=== PATIENT | male | born 1955 | race Caucasian/White ===

== ENCOUNTER 2017-06-18 11:15 | Emergency (ER) | payer MEDICAID, OTHER ==
[~2017-06-18] VITALS: Ht 162.6 cm; Wt 78.9 kg
--- OUTSIDE RECORDS SUMMARY | 2017-06-18 11:27 | XMS REPORT ---
Author Author Liam Fajardo [facility] Address [address] [place], [place] [id number] Care Team Providers Care Chucker Name Role Phone Liam Fajardo PCP Unavailable Liam Fajardo PreferredProvider Unavailable Allergies and Adverse Reactions Name Reaction Notes Valium Excedrin Extra Strength Plan of Treatment Planned Activity Comments Planned Date Planned Time Plan/Goal HEMATOCRIT 05/24/2016 12:00 AM HEMOGLOBIN 05/24/2016 12:00 AM IRON TOTAL 05/24/2016 12:00 AM VITAMIN B12 05/24/2016 12:00 AM Folate measurement 05/24/2016 12:00 AM CBC with Auto 01/02/2013 12:00 AM Lipid Profile 01/02/2013 12:00 AM Hemoglobin A1c 01/02/2013 12:00 AM Comprehensive metabolic panel 01/19/2013 12:00 AM Injection,Subcutaneous/Intramuscul 07/09/2013 12:00 AM Injection,Subcutaneous/Intramuscul 07/23/2013 12:00 AM Medications Active Name Start Date Estimated Completion Date SIG Comments aspirin 81 mg oral tablet take 1 tablet (81 mg) by oral route once daily Compete Oral Tablet take 1 tablet by oral route daily Cialis 20 mg oral tablet 11/09/2011 take 1 tablet (20 mg) by oral route once daily carvedilol 25 mg oral tablet 06/22/2013 TAKE ONE TABLET BY MOUTH TWICE DAILY WITH FOOD glyburide 5 mg oral tablet 08/24/2013 TAKE ONE TABLET BY MOUTH TWICE DAILY BEFORE MEALS carvedilol 25 mg oral tablet 11/13/2013 TAKE ONE TABLET BY MOUTH TWICE DAILY WITH FOOD metformin 1,000 mg oral tablet 11/13/2013 TAKE ONE TABLET BY MOUTH TWICE DAILY WITH MORNING AND EVENING MEALS Benicar HCT 40-25 mg oral tablet 11/13/2013 TAKE ONE TABLET BY MOUTH EVERY DAY sertraline 100 mg oral tablet 11/13/2013 TAKE ONE & ONE-HALF TABLETS BY MOUTH EVERY DAY Benicar HCT 40-25 mg oral tablet 12/28/2013 TAKE ONE TABLET BY MOUTH EVERY DAY carvedilol 25 mg oral tablet 12/28/2013 TAKE ONE TABLET BY MOUTH TWICE DAILY WITH FOOD sertraline 100 mg oral tablet 12/28/2013 TAKE ONE & ONE-HALF TABLETS BY MOUTH EVERY DAY metformin 1,000 mg oral tablet 12/28/2013 TAKE ONE TABLET BY MOUTH TWICE DAILY WITH MORNING AND EVENING MEALS furosemide 80 mg oral tablet 12/28/2013 TAKE ONE TABLET BY MOUTH EVERY DAY Klor-Con M10 10 mEq oral tablet,ER particles/crystals 04/06/2014 TAKE ONE TABLET BY MOUTH TWICE DAILY Benicar HCT 40-25 mg oral tablet 05/17/2014 TAKE ONE TABLET BY MOUTH EVERY DAY sertraline 100 mg oral tablet 05/17/2014 TAKE ONE & ONE-HALF TABLETS BY MOUTH ONCE DAILY carvedilol 25 mg oral tablet 05/17/2014 TAKE ONE TABLET BY MOUTH TWICE DAILY WITH FOOD furosemide 80 mg oral tablet 05/17/2014 TAKE ONE TABLET BY MOUTH EVERY DAY metformin 1,000 mg oral tablet 05/17/2014 TAKE ONE TABLET BY MOUTH TWICE DAILY WITH MORNING AND EVENING MEALS Stribild [id number] mg oral tablet take 1 tablet by oral route once daily with food glyburide 5 mg oral tablet 06/21/2014 TAKE ONE TABLET BY MOUTH TWICE DAILY BEFORE MEALS Klor-Con M10 10 mEq oral tablet,ER particles/crystals 07/23/2014 TAKE ONE TABLET BY MOUTH TWICE DAILY simvastatin 40 mg oral tablet 08/30/2014 TAKE ONE TABLET BY MOUTH ONCE DAILY IN THE EVENING Klor-Con M10 10 mEq oral tablet,ER particles/crystals 01/06/2015 TAKE ONE TABLET BY MOUTH TWICE DAILY pantoprazole 40 mg oral tablet,delayed release (DR/EC) 01/10/2015 TAKE ONE TABLET BY MOUTH ONCE DAILY Benicar HCT 40-25 mg oral tablet 05/30/2015 TAKE ONE TABLET BY MOUTH ONCE DAILY carvedilol 25 mg oral tablet 06/14/2015 TAKE ONE TABLET BY MOUTH TWICE DAILY WITH FOOD furosemide 80 mg oral tablet 06/14/2015 TAKE ONE TABLET BY MOUTH ONCE DAILY metformin 1,000 mg oral tablet 06/14/2015 TAKE ONE TABLET BY MOUTH TWICE DAILY WITH MORNING AND EVENING MEALS sertraline 100 mg oral tablet 06/14/2015 TAKE ONE & ONE-HALF TABLETS BY MOUTH ONCE DAILY pantoprazole 40 mg oral tablet,delayed release (DR/EC) 06/14/2015 TAKE ONE TABLET BY MOUTH ONCE DAILY naproxen 500 mg oral tablet 07/18/2015 TAKE ONE TABLET BY MOUTH TWICE DAILY NEEDED WITH FOOD metformin 1,000 mg oral tablet 09/06/2015 TAKE ONE TABLET BY MOUTH TWICE DAILY WITH MORNING AND EVENING MEALS sertraline 100 mg oral tablet 09/06/2015 TAKE ONE & ONE-HALF TABLETS BY MOUTH ONCE DAILY carvedilol 25 mg oral tablet 09/06/2015 TAKE ONE TABLET BY MOUTH TWICE DAILY WITH FOOD simvastatin 40 mg oral tablet 09/06/2015 TAKE ONE TABLET BY MOUTH ONCE DAILY IN THE EVENING Klor-Con M10 10 mEq oral tablet,ER particles/crystals 09/06/2015 TAKE ONE TABLET BY MOUTH TWICE DAILY furosemide 80 mg oral tablet 09/06/2015 TAKE ONE TABLET BY MOUTH ONCE DAILY Fiona Contour Test Strips to test Blood sugar bid. ICD.10 E11.9 Tradjenta 5 mg oral tablet take 1 tablet (5 mg) by oral route once daily pantoprazole 40 mg oral tablet,delayed release (DR/EC) 11/01/2015 TAKE ONE TABLET BY MOUTH ONCE DAILY Benicar HCT 40-25 mg oral tablet 11/29/2015 TAKE ONE TABLET BY MOUTH ONCE DAILY Novolog Flexpen 100 unit/mL subcutaneous insulin pen 12/09/2015 inject by subcutaneous route 10 units ac meals carvedilol 25 mg oral tablet 01/02/2016 TAKE ONE TABLET BY MOUTH TWICE DAILY WITH FOOD simvastatin 40 mg oral tablet 01/02/2016 TAKE ONE TABLET BY MOUTH ONCE DAILY IN THE EVENING Klor-Con M10 10 mEq oral tablet,ER particles/crystals 01/02/2016 TAKE ONE TABLET BY MOUTH TWICE DAILY metformin 1,000 mg oral tablet 01/02/2016 TAKE ONE TABLET BY MOUTH TWICE DAILY WITH MORNING AND EVENING MEALS furosemide 80 mg oral tablet 01/02/2016 TAKE ONE TABLET BY MOUTH ONCE DAILY sertraline 100 mg oral tablet 01/02/2016 TAKE ONE & ONE-HALF TABLETS BY MOUTH ONCE DAILY naproxen 500 mg oral tablet 01/30/2016 TAKE ONE TABLET BY MOUTH TWICE DAILY NEEDED WITH FOOD Novolog Flexpen 100 unit/mL subcutaneous insulin pen 01/30/2016 INJECT 10 UNITS SUBCUTANEOUSLY BEFORE MEALS naproxen 500 mg oral tablet 03/06/2016 TAKE ONE TABLET BY MOUTH TWICE DAILY NEEDED WITH FOOD pantoprazole 40 mg oral tablet,delayed release (DR/EC) 03/06/2016 TAKE ONE TABLET BY MOUTH ONCE DAILY ReliOn Pen Av[place] 32 gauge x " miscellaneous needle 05/10/2016 02/04/2017 use as directed for 30 days Novolog Flexpen 100 unit/mL subcutaneous insulin pen 05/23/2016 INJECT 20 UNITS SUBCUTANEOUSLY BEFORE MEALS Name Start Date Expiration Date SIG Comments metformin 1,000 mg oral tablet 06/28/2009 07/28/2009 FF TAKE ONE TABLET BY MOUTH TWICE DAILY - TAKE ONE TABLET BY MOUTH TWICE DAILY ZOLOFT 100MG TAB 100 each 12/28/2009 01/27/2010 FF TAKE ONE TABLET BY MOUTH EVERY DAY - TAKE ONE TABLET BY MOUTH EVERY DAY Vitamin B-12 1,000 mcg/mL injection solution 04/07/2010 11/03/2010 inject 0.05 milliliter (50 mcg) by intramuscular route once a month for 30 days Bactrim DS 800-160 mg oral tablet 06/06/2010 06/16/2010 take 1 tablet by oral route 2 times per day for 10 days C-PAP mask 07/05/2010 07/06/2010 wear with C PAP for LLOYD 780.53 Coreg 25 mg oral tablet 07/06/2010 08/05/2010 1BIDWF - TAKE ONE TABLET BY MOUTH TWICE DAILY WITH FOOD OneTouch Ultra Test miscellaneous strip 07/06/2010 08/05/2010 FF - TEST THREE TIMES A DAY DIRECTED Bactrim DS 800-160 mg oral tablet 07/28/2010 08/07/2010 take 1 tablet by oral route 2 times per day for 10 days bacitracin 500 unit/gram topical ointment 10/23/2010 09/18/2011 apply to affected area by external route daily for 30 days CYANOCOBALAM 1000MCGINJ 1000 milliliter 11/17/2010 12/17/2010 FF - INJECT 0.05 MG BY INTRAMUSCULAR ROUTE ONCE A MONTH Augmentin 875-125 mg oral tablet 03/06/2011 03/13/2011 take 1 tablet by oral route every 12 hours for 7 days prednisone 20 mg oral tablet 03/08/2011 03/24/2011 take 40mg by mouth daily x4 days, then 30mg daily x4 days, then 20mg daily x4 days, then 10mg x4 days. OneTouch UltraSoft Lancets miscellaneous misc 06/11/2011 07/11/2011 TEST THREE TIMES A DAY DIRECTED Zithromax Z-Inderjit 250 mg oral tablet 06/15/2011 06/20/2011 take 2 tablets (500 mg) by oral route once daily for 1 day then 1 tablet (250 mg) by oral route once daily for 4 days Replaced/Retired Drug 0.6 mg/0.1 mL (18 mg/3 mL) subcutaneous pen injector 11/25/2011 INJECT 1.8 MG SUBCUTANEOUSLY DAILY Caduet 5-40 mg oral tablet 12/04/2011 01/03/2012 TAKE ONE TABLET BY MOUTH AT BEDTIME phentermine 37.5 mg oral tablet 01/02/2012 01/02/2012 take 1 tablet (37.5 mg) by oral route once daily before breakfast Benicar HCT 40-25 mg oral tablet 10/29/2012 10/24/2013 TAKE ONE TABLET BY MOUTH EVERY DAY carvedilol 25 mg oral tablet 10/29/2012 05/27/2013 TAKE ONE TABLET BY MOUTH TWICE DAILY WITH FOOD sertraline 100 mg oral tablet 10/29/2012 10/24/2013 take 1.5 by oral route daily for 30 days metformin 1,000 mg oral tablet 10/29/2012 10/24/2013 take 1 tablet (1,000 mg) by oral route 2 times per day with morning and evening meals for 30 days furosemide 80 mg oral tablet 11/18/2012 11/13/2013 FF TAKE ONE TABLET BY MOUTH EVERY DAY - TAKE ONE TABLET BY MOUTH EVERY DAY Klor-Con M10 10 mEq oral tablet,ER particles/crystals 01/12/2013 01/19/2013 TAKE ONE TABLET BY MOUTH TWICE DAILY simvastatin 40 mg oral tablet 05/25/2013 11/21/2013 take 1 tablet (40 mg) by oral route once daily in the evening for 30 days glyburide 5 mg oral tablet 01/12/2013 01/19/2013 TAKE ONE TABLET BY MOUTH TWICE DAILY BEFORE MEALS Zithromax Z-Inderjit 250 mg oral tablet 01/01/2014 01/06/2014 take 2 tablets (500 mg ) by oral route once daily for 1 day then 1 tablet (250 mg) by oral route once daily for 4 days Jardiance 10 mg oral tablet 05/21/2014 06/04/2014 take 1 tablet (10 mg) by oral route once daily in the morning for 14 days glyburide 5 mg oral tablet 07/18/2015 TAKE ONE TABLET BY MOUTH TWICE DAILY BEFORE MEAL(S) pen needle caps 10/31/2015 02/28/2016 use daily. ICD-10 E11.9 Discontinued Name Start Date Discontinued Date SIG Comments Actos 45 mg oral tablet 09/12/2009 take 1 tablet (45 mg) by oral route once daily glyburide 5 mg oral tablet 09/12/2009 take 2 tablets (10 mg) by oral route once daily before breakfast Lipitor 40 mg oral tablet 04/07/2010 take 1 tablet (40 mg) by oral route once daily Kapidex 60 mg oral capsule,biphase delayed releas 07/15/2009 08/16/2009 take 1 capsule (60 mg) by oral route once daily Nuvigil 150 mg oral tablet 10/24/2009 01/03/2010 take 1 tablet by oral route daily Actos 45 mg oral tablet 04/05/2010 04/07/2010 1QD - TAKE ONE TABLET BY MOUTH EVERY DAY glyburide 5 mg oral tablet 04/07/2010 07/28/2010 take 1 tablet by oral route daily for 30 days Imodium A-D 2 mg oral tablet 10/29/2012 take 2 tablets (4 mg) by oral route after 1st loose stool and 1 tablet (2 mg) after each subsequent bowel movement; do not exceed 16 mg in 24hrs Bactroban 2 % topical ointment 04/07/2010 07/28/2010 apply a small amount to the affected area by topical route 3 times per day Zithromax Z-Inderjit 250 mg oral tablet 06/06/2010 06/06/2010 Take 2 tablets the first day (500 mg) followed by 1 tablet (250 mg) days 2-5. for 5 days Cheratussin AC 10-100 mg/5 mL oral liquid 06/06/2010 07/28/2010 take 10 milliliters by oral route every 4 hours as needed Klor-Con 8 8 mEq oral tablet extended release 06/06/2010 07/28/2010 FF TAKE ONE TABLET BY MOUTH TWICE DAILY - TAKE ONE TABLET BY MOUTH TWICE DAILY Lavoclen-4 4 % topical cleanser 10/18/2010 11/10/2013 wash the affected area(s ) by topical route once daily during the first week, and twice daily thereafter as tolerated glyburide 5 mg oral tablet 01/12/2013 10/29/2012 TAKE ONE TABLET BY MOUTH TWICE DAILY BEFORE MEALS deleted glyburide 5 mg oral tablet 01/12/2013 10/29/2012 TAKE ONE TABLET BY MOUTH TWICE DAILY BEFORE MEALS deleted promethazine-codeine 6.25-10 mg/5 mL oral syrup 07/17/2013 01/01/2014 take 5 milliliters by oral route every 6 hours as needed, not to exceed 30 mL in 24 hours Zoloft 100 mg oral tablet 06/02/2014 take 1.5 tablets (150 mg) by oral route once daily Claritin-D 12 Hour 5-120 mg oral tablet extended release 12 hr 01/01/2014 take 1 tablet by oral route every 12 hours phentermine 37.5 mg oral tablet 01/01/2014 06/02/2014 take 1 tablet (37.5 mg ) by oral route once daily before breakfast Tradjenta 5 mg oral tablet 05/28/2014 06/02/2014 take 1 tablet (5 mg) by oral route once daily [place] 10-325 mg oral tablet 11/02/2014 05/23/2016 take 1 tablet by oral route every 6 hours as needed for pain ProAir HFA 90 mcg/actuation inhalation HFA aerosol inhaler 05/27/20152015 inhale 1 - 2 puffs (90 - 180 mcg) by inhalation route every 6 hours as needed Pharmacist Choice lancets miscellaneous strip 05/23/2016 use as directed Toujeo SoloStar 300 unit/mL (1.5 mL) subcutaneous insulin pen 10/28/201505/23 30 units daily Apidra SoloStar 100 unit/mL subcutaneous insulin pen 12/08/2015 12/09/2015 inject 10 units with meals. ICD-10 E11.9 amoxicillin 500 mg oral capsule 12/08/2015 05/23/2016 take 4 capsules 1 hour prior to procedure Humalog KwikPen 100 unit/mL subcutaneous insulin pen 05/23/2016 05/23/2016 20 units Problem List Description Status Onset Congestive Heart Failure Active Diabetes Mellitus, Type II Active Hyperlipidemia Active Hypertension, Benign Essential Active Anxiety Active Osteoarthritis Active depression Active Knee Pain Active Polyphagia Active 04/06/2011 Diabetes Mellitus, Type II, Uncontrolled Active 05/28/2014 Vital Signs Date Time BP-Sys(mm[Hg] BP-Olga(mm[Hg]) HR(bpm) RR(rpm) Temp WT HT HC BMI BSA BMI Percentile O2 Sat(%) 05/23/2016 10:13:00 AM 142 mmHg 76 mmHg 74 bpm 16 rpm 97.7 F 209 lbs 64 in 35.87 kg/m2 2.07 m2 97 % 11/22/2015 3:08:00 PM 148 mmHg 74 mmHg 78 bpm 18 rpm 97.7 F 221 lbs 61 in 41.7572 kg/m 2.0771 m 96 % 10/28/2015 10:48:00 AM 118 mmHg 72 mmHg 83 bpm 18 rpm 97.7 F 221 lbs 61 in 41.76 kg/m2 2.08 m2 96 % 10/18/2015 9:17:00 AM 150 mmHg 80 mmHg 84 bpm 16 rpm 225 lbs 61 in 42.5129 kg/m 2.0958 m 95 % 05/27/2015 1:49:00 PM 140 mmHg 85 mmHg 89 bpm 20 rpm 98.4 F 219 lbs 61 in 41.38 kg/m2 2.07 m2 96 % 12/29/2014 4:13:00 PM 130 mmHg 70 mmHg 88 bpm 18 rpm 97.5 F 225 lbs 61 in 42.5129 kg/m 2.0958 m 97 % 11/02/2014 2:28:00 PM 168 mmHg 82 mmHg 88 bpm 18 rpm 98 F 229 lbs 61 in 43.27 kg/m2 2.11 m2 06/02/2014 10:31:00 AM 110 mmHg 56 mmHg 84 bpm 20 rpm 97.3 F 215 lbs 61 in 40.6235 kg/m 2.0487 m 96 % 05/25/2014 11:33:00 AM 118 mmHg 70 mmHg 75 bpm 18 rpm 97.4 F 215 lbs 61 in 40.62 kg/m2 2.05 m2 97 % 05/20/2014 9:40:00 AM 142 mmHg 68 mmHg 80 bpm 18 rpm 98.6 F 224 lbs 61 in 42.324 kg/m 2.0912 m 01/01/2014 10:24:00 AM 126 mmHg 74 mmHg 78 bpm 18 rpm 97 F 228.25 lbs 61 in 43.13 kg/m2 2.11 m2 96 % 11/10/2013 10:06:00 AM 122 mmHg 68 mmHg 11/10/2013 9:32:00 AM 140 mmHg 82 mmHg 78 bpm 18 rpm 97.7 F 229 lbs 61 in 43.27 kg/m2 2.11 m2 07/17/2013 10:22:00 AM 150 mmHg 80 mmHg 94 bpm 18 rpm 98.4 F 211 lbs 93 % 07/14/2013 10:08:00 AM 140 mmHg 80 mmHg 89 bpm 18 rpm 99.4 F 221 lbs 61 in 41.76 kg/m2 2.08 m2 96 % 06/25/2013 8:31:00 AM 158 mmHg 80 mmHg 82 bpm 18 rpm 98.2 F 217 lbs 66 in 35.0244 kg/m 2.1409 m 05/12/2013 2:38:00 PM 138 mmHg 76 mmHg 84 bpm 18 rpm 98.4 F 218 lbs 66 in 35.19 kg/m2 2.15 m2 10/29/2012 8:30:00 AM 138 mmHg 88 mmHg 80 bpm 18 rpm 97.8 F 218 lbs 66 in 35.1858 kg/m 2.1459 m 12/21/2011 8:41:00 AM 130 mmHg 72 mmHg 230 lbs 66 in 37.12 kg/ m2 2.20 m2 11/09/2011 8:19:00 AM 138 mmHg 80 mmHg 80 bpm 20 rpm 97.6 F 232 lbs 66 in 37.4454 kg/m 2.2137 m 08/03/2011 11:42:00 AM 124 mmHg 72 mmHg 226 lbs 06/15/2011 9:09:00 AM 124 mmHg 68 mmHg 70 bpm 18 rpm 96.8 F 218.375 lbs 66 in 35.25 kg/m2 2.15 m2 05/09/2011 10:26:00 AM 110 mmHg 62 mmHg 213 lbs 03/15/2011 8:49:00 AM 110 mmHg 70 mmHg 209 lbs 03/08/2011 9:00:00 AM 102 mmHg 64 mmHg 88 bpm 97.3 F 213 lbs 03/06/2011 4:20:00 PM 116 mmHg 62 mmHg 102 bpm 99.2 F 212 lbs 02/05/2011 3:24:00 PM 102 mmHg 64 mmHg 88 bpm 20 rpm 98.3 F 214 lbs 66 in 34.54 kg/m2 2.13 m2 01/05/2011 9:57:00 AM 108 mmHg 64 mmHg 219 lbs 12/11/2010 10:32:00 AM 138 mmHg 76 mmHg 88 bpm 20 rpm 98.3 F 227 lbs 11/13/2010 3:32:00 PM 118 mmHg 70 mmHg 78 bpm 20 rpm 97.8 F 231 lbs 10/26/2010 3:32:00 PM 130 mmHg 80 mmHg 78 bpm 18 rpm 97.8 F 234.375 lbs 65 in 39.00 kg/m2 2.21 m2 97 % 10/18/2010 3:31:00 PM 110 mmHg 80 mmHg 87 bpm 18 rpm 98.1 F 230.5 lbs 65 in 38.3568 kg/m 2.1897 m 98 % 07/28/2010 3:59:00 PM 150 mmHg 90 mmHg 87 bpm 18 rpm 97.8 F 249.125 lbs 65 in 41.46 kg/m2 2.28 m2 96 % 06/06/2010 3:56:00 PM 150 mmHg 80 mmHg 90 bpm 20 rpm 98.2 F 240.375 lbs 65 in 40.0001 kg/m 2.2361 m 96 % 04/21/2010 2:46:00 PM 140 mmHg 90 mmHg 91 bpm 16 rpm 97.6 F 250.25 lbs 65 in 41.64 kg/m2 2.28 m2 94 % 04/07/2010 9:24:00 AM 160 mmHg 80 mmHg 72 bpm 18 rpm 97.7 F 258.125 lbs 65 in 42.9538 kg/m 2.3172 m 96 % 01/03/2010 4:14:00 PM 128 mmHg 80 mmHg 90 bpm 22 rpm 98.2 F 244 lbs 10/13/2009 3:39:00 PM 128 mmHg 68 mmHg 76 bpm 20 rpm 249 lbs 09/12/2009 3:56:00 PM 158 mmHg 90 mmHg 09/12/2009 3:37:00 PM 180 mmHg 92 mmHg 84 bpm 16 rpm 99.2 F 256 lbs 08/15/2009 3:54:00 PM 150 mmHg 60 mmHg 88 bpm 20 rpm 97.5 F 263 lbs 07/14/2009 4:17:00 PM 152 mmHg 80 mmHg 88 bpm 97.5 F 267 lbs 06/13/2009 4:35:00 PM 168 mmHg 88 mmHg 88 bpm 16 rpm 97.8 F 266 lbs Social History Name Description Comments denies alcohol use denies smoking Denies illicit substance abuse Active but no formal exercise Walking Tobacco Never smoker History of Procedures Date Ordered Description Order Status 03/06/2011 12:00 AM Decadron 8 mg [facility]#[id number] (Tiffany) Reviewed 03/06/2011 12:00 AM Depo-Medrol 40 mg [facility]#[id number] Reviewed 03/08/2011 12:00 AM ANTINUCLEAR ANTIBODIES Reviewed 05/07/2011 12:00 AM ROUTINE VENIPUNCTURE Reviewed 05/07/2011 12:00 AM COMPLETE CBC W/AUTO DIFF WBC Reviewed 05/07/2011 12:00 AM COMPREHEN METABOLIC PANEL Reviewed 05/07/2011 12:00 AM GLYCOSYLATED HEMOGLOBIN TEST Reviewed 08/16/2011 12:00 AM COMPLETE CBC W/AUTO DIFF WBC Returned 08/16/2011 12:00 AM COMPREHEN METABOLIC PANEL Returned 08/16/2011 12:00 AM LIPID PANEL Returned 05/23/2016 12:00 AM COMPLETE CBC W/AUTO DIFF WBC Returned 05/23/2016 12:00 AM COMPREHEN METABOLIC PANEL Returned 05/23/2016 12:00 AM ASSAY THYROID STIM HORMONE Returned 05/23/2016 12:00 AM Prostate Cancer Screening Returned 05/23/2016 12:00 AM CHEST X-RAY 2VW FRONTAL&LATL Returned 08/16/2011 12:00 AM GLYCOSYLATED HEMOGLOBIN TEST Returned 06/09/2009 12:00 AM IMMUNIZATION ADMIN Reviewed 06/13/2009 12:00 AM COMPLETE CBC W/AUTO DIFF WBC Reviewed 06/13/2009 12:00 AM COMPREHEN METABOLIC PANEL Reviewed 06/13/2009 12:00 AM LIPID PANEL Reviewed 06/13/2009 12:00 AM GLYCOSYLATED HEMOGLOBIN TEST Reviewed 06/13/2009 12:00 AM ASSAY THYROID STIM HORMONE Reviewed 06/13/2009 12:00 AM VITAMIN B-12 Reviewed 10/13/2009 12:00 AM METABOLIC PANEL TOTAL CA Reviewed 10/13/2009 12:00 AM COMPLETE CBC W/AUTO DIFF WBC Reviewed 10/13/2009 12:00 AM GLYCOSYLATED HEMOGLOBIN TEST Reviewed 01/02/2013 12:00 AM COMPREHEN METABOLIC PANEL Returned 01/19/2013 12:00 AM COMPLETE CBC W/AUTO DIFF WBC Reviewed 01/19/2013 12:00 AM LIPID PANEL Reviewed 01/19/2013 12:00 AM GLYCOSYLATED HEMOGLOBIN TEST Reviewed 05/12/2013 12:00 AM Depo-Medrol, Per 80 Mg [facility]#[id number] Reviewed 05/12/2013 12:00 AM Decadron, Per 1 Mg [facility]# [id number] Reviewed 07/14/2013 12:00 AM THER/PROPH/DIAG INJ SC/IM Reviewed 07/14/2013 12:00 AM Rocephin 1 gram [facility]#[id number] Reviewed 07/17/2013 12:00 AM THER/PROPH/DIAG INJ SC/IM Reviewed 07/17/2013 12:00 AM Solu-Medrol, Up to 125 Mg [facility]# [id number] Reviewed 10/21/2013 12:00 AM COMPLETE CBC W/AUTO DIFF WBC Reviewed 10/21/2013 12:00 AM COMPREHEN METABOLIC PANEL Reviewed 10/21/2013 12:00 AM LIPID PANEL Reviewed 10/21/2013 12:00 AM GLYCOSYLATED HEMOGLOBIN TEST Reviewed 04/21/2010 12:00 AM COMPLETE CBC W/AUTO DIFF WBC Reviewed 04/21/2010 12:00 AM COMPREHEN METABOLIC PANEL Reviewed 04/21/2010 12:00 AM URINALYSIS AUTO W/SCOPE Reviewed 04/21/2010 12:00 AM ASSAY OF NATRIURETIC PEPTIDE Reviewed 04/07/2010 12:[address] ABDOMEN W/O DYE Reviewed 04/07/2010 12:[address] PELVIS W/O DYE Reviewed 04/07/2010 12:00 AM THER/PROPH/DIAG INJ SC/IM Reviewed 04/07/2010 12:00 AM Lasix 40 Mg Im [facility]# [id number] (Nael) Reviewed 04/07/2010 12:00 AM LIPID PANEL Reviewed 04/07/2010 12:00 AM GLYCOSYLATED HEMOGLOBIN TEST Reviewed 04/07/2010 12:00 AM CULTURE OTHR SPECIMN AEROBIC Reviewed 04/21/2010 12:00 AM COMPLETE CBC W/AUTO DIFF WBC Reviewed 04/21/2010 12:00 AM COMPREHEN METABOLIC PANEL Reviewed 04/21/2010 12:00 AM LIPID PANEL Reviewed 04/21/2010 12:00 AM GLYCOSYLATED HEMOGLOBIN TEST Reviewed 04/21/2010 12:00 AM FLU VACCINE 3 YRS & > IM Reviewed 04/21/2010 12:00 AM IMMUNIZATION ADMIN Reviewed 06/06/2010 12:00 AM THER/PROPH/DIAG INJ SC/IM Reviewed 06/06/2010 12:00 AM Kenalog 40 Mg Im-[facility]#[id number] (Nael) Reviewed 10/26/2010 12:00 AM COMPREHEN METABOLIC PANEL Reviewed 10/26/2010 12:00 AM LIPID PANEL Reviewed 10/26/2010 12:00 AM GLYCOSYLATED HEMOGLOBIN TEST Reviewed 10/26/2010 12:00 AM Prostate Cancer Screening PSA Reviewed 05/11/2014 12:00 AM COMPLETE CBC W/AUTO DIFF WBC Reviewed 05/11/2014 12:00 AM COMPREHEN METABOLIC PANEL Reviewed 05/11/2014 12:00 AM LIPID PANEL Reviewed 05/11/2014 12:00 AM GLYCOSYLATED HEMOGLOBIN TEST Reviewed 05/11/2014 12:00 AM T CELL ABSOLUTE COUNT/RATIO Reviewed 05/11/2014 12:00 AM HIV-1 QUANT&REVRSE TRNSCRPJ Reviewed 05/20/2014 12:00 AM COMPLETE CBC W/AUTO DIFF WBC Reviewed 05/20/2014 12:00 AM COMPREHEN METABOLIC PANEL Reviewed 05/20/2014 12:00 AM VITAMIN B-12 Reviewed 05/20/2014 12:00 AM IRON BINDING TEST Reviewed 10/18/2010 12:00 AM CULTURE OTHR SPECIMN AEROBIC Reviewed 01/25/2011 12:00 AM COMPREHEN METABOLIC PANEL Reviewed 01/25/2011 12:00 AM LIPID PANEL Reviewed 01/25/2011 12:00 AM GLYCOSYLATED HEMOGLOBIN TEST Reviewed 12/11/2010 12:00 AM COMPLETE CBC W/AUTO DIFF WBC Reviewed 12/11/2010 12:00 AM COMPREHEN METABOLIC PANEL Reviewed 12/11/2010 12:00 AM LIPID PANEL Reviewed 12/11/2010 12:00 AM GLYCOSYLATED HEMOGLOBIN TEST Reviewed 12/29/2014 12:00 AM THER/PROPH/DIAG INJ SC/IM Reviewed 12/29/2014 12:00 AM Rocephin 1 gram [facility]#[id number] Reviewed Results Summary Data and Description Results 04/12/2008 12:00 AM Colonoscopy-Women and Men over 50 Normal 10/13/2009 12:00 AM Dialated Eye Exam- Diabetic Referred Foot Exam-Diabetic Done Dental Inspection Reffered 10/13/2009 4:29 PM GLYCOHEMOGLOBIN A1C 6.90 %GLUCOSE 71.0 mg/dLSODIUM 142.0 mmol /LPOTASSIUM 3.30 mmol/LCHLORIDE 101.0 mmol/LCO2 29.0 mmol/LBUN 32.0 mg/ dLCREATININE 1.50 mg/dLCALCIUM 9.60 mg/dLAGE 54 GFR NonAA 49 GFR AA 59 eGFR 49 eGFR AA* 59 WBC 5.1 RBC 4.45 HGB 12.90 g/dLHCT 38.0 %MCV 85.0 fLMCH 29.0 pgMCHC 33.90 g/dLRDW SD 49 RDW CV 15.70 %MPV 11.10 fLPLT 164 NRBC# 0.00 NRBC% 0.0 % NEUT 53.20 %%LYMP 32.0 %%MONO 11.50 %%EOS 2.90 %%BASO 0.40 %#NEUT 2.72 #LYMP 1.64 #MONO 0.59 #EOS 0.15 #BASO 0.02 MANUAL DIFF PENDING 11/11/2009 12:00 AM Microalbumin/creat Ur-mRto 81 Albumin Ur-mCnc 1.30 mg/ dLCreat Ur-mCnc 16.0 mg/mL 04/07/2010 9:35 AM Digital Rectal Exam Done 04/07/2010 9:38 AM HIV1+2 Ab Ser Ql no risk Depression Has Depression 04/07/2010 9:38 AM Aspirin reccommended Reccommended 04/07/2010 3:41 PM SMALL 04/21/2010 12:00 AM Cholest Cry Stone Ql IR 112.0 %LDLc SerPl-mCnc 67.0 mg/ dLGlucose SerPl-mCnc 99.0 mg/dL 04/21/2010 8:32 AM BNP 21.0 pg/mLTRIGLYCERIDES 57.0 mg/dLCHOLESTEROL 112.0 mg/ dLHDL 34.0 mg/dLTOT CHOL/HDL 3.3 LDL (CALC) 67.0 mg/dLGLYCOHEMOGLOBIN A1C 6.10 % GLUCOSE 99.0 mg/dLSODIUM 142.0 mmol/LPOTASSIUM 3.60 mmol/LCHLORIDE 105.0 mmol/ LCO2 27.0 mmol/LBUN 23.0 mg/dLCREATININE 1.10 mg/dLSGOT/AST 23.0 IU/LSGPT/ALT 30.0 IU/LALK PHOS 65.0 IU/LTOTAL PROTEIN 7.30 g/dLALBUMIN 4.40 g/dLTOTAL BILI 0.50 mg/dLCALCIUM 9.50 mg/dLAGE 55 GFR NonAA 70 GFR AA 85 eGFR >60 mL/min/1.73 m2eGFR AA* >60 WBC 4.7 RBC 4.72 HGB 13.90 g/dLHCT 41.20 %MCV 87.0 fLMCH 29.40 pgMCHC 33.70 g/dLRDW SD 47 RDW CV 14.80 %MPV 11.50 fLPLT 155 NRBC# 0.00 NRBC% 0.0 %NEUT 50.20 %%LYMP 31.60 %%MONO 8.70 %%EOS 9.10 %%BASO 0.40 %#NEUT 2.37 # LYMP 1.49 #MONO 0.41 #EOS 0.43 #BASO 0.02 MANUAL DIFF NOT IND 04/21/2010 2:58 PM Dialated Eye Exam- Diabetic Referred Foot Exam-Diabetic Done Dental Inspection Reffered 04/21/2010 2:59 PM Tax Preparer Consult Done 07/26/2010 12:00 AM Cholest Cry Stone Ql IR 111.0 %LDLc SerPl-mCnc 62.0 mg/ dLGlucose SerPl-mCnc 132.0 mg/dL 07/26/2010 3:34 AM GLUCOSE 132.0 mg/dLSODIUM 141.0 mmol/LPOTASSIUM 3.30 mmol/ LCHLORIDE 103.0 mmol/LCO2 25.0 mmol/LBUN 31.0 mg/dLCREATININE 1.0 mg/dLSGOT/AST 28.0 IU/LSGPT/ALT 43.0 IU/LALK PHOS 73.0 IU/LTOTAL PROTEIN 7.80 g/dLALBUMIN 4.30 g/dLTOTAL BILI 0.50 mg/dLCALCIUM 9.30 mg/dLAGE 55 GFR NonAA 78 GFR AA 95 eGFR >60 mL/min/1.73 m2eGFR AA* >60 07/26/2010 3:35 AM TRIGLYCERIDES 93.0 mg/dLCHOLESTEROL 111.0 mg/dLHDL 30.0 mg/ dLTOT CHOL/HDL 3.7 LDL (CALC) 62.0 mg/dLGLYCOHEMOGLOBIN A1C 6.40 %WBC 6.4 RDW SD 47 RDW CV 14.70 %MPV 11.0 fLPLT 192 NRBC# 0.00 NRBC% 0.0 %NEUT 53.80 %%LYMP 29.90 %%MONO 9.80 %%EOS 6.20 %%BASO 0.30 %#NEUT 3.46 #LYMP 1.92 #MONO 0.63 #EOS 0.40 #BASO 0.02 MANUAL DIFF SEE BELOW SEGS 48 BANDS 8 LYMPHS 36 MONOS 2 EOS 6.0 %RBC 4.64 HGB 14.20 g/dLHCT 41.70 %MCV 90.0 fLMCH 30.60 pgMCHC 34.10 g/dL 07/28/2010 4:10 PM Dialated Eye Exam- Diabetic Referred Foot Exam-Diabetic Done Dental Inspection Reffered 10/24/2010 12:00 AM Cholest Cry Stone Ql IR 108.0 %LDLc SerPl-mCnc 67.0 mg/ dLGlucose SerPl-mCnc 185.0 mg/dLHgb A1c Fr Bld 8.50 % 10/24/2010 11:16 AM TRIGLYCERIDES 61.0 mg/dLCHOLESTEROL 108.0 mg/dLHDL 29.0 mg/ dLTOT CHOL/HDL 3.7 LDL (CALC) 67.0 mg/dLPSA TOTAL 0.90 ng/mLGLUCOSE 185.0 mg/ dLSODIUM 143.0 mmol/LPOTASSIUM 3.60 mmol/LCHLORIDE 108.0 mmol/LCO2 23.0 mmol/ LBUN 18.0 mg/dLCREATININE 0.90 mg/dLSGOT/AST 23.0 IU/LSGPT/ALT 37.0 IU/LALK PHOS 65.0 IU/LTOTAL PROTEIN 7.40 g/dLALBUMIN 4.20 g/dLTOTAL BILI 0.60 mg/ dLCALCIUM 9.20 mg/dLAGE 55 GFR NonAA 88 GFR AA 107 eGFR >60 mL/min/1.73 m2eGFR AA* >60 10/26/2010 3:38 PM Dialated Eye Exam- Diabetic Referred Foot Exam-Diabetic Done Dental Inspection Reffered 10/26/2010 3:39 PM Abdominal Aortic Aneurysm Refused 02/02/2011 12:06 PM WBC 5.1 RBC 4.60 HGB 13.20 g/dLHCT 39.20 %MCV 85.0 fLH 28.70 pgMCHC 33.70 g/dLRDW SD 44 RDW CV 14.20 %MPV 11.30 fLPLT 174 NRBC# 0.00 NRBC% 0.0 %NEUT 49.30 %%LYMP 27.30 %%MONO 12.10 %%EOS 10.90 %%BASO 0.40 %#NEUT 2.50 #LYMP 1.38 #MONO 0.61 #EOS 0.55 #BASO 0.02 MANUAL DIFF NOT IND TRIGLYCERIDES 86.0 mg/dLCHOLESTEROL 116.0 mg/dLHDL 26.0 mg/dLTOT CHOL/HDL 4.5 LDL (CALC) 73.0 mg/dLGLUCOSE 115.0 mg/dLSODIUM 142.0 mmol/LPOTASSIUM 3.50 mmol/ LCHLORIDE 107.0 mmol/LCO2 23.0 mmol/LBUN 21.0 mg/dLCREATININE 1.20 mg/dLSGOT/ AST 18.0 IU/LSGPT/ALT 22.0 IU/LALK PHOS 64.0 IU/LTOTAL PROTEIN 7.20 g/dLALBUMIN 4.10 g/dLTOTAL BILI 0.50 mg/dLCALCIUM 9.10 mg/dLAGE 56 GFR NonAA 63 GFR AA 76 eGFR >60 mL/min/1.73 m2eGFR AA* >60 GLYCOHEMOGLOBIN A1C 5.90 % 05/09/2011 10:10 AM WBC 7.0 RBC 4.98 HGB 14.30 g/dLHCT 42.60 %MCV 86.0 fLMCH 28.70 pgMCHC 33.60 g/dLRDW SD 48 RDW CV 15.40 %MPV 10.70 fLPLT 162 NRBC# 0.00 NRBC% 0.0 %NEUT 56.0 %%LYMP 25.90 %%MONO 10.40 %%EOS 7.40 %%BASO 0.30 %#NEUT 3.92 #LYMP 1.81 #MONO 0.73 #EOS 0.52 #BASO 0.02 MANUAL DIFF NOT IND GLYCOHEMOGLOBIN A1C 5.50 %GLUCOSE 124.0 mg/dLSODIUM 140.0 mmol/LPOTASSIUM 3.60 mmol/LCHLORIDE 106.0 mmol/LCO2 23.0 mmol/LBUN 23.0 mg/dLCREATININE 0.90 mg/ dLSGOT/AST 23.0 IU/LSGPT/ALT 41.0 IU/LALK PHOS 65.0 IU/LTOTAL PROTEIN 7.20 g/ dLALBUMIN 4.10 g/dLTOTAL BILI 0.70 mg/dLCALCIUM 9.10 mg/dLAGE 56 GFR NonAA 88 GFR AA 107 eGFR >60 mL/min/1.73 m2eGFR AA* >60 11/02/2011 12:02 PM WBC 5.8 RBC 4.93 HGB 14.40 g/dLHCT 42.40 %MCV 86.0 fLMCH 29.20 pgMCHC 34.0 g/dLRDW SD 47 RDW CV 15.0 %MPV 11.0 fLPLT 166 NRBC# 0.00 NRBC % 0.0 %NEUT 57.60 %%LYMP 28.70 %%MONO 7.70 %%EOS 5.30 %%BASO 0.70 %#NEUT 3.35 # LYMP 1.67 #MONO 0.45 #EOS 0.31 #BASO 0.04 MANUAL DIFF NOT IND GLUCOSE 183.0 mg/ dLSODIUM 139.0 mmol/LPOTASSIUM 3.60 mmol/LCHLORIDE 103.0 mmol/LCO2 24.0 mmol/ LBUN 25.0 mg/dLCREATININE 1.10 mg/dLSGOT/AST 20.0 IU/LSGPT/ALT 37.0 IU/LALK PHOS 65.0 IU/LTOTAL PROTEIN 7.20 g/dLALBUMIN 4.30 g/dLTOTAL BILI 0.60 mg/ dLCALCIUM 9.30 mg/dLAGE 56 GFR NonAA 69 GFR AA 84 eGFR 60 eGFR AA* 60 TRIGLYCERIDES 87.0 mg/dLCHOLESTEROL 137.0 mg/dLHDL 35.0 mg/dLTOT CHOL/HDL 3.9 LDL (CALC) 85.0 mg/dLGLYCOHEMOGLOBIN A1C 7.0 % 01/21/2013 11:06 AM WBC 4.0 RBC 4.45 HGB 13.20 g/dLHCT 38.10 %MCV 86.0 fLMCH 29.70 pgMCHC 34.60 g/dLRDW SD 47 RDW CV 15.0 %MPV 10.40 fLPLT 136 NRBC# 0.00 NRBC% 0.0 %NEUT 41.40 %%LYMP 42.80 %%MONO 10.50 %%EOS 5.0 %%BASO 0.30 %#NEUT 1.66 #LYMP 1.71 #MONO 0.42 #EOS 0.20 #BASO 0.01 MANUAL DIFF NOT IND HGB A1C 6.40 %Est Avg Glucose 137.0 mg/dLGLUCOSE 145.0 mg/dLSODIUM 143.0 mmol/ LPOTASSIUM 3.60 mmol/LCHLORIDE 107.0 mmol/LCO2 25.0 mmol/LBUN 18.0 mg/ dLCREATININE 1.0 mg/dLSGOT/AST 24.0 IU/LSGPT/ALT 32.0 IU/LALK PHOS 65.0 IU/ LTOTAL PROTEIN 7.20 g/dLALBUMIN 3.80 g/dLTOTAL BILI 0.70 mg/dLCALCIUM 8.90 mg/ dLAGE 58 GFR NonAA 77 GFR AA 93 eGFR 60 eGFR AA* 60 TRIGLYCERIDES 153.0 mg/ dLCHOLESTEROL 99.0 mg/dLHDL 26.0 mg/dLTOT CHOL/HDL 3.8 LDL (CALC) 42.0 mg/dL 10/27/2013 8:15 AM GLUCOSE 126.0 mg/dLSODIUM 142.0 mmol/LPOTASSIUM 3.40 mmol/ LCHLORIDE 102.0 mmol/LCO2 27.0 mmol/LBUN 26.0 mg/dLCREATININE 1.10 mg/dLSGOT/ AST 17.0 IU/LSGPT/ALT 23.0 IU/LALK PHOS 55.0 IU/LTOTAL PROTEIN 7.30 g/dLALBUMIN 4.20 g/dLTOTAL BILI 0.40 mg/dLCALCIUM 9.10 mg/dLAGE 58 GFR NonAA 69 GFR AA 84 eGFR 60 eGFR AA* 60 TRIGLYCERIDES 187.0 mg/dLCHOLESTEROL 119.0 mg/dLHDL 29.0 mg/ dLTOT CHOL/HDL 4.1 LDL (CALC) 53.0 mg/dLWBC 5.8 RBC 4.86 HGB 14.10 g/dLHCT 41.70 %MCV 86.0 fLMCH 29.0 pgMCHC 33.80 g/dLRDW SD 47 RDW CV 15.0 %MPV 10.60 fLPLT 152 NRBC# 0.00 NRBC% 0.0 %NEUT 48.20 %%LYMP 36.20 %%MONO 8.30 %%EOS 7.0 %% BASO 0.30 %#NEUT 2.77 #LYMP 2.08 #MONO 0.48 #EOS 0.40 #BASO 0.02 MANUAL DIFF NOT IND HGB A1C 6.10 %Est Avg Glucose 128.4 mg/dL 10/27/2013 9:00 AM Absolute CD 4 [place] 455.0 /uL% CD 4 Pos. Lymph. 19.80 % Abs. CD 8 Suppressor 1242.0 /uL% CD 8 Pos. Lymph. 54.0 %CD4/CD8 Ratio 0.37 WBC 6.2 RBC 4.78 Hemoglobin 13.7 Hematocrit 42.20 %MCV 88 MCH 28.7 MCHC 32.5 RDW 15.6 Platelets 189 Neutrophils 46 Lymphs 37 Monocytes 9 Eos 7.0 %Basos 1 Immature Cells CHILD THERAPIST Neutrophils (Absolute) 2.9 Lymphs (Absolute) 2.3 Monocytes( Absolute) 0.6 Eos (Absolute) 0.5 Baso (Absolute) 0.0 Immature Granulocytes 0 Immature Grans (Abs) 0.0 NRBC CHILD THERAPIST Hematology Comments: CHILD THERAPIST HIV-1 RNA by PCR <20 log10 HIV-1 RNA UPTCAL 05/18/2014 7:15 AM WBC 6.4 RBC 4.08 HGB 10.80 g/dLHCT 34.10 %MCV 84.0 fLMCH 26.50 pgMCHC 31.70 g/dLRDW SD 48 RDW CV 15.60 %MPV 10.60 fLPLT 217 NRBC# 0.00 NRBC% 0.0 %NEUT 55.20 %%LYMP 29.90 %%MONO 10.50 %%EOS 4.10 %%BASO 0.30 %#NEUT 3.51 #LYMP 1.90 #MONO 0.67 #EOS 0.26 #BASO 0.02 MANUAL DIFF NOT IND GLUCOSE 229.0 mg/dLSODIUM 138.0 mmol/LPOTASSIUM 3.80 mmol/LCHLORIDE 108.0 mmol/LCO2 19.0 mmol/LBUN 29.0 mg/dLCREATININE 1.20 mg/dLSGOT/AST 24.0 IU/LSGPT/ALT 26.0 IU /LALK PHOS 163.0 IU/LTOTAL PROTEIN 8.20 g/dLALBUMIN 3.70 g/dLTOTAL BILI 0.30 mg/ dLCALCIUM 8.90 mg/dLAGE 59 GFR NonAA 62 GFR AA 75 eGFR 60 eGFR AA* 60 TRIGLYCERIDES 232.0 mg/dLCHOLESTEROL 84.0 mg/dLHDL 9.0 mg/dLTOT CHOL/HDL 9.3 LDL (CALC) 29.0 mg/dLHGB A1C 7.90 %Est Avg Glucose 180.0 mg/dLAbsolute CD 4 [place] 338.0 /uL% CD 4 Pos. Lymph. 18.80 %Abs. CD 8 Suppressor 994.0 /uL% CD 8 Pos. Lymph. 55.20 %CD4/CD8 Ratio 0.34 WBC 6.4 RBC 4.03 Hemoglobin 10.6 Hematocrit 33.90 %MCV 84 MCH 26.3 MCHC 31.3 RDW 15.1 Platelets 243 Neutrophils 55 Lymphs 28 Monocytes 13 Eos 4.0 %Basos 0 Immature Cells CHILD THERAPIST Neutrophils ( Absolute) 3.5 Lymphs (Absolute) 1.8 Monocytes(Absolute) 0.8 Eos (Absolute) 0.2 Baso (Absolute) 0.0 Immature Granulocytes 0 Immature Grans (Abs) 0.0 NRBC CHILD THERAPIST Hematology Comments: CHILD THERAPIST HIV-1 RNA by PCR <20 log10 HIV-1 RNA UPTCAL 05/20/2014 1:25 PM WBC 6.1 RBC 3.98 HGB 10.60 g/dLHCT 33.0 %MCV 83.0 fLMCH 26.60 pgMCHC 32.10 g/dLRDW SD 48 RDW CV 15.70 %MPV 10.60 fLPLT 243 NRBC# 0.00 NRBC% 0.0 %NEUT 54.40 %%LYMP 32.60 %%MONO 8.60 %%EOS 4.10 %%BASO 0.30 %#NEUT 3.31 #LYMP 1.98 #MONO 0.52 #EOS 0.25 #BASO 0.02 MANUAL DIFF NOT IND GLUCOSE 190.0 mg/dLSODIUM 142.0 mmol/LPOTASSIUM 3.40 mmol/LCHLORIDE 105.0 mmol/LCO2 22.0 mmol/LBUN 20.0 mg/dLCREATININE 1.20 mg/dLSGOT/AST 21.0 IU/LSGPT/ALT 23.0 IU /LALK PHOS 168.0 IU/LTOTAL PROTEIN 8.20 g/dLALBUMIN 3.40 g/dLTOTAL BILI 0.30 mg/ dLCALCIUM 9.10 mg/dLAGE 59 GFR NonAA 62 GFR AA 75 eGFR 60 eGFR AA* 60 IRON TOTAL 27.0 ug/dLTransferrin 248.0 mg/dLTIBC Calculation 310 %Saturation Calc 9 VITAMIN B12 238.0 pg/mL 05/23/2016 11:10 AM GLUCOSE 165.0 mg/dLSODIUM 141.0 mmol/LPOTASSIUM 3.60 mmol/ LCHLORIDE 102.0 mmol/LCO2 30.0 mmol/LBUN 20.0 mg/dLCREATININE 1.30 mg/dLSGOT/ AST 18.0 IU/LSGPT/ALT 21.0 IU/LALK PHOS 50.0 IU/LTOTAL PROTEIN 7.40 g/dLALBUMIN 4.30 g/dLTOTAL BILI 0.60 mg/dLCALCIUM 9.50 mg/dLAGE 61 GFR NonAA 56 GFR AA 68 eGFR 56 eGFR AA* >60 WBC 4.9 RBC 4.29 HGB 12.60 g/dLHCT 37.50 %MCV 87.0 fLMCH 29.40 pgMCHC 33.60 g/dLRDW SD 43 RDW CV 13.50 %MPV 11.30 fLPLT 169 NRBC# 0.00 NRBC% 0.0 %NEUT 48.40 %%LYMP 40.50 %%MONO 7.30 %%EOS 3.20 %%BASO 0.40 %#NEUT 2.39 #LYMP 2.00 #MONO 0.36 #EOS 0.16 #BASO 0.02 MANUAL DIFF NOT IND PSA TOTAL 1.080 ng/mLTSH 0.630 uIU/mL History Of Immunizations Name Date Admin Mfg Name Mfg Code Trade Name Lot# Route Inj Vis Given Vis Pub CVX X 04/16/2007 [employer] MSD Pneumovax 23 Intramuscular Not Entered 07/08/2016 07/08/2016 999 Influenza 04/13/2009 Not Entered NE Not Entered Not Entered Not Entered 07/08/2016 07/08/2016 999 Influenza 04/21/2010 [employer]. NOV Fluvirin > 12 Years [id number] Intramuscular Right Deltoid 04/21/2010 02/15/2009 999 History of Past Illness Name Date of Onset Comments Flu Jun 09 2009 4:24PM Essential Hypertension Jun 13 2009 4:37PM Hyperlipidemia Jun 13 2009 4:37PM Diabetes Mellitus, Type II Jun 13 2009 4:37PM Fatigue Jun 13 2009 4:37PM Fatigue Jul 14 2009 4:20PM Anemia Jul 14 2009 4:20PM Hypertension Aug 15 2009 3:59PM Diabetes Mellitus, Type II Aug 15 2009 3:59PM Hypertension Sep 12 2009 3:42PM Diabetes Mellitus, Type II Sep 12 2009 3:42PM Diabetes Mellitus, Type II Dr Nelson Hypertension, Benign Essential Congestive Heart Failure hs a cardiac stent Diverticulosis Of Colon Hyperlipidemia meniscus tear with pain left knee Calculus Of Kidney Myocardial Infarction 2004 DR Aguirre at [place] Anxiety Gout Osteoarthritis depression Knee Pain left Hypertension Oct 13 2009 3:41PM Diabetes Mellitus, Type II Oct 13 2009 3:41PM Polyphagia 04/06/2011 Hypertension Jan 03 2010 4:17PM Diabetes Mellitus, Type II Jan 03 2010 4:17PM Depression and anxiety Jan 03 2010 4:17PM B12 deficiency Jan 03 2010 4:17PM Abdominal pain, Generalized Apr 07 2010 9:48AM Congestive Heart Failure Apr 07 2010 9:48AM Coronary Artery Disease Apr 07 2010 9:48AM Gastroesophageal Reflux Apr 07 2010 9:48AM Diabetes Mellitus, Type II, With Neurological Manifestations Apr 07 2010 9: 48AM Fatigue Apr 07 2010 9:48AM Lesion, Skin Apr 07 2010 9:48AM Hyperlipidemia Apr 07 2010 9:48AM Hyperlipidemia Apr 21 2010 2:48PM Congestive Heart Failure Apr 21 2010 2:48PM Coronary Artery Disease Apr 21 2010 2:48PM Gastroesophageal Reflux Apr 21 2010 2:48PM Diabetes Mellitus, Type II, With Neurological Manifestations Apr 21 2010 2: 48PM Anemia Apr 21 2010 2:48PM Flu Apr 21 2010 3:17PM Diabetes Mellitus, Type II, Uncontrolled 05/28/2014 Sinusitis, Acute Jun 06 2010 4:01PM Congestive Heart Failure Jul 28 2010 3:55PM Diabetes Mellitus, Type II Jul 28 2010 3:55PM Hyperlipidemia Jul 28 2010 3:55PM Hypertension, Benign Essential Jul 28 2010 3:55PM Sinusitis, Acute Jul 28 2010 3:55PM Prostate screening Jul 28 2010 3:55PM Folliculitis Oct 18 2010 3:32PM Congestive Heart Failure Oct 26 2010 3:32PM Diabetes Mellitus, Type II Oct 26 2010 3:32PM Hyperlipidemia Oct 26 2010 3:32PM Hypertension, Benign Essential Oct 26 2010 3:32PM Sinusitis, Acute Oct 26 2010 3:32PM Prostate screening Oct 26 2010 3:32PM Hyperlipidemia Nov 13 2010 3:34PM Hypertension, Benign Essential Nov 13 2010 3:34PM Hypertension Dec 11 2010 10:34AM Hyperlipidemia, unspecified Dec 11 2010 10:34AM Diabetes Mellitus, Type II Dec 11 2010 10:34AM Cellulitis/Abscess, unspecified Dec 11 2010 10:34AM Sinusitis, Acute Mar 06 2011 4:19PM Rash Of Skin Sep 1 2011 9:00AM Hypertension Feb 05 2011 3:24PM Polyphagia Feb 05 2011 3:24PM Hypertension May 07 2011 4:31PM Diabetes Mellitus, Type II May 07 2011 4:31PM Weight Loss May 09 2011 10:24AM Weight Gain, Abnormal Jun 06 2011 9:16AM Sinusitis, Acute Jun 15 2011 9:11AM Hypertension Aug 16 2011 8:36AM Diabetes Mellitus, Type II Aug 16 2011 8:36AM Hyperlipidemia Aug 16 2011 8:36AM Overweight Dec 21 2011 8:44AM Polyphagia Nov 09 2011 8:23AM Hypertension Oct 29 2012 8:34AM Diabetes Mellitus, Type II Oct 29 2012 8:34AM Hypertension Jan 02 2013 1:47PM Diabetes Mellitus, Type II Jan 02 2013 1:47PM Hypertension Jan 19 2013 5:30PM Diabetes Mellitus, Type II Jan 19 2013 5:30PM Upper Respiratory Infection May 12 2013 2:42PM Low Testosterone Jun 25 2013 8:36AM Bronchitis, Acute Jul 14 2013 10:09AM Bronchitis, Acute Jul 17 2013 10:24AM Testosterone deficiency Aug 05 2013 1:49PM Testosterone deficiency Sep 18 2013 1:01PM Hypertension Oct 21 2013 12:49PM Diabetes Mellitus, Type II Oct 21 2013 12:49PM Hyperlipidemia Oct 21 2013 12:49PM Hypertension Nov 10 2013 9:44AM Hyperlipidemia, unspecified Nov 10 2013 9:44AM Diabetes Mellitus, Type II Nov 10 2013 9:44AM Pain in joint; Knee Left Nov 10 2013 9:44AM Polyphagia Nov 10 2013 9:44AM Upper Respiratory Infections Jan 01 2014 10:27AM Morbid obesity with BMI of 40.0-44.9, adult Jan 01 2014 10:27AM Congestive Heart Failure May 11 2014 10:59AM Hypertension May 11 2014 10:59AM Diabetes Mellitus, Type II May 11 2014 10:59AM Hyperlipidemia May 11 2014 10:59AM HIV (human immunodeficiency virus infection) May 11 2014 10:59AM Anemia May 20 2014 9:44AM Diabetes Mellitus, Type II, Uncontrolled May 20 2014 9:44AM HIV (human immunodeficiency virus infection) May 20 2014 9:44AM Diabetes Mellitus, Type II, Uncontrolled May 25 2014 11:35AM Medication reaction May 25 2014 11:35AM Iron deficiency anemia, unspecified Jun 02 2014 10:35AM Diabetes Mellitus, Type II Nov 02 2014 2:32PM Knee pain Nov 02 2014 2:32PM Bronchitis, Acute Dec 29 2014 4:14PM Bronchitis May 27 2015 1:51PM Diabetes Mellitus, Type II, Uncontrolled Oct 18 2015 9:18AM Diabetes Mellitus, Type II, Uncontrolled Oct 28 2015 10:54AM Diabetes Mellitus, Type II, Uncontrolled Nov 22 2015 3:12PM Diabetes mellitus type 2, uncontrolled May 23 2016 10:20AM Screening For Prostate Cancer May 23 2016 10:20AM Weight loss May 23 2016 10:20AM Cough May 23 2016 10:20AM Anemia May 24 2016 2:57PM Payers Insurance Name Company Name Plan Name Plan Number Policy Number Policy Group Number Start Date [employer] [place] [id number] N/A [place] [facility] [id number] N/A [employer] [place] [id number] Thursday, 2011 [employer] [place] [id number] Thursday, 2012 [place] Medical Assistance [facility] Medical Assistance Prog [id number] N/A History of Encounters Visit Date Visit Type Provider 05/23/2016 Office visit Liam Fajardo MD 11/22/2015 Office visit Liam Fajardo MD 10/28/2015 Office visit Liam Fajardo MD 10/18/2015 Office visit Jean Marie Weathers APRN 05/27/2015 Office visit Jean Marie Weathers APRN 01/10/2015 [facility] Phil Parsons MD 12/29/2014 Office visit Jean Marie Weathers APRN 11/02/2014 Office visit Liam Fajardo MD 07/19/2014 [facility] Reinier Mcdermott MD 06/02/2014 Office visit Reinier Mcdermott MD 05/25/2014 Office visit Jean Marie Weathers APRN 05/20/2014 Office visit Liam Fajardo MD 01/01/2014 Office visit Blanche Meek APRN 11/10/2013 Office visit Liam Fajardo MD 07/23/2013 Nurse visit Liam Fajardo MD 07/17/2013 Office visit Jean Marie Weathers APRN 07/14/2013 Office visit Jean Marie Weathers APRN 07/09/2013 Nurse visit Liam Fajardo MD 06/25/2013 Office visit Liam Fajardo MD 05/12/2013 Office visit Liam Fajardo MD 10/29/2012 Office visit Liam Fajardo MD 12/21/2011 Nurse visit Liam Fajardo MD 11/09/2011 Office visit Liam Fajardo MD 08/03/2011 Voided Liam Fajardo MD 06/15/2011 Office visit Blanche Meek [employer] 05/09/2011 Nurse visit Liam Fajardo MD 03/15/2011 Nurse visit Liam Fajardo MD 03/08/2011 Office visit Blanche Meek [employer] ELECTRICIAN 03/06/2011 Office visit Blanche Meek [employer] ELECTRICIAN 02/05/2011 Office visit Liam Fajardo MD 01/05/2011 Voided Liam Fajardo MD 12/11/2010 Office visit Liam Fajardo MD 11/13/2010 Office visit Liam Fajardo MD 10/26/2010 Office visit Reinier Nayak DO 10/18/2010 Office visit Reinier Nayak DO 07/28/2010 Office visit Reinier Nayak DO 06/06/2010 Office visit Reinier Nayak DO 04/21/2010 Office visit Reinier Nayak DO 04/07/2010 Office visit Reinier Nayak DO 01/03/2010 Office visit Liam Fajardo MD 10/13/2009 Office visit Liam Fajardo MD 09/12/2009 Office visit Liam Fajardo MD 09/04/2009 Hospital Gabe Posadas MD 09/03/2009 Hospital Gabe Posadas MD 09/02/2009 Laboratory Gabe Posadas MD 08/15/2009 Office visit Liam Fajadro MD 07/14/2009 Office visit Liam Fajadro MD 06/13/2009 Office visit Liam Fajardo MD 06/09/2009 Nurse visit Liam Fajardo MD
--- OUTSIDE RECORDS SUMMARY | 2017-06-18 11:29 | XMS REPORT ---
Author Author Liam Fajardo [facility] Address [address] [place], [place] [id number] Care Team Providers Care Contract Administrator Name Role Phone Liam Fajardo PCP Unavailable Allergies and Adverse Reactions Name Reaction Notes Valium Excedrin Extra Strength Plan of Treatment Planned Activity Comments Planned Date Planned Time Plan/Goal COMPLETE CBC W/AUTO DIFF WBC 01/02/2013 12:00 AM LIPID PANEL 01/02/2013 12:00 AM GLYCOSYLATED HEMOGLOBIN TEST 01/02/2013 12:00 AM COMPREHEN METABOLIC PANEL 01/19/2013 12:00 AM THER/PROPH/DIAG INJ SC/IM 07/09/2013 12:00 AM THER/PROPH/DIAG INJ SC/IM 07/23/2013 12:00 AM Medications Active Name Start [...] DAILY WITH MORNING AND EVENING MEALS Stribild [phone] mg oral tablet take 1 tablet by oral route once daily with food glyburide 5 mg oral tablet 06/21/2014 TAKE ONE TABLET BY MOUTH TWICE DAILY BEFORE MEALS Klor-Con M10 10 mEq oral tablet,ER particles/crystals 07/23/2014 TAKE ONE TABLET BY MOUTH TWICE DAILY simvastatin 40 mg oral tablet 08/30/2014 TAKE ONE TABLET BY MOUTH ONCE DAILY IN THE EVENING Hilger 10-325 mg oral tablet 11/02/2014 take 1 tablet by oral route every 6 hours as needed for pain Klor-Con M10 10 mEq oral tablet,ER particles/crystals 01/06/2015 TAKE ONE TABLET BY MOUTH TWICE DAILY pantoprazole 40 mg oral tablet,delayed release (DR/EC) 01/10/2015 TAKE ONE TABLET BY MOUTH ONCE DAILY ProAir HFA 90 mcg/actuation inhalation HFA aerosol inhaler 05/27/2015 inhale 1 - 2 puffs (90 - 180 mcg) by inhalation route every 6 hours as needed Benicar HCT 40-25 mg oral tablet 05/30/2015 [...] to test Blood sugar bid. ICD.10 E11.9 Pharmacist Choice lancets miscellaneous strip use as directed Tradjenta 5 mg oral tablet take 1 tablet (5 mg) by oral route once daily Toujeo SoloStar 300 unit/mL (1.5 mL) subcutaneous insulin pen 10/28/2015 30 units daily pen needle caps 10/31/2015 02/28/2016 use daily. ICD-10 E11.9 pantoprazole 40 mg oral tablet,delayed release (DR/EC) 11/01/2015 TAKE ONE TABLET BY MOUTH ONCE DAILY Humalog KwikPen 100 unit/mL subcutaneous insulin pen 11/22/2015 11/23/2015 10 units. Name Start Date Expiration Date SIG Comments [...] 10mg x4 days. OneTouch UltraSoft Lancets miscellaneous [facility] [place] 06/11/2011 07/11/2011 TEST THREE TIMES A DAY [...] TABLET BY MOUTH TWICE DAILY BEFORE MEAL(S) Discontinued Name Start Date Discontinued Date SIG [...] (5 mg) by oral route once daily Problem List Description Status Onset Congestive Heart Failure Active Diabetes Mellitus, Type II Active Hyperlipidemia Active Hypertension, Benign Essential Active Anxiety Active Osteoarthritis Active depression Active Knee Pain Active Polyphagia Active 04/06/2011 Diabetes Mellitus, Type II, Uncontrolled Active 05/28/2014 Vital Signs Date Time BP-Sys(mm[Hg] BP-Olga(mm[Hg]) HR(bpm) RR(rpm) Temp WT HT HC BMI BSA BMI Percentile O2 Sat(%) 11/22/2015 3:08:00 PM 148 mmHg 74 mmHg 78 bpm 18 rpm 97.7 F 221 lbs 61 in 41.76 kg/m2 2.08 m2 96 % 10/28/2015 10:48:00 AM 118 mmHg 72 mmHg 83 bpm 18 rpm 97.7 F 221 lbs 61 in 41.7572 kg/m 2.0771 m 96 % 10/18/2015 9:17:00 AM 150 mmHg 80 mmHg 84 bpm 16 rpm 225 lbs 61 in 42.51 kg/m2 2.10 m2 95 % 05/27/2015 1:49:00 PM 140 mmHg 85 mmHg 89 bpm 20 rpm 98.4 F 219 lbs 61 in 41.3793 kg/m 2.0677 m 96 % 12/29/2014 4:13:00 PM 130 mmHg 70 mmHg 88 bpm 18 rpm 97.5 F 225 lbs 61 in 42.51 kg/m2 2.10 m2 97 % 11/02/2014 2:28:00 PM 168 mmHg 82 mmHg 88 bpm 18 rpm 98 F 229 lbs 61 in 43.2687 kg/m 2.1144 m 06/02/2014 10:31:00 AM 110 mmHg 56 mmHg 84 bpm 20 rpm 97.3 F 215 lbs 61 in 40.62 kg/m2 2.05 m2 96 % 05/25/2014 11:33:00 AM 118 mmHg 70 mmHg 75 bpm 18 rpm 97.4 F 215 lbs 61 in 40.6235 kg/m 2.0487 m 97 % 05/20/2014 9:40:00 AM 142 mmHg 68 mmHg 80 bpm 18 rpm 98.6 F 224 lbs 61 in 42.32 kg/m2 2.09 m2 01/01/2014 10:24:00 AM 126 mmHg 74 mmHg 78 bpm 18 rpm 97 F 228.25 lbs 61 in 43.127 kg/m 2.1109 m 96 % 11/10/2013 10:06:00 AM 122 mmHg [...] Status 03/06/2011 12:00 AM Decadron 8 mg NDC#[id number] (Tiffany) Reviewed 03/06/2011 12:00 AM Depo-Medrol 40 mg NDC#[id number] Reviewed 03/08/2011 12:00 AM ANTINUCLEAR ANTIBODIES Reviewed 05/07/2011 12:00 AM ROUTINE VENIPUNCTURE Reviewed 05/07/2011 12:00 AM COMPLETE CBC W/AUTO DIFF WBC Reviewed 05/07/2011 12:00 AM COMPREHEN METABOLIC PANEL Reviewed 05/07/2011 12:00 AM GLYCOSYLATED HEMOGLOBIN TEST Reviewed 08/16/2011 12:00 AM COMPLETE CBC W/AUTO DIFF WBC Returned 08/16/2011 12:00 AM COMPREHEN METABOLIC PANEL Returned 08/16/2011 12:00 AM LIPID PANEL Returned 08/16/2011 12:00 AM GLYCOSYLATED HEMOGLOBIN TEST [...] 05/12/2013 12:00 AM Depo-Medrol, Per 80 Mg [facility]#7165-9061-86 Reviewed 05/12/2013 12:00 AM Decadron, Per 1 Mg [facility]# [address]-46 Reviewed 07/14/2013 12:00 AM THER/PROPH/DIAG INJ SC/IM Reviewed 07/14/2013 12:00 AM Rocephin 1 gram [facility]#7607-5770-51 Reviewed 07/17/2013 12:00 AM THER/PROPH/DIAG INJ SC/IM Reviewed 07/17/2013 12:00 AM Solu-Medrol, Up to 125 Mg [facility]# 0885-1049-17 Reviewed 10/21/2013 12:00 AM COMPLETE CBC W/AUTO [...] 04/07/2010 12:00 AM Lasix 40 Mg [place]# [address]-36 (Neal) Reviewed 04/07/2010 12:00 AM LIPID PANEL Reviewed [...] Reviewed 06/06/2010 12:00 AM Kenalog 40 Mg Im-Ndc#[address]-33 (Nael) Reviewed 10/26/2010 12:00 AM COMPREHEN METABOLIC [...] Reviewed 12/29/2014 12:00 AM Rocephin 1 gram [facility]#9982-3810-33 Reviewed Results Summary Data and Description Results 04/12/2008 12:00 AM Colonoscopy-Women and Men over 50 Normal 10/13/2009 12:00 AM Dialated Eye Exam- Diabetic Referred Foot Exam-Diabetic Done Dental Inspection Reffered 10/13/2009 4:29 PM GLUCOSE 71.0 mg/dLSODIUM 142.0 mmol/LPOTASSIUM 3.30 mmol/ LCHLORIDE 101.0 mmol/LCO2 29.0 mmol/LBUN 32.0 mg/dLCREATININE 1.50 mg/dLCALCIUM 9.60 mg/dLeGFR 49 WBC 5.1 RBC 4.45 HGB 12.90 g/dLHCT 38.0 %MCV 85.0 fLMCH 29.0 pgMCHC 33.90 g/dLRDW CV 15.70 %MPV 11.10 fLPLT 164 %NEUT 53.20 %%LYMP 32.0 %% MONO 11.50 %%EOS 2.90 %%BASO 0.40 %#NEUT 2.72 #LYMP 1.64 #MONO 0.59 #EOS 0.15 # BASO 0.02 11/11/2009 12:00 AM Microalbumin/creat Ur-mRto 81 Albumin Ur-mCnc 1.30 mg/ dLCreat Ur-mCnc 16.0 mg/mL 04/07/2010 9:35 AM Digital Rectal Exam Done 04/07/2010 9:38 AM HIV1+2 Ab Ser Ql no risk Depression Has Depression 04/07/2010 9:38 AM Aspirin reccommended Reccommended 04/21/2010 12:00 AM Cholest Cry Stone Ql IR 112.0 %LDLc SerPl-mCnc 67.0 mg/ dLGlucose SerPl-mCnc 99.0 mg/dL 04/21/2010 8:32 AM BNP 21.0 pg/mLTRIGLYCERIDES 57.0 mg/dLCHOLESTEROL 112.0 mg/ dLHDL 34.0 mg/dLLDL (CALC) 67.0 mg/dLGLUCOSE 99.0 mg/dLSODIUM 142.0 mmol/ LPOTASSIUM 3.60 mmol/LCHLORIDE 105.0 mmol/LCO2 27.0 mmol/LBUN 23.0 mg/ dLCREATININE 1.10 mg/dLSGOT/AST 23.0 IU/LSGPT/ALT 30.0 IU/LALK PHOS 65.0 IU/ LTOTAL PROTEIN 7.30 g/dLALBUMIN 4.40 g/dLTOTAL BILI 0.50 mg/dLCALCIUM 9.50 mg/ dLeGFR >60 mL/min/1.73 m2WBC 4.7 RBC 4.72 HGB 13.90 g/dLHCT 41.20 %MCV 87.0 fLMCH 29.40 pgMCHC 33.70 g/dLRDW CV 14.80 %MPV 11.50 fLPLT 155 %NEUT 50.20 %% LYMP 31.60 %%MONO 8.70 %%EOS 9.10 %%BASO 0.40 %#NEUT 2.37 #LYMP 1.49 #MONO 0.41 #EOS 0.43 #BASO 0.02 04/21/2010 2:58 PM Dialated Eye Exam- Diabetic Referred Foot Exam-Diabetic Done Dental Inspection Reffered 04/21/2010 2:59 PM Csr Consult Done 07/26/2010 12:00 AM Cholest Cry Stone Ql IR 111.0 %LDLc SerPl-mCnc 62.0 mg/ dLGlucose SerPl-mCnc 132.0 mg/dL 07/26/2010 3:34 AM GLUCOSE 132.0 mg/dLSODIUM 141.0 mmol/LPOTASSIUM 3.30 mmol/ LCHLORIDE 103.0 mmol/LCO2 25.0 mmol/LBUN 31.0 mg/dLCREATININE 1.0 mg/dLSGOT/AST 28.0 IU/LSGPT/ALT 43.0 IU/LALK PHOS 73.0 IU/LTOTAL PROTEIN 7.80 g/dLALBUMIN 4.30 g/dLTOTAL BILI 0.50 mg/dLCALCIUM 9.30 mg/dLeGFR >60 mL/min/1.73 m2 07/26/2010 3:35 AM TRIGLYCERIDES 93.0 mg/dLCHOLESTEROL 111.0 mg/dLHDL 30.0 mg/ dLLDL (CALC) 62.0 mg/dLWBC 6.4 RDW CV 14.70 %MPV 11.0 fLPLT 192 %NEUT 53.80 %% LYMP 29.90 %%MONO 9.80 %%EOS 6.20 %%BASO 0.30 %#NEUT 3.46 #LYMP 1.92 #MONO 0.63 #EOS 0.40 #BASO 0.02 EOS 6.0 %RBC 4.64 HGB 14.20 g/dLHCT 41.70 %MCV 90.0 fLMCH 30.60 pgMCHC 34.10 g/dL 07/28/2010 4:10 PM Dialated Eye Exam- Diabetic Referred Foot Exam-Diabetic Done Dental Inspection Reffered 10/24/2010 12:00 AM Cholest Cry Stone Ql IR 108.0 %LDLc SerPl-mCnc 67.0 mg/ dLGlucose SerPl-mCnc 185.0 mg/dLHgb A1c Fr Bld 8.50 % 10/24/2010 11:16 AM TRIGLYCERIDES 61.0 mg/dLCHOLESTEROL 108.0 mg/dLHDL 29.0 mg/ dLLDL (CALC) 67.0 mg/dLPSA TOTAL 0.90 ng/mLGLUCOSE 185.0 mg/dLSODIUM 143.0 mmol/ LPOTASSIUM 3.60 mmol/LCHLORIDE 108.0 mmol/LCO2 23.0 mmol/LBUN 18.0 mg/ dLCREATININE 0.90 mg/dLSGOT/AST 23.0 IU/LSGPT/ALT 37.0 IU/LALK PHOS 65.0 IU/ LTOTAL PROTEIN 7.40 g/dLALBUMIN 4.20 g/dLTOTAL BILI 0.60 mg/dLCALCIUM 9.20 mg/ dLeGFR >60 mL/min/1.73 m2 10/26/2010 3:38 PM Dialated Eye Exam- Diabetic Referred Foot Exam-Diabetic Done Dental Inspection Reffered 10/26/2010 3:39 PM Abdominal Aortic Aneurysm Refused 02/02/2011 12:06 PM WBC 5.1 RBC 4.60 HGB 13.20 g/dLHCT 39.20 %MCV 85.0 fLMCH 28.70 pgMCHC 33.70 g/dLRDW CV 14.20 %MPV 11.30 fLPLT 174 %NEUT 49.30 %%LYMP 27.30 %%MONO 12.10 %%EOS 10.90 %%BASO 0.40 %#NEUT 2.50 #LYMP 1.38 #MONO 0.61 # EOS 0.55 #BASO 0.02 TRIGLYCERIDES 86.0 mg/dLCHOLESTEROL 116.0 mg/dLHDL 26.0 mg/ dLLDL (CALC) 73.0 mg/dLGLUCOSE 115.0 mg/dLSODIUM 142.0 mmol/LPOTASSIUM 3.50 mmol /LCHLORIDE 107.0 mmol/LCO2 23.0 mmol/LBUN 21.0 mg/dLCREATININE 1.20 mg/dLSGOT/ AST 18.0 IU/LSGPT/ALT 22.0 IU/LALK PHOS 64.0 IU/LTOTAL PROTEIN 7.20 g/dLALBUMIN 4.10 g/dLTOTAL BILI 0.50 mg/dLCALCIUM 9.10 mg/dLeGFR >60 mL/min/1.73 m2 05/09/2011 10:10 AM WBC 7.0 RBC 4.98 HGB 14.30 g/dLHCT 42.60 %MCV 86.0 fLMCH 28.70 pgMCHC 33.60 g/dLRDW CV 15.40 %MPV 10.70 fLPLT 162 %NEUT 56.0 %%LYMP 25.90 %%MONO 10.40 %%EOS 7.40 %%BASO 0.30 %#NEUT 3.92 #LYMP 1.81 #MONO 0.73 # EOS 0.52 #BASO 0.02 GLUCOSE 124.0 mg/dLSODIUM 140.0 mmol/LPOTASSIUM 3.60 mmol/ LCHLORIDE 106.0 mmol/LCO2 23.0 mmol/LBUN 23.0 mg/dLCREATININE 0.90 mg/dLSGOT/ AST 23.0 IU/LSGPT/ALT 41.0 IU/LALK PHOS 65.0 IU/LTOTAL PROTEIN 7.20 g/dLALBUMIN 4.10 g/dLTOTAL BILI 0.70 mg/dLCALCIUM 9.10 mg/dLeGFR >60 mL/min/1.73 m2 11/02/2011 12:02 PM WBC 5.8 RBC 4.93 HGB 14.40 g/dLHCT 42.40 %MCV 86.0 fLMCH 29.20 pgMCHC 34.0 g/dLRDW CV 15.0 %MPV 11.0 fLPLT 166 %NEUT 57.60 %%LYMP 28.70 % %MONO 7.70 %%EOS 5.30 %%BASO 0.70 %#NEUT 3.35 #LYMP 1.67 #MONO 0.45 #EOS 0.31 # BASO 0.04 GLUCOSE 183.0 mg/dLSODIUM 139.0 mmol/LPOTASSIUM 3.60 mmol/LCHLORIDE 103.0 mmol/LCO2 24.0 mmol/LBUN 25.0 mg/dLCREATININE 1.10 mg/dLSGOT/AST 20.0 IU/ LSGPT/ALT 37.0 IU/LALK PHOS 65.0 IU/LTOTAL PROTEIN 7.20 g/dLALBUMIN 4.30 g/ dLTOTAL BILI 0.60 mg/dLCALCIUM 9.30 mg/dLeGFR 60 TRIGLYCERIDES 87.0 mg/ dLCHOLESTEROL 137.0 mg/dLHDL 35.0 mg/dLLDL (CALC) 85.0 mg/dL 01/21/2013 11:06 AM WBC 4.0 RBC 4.45 HGB 13.20 g/dLHCT 38.10 %MCV 86.0 fLMCH 29.70 pgMCHC 34.60 g/dLRDW CV 15.0 %MPV 10.40 fLPLT 136 %NEUT 41.40 %%LYMP 42.80 %%MONO 10.50 %%EOS 5.0 %%BASO 0.30 %#NEUT 1.66 #LYMP 1.71 #MONO 0.42 #EOS 0.20 #BASO 0.01 HGB A1C 6.40 %Est Avg Glucose 137.0 mg/dLGLUCOSE 145.0 mg/ dLSODIUM 143.0 mmol/LPOTASSIUM 3.60 mmol/LCHLORIDE 107.0 mmol/LCO2 25.0 mmol/ LBUN 18.0 mg/dLCREATININE 1.0 mg/dLSGOT/AST 24.0 IU/LSGPT/ALT 32.0 IU/LALK PHOS 65.0 IU/LTOTAL PROTEIN 7.20 g/dLALBUMIN 3.80 g/dLTOTAL BILI 0.70 mg/dLCALCIUM 8.90 mg/dLeGFR 60 TRIGLYCERIDES 153.0 mg/dLCHOLESTEROL 99.0 mg/dLHDL 26.0 mg/ dLLDL (CALC) 42.0 mg/dL 10/27/2013 8:15 AM GLUCOSE 126.0 mg/dLSODIUM 142.0 mmol/LPOTASSIUM 3.40 mmol/ LCHLORIDE 102.0 mmol/LCO2 27.0 mmol/LBUN 26.0 mg/dLCREATININE 1.10 mg/dLSGOT/ AST 17.0 IU/LSGPT/ALT 23.0 IU/LALK PHOS 55.0 IU/LTOTAL PROTEIN 7.30 g/dLALBUMIN 4.20 g/dLTOTAL BILI 0.40 mg/dLCALCIUM 9.10 mg/dLeGFR 60 TRIGLYCERIDES 187.0 mg/ dLCHOLESTEROL 119.0 mg/dLHDL 29.0 mg/dLLDL (CALC) 53.0 mg/dLWBC 5.8 RBC 4.86 HGB 14.10 g/dLHCT 41.70 %MCV 86.0 fLMCH 29.0 pgMCHC 33.80 g/dLRDW CV 15.0 %MPV 10.60 fLPLT 152 %NEUT 48.20 %%LYMP 36.20 %%MONO 8.30 %%EOS 7.0 %%BASO 0.30 %# NEUT 2.77 #LYMP 2.08 #MONO 0.48 #EOS 0.40 #BASO 0.02 HGB A1C 6.10 %Est Avg Glucose 128.4 mg/dL 10/27/2013 9:00 AM Absolute CD 4 [place] 455.0 /uL% CD 4 Pos. Lymph. 19.80 % Abs. CD 8 Suppressor 1242.0 /uL% CD 8 Pos. Lymph. 54.0 %CD4/CD8 Ratio 0.37 WBC 6.2 Hematocrit 42.20 %Platelets 189 Eos 7.0 %Eos (Absolute) 0.5 05/18/2014 7:15 AM WBC 6.4 RBC 4.08 HGB 10.80 g/dLHCT 34.10 %MCV 84.0 fLMCH 26.50 pgMCHC 31.70 g/dLRDW CV 15.60 %MPV 10.60 fLPLT 217 %NEUT 55.20 %%LYMP 29.90 %%MONO 10.50 %%EOS 4.10 %%BASO 0.30 %#NEUT 3.51 #LYMP 1.90 #MONO 0.67 # EOS 0.26 #BASO 0.02 GLUCOSE 229.0 mg/dLSODIUM 138.0 mmol/LPOTASSIUM 3.80 mmol/ LCHLORIDE 108.0 mmol/LCO2 19.0 mmol/LBUN 29.0 mg/dLCREATININE 1.20 mg/dLSGOT/ AST 24.0 IU/LSGPT/ALT 26.0 IU/LALK PHOS 163.0 IU/LTOTAL PROTEIN 8.20 g/ dLALBUMIN 3.70 g/dLTOTAL BILI 0.30 mg/dLCALCIUM 8.90 mg/dLeGFR 60 TRIGLYCERIDES 232.0 mg/dLCHOLESTEROL 84.0 mg/dLHDL 9.0 mg/dLLDL (CALC) 29.0 mg/dLHGB A1C 7.90 %Est Avg Glucose 180.0 mg/dLAbsolute CD 4 [place] 338.0 /uL% CD 4 Pos. Lymph. 18.80 %Abs. CD 8 Suppressor 994.0 /uL% CD 8 Pos. Lymph. 55.20 %CD4/CD8 Ratio 0.34 WBC 6.4 Hematocrit 33.90 %Platelets 243 Eos 4.0 %Eos (Absolute) 0.2 05/20/2014 1:25 PM WBC 6.1 RBC 3.98 HGB 10.60 g/dLHCT 33.0 %MCV 83.0 fLMCH 26.60 pgMCHC 32.10 g/dLRDW CV 15.70 %MPV 10.60 fLPLT 243 %NEUT 54.40 %%LYMP 32.60 %%MONO 8.60 %%EOS 4.10 %%BASO 0.30 %#NEUT 3.31 #LYMP 1.98 #MONO 0.52 #EOS 0.25 #BASO 0.02 GLUCOSE 190.0 mg/dLSODIUM 142.0 mmol/LPOTASSIUM 3.40 mmol/ LCHLORIDE 105.0 mmol/LCO2 22.0 mmol/LBUN 20.0 mg/dLCREATININE 1.20 mg/dLSGOT/ AST 21.0 IU/LSGPT/ALT 23.0 IU/LALK PHOS 168.0 IU/LTOTAL PROTEIN 8.20 g/ dLALBUMIN 3.40 g/dLTOTAL BILI 0.30 mg/dLCALCIUM 9.10 mg/dLeGFR 60 IRON TOTAL 27.0 ug/dLTransferrin 248.0 mg/dLVITAMIN B12 238.0 pg/mL History Of Immunizations Name Date Admin Mfg Name [facility]g [facility] Code Trade Name Lot# Route Inj Vis Given Vis Pub CVX X 04/16/2007 [employer] MSD Pneumovax 23 Intramuscular Not Entered 07/08/2015 07/08/2015 999 Influenza 04/13/2009 Not Entered NE Not Entered Not Entered Not Entered 07/08/2015 07/08/2015 999 Influenza 04/21/2010 [employer] Deisi. NOV Fluvirin > 12 Years [id number] Intramuscular Right Deltoid 04/21/2010 02/15/2009 999 History [...] Kidney Myocardial Infarction 2004 DR Agu[facility] at [place] Anxiety Gout Osteoarthritis depression Knee Pain left [...] Mar 06 2011 4:19PM Rash Of Skin Mar 08 2011 9:00AM Hypertension Feb 05 2011 3:24PM [...] Type II, Uncontrolled Nov 22 2015 3:12PM Payers Insurance Name Company Name Plan Name Plan Number Policy Number Policy Group Number Start Date [employer] [place] [id number] N/A [place] [employer] - RHC [place] [employer] - RHC [id number] N/A [employer] [place] [id number] Thursday, 2011 [employer] [place] [id number] Thursday, 2012 [place] [employer] [place] [employer] [place] Prog [id number] N/A History of Encounters Visit Date Visit Type Provider 11/22/2015 Office visit Liam Fajardo MD 10/28/2015 Office visit Liam Fajardo MD 10/18/2015 Office visit Jean Marie Weathers [employer] 05/27/2015 Office visit Jean Marie Weathers [employer] 01/10/2015 [facility] Phil Parsons MD 12/29/2014 Office visit Jean Marie Weathers [employer] 11/02/2014 Office visit Liam Fajardo MD 07/19/2014 [facility] Reinier Mcdermott MD 06/02/2014 Office visit Reinier Mcdermott MD 05/25/2014 Office visit Jean Marie Weathers [employer] 05/20/2014 Office visit Liam Fajardo MD 01/01/2014 Office visit Blanche Meek [employer] 11/10/2013 Office visit Liam Fajardo MD 07/23/2013 Nurse visit Liam Fajardo MD 07/17/2013 Office visit Jean Marie Weathers [employer] 07/14/2013 Office visit Jean Marie Weathers [employer] 07/09/2013 Nurse visit Liam Fajardo MD 06/25/2013 Office visit Liam Fajardo MD 05/12/2013 Office visit Liam Fajardo MD 10/29/2012 Office visit Liam Fajardo MD 12/21/2011 Nurse visit Liam Fajardo MD 11/09/2011 Office visit Liam Fajardo MD 08/03/2011 Voided Liam Fajardo MD 06/15/2011 Office visit Blanche Meek [employer] 05/09/2011 Nurse visit Liam Fajardo MD 03/15/2011 Nurse visit Liam Fajardo MD 03/08/2011 Office visit Blanche Meek [employer] 03/06/2011 Office visit Blanche Meek [employer] 02/05/2011 Office visit Liam Fajardo MD 01/05/2011 [...] Gabe Posadas MD 08/15/2009 Office visit Liam Fajardo MD 07/14/2009 Office visit Liam Fajardo MD 06/13/2009 Office visit Liam Fajardo MD 06/09/2009 Nurse visit Liam Fajardo MD
--- OUTSIDE RECORDS SUMMARY | 2017-06-18 11:30 | XMS REPORT ---
Author Author Liam Fajardo [facility] Address [address] [place], [place] [id number] Care Team Providers Care Material Spreader Name Role Phone Liam Fajardo PCP Unavailable Allergies and Adverse Reactions Name Reaction Notes Valium Excedrin Extra Strength Plan of Treatment Planned Activity Comments Planned Date Planned Time Plan/Goal COMPLETE CBC W/AUTO DIFF WBC 01/02/2013 12:00 AM LIPID PANEL 01/02/2013 12:00 AM GLYCOSYLATED HEMOGLOBIN TEST 01/02/2013 12:00 AM COMPREHEN METABOLIC PANEL 01/19/2013 12:00 AM Medications Active Name Start Date Estimated Completion Date SIG Comments Aspirin Oral Tablet 81 mg take 1 tablet (81 mg) by oral route once daily Compete Oral Tablet take 1 tablet by oral route daily Cialis Oral Tablet 20 mg 11/09/2011 take 1 tablet (20 mg) by oral route once daily carvedilol oral tablet 25 mg 06/22/2013 TAKE ONE TABLET BY MOUTH TWICE DAILY WITH FOOD glyburide oral tablet 5 mg 08/24/2013 TAKE ONE TABLET BY MOUTH TWICE DAILY BEFORE MEALS carvedilol oral tablet 25 mg 11/13/2013 TAKE ONE TABLET BY MOUTH TWICE DAILY WITH FOOD metformin oral tablet 1,000 mg 11/13/2013 TAKE ONE TABLET BY MOUTH TWICE DAILY WITH MORNING AND EVENING MEALS Benicar HCT oral tablet 40-25 mg 11/13/2013 TAKE ONE TABLET BY MOUTH EVERY DAY sertraline oral tablet 100 mg 11/13/2013 TAKE ONE & ONE-HALF TABLETS BY MOUTH EVERY DAY Benicar HCT oral tablet 40-25 mg 12/28/2013 TAKE ONE TABLET BY MOUTH EVERY DAY carvedilol oral tablet 25 mg 12/28/2013 TAKE ONE TABLET BY MOUTH TWICE DAILY WITH FOOD sertraline oral tablet 100 mg 12/28/2013 TAKE ONE & ONE-HALF TABLETS BY MOUTH EVERY DAY metformin oral tablet 1,000 mg 12/28/2013 TAKE ONE TABLET BY MOUTH TWICE DAILY WITH MORNING AND EVENING MEALS furosemide oral tablet 80 mg 12/28/2013 TAKE ONE TABLET BY MOUTH EVERY DAY Klor-Con M10 oral tablet,ER particles/crystals 10 mEq 04/06/2014 TAKE ONE TABLET BY MOUTH TWICE DAILY Benicar HCT oral tablet 40-25 mg 05/17/2014 TAKE ONE TABLET BY MOUTH EVERY DAY sertraline oral tablet 100 mg 05/17/2014 TAKE ONE & ONE-HALF TABLETS BY MOUTH ONCE DAILY carvedilol oral tablet 25 mg 05/17/2014 TAKE ONE TABLET BY MOUTH TWICE DAILY WITH FOOD furosemide oral tablet 80 mg 05/17/2014 TAKE ONE TABLET BY MOUTH EVERY DAY metformin oral tablet 1,000 mg 05/17/2014 TAKE ONE TABLET BY MOUTH TWICE DAILY WITH MORNING AND EVENING MEALS Stribild oral tablet [phone] mg take 1 tablet by oral route once daily with food glyburide oral tablet 5 mg 06/21/2014 TAKE ONE TABLET BY MOUTH TWICE DAILY BEFORE MEALS Klor-Con M10 oral tablet,ER particles/crystals 10 mEq 07/23/2014 TAKE ONE TABLET BY MOUTH TWICE DAILY simvastatin oral tablet 40 mg 08/30/2014 TAKE ONE TABLET BY MOUTH ONCE DAILY IN THE EVENING Name Start Date Expiration Date SIG Comments Metformin Oral Tablet 1,000 mg 06/28/2009 07/28/2009 FF TAKE ONE TABLET BY MOUTH TWICE DAILY - TAKE ONE TABLET BY MOUTH TWICE DAILY ZOLOFT 100MG TAB 100 each 12/28/2009 01/27/2010 FF TAKE ONE TABLET BY MOUTH EVERY DAY - TAKE ONE TABLET BY MOUTH EVERY DAY Vitamin B-12 Injection Solution 1,000 mcg/mL 04/07/2010 11/03/2010 inject 0.05 milliliter (50 mcg) by intramuscular route once a month for 30 days pen needle caps 04/21/2010 08/19/2010 use daily with victoza for DM 2 250.00 Bactrim DS Oral Tablet 800-160 mg 06/06/2010 06/16/2010 take 1 tablet by oral route 2 times per day for 10 days C-PAP mask 07/05/2010 07/06/2010 wear with C PAP for LLOYD 780.53 Coreg Oral Tablet 25 mg 07/06/2010 08/05/2010 1BIDWF - TAKE ONE TABLET BY MOUTH TWICE DAILY WITH FOOD One Touch Ultra Test Misc.(Non-Drug; Combo Route) Strip 07/06/2010 08/05/2010 FF - TEST THREE TIMES A DAY DIRECTED Bactrim DS Oral Tablet 800-160 mg 07/28/2010 08/07/2010 take 1 tablet by oral route 2 times per day for 10 days Bacitracin Topical Ointment 500 unit/g 10/23/2010 09/18/2011 apply to affected area by external route daily for 30 days CYANOCOBALAM 1000MCGINJ 1000 milliliter 11/17/2010 12/17/2010 FF - INJECT 0.05 MG BY INTRAMUSCULAR ROUTE ONCE A MONTH Augmentin Oral Tablet 875-125 mg 03/06/2011 03/13/2011 take 1 tablet by oral route every 12 hours for 7 days prednisone Oral Tablet 20 mg 03/08/2011 03/24/2011 take 40mg by mouth daily x4 days, then 30mg daily x4 days, then 20mg daily x4 days, then 10mg x4 days. One Touch UltraSoft Lancets Misc.(Non-Drug; Combo Route) 06/11/2011 07/11/2011 TEST THREE TIMES A DAY DIRECTED Zithromax Z-Inderjit Oral Tablet 250 mg 06/15/2011 06/20/2011 take 2 tablets (500 mg) by oral route once daily for 1 day then 1 tablet (250 mg) by oral route once daily for 4 days Victoza Subcutaneous Pen Injector 0.6 mg/0.1 mL (18 mg/3 mL) 10/26/20112011 INJECT 1.8 MG SUBCUTANEOUSLY DAILY Caduet Oral Tablet 5-40 mg 12/04/2011 01/03/2012 TAKE ONE TABLET BY MOUTH AT BEDTIME phentermine Oral Tablet 37.5 mg 01/02/2012 01/02/2012 take 1 tablet (37.5 mg) by oral route once daily before breakfast Benicar HCT Oral tablet 40-25 mg 10/29/2012 10/24/2013 TAKE ONE TABLET BY MOUTH EVERY DAY carvedilol Oral tablet 25 mg 10/29/2012 05/27/2013 TAKE ONE TABLET BY MOUTH TWICE DAILY WITH FOOD sertraline Oral tablet 100 mg 10/29/2012 10/24/2013 take 1.5 by oral route daily for 30 days metformin Oral tablet 1,000 mg 10/29/2012 10/24/2013 take 1 tablet (1,000 mg) by oral route 2 times per day with morning and evening meals for 30 days furosemide Oral tablet 80 mg 11/18/2012 11/13/2013 FF TAKE ONE TABLET BY MOUTH EVERY DAY - TAKE ONE TABLET BY MOUTH EVERY DAY Klor-Con M10 Oral tablet,ER particles/crystals 10 mEq 01/12/2013 01/19/2013 TAKE ONE TABLET BY MOUTH TWICE DAILY simvastatin Oral tablet 40 mg 05/25/2013 11/21/2013 take 1 tablet (40 mg) by oral route once daily in the evening for 30 days glyburide oral tablet 5 mg 01/12/2013 01/19/2013 TAKE ONE TABLET BY MOUTH TWICE DAILY BEFORE MEALS Zithromax Z-Inderjit oral tablet 250 mg 01/01/2014 01/06/2014 take 2 tablets (500 mg ) by oral route once daily for 1 day then 1 tablet (250 mg) by oral route once daily for 4 days Jardiance oral tablet 10 mg 05/21/2014 06/04/2014 take 1 tablet (10 mg) by oral route once daily in the morning for 14 days Discontinued Name Start Date Discontinued Date SIG Comments Actos Oral Tablet 45 mg 09/12/2009 take 1 tablet (45 mg) by oral route once daily Glyburide Oral Tablet 5 mg 09/12/2009 take 2 tablets (10 mg) by oral route once daily before breakfast Lipitor Oral Tablet 40 mg 04/07/2010 take 1 tablet (40 mg) by oral route once daily Kapidex Oral Cap, Delayed Rel., Multiphasic 60 mg 07/15/2009 08/16/2009 take 1 capsule (60 mg) by oral route once daily Nuvigil Oral Tablet 150 mg 10/24/2009 01/03/2010 take 1 tablet by oral route daily Actos Oral Tablet 45 mg 04/05/2010 04/07/2010 1QD - TAKE ONE TABLET BY MOUTH EVERY DAY Glyburide Oral Tablet 5 mg 04/07/2010 07/28/2010 take 1 tablet by oral route daily for 30 days Imodium A-D Oral Tablet 2 mg 10/29/2012 take 2 tablets (4 mg) by oral route after 1st loose stool and 1 tablet (2 mg) after each subsequent bowel movement; do not exceed 16 mg in 24hrs Bactroban Topical Ointment 2 % 04/07/2010 07/28/2010 apply a small amount to the affected area by topical route 3 times per day Zithromax Z-Inderjit Oral Tab 250 MG 06/06/2010 06/06/2010 Take 2 tablets the first day (500 mg) followed by 1 tablet (250 mg) days 2-5. for 5 days Cheratussin AC Oral Liquid 10-100 mg/5 mL 06/06/2010 07/28/2010 take 10 milliliters by oral route every 4 hours as needed Klor-Con Oral Tablet Sustained Release 8 mEq 06/06/2010 07/28/2010 FF TAKE ONE TABLET BY MOUTH TWICE DAILY - TAKE ONE TABLET BY MOUTH TWICE DAILY Lavoclen-4 Topical Cleanser 4 % 10/18/2010 11/10/2013 wash the affected area(s ) by topical route once daily during the first week, and twice daily thereafter as tolerated glyburide Oral tablet 5 mg 01/12/2013 10/29/2012 TAKE ONE TABLET BY MOUTH TWICE DAILY BEFORE MEALS deleted glyburide Oral tablet 5 mg 01/12/2013 10/29/2012 TAKE ONE TABLET BY MOUTH TWICE DAILY BEFORE MEALS deleted promethazine-codeine oral syrup 6.25-10 mg/5 mL 07/17/2013 01/01/2014 take 5 milliliters by oral route every 6 hours as needed, not to exceed 30 mL in 24 hours Zoloft oral tablet 100 mg 06/02/2014 take 1.5 tablets (150 mg) by oral route once daily Claritin-D 12 Hour oral tablet extended release 12 hr 5-120 mg 01/01/2014 take 1 tablet by oral route every 12 hours phentermine oral tablet 37.5 mg 01/01/2014 06/02/2014 take 1 tablet (37.5 mg ) by oral route once daily before breakfast Tradjenta oral tablet 5 mg 05/28/2014 06/02/2014 take 1 tablet (5 mg) [...] HC BMI BSA BMI Percentile O2 Sat(%) 11/02/2014 2:28:00 PM 168 mmHg 82 mmHg [...] rpm 97.7 F 229 lbs 61 in 43.2687 kg/m 2.11 m2 07/17/2013 10:22:00 AM 150 mmHg 80 mmHg 94 bpm 18 rpm 98.4 F 211 lbs 93 % 07/14/2013 10:08:00 AM 140 mmHg 80 mmHg 89 bpm 18 rpm 99.4 F 221 lbs 61 in 41.7572 kg/m 2.08 m2 96 % 06/25/2013 8:31:00 AM 158 mmHg 80 mmHg 82 bpm 18 rpm 98.2 F 217 lbs 66 in 35.02 kg/m2 2.1409 m 05/12/2013 2:38:00 PM 138 mmHg 76 mmHg 84 bpm 18 rpm 98.4 F 218 lbs 66 in 35.1858 kg/m 2.15 m2 10/29/2012 8:30:00 AM 138 mmHg 88 mmHg 80 bpm 18 rpm 97.8 F 218 lbs 66 in 35.19 kg/m2 2.1459 m 12/21/2011 8:41:00 AM 130 mmHg 72 mmHg 230 lbs 66 in 37.1226 kg/m 2.20 m2 11/09/2011 8:19:00 AM 138 mmHg 80 mmHg 80 bpm 20 rpm 97.6 F 232 lbs 66 in 37.45 kg/m2 2.2137 m 08/03/2011 11:42:00 AM 124 mmHg [...] rpm 98.3 F 214 lbs 66 in 34.5401 kg/m 2.13 m2 01/05/2011 9:57:00 AM 108 mmHg 64 mmHg 219 lbs 12/11/2010 10:32:00 AM 138 mmHg 76 mmHg 88 bpm 20 rpm 98.3 F 227 lbs 11/13/2010 3:32:00 PM 118 mmHg 70 mmHg 78 bpm 20 rpm 97.8 F 231 lbs 10/26/2010 3:32:00 PM 130 mmHg 80 mmHg 78 bpm 18 rpm 97.8 F 234.375 lbs 65 in 39.0016 kg/m 2.21 m2 97 % 10/18/2010 3:31:00 PM 110 mmHg 80 mmHg 87 bpm 18 rpm 98.1 F 230.5 lbs 65 in 38.36 kg/m2 2.1897 m 98 % 07/28/2010 3:59:00 PM 150 mmHg 90 mmHg 87 bpm 18 rpm 97.8 F 249.125 lbs 65 in 41.4561 kg/m 2.28 m2 96 % 06/06/2010 3:56:00 PM 150 mmHg 80 mmHg 90 bpm 20 rpm 98.2 F 240.375 lbs 65 in 40.00 kg/m2 2.2361 m 96 % 04/21/2010 2:46:00 PM 140 mmHg 90 mmHg 91 bpm 16 rpm 97.6 F 250.25 lbs 65 in 41.6434 kg/m 2.28 m2 94 % 04/07/2010 9:24:00 AM 160 mmHg 80 mmHg 72 bpm 18 rpm 97.7 F 258.125 lbs 65 in 42.95 kg/m2 2.3172 m 96 % 01/03/2010 4:14:00 PM [...] of Procedures Date Ordered Description Order Status 03/08/2011 12:00 AM ANTINUCLEAR ANTIBODIES Reviewed 05/07/2011 [...] 01/19/2013 12:00 AM GLYCOSYLATED HEMOGLOBIN TEST Reviewed 07/14/2013 12:00 AM THER/PROPH/DIAG INJ SC/IM Reviewed 07/17/2013 12:00 AM THER/PROPH/DIAG INJ SC/IM Reviewed 10/21/2013 12:00 AM COMPLETE CBC W/AUTO [...] THER/PROPH/DIAG INJ SC/IM Reviewed 04/07/2010 12:00 AM LIPID PANEL Reviewed [...] 06/06/2010 12:00 AM THER/PROPH/DIAG INJ SC/IM Reviewed 10/26/2010 12:00 AM COMPREHEN METABOLIC PANEL Reviewed 10/26/2010 12:00 AM LIPID PANEL Reviewed 10/26/2010 12:00 AM GLYCOSYLATED HEMOGLOBIN TEST Reviewed 05/11/2014 12:00 AM COMPLETE CBC W/AUTO [...] 12/11/2010 12:00 AM GLYCOSYLATED HEMOGLOBIN TEST Reviewed Results Summary Data and Description Results 04/12/2008 12:00 AM Colonoscopy-Women and Men over 50 Normal 10/13/2009 12:00 AM Dialated Eye Exam- Diabetic Referred Foot Exam-Diabetic Done Dental Inspection Reffered 10/13/2009 4:29 PM GLYCOHEMOGLOBIN A1C 6.90 %GLUCOSE 71.0 mg/dLSODIUM 142.0 mmol /LPOTASSIUM 3.30 mmol/LCHLORIDE 101.0 mmol/LCO2 29.0 mmol/LBUN 32.0 mg/ dLCREATININE 1.50 mg/dLCALCIUM 9.60 mg/dLeGFR 49 WBC 5.1 RBC 4.45 HGB 12.90 g/ dLHCT 38.0 %MCV 85.0 fLMCH 29.0 pgMCHC 33.90 g/dLRDW CV 15.70 %MPV 11.10 fLPLT 164 %NEUT 53.20 %%LYMP 32.0 %%MONO 11.50 %%EOS 2.90 %%BASO 0.40 %#NEUT 2.72 # LYMP 1.64 #MONO 0.59 #EOS 0.15 #BASO 0.02 11/11/2009 12:00 AM Microalbumin/creat Ur-mRto 81 [...] 112.0 mg/ dLHDL 34.0 mg/dLLDL (CALC) 67.0 mg/dLGLYCOHEMOGLOBIN A1C 6.10 %GLUCOSE 99.0 mg/ dLSODIUM 142.0 mmol/LPOTASSIUM 3.60 mmol/LCHLORIDE 105.0 mmol/LCO2 27.0 mmol/ LBUN 23.0 mg/dLCREATININE 1.10 mg/dLSGOT/AST 23.0 IU/LSGPT/ALT 30.0 IU/LALK PHOS 65.0 IU/LTOTAL PROTEIN 7.30 g/dLALBUMIN 4.40 g/dLTOTAL BILI 0.50 mg/ dLCALCIUM 9.50 mg/dLeGFR >60 mL/min/1.73 m2WBC 4.7 RBC 4.72 HGB 13.90 g/dLHCT 41.20 %MCV 87.0 fLMCH 29.40 pgMCHC 33.70 g/dLRDW CV 14.80 %MPV 11.50 fLPLT 155 % NEUT 50.20 %%LYMP 31.60 %%MONO 8.70 %%EOS 9.10 %%BASO 0.40 %#NEUT 2.37 #LYMP 1.49 #MONO 0.41 #EOS 0.43 #BASO 0.02 04/21/2010 2:58 PM Dialated Eye Exam- Diabetic Referred Foot Exam-Diabetic Done Dental Inspection Reffered 04/21/2010 2:59 PM Head Athletic Trainer Consult Done 07/26/2010 12:00 AM Cholest Cry [...] 111.0 mg/dLHDL 30.0 mg/ dLLDL (CALC) 62.0 mg/dLGLYCOHEMOGLOBIN A1C 6.40 %WBC 6.4 RDW CV 14.70 %MPV 11.0 fLPLT 192 %NEUT 53.80 %%LYMP 29.90 %%MONO 9.80 %%EOS 6.20 %%BASO 0.30 %#NEUT 3.46 #LYMP 1.92 #MONO 0.63 #EOS 0.40 #BASO 0.02 EOS 6.0 %RBC 4.64 HGB 14.20 g/ dLHCT 41.70 %MCV 90.0 fLMCH 30.60 pgMCHC 34.10 [...] BILI 0.50 mg/dLCALCIUM 9.10 mg/dLeGFR >60 mL/min/1.73 [id number] A1C 5.90 % 05/09/2011 10:10 AM WBC 7.0 RBC 4.98 HGB 14.30 g/dLHCT 42.60 %MCV 86.0 fLMCH 28.70 pgMCHC 33.60 g/dLRDW CV 15.40 %MPV 10.70 fLPLT 162 %NEUT 56.0 %%LYMP 25.90 %%MONO 10.40 %%EOS 7.40 %%BASO 0.30 %#NEUT 3.92 #LYMP 1.81 #MONO 0.73 # EOS 0.52 #BASO 0.02 GLYCOHEMOGLOBIN A1C 5.50 %GLUCOSE 124.0 mg/dLSODIUM 140.0 mmol/LPOTASSIUM 3.60 mmol/LCHLORIDE 106.0 mmol/LCO2 23.0 mmol/LBUN 23.0 mg/ dLCREATININE 0.90 mg/dLSGOT/AST 23.0 IU/LSGPT/ALT 41.0 IU/LALK PHOS 65.0 IU/ LTOTAL PROTEIN 7.20 g/dLALBUMIN 4.10 g/dLTOTAL BILI 0.70 mg/dLCALCIUM 9.10 mg/ dLeGFR >60 mL/min/1.73 m2 11/02/2011 12:02 PM WBC [...] dLCHOLESTEROL 137.0 mg/dLHDL 35.0 mg/dLLDL (CALC) 85.0 mg/dLGLYCOHEMOGLOBIN A1C 7.0 % 01/21/2013 11:06 AM WBC 4.0 RBC 4.45 HGB 13.20 g/dLHCT 38.10 %MCV 86.0 fLMCH 29.70 pgMCHC 34.60 g/dLRDW CV 15.0 %MPV 10.40 fLPLT 136 %NEUT 41.40 %%LYMP 42.80 %%MONO 10.50 %%EOS 5.0 %%BASO 0.30 %#NEUT 1.66 #LYMP 1.71 #MONO 0.42 #EOS 0.20 #BASO 0.01 HGB A1C 6.40 %GLUCOSE 145.0 mg/dLSODIUM 143.0 mmol/LPOTASSIUM 3.60 mmol/LCHLORIDE 107.0 mmol/LCO2 25.0 mmol/LBUN 18.0 mg/dLCREATININE 1.0 mg/ dLSGOT/AST 24.0 IU/LSGPT/ALT 32.0 IU/LALK PHOS 65.0 IU/LTOTAL PROTEIN 7.20 g/ dLALBUMIN 3.80 g/dLTOTAL BILI 0.70 mg/dLCALCIUM 8.90 mg/dLeGFR 60 TRIGLYCERIDES 153.0 mg/dLCHOLESTEROL 99.0 mg/dLHDL 26.0 mg/dLLDL (CALC) 42.0 mg/dL 10/27/2013 8:15 AM GLUCOSE [...] #EOS 0.40 #BASO 0.02 HGB A1C 6.10 % 10/27/2013 9:00 AM Absolute CD 4 [place] 455.0 /uL% CD 4 Pos. Lymph. 19.80 [...] 9.0 mg/dLLDL (CALC) 29.0 mg/dLHGB A1C 7.90 %Absolute CD 4 [place] 338.0 /uL% CD 4 Pos. Lymph. 18.80 %Abs. CD 8 Suppressor 994.0 /uL% CD 8 Pos. Lymph. 55.20 %CD4/CD8 Ratio 0.34 WBC 6.4 Hematocrit 33.90 % Platelets 243 Eos 4.0 %Eos (Absolute) 0.2 05/20/2014 [...] Route Inj Vis Given Vis Pub CVX Pneumococcal 04/16/2007 [employer] MSD Pneumovax 23 Intramuscular Not Entered 07/08/2014 07/08/2014 999 Influenza 04/13/2009 Not Entered NE Not Entered Not Entered Not Entered 07/08/2014 07/08/2014 999 Influenza 04/21/2010 [employer] [place]. NOV Fluvirin > 12 Years [id number] Intramuscular Right Deltoid 04/21/2010 02/15/2009 999 History [...] Kidney Myocardial Infarction 2004 DR Aguirre at [place] Anxiety Gout Osteoarthritis depression Knee Pain left [...] 2:32PM Knee pain Nov 02 2014 2:32PM Payers Insurance Name Company Name Plan Name Plan Number Policy Number Policy Group Number Start Date [id number] Thursday[id number] Thursday, 2012 History of Encounters Visit Date Visit Type Provider 11/02/2014 Office visit Liam Fajardo MD 07/19/2014 [facility] Reinier Mcdermott MD 06/02/2014 Office visit Reinier Mcdermott MD 05/25/2014 Office visit Jean Marie Weathers COMMODITY INDUSTRY ANALYST 05/20/2014 Office visit Liam Fajardo MD 01/01/2014 Office visit Blanche Meek COMMODITY INDUSTRY ANALYST 11/10/2013 Office visit Liam Fajardo MD 07/23/2013 Nurse visit Liam Fajardo MD 07/17/2013 Office visit Jean Marie Weathers COMMODITY INDUSTRY ANALYST 07/14/2013 Office visit Jean Marie Weathers COMMODITY INDUSTRY ANALYST 07/09/2013 Nurse visit Liam Fajardo MD 06/25/2013 Office visit Liam Fajardo MD 05/12/2013 Office visit Liam Fajardo MD 10/29/2012 Office visit Liam Fajardo MD 12/21/2011 Nurse visit Liam Fajardo MD 11/09/2011 Office visit Liam Fajardo MD 08/03/2011 Voided Liam Fajardo MD 06/15/2011 Office visit Blanche Meek COMMODITY INDUSTRY ANALYST 05/09/2011 Nurse visit Liam Fajardo MD 03/15/2011 Nurse visit Liam Fajardo MD 03/08/2011 Office visit Blanche Meek COMMODITY INDUSTRY ANALYST 03/06/2011 Office visit Blanche Meek COMMODITY INDUSTRY ANALYST 02/05/2011 Office visit Liam Fajardo MD 01/05/2011 [...]
--- OUTSIDE RECORDS SUMMARY | 2017-06-18 11:30 | XMS REPORT ---
Author JOHN Regalado [facility] eClinicalWorks Address Unknown Phone Unavailable Care Team Providers Care Dobby Loom Chain Pegger Name Role Phone JOHN LEDBETTER CP Unavailable Allergies No Known Allergies Problems Problem Type Condition Code Onset Dates Condition Status Problem Dental examination Z01.20 Active Medications No Known Medications Results No Known Results Summary Purpose eClinicalWorks Submission
--- OUTSIDE RECORDS SUMMARY | 2017-06-18 11:32 | XMS REPORT ---
Author JOHN Regalado [facility] eClinicalWorks Address Unknown Phone Unavailable Care Team Providers Care Epic Cadence Analyst Name Role Phone JOHN LEDBETTER CP Unavailable Allergies No Known Allergies Problems No Known Problems Medications No Known Medications Results No Known Results Summary Purpose eClinicalWorks Submission
--- OUTSIDE RECORDS SUMMARY | 2017-06-18 11:32 | XMS REPORT ---
Author Author Liam Fajardo [facility] Address [address] [place], [place] [id number] Care Team Providers Care Desk Clerks Supervisor Name Role Phone Liam Fajardo PCP Unavailable Liam Fajardo PreferredProvider Unavailable Allergies and Adverse Reactions Name Reaction Notes Valium Excedrin Extra Strength Plan of Treatment Planned Activity Comments Planned Date Planned Time Plan/Goal CBC With Auto Differential 05/23/2016 12:00 AM CMP 05/23/2016 12:00 AM Thyroid stimulating hormone (TSH) 05/23/2016 12:00 AM Chest x-ray, PA and lateral 05/23/2016 12:00 AM CBC with Auto 01/02/2013 12:00 [...] DAILY WITH MORNING AND EVENING MEALS Stribild [phone] mg oral tablet take 1 tablet by [...] TABLET BY MOUTH ONCE DAILY ReliOn Pen [place] 32 gauge x " miscellaneous needle 05/10/2016 [...] (5 mg) by oral route once daily [place] 10-325 mg oral tablet 11/02/2014 05/23/2016 take [...] Status 03/06/2011 12:00 AM Decadron 8 mg [facility]#[id number] (Tiffany) Reviewed 03/06/2011 12:00 AM Depo-Medrol 40 mg [facility]#[id number] Reviewed 03/08/2011 12:00 AM ANTINUCLEAR ANTIBODIES Reviewed [...] 05/12/2013 12:00 AM Depo-Medrol, Per 80 Mg [facility]#3414-1552-90 Reviewed 05/12/2013 12:00 AM Decadron, Per 1 Mg [facility]# [address]-69 Reviewed 07/14/2013 12:00 AM THER/PROPH/DIAG INJ SC/IM Reviewed 07/14/2013 12:00 AM Rocephin 1 gram [facility]#6019-8907-22 Reviewed 07/17/2013 12:00 AM THER/PROPH/DIAG INJ SC/IM Reviewed 07/17/2013 12:00 AM Solu-Medrol, Up to 125 Mg [facility]# 3513-2680-33 Reviewed 10/21/2013 12:00 AM COMPLETE CBC W/AUTO [...] 12:00 AM Lasix 40 Mg Im ND# [address]-33 (Nael) Reviewed 04/07/2010 12:00 AM LIPID PANEL [...] Reviewed 06/06/2010 12:00 AM Kenalog 40 Mg [facility]#[address]-07 (Nael) Reviewed 10/26/2010 12:00 AM COMPREHEN METABOLIC [...] Reviewed 12/29/2014 12:00 AM Rocephin 1 gram [facility]#4822-4339-94 Reviewed Results Summary Data and Description Results [...] Done Dental Inspection Reffered 04/21/2010 2:59 PM Director Labor Standards Consult Done 07/26/2010 12:00 AM Cholest Cry [...] %MCV 85.0 fLMCH 28.70 pgMCHC 33.70 g/dLRDW SD 44 RDW [...] mg/dL 10/27/2013 9:00 AM Absolute CD 4 [place] 455.0 /uL% CD 4 Pos. Lymph. 19.80 % Abs. CD 8 Suppressor 1242.0 /uL% CD 8 Pos. Lymph. 54.0 %CD4/CD8 Ratio 0.37 WBC 6.2 RBC 4.78 Hemoglobin 13.7 Hematocrit 42.20 %MCV 88 MCH 28.7 MCHC 32.5 RDW 15.6 Platelets 189 Neutrophils 46 Lymphs 37 Monocytes 9 Eos 7.0 %Basos 1 Immature Cells DESULFURIZER MACHINE Neutrophils (Absolute) 2.9 Lymphs (Absolute) 2.3 Monocytes( Absolute) 0.6 Eos (Absolute) 0.5 Baso (Absolute) 0.0 Immature Granulocytes 0 Immature Grans (Abs) 0.0 NRBC DESULFURIZER MACHINE Hematology Comments: DESULFURIZER MACHINE HIV-1 RNA by PCR <20 log10 HIV-1 [...] %Est Avg Glucose 180.0 mg/dLAbsolute CD 4 [place] 338.0 /uL% CD 4 Pos. Lymph. 18.80 %Abs. CD 8 Suppressor 994.0 /uL% CD 8 Pos. Lymph. 55.20 %CD4/CD8 Ratio 0.34 WBC 6.4 RBC 4.03 Hemoglobin 10.6 Hematocrit 33.90 %MCV 84 MCH 26.3 MCHC 31.3 RDW 15.1 Platelets 243 Neutrophils 55 Lymphs 28 Monocytes 13 Eos 4.0 %Basos 0 Immature Cells DESULFURIZER MACHINE Neutrophils ( Absolute) 3.5 Lymphs (Absolute) 1.8 Monocytes(Absolute) 0.8 Eos (Absolute) 0.2 Baso (Absolute) 0.0 Immature Granulocytes 0 Immature Grans (Abs) 0.0 NRBC DESULFURIZER MACHINE Hematology Comments: DESULFURIZER MACHINE HIV-1 RNA by PCR <20 log10 HIV-1 [...] %Saturation Calc 9 VITAMIN B12 238.0 pg/mL History Of Immunizations Name Date Admin Mfg Name Mfg Code Trade Name Lot# Route Inj Vis Given Vis Pub CVX X 04/16/2007 [employer] MSD Pneumovax 23 Intramuscular Not Entered 07/08/2016 07/08/2016 999 Influenza 04/13/2009 Not Entered NE Not Entered Not Entered Not Entered 07/08/2016 07/08/2016 999 Influenza 04/21/2010 [employer]. NOV Fluvirin > 12 Years [id number] Intramuscular Right Deltoid 04/21/2010 02/15/2009 999 History [...] Kidney Myocardial Infarction 2004 DR Aguirre at [place] Anxiety Gout Osteoarthritis depression Knee Pain left [...] 2016 10:20AM Cough May 23 2016 10:20AM Payers Insurance Name Company Name Plan Name Plan Number Policy Number Policy Group Number Start Date [employer] [place] [id number] N/A [place] [employer] Tender [facility] [id number] N/A BCBS [employer] [facility] [id number] Thursday, 2011 [employer] [place] [id number] Thursday, 2012 [place] [employer] [place] [employer] [place] [id number] N/A History of Encounters Visit Date Visit Type Provider 05/23/2016 Office visit Liam Fajardo MD 11/22/2015 Office visit Liam Fajardo MD 10/28/2015 Office visit Liam Fajardo MD 10/18/2015 Office visit Jean Marie Weathers APRN 05/27/2015 Office visit Jean Marie Weathers APRN 01/10/2015 [facility] Phil Parsons MD 12/29/2014 Office visit Jean Marie Weathers APRN 11/02/2014 Office visit Liam Fajardo MD 07/19/2014 [facility] Reinier Mcdermott MD 06/02/2014 Office visit Reinier Mcdermott MD 05/25/2014 Office visit Jean Marie Weathers APRN 05/20/2014 Office visit Liam Fajardo MD 01/01/2014 Office visit Blanche Meek CADDY 11/10/2013 Office visit Liam Fajardo MD 07/23/2013 Nurse visit Liam Fajardo MD 07/17/2013 Office visit Jean Marie Weathers CADDY 07/14/2013 Office visit Jean Marie Weathers CADDY 07/09/2013 Nurse visit Liam Fajardo MD 06/25/2013 Office visit Liam Fajardo MD 05/12/2013 Office visit Liam Fajardo MD 10/29/2012 Office visit Liam Fajardo MD 12/21/2011 Nurse visit Liam Fajardo MD 11/09/2011 Office visit Liam Fajardo MD 08/03/2011 Voided Liam Fajardo MD 06/15/2011 Office visit Blanche Meek CADDY 05/09/2011 Nurse visit Liam Fajardo MD 03/15/2011 Nurse visit Liam Fajardo MD 03/08/2011 Office visit Blanche Meek CADDY 03/06/2011 Office visit Blanche Meek CADDY 02/05/2011 Office visit Liam Fajardo MD 01/05/2011 [...]
--- OUTSIDE RECORDS SUMMARY | 2017-06-18 11:34 | XMS REPORT ---
Author Author Jean Marie Weathers [facility] Address [address] [place], [place] [id number] Care Team Providers Care Pipe Stem Sawyer Name Role Phone Jean Marie Weathers PCP Allergies and Adverse Reactions Name Reaction Notes [...] DAILY WITH MORNING AND EVENING MEALS Stribild [phone] mg oral tablet take 1 tablet by oral route once daily with food glyburide 5 mg oral tablet 06/21/2014 TAKE ONE TABLET BY MOUTH TWICE DAILY BEFORE MEALS Klor-Con M10 10 mEq oral tablet,ER particles/crystals 07/23/2014 TAKE ONE TABLET BY MOUTH TWICE DAILY simvastatin 40 mg oral tablet 08/30/2014 TAKE ONE TABLET BY MOUTH ONCE DAILY IN THE EVENING [place] 10-325 mg oral tablet 11/02/2014 take 1 [...] (5 mg) by oral route once daily Name Start Date Expiration Date SIG Comments [...] victoza for DM 2 250.00 Bactrim DS 800-160 mg oral tablet 06/06/2010 [...] 10mg x4 days. OneTouch UltraSoft Lancets miscellaneous [facility] 06/11/2011 07/11/2011 TEST THREE TIMES A DAY [...] HC BMI BSA BMI Percentile O2 Sat(%) 10/18/2015 9:17:00 AM 150 mmHg 80 mmHg [...] Status 03/06/2011 12:00 AM Decadron 8 mg [facility]#[id number] (Tiffany) Reviewed 03/06/2011 12:00 AM Depo-Medrol 40 mg [facility]#[id number] Reviewed 03/08/2011 12:00 AM ANTINUCLEAR ANTIBODIES Reviewed [...] 05/12/2013 12:00 AM Depo-Medrol, Per 80 Mg [facility]#2082-9550-27 Reviewed 05/12/2013 12:00 AM Decadron, Per 1 Mg [facility]# [address]-99 Reviewed 07/14/2013 12:00 AM THER/PROPH/DIAG INJ SC/IM Reviewed 07/14/2013 12:00 AM Rocephin 1 gram [facility]#2130-2008-70 Reviewed 07/17/2013 12:00 AM THER/PROPH/DIAG INJ SC/IM Reviewed 07/17/2013 12:00 AM Solu-Medrol, Up to 125 Mg [facility]# 3454-9562-27 Reviewed 10/21/2013 12:00 AM COMPLETE CBC W/AUTO [...] 04/07/2010 12:00 AM Lasix 40 Mg Im [facility]# [address]-81 (Nayak) Reviewed 04/07/2010 12:00 AM LIPID PANEL Reviewed [...] Reviewed 06/06/2010 12:00 AM Kenalog 40 Mg Im-[facility]#[address]-70 (Nayak) Reviewed 10/26/2010 12:00 AM COMPREHEN METABOLIC PANEL [...] Reviewed 12/29/2014 12:00 AM Rocephin 1 gram [facility]#6631-8386-90 Reviewed Results Summary Data and Description Results [...] Done Dental Inspection Reffered 04/21/2010 2:59 PM Insulation Cupola Charger Consult Done 07/26/2010 12:00 AM Cholest Cry [...] mg/dL 10/27/2013 9:00 AM Absolute CD 4 [place] 455.0 /uL% CD 4 Pos. Lymph. 19.80 [...] %Est Avg Glucose 180.0 mg/dLAbsolute CD 4 [place] 338.0 /uL% CD 4 Pos. Lymph. 18.80 [...] Not Entered 07/08/2015 07/08/2015 999 Influenza 04/21/2010 One Diary. NOV Fluvirin > 12 Years [id number] Intramuscular Right Deltoid 04/21/2010 02/15/2009 999 History [...] Kidney Myocardial Infarction 2004 DR Aguirre at [place] Anxiety Gout Osteoarthritis depression Knee Pain left [...] Type II, Uncontrolled Oct 18 2015 9:18AM Payers Insurance Name Company Name Plan Name Plan Number Policy Number Policy Group Number Start Date BCBS [facility] [place] [id number] N/A [place] Medical [place] Prog [id number] N/A [employer]BS [employer] [place] [id number] Thursday, 2011 [employer]BS [employer] [place] [id number] Thursday, 2012 History of Encounters Visit Date Visit Type Provider 10/18/2015 Office visit Jean Marie Weathers APRN 05/27/2015 Office visit Jean Marie Weathers APRN 01/10/2015 [facility] Phil Parsons MD 12/29/2014 Office visit Jean Marie Weathers APRN 11/02/2014 Office visit Liam Fajardo MD 07/19/2014 [facility] Reinier Mcdermott MD 06/02/2014 Office visit Reinier Mcdermott MD 05/25/2014 Office visit Jean Marie Weathers DISHWASHER 05/20/2014 Office visit Liam Fajardo MD 01/01/2014 Office visit Blanche Meek DISHWASHER 11/10/2013 Office visit Liam Fajardo MD 07/23/2013 Nurse visit Liam Fajardo MD 07/17/2013 Office visit Jean Marie Weathers DISHWASHER 07/14/2013 Office visit Jean Marie Weathers DISHWASHER 07/09/2013 Nurse visit Liam Fajardo MD 06/25/2013 Office visit Liam Fajardo MD 05/12/2013 Office visit Liam Fajardo MD 10/29/2012 Office visit Liam Fajardo MD 12/21/2011 Nurse visit Liam Fajardo MD 11/09/2011 Office visit Liam Fajardo MD 08/03/2011 Voided Liam Fajardo MD 06/15/2011 Office visit Blanche Meek DISHWASHER 05/09/2011 Nurse visit Liam Fajardo MD 03/15/2011 Nurse visit Liam Fajardo MD 03/08/2011 Office visit Blanche Meek DISHWASHER 03/06/2011 Office visit Blanche Meek DISHWASHER 02/05/2011 Office visit Liam Fajardo MD 01/05/2011 [...]
--- OUTSIDE RECORDS SUMMARY | 2017-06-18 11:35 | XMS REPORT ---
Author Author Jean Marie Weathers [facility] Address [address] [place], [place] [address] Care Team Providers Care Driver Engineer Name Role Phone Jean Marie Weathers PCP [...] DAILY WITH MORNING AND EVENING MEALS Stribild [phone] mg oral tablet take 1 tablet by oral route once daily with food glyburide 5 mg oral tablet 06/21/2014 TAKE ONE TABLET BY MOUTH TWICE DAILY BEFORE MEALS Klor-Con M10 10 mEq oral tablet,ER particles/crystals 07/23/2014 TAKE ONE TABLET BY MOUTH TWICE DAILY simvastatin 40 mg oral tablet 08/30/2014 TAKE ONE TABLET BY MOUTH ONCE DAILY IN THE EVENING [place] 10-325 mg oral tablet 11/02/2014 take 1 [...] TAKE ONE TABLET BY MOUTH ONCE DAILY Name Start Date Expiration Date SIG Comments [...] HC BMI BSA BMI Percentile O2 Sat(%) 05/27/2015 1:49:00 PM 140 mmHg 85 mmHg [...] Status 03/06/2011 12:00 AM Decadron 8 mg [facility]#[phone] (Tiffany) Reviewed 03/06/2011 12:00 AM Depo-Medrol 40 mg [facility]#[id number] Reviewed 03/08/2011 12:00 AM ANTINUCLEAR ANTIBODIES Reviewed [...] 05/12/2013 12:00 AM Depo-Medrol, Per 80 Mg [facility]#3064-1446-20 Reviewed 05/12/2013 12:00 AM Decadron, Per 1 Mg [facility]# [address]-94 Reviewed 07/14/2013 12:00 AM THER/PROPH/DIAG INJ SC/IM Reviewed 07/14/2013 12:00 AM Rocephin 1 gram [facility]#3205-0612-21 Reviewed 07/17/2013 12:00 AM THER/PROPH/DIAG INJ SC/IM Reviewed 07/17/2013 12:00 AM Solu-Medrol, Up to 125 Mg [facility]# 4935-9040-15 Reviewed 10/21/2013 12:00 AM COMPLETE CBC W/AUTO [...] 04/07/2010 12:00 AM Lasix 40 Mg Im [facility]# [address]-54 (Nael) Reviewed 04/07/2010 12:00 AM LIPID PANEL [...] Reviewed 06/06/2010 12:00 AM Kenalog 40 Mg Im-[facility]#[address]-31 (Nael) Reviewed 10/26/2010 12:00 AM COMPREHEN METABOLIC [...] Reviewed 12/29/2014 12:00 AM Rocephin 1 gram [facility]#6910-3694-85 Reviewed Results Summary Data and Description Results [...] Done Dental Inspection Reffered 04/21/2010 2:59 PM Salvage Clerk Consult Done 07/26/2010 12:00 AM Cholest Cry [...] 1.71 #MONO 0.42 #EOS 0.20 #BASO 0.01 Est Avg Glucose 137.0 mg/dLGLUCOSE 145.0 mg/dLSODIUM 143.0 mmol/ LPOTASSIUM 3.60 mmol/LCHLORIDE 107.0 mmol/LCO2 25.0 mmol/LBUN 18.0 mg/ dLCREATININE 1.0 mg/dLSGOT/AST 24.0 IU/LSGPT/ALT 32.0 IU/LALK PHOS 65.0 IU/ LTOTAL PROTEIN 7.20 g/dLALBUMIN 3.80 g/dLTOTAL BILI 0.70 mg/dLCALCIUM 8.90 mg/ dLeGFR 60 TRIGLYCERIDES 153.0 mg/dLCHOLESTEROL 99.0 mg/dLHDL 26.0 mg/dLLDL (CALC ) 42.0 mg/dL 10/27/2013 8:15 AM GLUCOSE 126.0 [...] 2.08 #MONO 0.48 #EOS 0.40 #BASO 0.02 Est Avg Glucose 128.4 mg/dL 10/27/2013 9:00 AM Absolute CD 4 [place] 455.0 /uL% CD 4 Pos. Lymph. 19.80 [...] mg/dLCHOLESTEROL 84.0 mg/dLHDL 9.0 mg/dLLDL (CALC) 29.0 mg/dLEst Avg Glucose 180.0 mg/dLAbsolute CD 4 [place] 338.0 /uL% CD 4 Pos. Lymph. 18.80 [...] Not Entered 07/08/2014 07/08/2014 999 Influenza 04/21/2010 OmniVec. NOV Fluvirin > 12 Years [id number] Intramuscular Right Deltoid 04/21/2010 02/15/2009 999 History [...] Kidney Myocardial Infarction 2004 DR Aguirre at [place] Anxiety Gout Osteoarthritis depression Knee Pain left [...] 2014 4:14PM Bronchitis May 27 2015 1:51PM Payers Insurance Name Company Name Plan Name Plan Number Policy Number Policy Group Number Start Date [facility] [id number] N/A [place] [id number] N/A [facility] [place] [id number] Thursday, 2011 [facility] [id number] Thursday, 2012 History of Encounters Visit Date Visit Type Provider 05/27/2015 Office visit Jean Marie Weathers APRN 01/10/2015 [facility] Phil Parsons MD 12/29/2014 Office visit Jean Marie Weathers PUBLIC SERVICE ADMINISTRATOR 11/02/2014 Office visit Liam Fajardo MD 07/19/2014 [facility] Reinier Mcdermott MD 06/02/2014 Office visit Reinier Mcdermott MD 05/25/2014 Office visit Jean Marie Weathers APRN 05/20/2014 Office visit Liam Fajardo MD 01/01/2014 Office visit Blanche Meek PUBLIC SERVICE ADMINISTRATOR 11/10/2013 Office visit Liam Fajardo MD 07/23/2013 Nurse visit Liam Fajardo MD 07/17/2013 Office visit Jean Marie Weathers PUBLIC SERVICE ADMINISTRATOR 07/14/2013 Office visit Jean Marie Weathers PUBLIC SERVICE ADMINISTRATOR 07/09/2013 Nurse visit Liam Fajardo MD 06/25/2013 Office visit Liam Fajardo MD 05/12/2013 Office visit Liam Fajardo MD 10/29/2012 Office visit Liam Fajardo MD 12/21/2011 Nurse visit Liam Fajardo MD 11/09/2011 Office visit Liam Fajardo MD 08/03/2011 Voided Liam Fajardo MD 06/15/2011 Office visit Blanche Meek PUBLIC SERVICE ADMINISTRATOR 05/09/2011 Nurse visit Liam Fajardo MD 03/15/2011 Nurse visit Liam Fajardo MD 03/08/2011 Office visit Blanche Meek PUBLIC SERVICE ADMINISTRATOR 03/06/2011 Office visit Blanche Meek APRN 02/05/2011 Office visit Liam Fajarod MD 01/05/2011 Voided Liam Fajardo MD 12/11/2010 [...]
--- OUTSIDE RECORDS SUMMARY | 2017-06-18 11:36 | XMS REPORT ---
Author JOHN Regalado [facility] eClinicalWorks Address Unknown Phone Unavailable Care Team Providers Care Back Hand Name Role Phone JOHN LEDBETTER CP Unavailable Allergies No Known Allergies Problems Problem Type Condition Code Onset Dates Condition Status Problem Dental examination Z01.20 Active Medications No Known Medications Results No Known Results Summary Purpose eClinicalWorks Submission
--- OUTSIDE RECORDS SUMMARY | 2017-06-18 11:38 | XMS REPORT ---
Author Author Liam Fajardo [facility] Address [address] [place], [place] [id number] Care Team Providers Care Equity Structurer Name Role Phone Liam Fajardo PCP Unavailable Liam Fajardo PreferredProvider Unavailable Allergies and Adverse Reactions Name Reaction Notes Valium Excedrin Extra Strength Plan of Treatment Planned Activity Comments Planned Date Planned Time Plan/Goal HEMOGLOBIN 05/24/2016 12:00 AM VITAMIN B12 05/24/2016 12:00 AM Folate measurement 05/24/2016 12:00 AM CBC With Auto Differential 11/06/2016 12:00 AM CMP 11/06/2016 12:00 AM Lipid profile 11/06/2016 12:00 AM Hemoglobin A1C 11/06/2016 12:00 AM CD4 and CD8 absolute count and ratio 11/06/2016 12:00 AM RPR QUANTITATIVE 11/06/2016 12:00 AM HIV RNA QUANT 11/06/2016 12:00 AM CBC with Auto 01/02/2013 12:00 [...] DAILY WITH MORNING AND EVENING MEALS Stribild [phone] mg oral tablet take 1 tablet by [...] TABLET BY MOUTH ONCE DAILY ReliOn Pen [place] 32 gauge x 5/32" miscellaneous needle 05/10/2016 02/04/2017 use as directed for 30 days Novolog Flexpen 100 unit/mL subcutaneous insulin pen 05/23/2016 INJECT 20 UNITS SUBCUTANEOUSLY BEFORE MEALS Klor-Con M10 10 mEq oral tablet,ER particles/crystals 08/15/2016 TAKE ONE TABLET BY MOUTH TWICE DAILY furosemide 80 mg oral tablet 08/15/2016 TAKE ONE TABLET BY MOUTH ONCE DAILY sertraline 100 mg oral tablet 08/15/2016 TAKE ONE & ONE-HALF TABLETS BY MOUTH ONCE DAILY metformin 1,000 mg oral tablet 08/15/2016 TAKE ONE TABLET BY MOUTH TWICE DAILY WITH MORNING AND EVENING MEALS Benicar HCT 40-25 mg oral tablet 09/05/2016 TAKE ONE TABLET BY MOUTH ONCE DAILY pantoprazole 40 mg oral tablet,delayed release (DR/EC) 10/08/2016 TAKE ONE TABLET BY MOUTH ONCE DAILY [...] 10mg x4 days. OneTouch UltraSoft Lancets miscellaneous [facility] 06/11/2011 07/11/2011 TEST THREE TIMES A DAY [...] (5 mg) by oral route once daily [place] 10-325 mg oral tablet 11/02/2014 05/23/2016 take 1 tablet by oral route every 6 hours as needed for pain ProAir HFA 90 mcg/actuation inhalation HFA aerosol inhaler 05/27/20152015 inhale 1 - 2 puffs (90 - 180 mcg) by inhalation route every 6 hours as needed Pharmacist Choice lancets miscellaneous strip 05/23/2016 use as directed Randal Floydar 300 unit/mL (1.5 mL) subcutaneous insulin pen [...] HC BMI BSA BMI Percentile O2 Sat(%) 11/06/2016 2:51:00 PM 118 mmHg 62 mmHg 91 bpm 18 rpm 98.1 F 200 lbs 61 in 37.79 kg/m2 1.98 m2 96 % 05/23/2016 10:13:00 AM 142 mmHg 76 mmHg 74 bpm 16 rpm 97.7 F 209 lbs 64 in 35.8744 kg/m 2.069 m 97 % 11/22/2015 3:08:00 PM 148 mmHg [...] lbs 61 in 43.2687 kg/m 2.1144 m 07/17/2013 10:22:00 AM 150 mmHg 80 mmHg 94 bpm 18 rpm 98.4 F 211 lbs 93 % 07/14/2013 10:08:00 AM 140 mmHg 80 mmHg 89 bpm 18 rpm 99.4 F 221 lbs 61 in 41.7572 kg/m 2.0771 m 96 % 06/25/2013 8:31:00 AM 158 mmHg 80 mmHg 82 bpm 18 rpm 98.2 F 217 lbs 66 in 35.02 kg/m2 2.14 m2 05/12/2013 2:38:00 PM 138 mmHg 76 mmHg 84 bpm 18 rpm 98.4 F 218 lbs 66 in 35.1858 kg/m 2.1459 m 10/29/2012 8:30:00 AM 138 mmHg 88 mmHg 80 bpm 18 rpm 97.8 F 218 lbs 66 in 35.19 kg/m2 2.15 m2 12/21/2011 8:41:00 AM 130 mmHg 72 mmHg 230 lbs 66 in 37.1226 kg/m 2.2041 m 11/09/2011 8:19:00 AM 138 mmHg 80 mmHg 80 bpm 20 rpm 97.6 F 232 lbs 66 in 37.45 kg/m2 2.21 m2 08/03/2011 11:42:00 AM 124 mmHg 72 mmHg [...] Status 03/06/2011 12:00 AM Decadron 8 mg [facility]#[id number] (Tiffany) Reviewed 03/06/2011 12:00 AM Depo-Medrol 40 mg [facility]#3269408689 Reviewed 03/08/2011 12:00 AM ANTINUCLEAR ANTIBODIES Reviewed 05/07/2011 12:00 AM ROUTINE VENIPUNCTURE Reviewed 05/07/2011 12:00 AM COMPLETE CBC W/AUTO DIFF WBC Reviewed 05/07/2011 12:00 AM COMPREHEN METABOLIC PANEL Reviewed 05/07/2011 12:00 AM GLYCOSYLATED HEMOGLOBIN TEST Reviewed 08/16/2011 12:00 AM COMPLETE CBC W/AUTO DIFF WBC Reviewed 08/16/2011 12:00 AM COMPREHEN METABOLIC PANEL Reviewed 08/16/2011 12:00 AM LIPID PANEL Reviewed 05/23/2016 12:00 AM COMPLETE CBC W/AUTO DIFF WBC Reviewed 05/23/2016 12:00 AM COMPREHEN METABOLIC PANEL Reviewed 05/23/2016 12:00 AM ASSAY THYROID STIM HORMONE Reviewed 05/23/2016 12:00 AM Prostate Cancer Screening Reviewed 05/23/2016 12:00 AM CHEST X-RAY 2VW FRONTAL&LATL Reviewed 05/24/2016 12:00 AM HEMATOCRIT Reviewed 05/24/2016 12:00 AM ASSAY OF IRON Reviewed 08/16/2011 12:00 AM GLYCOSYLATED HEMOGLOBIN TEST Reviewed 06/09/2009 12:00 AM IMMUNIZATION ADMIN Reviewed 12/21/2011 12:00 AM Blood Pressure or Weight Check-no charge Reviewed 06/13/2009 12:00 AM COMPLETE CBC W/AUTO [...] Reviewed 01/02/2013 12:00 AM COMPREHEN METABOLIC PANEL Reviewed 01/19/2013 12:00 AM ROUTINE VENIPUNCTURE Reviewed 01/19/2013 12:00 AM COMPLETE CBC W/AUTO DIFF WBC Reviewed 01/19/2013 12:00 AM LIPID PANEL Reviewed 01/19/2013 12:00 AM GLYCOSYLATED HEMOGLOBIN TEST Reviewed 05/12/2013 12:00 AM Depo-Medrol, Per 80 Mg [facility]#3629-1909-01 Reviewed 05/12/2013 12:00 AM Decadron, Per 1 Mg [facility]# [address]-33 Reviewed 07/14/2013 12:00 AM THER/PROPH/DIAG INJ SC/IM Reviewed 07/14/2013 12:00 AM Rocephin 1 gram [facility]#8114-3302-56 Reviewed 07/17/2013 12:00 AM THER/PROPH/DIAG INJ SC/IM Reviewed 07/17/2013 12:00 AM Solu-Medrol, Up to 125 Mg [facility]# 0281-4826-21 Reviewed 10/21/2013 12:00 AM ROUTINE VENIPUNCTURE Reviewed 10/21/2013 12:00 AM COMPLETE CBC W/AUTO [...] 04/07/2010 12:00 AM Lasix 40 Mg Im [facility]# [address]-83 (Nael) Reviewed 04/07/2010 12:00 AM LIPID PANEL [...] Reviewed 06/06/2010 12:00 AM Kenalog 40 Mg [facility]#[address]-89 (Nael) Reviewed 10/26/2010 12:00 AM COMPREHEN METABOLIC [...] Reviewed 12/29/2014 12:00 AM Rocephin 1 gram [facility]#1526-8998-43 Reviewed Results Summary Data and Description Results [...] Done Dental Inspection Reffered 04/21/2010 2:59 PM Cmm Operator Consult Done 07/26/2010 12:00 AM Cholest Cry [...] mg/dL 10/27/2013 9:00 AM Absolute CD 4 [place] 455.0 /uL% CD 4 Pos. Lymph. 19.80 % Abs. CD 8 Suppressor 1242.0 /uL% CD 8 Pos. Lymph. 54.0 %CD4/CD8 Ratio 0.37 WBC 6.2 RBC 4.78 Hemoglobin 13.7 Hematocrit 42.20 %MCV 88 MCH 28.7 MCHC 32.5 RDW 15.6 Platelets 189 Neutrophils 46 Lymphs 37 Monocytes 9 Eos 7.0 %Basos [address] [employer] Neutrophils (Absolute) 2.9 Lymphs (Absolute) 2.3 Monocytes( Absolute) 0.6 Eos (Absolute) 0.5 Baso (Absolute) 0.0 Immature Granulocytes 0 Immature Grans (Abs) 0.[address] SUPER[employer] Hematology Comments: [employer] SUPER[employer] HIV-1 RNA by PCR <20 log10 HIV-1 [...] %Est Avg Glucose 180.0 mg/dLAbsolute CD 4 [place] 338.0 /uL% CD 4 Pos. Lymph. 18.80 %Abs. CD 8 Suppressor 994.0 /uL% CD 8 Pos. Lymph. 55.20 %CD4/CD8 Ratio 0.34 WBC 6.4 RBC 4.03 Hemoglobin 10.6 Hematocrit 33.90 %MCV 84 MCH 26.3 MCHC 31.3 RDW 15.1 Platelets 243 Neutrophils 55 Lymphs 28 Monocytes 13 Eos 4.0 %Basos [address] [employer] Neutrophils ( Absolute) 3.5 Lymphs (Absolute) 1.8 Monocytes(Absolute) 0.8 Eos (Absolute) 0.2 Baso (Absolute) 0.0 Immature Granulocytes 0 Immature Grans (Abs) 0.[address] [employer] Hematology Comments: [employer] SUPER[employer] HIV-1 RNA by PCR <20 log10 HIV-1 [...] Not Entered 07/08/2016 07/08/2016 999 Influenza 04/21/2010 Dinamundo. NOV Fluvirin > 12 Years [id number] Intramuscular Right Deltoid 04/21/2010 02/15/2009 999 History [...] Kidney Myocardial Infarction 2004 DR Aguirre at [place] Anxiety Gout Osteoarthritis depression Knee Pain left [...] 2016 10:20AM Anemia May 24 2016 2:57PM Asymptomatic HIV infection Nov 06 2016 2:52PM Combined hyperlipidemia Nov 06 2016 2:52PM Sinusitis Nov 06 2016 2:52PM Diabetes Mellitus, Type II Nov 06 2016 2:52PM Payers Insurance Name Company Name Plan Name Plan Number Policy Number Policy Group Number Start Date BCBS [facility] [id number] N/A [facility] [id number] N/A [employer]BS [employer] [place] [id number] Thursday, 2011 [employer] [place] [id number] Thursday, 2012 [place] [id number] N/A [employer]BS [employer] [place] [id number] N/A History of Encounters Visit Date Visit Type Provider 11/06/2016 Office visit Liam Fajardo MD 05/23/2016 Office visit Liam Fajardo MD 11/22/2015 Office visit Liam Fajardo MD 10/28/2015 Office visit Liam Fajardo MD 10/18/2015 Office visit Jean Marie Weathers RN IV THERAPY 05/27/2015 Office visit Jean Marie Weathers RN IV THERAPY 01/10/2015 [facility] Phil Parsons MD 12/29/2014 Office visit Jean Marie Weathers RN IV THERAPY 11/02/2014 Office visit Liam Fajardo MD 07/19/2014 [facility] Reinier Mcdermott MD 06/02/2014 Office visit Reinier Mcdermott MD 05/25/2014 Office visit Jean Marie Weathers RN IV THERAPY 05/20/2014 Office visit Liam Fajardo MD 01/01/2014 Office visit Blanche Meek RN IV THERAPY 11/10/2013 Office visit Liam Fajardo MD 07/23/2013 Nurse visit Liam Fajardo MD 07/17/2013 Office visit Jean Marie Weathers RN IV THERAPY 07/14/2013 Office visit Jean Marie Weathers RN IV THERAPY 07/09/2013 Nurse visit Liam Fajardo MD 06/25/2013 Office visit Liam Fajardo MD 05/12/2013 Office visit Liam Fajardo MD 10/29/2012 Office visit Liam Fajardo MD 12/21/2011 Nurse visit Liam Fajardo MD 11/09/2011 Office visit Liam Fajardo MD 08/03/2011 Voided Liam Fajardo MD 06/15/2011 Office visit Blanche Meek RN IV THERAPY 05/09/2011 Nurse visit Liam Fajardo MD 03/15/2011 Nurse visit Liam Fajardo MD 03/08/2011 Office visit Blanche Meek RN IV THERAPY 03/06/2011 Office visit Blanche Meek RN IV THERAPY 02/05/2011 Office visit Liam Fajardo MD 01/05/2011 [...]
--- OUTSIDE RECORDS SUMMARY | 2017-06-18 11:40 | XMS REPORT ---
Author Author Liam Fajardo [facility] Address [address] [place], [place] [address] Care Team Providers Care Glass Presser Name Role Phone Liam Fajardo PCP Unavailable [...] MORNING AND EVENING MEALS Stribild oral tablet [phone] mg take 1 tablet by oral route once daily with food glyburide oral tablet 5 mg 06/21/2014 TAKE ONE TABLET BY MOUTH TWICE DAILY BEFORE MEALS Klor-Con M10 oral tablet,ER particles/crystals 10 mEq 07/23/2014 TAKE ONE TABLET BY MOUTH TWICE DAILY simvastatin oral tablet 40 mg 08/30/2014 TAKE ONE TABLET BY MOUTH ONCE DAILY IN THE EVENING [place] oral tablet 10-325 mg 11/02/2014 take 1 tablet by oral route every 6 hours as needed for pain Name Start Date Expiration Date SIG Comments [...] 10mg x4 days. One Touch UltraSoft Lancets [facility]Non-Drug; Combo Route) 06/11/2011 07/11/2011 TEST THREE TIMES [...] HC BMI BSA BMI Percentile O2 Sat(%) 12/29/2014 4:13:00 PM 130 mmHg 70 mmHg [...] Done Dental Inspection Reffered 04/21/2010 2:[address] Consult Done 07/26/2010 12:00 AM Cholest Cry [...] BILI 0.50 mg/dLCALCIUM 9.10 mg/dLeGFR >60 mL/min/1.73 [id number] A1C 5.90 % 05/09/2011 10:10 AM WBC [...] % 10/27/2013 9:00 AM Absolute CD 4 [place] 455.0 /uL% CD 4 Pos. Lymph. 19.80 [...] 29.0 mg/dLHGB A1C 7.90 %Absolute CD 4 [place] 338.0 /uL% CD 4 Pos. Lymph. 18.80 [...] Not Entered 07/08/2014 07/08/2014 999 Influenza 04/21/2010 [place]. NOV Fluvirin > 12 Years [id number] Intramuscular Right Deltoid 04/21/2010 02/15/2009 999 History [...] Kidney Myocardial Infarction 2004 DR Aguirre at [place] Anxiety Gout Osteoarthritis depression Knee Pain left [...] 2:32PM Bronchitis, Acute Dec 29 2014 4:14PM Payers Insurance Name Company Name Plan Name Plan Number Policy Number Policy Group Number Start Date [facility] [id number] Thursday, 2011 [employer]bs [employer] [place] [id number] Thursday, 2012 History of Encounters Visit Date Visit Type Provider 12/29/2014 Office visit Jean Marie Weathers APRN 11/02/2014 Office visit Liam Fajardo MD 07/19/2014 Hospital Reinier Mcdermott MD 06/02/2014 Office visit [...] Fajardo MD 06/15/2011 Office visit Blanche Meek APRN 05/09/2011 Nurse visit Liam Fajardo MD 03/15/2011 Nurse visit Liam Fajardo MD 03/08/2011 Office visit Blanche Meek APRN 03/06/2011 Office visit Blanche Meek APRN 02/05/2011 Office visit Liam Fajardo MD 01/05/2011 [...]
--- OUTSIDE RECORDS SUMMARY | 2017-06-18 11:40 | XMS REPORT | Continuity of Care Document ---
Author Author [facility] Organization [facility] Address Unknown Phone Unavailable Allergies Medications Problems Procedures Results Encounters ACCT No. Visit Date/Time Discharge Status Pt. Type Provider Facility Loc./Unit Complaint [id number] 11/06/2016 15:50:13 11/06/2016 23: 59:59 [facility] Outpatient Liam Fajardo [id number] 05/23/2016 10:50:04 05/23/2016 23: 59:59 [facility] Outpatient Liam Fajardo [id number] 05/27/2015 14:40:06 05/27/2015 23: 59:59 [facility] Outpatient Jean Marie Weathers [id number] 03/07/2015 08:01:39 03/07/2015 23: 59:59 [facility] Outpatient Phil Parsons [id number] 02/14/2015 22:02:55 02/14/2015 23: 59:59 [facility] Outpatient Jean Marie Weathers [id number] 11/02/2014 15:23:11 11/02/2014 23: 59:59 [facility] Outpatient Liam Fajardo [id number] 06/02/2014 11:23:18 06/02/2014 23: 59:59 [facility] Outpatient Reinier Mcdermott [id number] 05/25/2014 12:28:13 05/25/2014 23: 59:59 [facility] Outpatient Jean Marie Weathers [id number] 05/20/2014 10:20:56 05/20/2014 23: 59:59 [facility] Outpatient Liam Fajardo [id number] 11/10/2013 10:30:04 11/10/2013 23: 59:59 [facility] Outpatient Liam Fajardo [id number] 07/23/2013 12:49:19 07/23/2013 23: 59:59 [facility] Outpatient Liam Fajardo [id number] 07/17/2013 11:13:43 07/17/2013 23: 59:59 [facility] Outpatient Jean Marie Weathers [id number] 07/14/2013 11:01:28 07/14/2013 23: 59:59 [facility] Outpatient Jean Marie Weathers [id number] 07/09/2013 12:47:41 07/09/2013 23: 59:59 [facility] Outpatient Liam Fajardo
--- NOTE | 2017-06-18 11:42 | ED Neurological Problem ---
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 He is HIV positive and takes Stribild. He has followed with Dr. Valentin from [place] and has seen Dr. Radha Lawton from [facility]. He does have a history of diabetes as well and last checked his sugar about 2-3 days ago. Typically his sugar runs in the 150 range. He also reports a significant unintentional weight loss over the past year of about 50lbs. . He is very concerned about over the past few days. He states that his family is unaware of his HIV status and he would like to keep it that way. Timing/Duration: other (3 days) Severity: moderate Associated Symptoms: confusion, No fatigue, No fever/chills, No insomnia, No loss of consciousness, No muscle spasms, No nausea/vomiting, No numbness in legs /feet, No slurred speech, No tingling in legs/feet, No trouble walking, No vision changes, No weakness Allergies and Home Medications Allergies Coded Allergies: No Known Drug Allergies (Unverified , 06/18/17) Home Medications Aspirin 81 Mg Tablet.dr, Unknown Dose PO, (Reported) Furosemide 40 Mg Tablet, Unknown Dose PO, (Reported) Olmesartan Medoxomil 5 Mg Tablet, Unknown Dose PO DAILY, (Reported) Potassium Chloride 10 Meq Tablet.er, Unknown Dose PO, (Reported) [Stibil] , Unknown Dose, (Reported) Constitutional: see HPI Eyes: No Symptoms Reported Ears, Nose, Mouth, Throat: no symptoms reported Respiratory: no symptoms reported Cardiovascular: no symptoms reported Genitourinary: no symptoms reported Musculoskeletal: no symptoms reported Skin: no symptoms reported Psychiatric/Neurological: See HPI Endocrine: No Symptoms Reported Past Qjdufji-Ocqrzt-Bhyvjq Hx Patient Social History Recent Foreign Travel: No Contact w/Someone Who Travel: No Physical Exam Vital Signs Vital Sign - Last 12Hours 06/18/17 11:30 Temp 97.4 Pulse 96 Resp 18 B/P (MAP) 176/105 (128) Pulse Ox 98 Capillary Refill : General Appearance: WD/WN, no apparent distress HEENT: PERRL/EOMI, normal ENT inspection Neck: non-tender, full range of motion Respiratory: normal breath sounds, no respiratory distress, no accessory muscle use Cardiovascular: regular rate, rhythm, no murmur Gastrointestinal: normal bowel sounds, non tender, soft Extremities: normal range of motion, non-tender Neurologic/Psychiatric: alert, normal mood/affect, other (speech is clear and he has difficulty expressing words and does have some word searching.) Crainal Nerves: normal hearing, PERRL Skin: normal color, warm/dry Comments Patient states that his sister is at the Hospital in [place] with a bowel resection and is not doing well. He cries and appears quite anxious. Anxiety/ conversion disorder would be in the differential Stroke Onset of Symptoms Date of Onset of Symptoms: Jun 16, 2017 NIH Stroke Scale Assessment Level of Consciousness: 0=Alert (0), Level of Consciousness-Questions: 0= Answers both month/age (0), LOC Commands: 0=Performs both tasks (0), Visual Parekh: 0=No visual loss (0), Facial Movement (Facial Paresis): 0=Normal symmetrical mnt (0), Motor Function-Arms Right: 0=No drift (0), Motor Function- Arms Left: 0=No drift (0), Motor Function-Legs Right: 0=No drift (0), Motor Function-Legs Left: 0=No drift (0), Limb Ataxia: 0=Absent (0), Sensory: 0=Normal :no loss (0), Best Language: 1=Mild to moderat aphasia (1), Dysarthria: 1=Mild to moderate loss (1), Extinction & Inattention: 0=No abnormality (0), Total: 2 Progress/Results/Core Measures Results/Orders Lab Results Laboratory Tests Test 06/18/17 11:28 06/18/17 12:05 06/18/17 13:39 06/18/17 14:32 Range/Units Glucometer 512 *H 357 H 269 H 70-110 MG/DL White Blood Count 7.8 4.3-11.0 10^3/uL Red Blood Count 5.63 4.35-5.85 10^6/uL Hemoglobin 16.2 13.3-17.7 G/DL Hematocrit 47 40-54 % Mean Corpuscular Volume 83 80-99 FL Mean Corpuscular Hemoglobin 29 25-34 PG Mean Corpuscular Hemoglobin Concent 35 32-36 G/DL Red Cell Distribution Width 14.0 10.0-14.5 % Platelet Count 271 130-400 10^3/uL Mean Platelet Volume 11.6 H 7.4-10.4 FL Neutrophils (%) (Auto) 55 42-75 % Lymphocytes (%) (Auto) 34 12-44 % Monocytes (%) (Auto) 9 0-12 % Eosinophils (%) (Auto) 1 0-10 % Basophils (%) (Auto) 0 0-10 % Neutrophils # (Auto) 4.2 1.8-7.8 X 10^3 Lymphocytes # (Auto) 2.7 1.0-4.0 X 10^3 Monocytes # (Auto) 0.7 0.0-1.0 X 10^3 Eosinophils # (Auto) 0.1 0.0-0.3 10^3/uL Basophils # (Auto) 0.0 0.0-0.1 10^3/uL Prothrombin Time 11.3 L 12.2-14.7 SEC INR Comment 0.8 0.8-1.4 Activated Partial Thromboplast Time 22 L 24-35 SEC D-Dimer 0.91 H 0.00-0.49 UG/ML Urine Color YELLOW Urine Clarity CLEAR Urine pH 5 5-9 Urine Specific [place] 1.010 L 1.016-1.022 Urine Protein 2+ H NEGATIVE Urine Glucose (UA) 4+ H NEGATIVE Urine Ketones NEGATIVE NEGATIVE Urine Nitrite NEGATIVE NEGATIVE Urine Bilirubin NEGATIVE NEGATIVE Urine Urobilinogen NORMAL NORMAL MG/DL Urine Leukocyte Esterase NEGATIVE NEGATIVE Urine RBC (Auto) NEGATIVE NEGATIVE Urine RBC NONE /HPF Urine WBC NONE /HPF Urine Squamous Epithelial Cells 0-2 /HPF Urine Crystals NONE /LPF Urine Bacteria NEGATIVE /HPF Urine Casts NONE /LPF Urine Mucus NEGATIVE /LPF Urine Culture Indicated NO Sodium Level 131 L 135-145 MMOL/L Potassium Level 3.5 L 3.6-5.0 MMOL/L Chloride Level 92 L 98-107 MMOL/L Carbon Dioxide Level 21 21-32 MMOL/L Anion Gap 18 H 5-14 MMOL/L Blood Urea Nitrogen 21 H 7-18 MG/DL Creatinine 1.41 H 0.60-1.30 MG/DL Estimat Glomerular Filtration Rate 51 BUN/Creatinine Ratio 15 Glucose Level 568 *H 70-105 MG/DL Calcium Level 9.8 8.5-10.1 MG/DL Total Bilirubin 0.9 0.1-1.0 MG/DL Aspartate Amino Transf (AST/SGOT) 24 5-34 U/L Alanine Aminotransferase (ALT/SGPT) 26 0-55 U/L Alkaline Phosphatase 142 H 40-136 U/L Total Protein 8.0 6.4-8.2 GM/DL Albumin 4.2 3.2-4.5 GM/DL My Orders Orders - MUNIRA ORDAZ APRN Cbc With Automated Diff (06/18/17 11:34) Comprehensive Metabolic Panel (06/18/17 11:34) Ua Culture If Indicated (06/18/17 11:34) Chest Pa/Lat (2 View) (06/18/17 11:34) Ct Head Wo-R/O Stroke (06/18/17 11:34) Ekg Tracing (06/18/17 11:34) T [place] Cd4 Cells (06/18/17 11:34) Saline Lock/Iv-Start (06/18/17 11:34) Ns Iv 1000 Ml (Sodium Chloride 0.9%) (06/18/17 11:45) Insulin (Regular) Human (Humulin R (Per (06/18/17 11:45) Protime With Inr (06/18/17 11:44) Partial Thromboplastin Time (06/18/17 11:44) Fibrin Degradation Products (06/18/17 11:44) Ct Angio Head/Neck (06/18/17 12:04) Iohexol Injection (Omnipaque 350 Mg/Ml 1 (06/18/17 12:15) Ns (Ivpb) (Sodium Chloride 0.9% Ivpb Bag (06/18/17 12:15) Accucheck Stat ONCE (06/18/17 13:00) Ns Iv 1000 Ml (Sodium Chloride 0.9%) (06/18/17 13:45) Insulin (Regular) Human (Humulin R (Per (06/18/17 13:45) Accucheck Stat ONCE (06/18/17 14:25) Medications Given in ED Current Medications Medications Dose Ordered Sig/Agusto Route Start Time Stop Time Status Last Admin Dose Admin Insulin Human Regular 4 unit ONCE ONCE SC 06/18/17 13:45 06/18/17 13:46 DC 06/18/17 13:44 4 UNIT Insulin Human Regular 6 unit ONCE ONCE IV 06/18/17 11:45 06/18/17 11:46 DC 06/18/17 12:13 6 UNIT Iohexol 80 ml ONCE ONCE IV 06/18/17 12:15 06/18/17 12:16 DC 06/18/17 12:36 80 ML Sodium Chloride 100 ml ONCE ONCE IV 06/18/17 12:15 06/18/17 12:16 DC 06/18/17 12:36 80 ML Vital Signs/I&O Vital Sign - Last 12Hours 06/18/17 11:30 Temp 97.4 Pulse 96 Resp 18 B/P (MAP) 176/105 (128) Pulse Ox 98 Diagnostic Imaging Diagonstic Imaging: CT Comments NAME: JEAN PIERRE [facility] REC#: [id number] PT STATUS: REG ER : 1955 PHYSICIAN: MUNIRA ORDAZ APRN ADMIT DATE: 06/18/17/ER Signed Date of Exam:06/18/17 CT HEAD WO-R/O STROKE EXAM: CT head. TECHNIQUE: Noncontrast axial images of the brain were obtained. INDICATION: Slurred speech. Tingling in the hands and headache. FINDINGS: There is no intracranial hemorrhage, edema or mass effect. The brain parenchyma demonstrates minimal periventricular and deep white matter hypodensities suggestive of a mild chronic microvascular ischemic changes. No hydrocephalus. The visualized portions of the orbits and paranasal sinuses appear unremarkable. IMPRESSION: No acute process. Dictated by: Dictated on workstation # [id number] Dict: 06/18/17 1152 Trans: 06/18/17 115 [facility] [id number] Interpreted by: ANTONIA ISAAC MD Electronically signed by: ANTONIA ISAAC MD 06/18/17 1155 [id number] PT STATUS: REG ER : 1955 PHYSICIAN: MUNIRA ORDAZ APRN ADMIT DATE: 06/18/17/ER Signed Date of Exam:12/12/17 CHEST PA/LAT (2 VIEW) PA and lateral views of the chest Indication: Slurred speech Findings: The lungs are clear. The heart size is normal. There is no effusion or pneumothorax The mediastinum and shelly appear unremarkable. Impression: Unremarkable study. Dictated by: Dictated on workstation # [id number] Dict: 06/18/17 1201 Trans: 06/18/17 1201 [facility] [id number] Interpreted by: ANTONIA ISAAC MD Electronically signed by: ANTONIA ISAAC MD 06/18/17 1201 NAME: JEAN PIERRE [facility] REC#: [id number] PT STATUS: REG ER : 1955 PHYSICIAN: MUNIRA ORDAZ APRN ADMIT DATE: 06/18/17/ER Draft Date of Exam:06/18/17 CT ANGIO HEAD/NECK PROCEDURE: CT angiography of the head and CT angiography of the neck with and without contrast. TECHNIQUE: Contiguous noncontrast images were obtained from the skull base through the vertex. After intravenous contrast administration, helical CT angiography of the neck was performed. Source data was reformatted into multiple MIP projections. Delayed post contrast acquisition was also obtained. INDICATION: Slurred speech. CONTRAST: 80 mL of Omnipaque 350 was administered intravenously. FINDINGS: CTA NECK: The aortic arch appears unremarkable. The brachiocephalic artery, right subclavian artery, and right common carotid artery are all patent. There is atherosclerotic plaque along the proximal aspect of the internal carotid artery on the right side with no significant stenosis. The right external carotid artery is patent. The left common carotid, left external carotid, and left internal carotid arteries are all patent. There is atherosclerotic plaque in the proximal left ICA with no significant stenosis. The vertebral arteries are patent. CTA HEAD: The vertebral arteries and basilar artery are patent. The associate dean on both sides are patent. There is atherosclerotic plaque seen in the cavernous segment of the right ICA with no significant stenosis. The [place] of [place] is patent with no occlusion, significant stenosis, or aneurysm seen in the HARRIET or MCA on both sides. Postcontrast parenchymal phase images in the brain demonstrate no enhancing mass. IMPRESSION: CTA NECK: Mild atherosclerotic plaque of the proximal aspect of the internal carotid artery on both sides with no significant stenosis. CTA HEAD: No evidence of occlusion, high-grade stenosis, or aneurysm is seen. Dictated on workstation # [id number] Dict: 06/18/17 1309 Trans: 06/18/17 1329 [id number] Interpreted by: ANTONIA ISAAC MD Electronically signed by: Departure Communication (Admissions) Progress Notes 1337- the expressive dysphagia has resolved. He is able to speak very clearly and fluently now. 1344- I discussed the case with Dr. Lofton from [facility]. Given the resolution of symptoms and the absence of findings that warrant hospital admission we will discharge to home. Patient already has an appointment scheduled for [facility] tomorrow. We will have him keep that appointment and follow-up. Patient himself is agreeable to going home and states that would be his preference. He also agrees that his speech is much improved. 1440-Speech remains clear. Will dc to home. Impression Impression: Primary Impression: Stroke-like symptoms Additional Impressions: transient expressive dysphasia Hyperglycemia Renal insufficiency Disposition: HOME, SELF-CARE Condition: Improved Departure-Patient Inst. Decision time for Depature: 14:41 Referrals: [facility] (PCP/Family) Primary Care Physician Patient Instructions: Hyperglycemia, Adult Add. Discharge Instructions: 1. Check your blood sugar frequent this evening trying to keep it below 300, return to ER for any concerns Copy Copies To 1: RADHA LAWTON MD, PETER J APRN Jun 18, 2017 11:42
[2017-06-18] MEDS ORDERED: NS IV 1000 ML 1,000 ML IV SCH ×2 (11:45→13:45)
[2017-06-18] MEDS ORDERED: [UNRECOGNIZED DRUG - OTHER] (11:45)
[2017-06-18] MEDS ORDERED: OLME5TAB3 PO (11:45)
[2017-06-18] MEDS ORDERED: inSUlin (REGULAR) HUMAN 1 UNIT/0.01 ML (CHARGE PER UNIT) IV ONE (11:45)
[2017-06-18] MEDS ORDERED: POTA10TA6 PO (11:46)
[2017-06-18] MEDS ORDERED: FURO-124 PO (11:47)
[2017-06-18] MEDS ORDERED: ASPI-586 PO (11:47)
--- NOTE | 2017-06-18 11:57 | Diagnostic Imaging Report ---
EXAM: CT head. TECHNIQUE: Noncontrast axial images of the brain were obtained. INDICATION: Slurred speech. Tingling in the hands and headache. FINDINGS: There is no intracranial hemorrhage, edema or mass effect. The brain parenchyma demonstrates minimal periventricular and deep white matter hypodensities suggestive of a mild chronic microvascular ischemic changes. No hydrocephalus. The visualized portions of the orbits and paranasal sinuses appear unremarkable. IMPRESSION: No acute process. Dictated by: Dictated on workstation # [id number]
--- NOTE | 2017-06-18 12:04 | Diagnostic Imaging Report ---
PA and lateral views of the chest Indication: Slurred speech Findings: The lungs are clear. The heart size is normal. There is no effusion or pneumothorax The mediastinum and shelly appear unremarkable. Impression: Unremarkable study. Dictated by: Dictated on workstation # [id number]
[2017-06-18] MEDS ORDERED: NS 100 ML (IVPB) BAG IV ONE (12:15)
[2017-06-18] MEDS ORDERED: IOHEXOL 350 MG/ML 100 ML (OMNIPAQUE 350) VIAL IV ONE (12:15)
[2017-06-18 12:19] LABS: BASOPHILS % (AUTO) 0 % (0-10); EOSINOPHILS # (AUTO) 0.1 10^3/uL (0.0-0.3); EOSINOPHILS % (AUTO) 1 % (0-10); LYMPHOCYTES # (AUTO) 2.7 X 10^3 (1.0-4.0); LYMPHOCYTES % (AUTO) 34 % (12-44); MEAN CORPUSCULAR HEMOGLOBIN 29 PG (25-34); MEAN CORPUSCULAR HGB CONC 35 G/DL (32-36); MEAN CORPUSCULAR VOLUME 83 FL (80-99); MEAN PLATELET VOLUME 11.6 FL (7.4-10.4); MONOCYTES # (AUTO) 0.7 X 10^3 (0.0-1.0); MONOCYTES % (AUTO) 9 % (0-12); NEUTROPHILS # (AUTO) 4.2 X 10^3 (1.8-7.8); NEUTROPHILS % (AUTO) 55 % (42-75); PLATELET COUNT 271 10^3/uL (130-400); RED BLOOD COUNT 5.63 10^6/uL (4.35-5.85); WHITE BLOOD COUNT 7.8 10^3/uL (4.3-11.0)
[2017-06-18 12:20] LABS: BILIRUBIN,URINE NEGATIVE (NEGATIVE); KETONES,URINE NEGATIVE (NEGATIVE); LEUKOCYTE ESTERASE ,URINE NEGATIVE (NEGATIVE); NITRITE,URINE NEGATIVE (NEGATIVE); PH,URINE 5 (5-9); PROTEIN,URINE 2+ (NEGATIVE); UROBILINOGEN,URINE NORMAL (NORMAL)
[2017-06-18 12:28] LABS: SQUAMOUS EPITHELIAL CELL,UR 0-2 /HPF
[2017-06-18 12:29] LABS: INR 0.8 (0.8-1.4); PROTHROMBIN TIME PATIENT 11.3 SEC (12.2-14.7)
[2017-06-18 12:37] LABS: ALBUMIN 4.2 GM/DL (3.2-4.5); BILIRUBIN,TOTAL 0.9 MG/DL (0.1-1.0); CALCIUM 9.8 MG/DL (8.5-10.1); CREATININE SERUM 1.41 MG/DL (0.60-1.30); POTASSIUM 3.5 MMOL/L (3.6-5.0)
--- NOTE | 2017-06-18 13:30 | Diagnostic Imaging Report ---
PROCEDURE: CT angiography of the head and CT angiography of the neck with and without contrast. TECHNIQUE: Contiguous noncontrast images were obtained from the skull base through the vertex. After intravenous contrast administration, helical CT angiography of the neck was performed. Source data was reformatted into multiple MIP projections. Delayed post contrast acquisition was also obtained. INDICATION: Slurred speech. CONTRAST: 80 mL of Omnipaque 350 was administered intravenously. FINDINGS: CTA NECK: The aortic arch appears unremarkable. The brachiocephalic artery, right subclavian artery, and right common carotid artery are all patent. There is atherosclerotic plaque along the proximal aspect of the internal carotid artery on the right side with no significant stenosis. The right external carotid artery is patent. The left common carotid, left external carotid, and left internal carotid arteries are all patent. There is atherosclerotic plaque in the proximal left ICA with no significant stenosis. The vertebral arteries are patent. CTA HEAD: The vertebral arteries and basilar artery are patent. The production associate on both sides are patent. There is atherosclerotic plaque seen in the cavernous segment of the right ICA with no significant stenosis. The [place] of [place] is patent with no occlusion, significant stenosis, or aneurysm seen in the HARRIET or MCA on both sides. Postcontrast parenchymal phase images in the brain demonstrate no enhancing mass. IMPRESSION: CTA NECK: Mild atherosclerotic plaque of the proximal aspect of the internal carotid artery on both sides with no significant stenosis. CTA HEAD: No evidence of occlusion, high-grade stenosis, or aneurysm is seen. Dictated by: Dictated on workstation # [id number]
[2017-06-18] MEDS ORDERED: inSUlin (REGULAR) HUMAN 1 UNIT/0.01 ML (CHARGE PER UNIT) SC ONE (13:45)
[2017-06-18 15:14] VITALS: BP 146/82
[2017-06-19 13:21] LABS: T4 HELPER LYMPHOCYTES PERCENT 21.2 %
[2017-06-19 15:28] LABS: T4 HELPER LYMPHOCYTES ABSOULUT 575.8 /uL (500.0-2000.0)
== END 2017-06-18 15:14 | disposition home or self-care (01) ==
LOC: ER 11:20
DX: R29.818 Other symptoms and signs involving the nervous system (principal); R47.02 Dysphasia; E11.65 Type 2 diabetes mellitus with hyperglycemia; N28.9 Disorder of kidney and ureter, unspecified; Z79.82 Long term (current) use of aspirin; Z21 Asymptomatic human immunodeficiency virus [HIV] infection status
CPT/HCPCS: 36415; 70450; 70496; 70498; 71020; 80053; 81000; 82962; 85025; 85379; 85610; 85730; 86361; 93005

== ENCOUNTER → 2019-02-16 | Outpatient (CLI) | payer BC ==
[~2019-02-16] MED LIST: ASPI-586 PO; FURO-124 PO; OLME5TAB3 PO; POTA10TA6 PO; [UNRECOGNIZED DRUG - OTHER]
== END ==
LOC: WOUNDCARE 08:04
PROVIDERS: ATTEND Surgery
DX: L98.492 Non-pressure chronic ulcer of skin of other sites with fat layer exposed (principal); L22 Diaper dermatitis; L92.8 Other granulomatous disorders of the skin and subcutaneous tissue; B35.4 Tinea corporis
CPT/HCPCS: 17250

== ENCOUNTER → 2019-02-25 | Outpatient (CLI) | payer BC | LOC: WOUNDCARE 08:53 | PROVIDERS: ATTEND Surgery | DX: L98.492 Non-pressure chronic ulcer of skin of other sites with fat layer exposed (principal); L22 Diaper dermatitis; L92.8 Other granulomatous disorders of the skin and subcutaneous tissue; B35.4 Tinea corporis; I96 Gangrene, not elsewhere classified | CPT/HCPCS: 17250 ==

== ENCOUNTER → 2019-03-04 | Outpatient (CLI) | payer BC | LOC: WOUNDCARE 08:57 | PROVIDERS: ATTEND Surgery | DX: L98.492 Non-pressure chronic ulcer of skin of other sites with fat layer exposed (principal); L22 Diaper dermatitis; L92.8 Other granulomatous disorders of the skin and subcutaneous tissue; B35.4 Tinea corporis; I96 Gangrene, not elsewhere classified | CPT/HCPCS: 11042; 87070; 87077; 87205 ==

== ENCOUNTER → 2019-03-13 | Outpatient (CLI) | payer BC | LOC: WOUNDCARE 09:42 | PROVIDERS: ATTEND Surgery | DX: L98.492 Non-pressure chronic ulcer of skin of other sites with fat layer exposed (principal); L22 Diaper dermatitis; L92.8 Other granulomatous disorders of the skin and subcutaneous tissue; B35.4 Tinea corporis; I96 Gangrene, not elsewhere classified | CPT/HCPCS: 99212 ==

== ENCOUNTER → 2019-03-18 | Outpatient (CLI) | payer BC | LOC: WOUNDCARE 08:20 | PROVIDERS: ATTEND Surgery | DX: L98.492 Non-pressure chronic ulcer of skin of other sites with fat layer exposed (principal); L22 Diaper dermatitis; L92.8 Other granulomatous disorders of the skin and subcutaneous tissue; B35.4 Tinea corporis; I96 Gangrene, not elsewhere classified | CPT/HCPCS: 11042 ==

== ENCOUNTER → 2019-03-25 | Outpatient (CLI) | payer BC | LOC: WOUNDCARE 09:02 | PROVIDERS: ATTEND Surgery | DX: L98.492 Non-pressure chronic ulcer of skin of other sites with fat layer exposed (principal); L22 Diaper dermatitis; L92.8 Other granulomatous disorders of the skin and subcutaneous tissue; B35.4 Tinea corporis; I96 Gangrene, not elsewhere classified | CPT/HCPCS: 11042 ==

== ENCOUNTER → 2019-03-30 | Outpatient (REF) ==
--- NOTE | 2019-03-30 09:54 | Diagnostic Imaging Report ---
EXAMINATION: Magnetic resonance imaging of the right shoulder without contrast. DATE: March 30, 2019. COMPARISON: None. HISTORY: 64-year-old male, right shoulder pain. TECHNIQUE: Magnetic Resonance Imaging sequences were performed of the shoulder without contrast. FINDINGS: ROTATOR CUFF, LIGAMENTS, TENDONS, AND MUSCLES: There is a 4 mm wide and approximately 25-33% partial thickness intrasubstance tear in the region of the supraspinatus infraspinatus junction. This tear measures 3 mm in medial to lateral dimension. There is infraspinatus tendinopathy. The teres minor tendon is intact. There is subscapularis tendinopathy. There is normal rotator cuff muscle bulk and signal. LONG HEAD OF BICEPS: The biceps labral attachment and long head of the biceps tendon is intact. The long head of the biceps tendon is normally positioned within the bicipital groove. GLENOHUMERAL JOINT: The humeral head is well positioned relative to the glenoid. The labrum is grossly intact. There is no identified paralabral cyst. The articular cartilage is grossly intact. There is no joint effusion. ACROMIOCLAVICULAR JOINT: There are mild acromioclavicular degenerative changes without large undersurface osteophyte. The acromioclavicular joint is normally aligned. The coracoclavicular and coracoacromial ligaments are intact. BONE: There is no os acromiale. There is mild degenerative related edema adjacent to the acromioclavicular joint. There is a small focus of edema-like signal in the superior glenoid which could be mechanically related to the long head of biceps tendon attachment. There is no acute fracture, bone contusion, or evidence of osteonecrosis. BURSAE AND SOFT TISSUES: The bursae and soft tissue surrounding the shoulder are unremarkable. IMPRESSION: 1. 4 mm wide approximately 25-33% partial thickness intrasubstance tear of the supraspinatus infraspinatus junction. Infraspinatus and subscapularis tendinopathy. No fatty muscle atrophy. 2. Mild acromioclavicular degenerative changes without large undersurface osteophyte. 3. Grossly intact labrum and unremarkable additional glenohumeral joint assessment. 4. No acute fracture, bone contusion, or evidence of osteonecrosis. Dictated by: Dictated on workstation # [id number]
== END | disposition home or self-care (01) ==
LOC: OCC 08:24
PROVIDERS: ATTEND Nurse Practitioner Family
CPT/HCPCS: 73221

== ENCOUNTER → 2019-04-01 | Outpatient (CLI) | payer BC | LOC: WOUNDCARE 08:59 | PROVIDERS: ATTEND Surgery | DX: L98.492 Non-pressure chronic ulcer of skin of other sites with fat layer exposed (principal); L22 Diaper dermatitis; B35.4 Tinea corporis; L92.8 Other granulomatous disorders of the skin and subcutaneous tissue | CPT/HCPCS: 99212 ==

== ENCOUNTER 2020-06-23 09:43 | Inpatient (IN) | payer BC ==
[~2020-06-23] VITALS: Ht 162 cm; Wt 97.5 kg
[2020-06-23 10:07] LABS: BASOPHILS % (AUTO) 1 % (0-10); EOSINOPHILS # (AUTO) 0.3 10^3/uL (0.0-0.3); EOSINOPHILS % (AUTO) 5 % (0-10); HEMATOCRIT 45 % (40-54); HEMOGLOBIN 14.9 g/dL (13.3-17.7); LYMPHOCYTES # (AUTO) 1.9 10^3/uL (1.0-4.0); LYMPHOCYTES % (AUTO) 28 % (12-44); MEAN CORPUSCULAR HEMOGLOBIN 28 pg (25-34); MEAN CORPUSCULAR HGB CONC 33 g/dL (32-36); MEAN CORPUSCULAR VOLUME 84 fL (80-99); MEAN PLATELET VOLUME 10.7 fL (9.0-12.2); MONOCYTES # (AUTO) 0.4 10^3/uL (0.0-1.0); MONOCYTES % (AUTO) 6 % (0-12); NEUTROPHILS % (AUTO) 60 % (42-75); PLATELET COUNT 217 10^3/uL (130-400); WHITE BLOOD COUNT 6.6 10^3/uL (4.3-11.0)
--- NOTE | 2020-06-23 10:07 | ED Neurological Problem ---
General Chief Complaint: Neurological Problems Stated Complaint: STROKE LIKE SYMPTOMS Source: patient Exam Limitations: no limitations History of Present Illness Date Seen by Provider: Jun 23, 2020 Time Seen by Provider: 09:40 Initial Comments Patient presents ER by private conveyance from home with chief complaint of left-sided facial droop and left-sided weakness starting yesterday at noon. He did not come to see anybody till now. He has a history of coronary disease with a stent from 2003 but no history of strokes. He takes aspirin but no blood thinners. No recent surgeries. He does have a history of remote diverticulitis surgery with colostomy, wound infections, fistula etc. Appendix is gone but gallbladder still intact. He is not having any abdominal pain nausea vomiting fever cough shortness of breath. Allergies and Home Medications Allergies Coded Allergies: No Known Drug Allergies (Unverified , 06/18/17) Home Medications Olmesartan Medoxomil 5 Mg Tablet, Unknown Dose PO DAILY, (Reported) Patient Home Medication List Home Medication List Reviewed: Yes Review of Systems Review of Systems Constitutional: No chills, No diaphoresis Eyes: Denies Blindness, Denies Blurred Vision Ears, Nose, Mouth, Throat: denies ear pain, denies ear discharge Respiratory: No cough, No short of breath Cardiovascular: No chest pain, No edema Gastrointestinal: No abdominal pain, No nausea, No vomiting Genitourinary: No discharge, No dysuria Musculoskeletal: No back pain, No joint pain All Other Systems Reviewed Negative Unless Noted: Yes Past Bxodyyq-Hpsota-Ivfilu Hx Patient Social History Alcohol Use: Denies Use Recreational Drug Use: No Smoking Status: Never a Smoker Recent Hopitalizations: No Immunizations Up To Date Tetanus Booster (TDap): Unknown PED Vaccines UTD: Yes Seasonal Allergies Seasonal Allergies: No Past Medical History Surgeries: Yes (COLON RESECTION, HERNIA X3, APPY) Appendectomy Respiratory: No Cardiac: Yes (CHF) Neurological: No Genitourinary: No Gastrointestinal: No Musculoskeletal: No Endocrine: Yes Diabetes, Insulin dep HEENT: No Cancer: No Psychosocial: No Blood Disorders: Yes (HIV +) Physical Exam Vital Signs Vital Signs - First Documented 06/23/20 09:45 Temp 36.3 Pulse 119 Resp 38 B/P (MAP) 197/114 (141) Pulse Ox 96 O2 Delivery Room Air Capillary Refill : Height, Weight, BMI Height: 5'4.00" Weight: 174lbs. oz. 78.403138ug; BMI Method:Stated General Appearance: WD/WN, mild distress HEENT: PERRL/EOMI, pharynx normal Neck: full range of motion, supple Respiratory: lungs clear, normal breath sounds, no respiratory distress, no accessory muscle use Cardiovascular: normal peripheral pulses, regular rate, rhythm Gastrointestinal: normal bowel sounds, non tender, soft Neurologic/Psychiatric: alert, normal mood/affect, oriented x 3, other (left facial droop) Crainal Nerves: normal hearing, normal speech, PERRL Coordination/Gait: normal finger to nose, normal gait Motor/Sensory: pronator drift (L) (lower ext), sensory deficit (left face) Skin: normal color, warm/dry Stroke Onset of Symptoms Date of Onset of Symptoms: Jun 22, 2020 Time of Symptom Onset: 12:00 Onset of Symptoms: Yes NIH Stroke Scale Assessment Select: Initial Level of Consciousness: 0=Alert (0), Level of Consciousness- Questions: 0=Answers both month/age (0), LOC Commands: 0=Performs both tasks (0), Gaze: Normal (0), Visual Parekh: 0=No visual loss (0), Facial Movement (Facial Paresis): 2=Partial paralysis (2), Motor Function-Arms Right: 0=No drift (0), Motor Function-Arms Left: 0=No drift (0), Motor Function-Legs Right: 0=No drift (0), Motor Function-Legs Left: 1=Drift (1), Limb Ataxia: 0=Absent (0), Sensory: 1=Mild to Moderate loss left face dulled sensation (1), Best Language: 0=No aphasia (0), Dysarthria: 0=Normal (0), Extinction & Inattention: 0=No abnormality (0), Total: 4 Stroke Thrombolytic Exclusion Age 18 or Over: Yes Acute intenal hemorrhage: No History of CVA: No Uncontrolled Coagulation Defec: No Intracranial Hemorrhage: No Severe Hypertension: No GI or Bleed: No Subarachnoid Hemorrhage: No Intracranial Neoplasm/Aneurysm: No Oral Anticoagulants: No Surgery or Trauma: No Puncture of Non-Compressible V: No Recent CPR: No Diabetic Hemorrhagic Retinopat: No Organ Biopsy: No Recent Obstetric Delivery: No Glucose: No (465) Significant Hepatic Dysfunctio: No NIH Stoke Scale >22: No Bacterial Endocarditis: No Pericarditis: No Improving Symptoms: No Platelets: No TPA Contraindication: Yes (Outside the window) IV - TPa Received IV - TPa Procedure Performed?: No Progress/Results/Core Measures Results/Orders Lab Results Laboratory Tests Test 06/23/20 09:50 06/23/20 09:51 06/23/20 11:34 Range/Units White Blood Count 6.6 4.3-11.0 10^3/uL Red Blood Count 5.35 4.30-5.52 10^6/uL Hemoglobin 14.9 13.3-17.7 g/dL Hematocrit 45 40-54 % Mean Corpuscular Volume 84 80-99 fL Mean Corpuscular Hemoglobin 28 25-34 pg Mean Corpuscular Hemoglobin Concent 33 32-36 g/dL Red Cell Distribution Width 15.5 H 10.0-14.5 % Platelet Count 217 130-400 10^3/uL Mean Platelet Volume 10.7 9.0-12.2 fL Immature Granulocyte % (Auto) 0 % Neutrophils (%) (Auto) 60 42-75 % Lymphocytes (%) (Auto) 28 12-44 % Monocytes (%) (Auto) 6 0-12 % Eosinophils (%) (Auto) 5 0-10 % Basophils (%) (Auto) 1 0-10 % Neutrophils # (Auto) 4.0 1.8-7.8 10^3/uL Lymphocytes # (Auto) 1.9 1.0-4.0 10^3/uL Monocytes # (Auto) 0.4 0.0-1.0 10^3/uL Eosinophils # (Auto) 0.3 0.0-0.3 10^3/uL Basophils # (Auto) 0.0 0.0-0.1 10^3/uL Immature Granulocyte # (Auto) 0.0 0.0-0.1 10^3/uL Prothrombin Time 12.5 12.2-14.7 SEC INR Comment 0.9 0.8-1.4 Activated Partial Thromboplast Time 26 24-35 SEC D-Dimer 1.96 H 0.00-0.49 UG/ML Sodium Level 134 L 135-145 MMOL/L Potassium Level 3.8 3.6-5.0 MMOL/L Chloride Level 99 98-107 MMOL/L Carbon Dioxide Level 22 21-32 MMOL/L Anion Gap 13 5-14 MMOL/L Blood Urea Nitrogen 21 H 7-18 MG/DL Creatinine 1.31 H 0.60-1.30 MG/DL Estimat Glomerular Filtration Rate 55 BUN/Creatinine Ratio 16 Glucose Level 481 *H 70-105 MG/DL Calcium Level 8.9 8.5-10.1 MG/DL Corrected Calcium 8.8 8.5-10.1 MG/DL Total Bilirubin 0.7 0.1-1.0 MG/DL Aspartate Amino Transf (AST/SGOT) 17 5-34 U/L Alanine Aminotransferase (ALT/SGPT) 23 0-55 U/L Alkaline Phosphatase 76 40-136 U/L Troponin I < 0.028 <0.028 NG/ML Total Protein 7.9 6.4-8.2 GM/DL Albumin 4.1 3.2-4.5 GM/DL Glucometer 445 *H 70-110 MG/DL Urine Color YELLOW Urine Clarity CLEAR Urine pH 5.5 5-9 Urine Specific [place] 1.015 L 1.016-1.022 Urine Protein 2+ H NEGATIVE Urine Glucose (UA) 3+ H NEGATIVE Urine Ketones NEGATIVE NEGATIVE Urine Nitrite NEGATIVE NEGATIVE Urine Bilirubin NEGATIVE NEGATIVE Urine Urobilinogen 0.2 < = 1.0 MG/DL Urine Leukocyte Esterase NEGATIVE NEGATIVE Urine RBC (Auto) TRACE-I NEGATIVE Urine RBC RARE /HPF Urine WBC RARE /HPF Urine Squamous Epithelial Cells RARE /HPF Urine Crystals NONE /LPF Urine Bacteria NEGATIVE /HPF Urine Casts NONE /LPF Urine Mucus NEGATIVE /LPF Urine Culture Indicated NO My Orders Orders - PRASANTH DIETRICH Accucheck Stat ONCE (06/23/20 09:45) Ekg Tracing (06/23/20 09:45) Continuous Ekg Monitoring (06/23/20 09:45) Cbc With Automated Diff (06/23/20 09:58) Protime With Inr (06/23/20 09:58) Partial Thromboplastin Time (06/23/20 09:58) Comprehensive Metabolic Panel (06/23/20 09:58) Fibrin Degradation Products (06/23/20 09:58) Troponin I (06/23/20 09:58) Ua Culture If Indicated (06/23/20 09:58) Chest 1 View, Ap/Pa Only (06/23/20 09:58) Nothing By Mouth (06/23/20 Lunch) Accucheck Stat ONCE (06/23/20 09:58) Ed Iv/Invasive Line Start (06/23/20 09:58) Ed Iv/Invasive Line Start (06/23/20 09:58) Vital Signs Stroke Patient Q15M (06/23/20 09:58) Ct Head Wo-R/O Stroke (06/23/20 09:58) O2 (06/23/20 09:58) Intake & Output 06,14,22 (06/23/20 09:58) Monitor-Rhythm Ecg Trace Only (06/23/20 09:58) Dysphagia Screening Tool (06/23/20 09:58) Lipid Panel (06/24/20 06:00) Ed Iv/Invasive Line Start (06/23/20 11:09) Ns Iv 500 Ml (Sodium Chloride 0.9%) (06/23/20 11:15) Ct Angio Head/Neck (06/23/20 11:09) Iohexol Injection (Omnipaque 350 Mg/Ml 1 (06/23/20 11:15) Received Contrast (Hold Metformin- Contr (06/23/20 11:15) Sodium Chloride Flush (Catheter Flush Sy (06/23/20 11:15) Ns (Ivpb) (Sodium Chloride 0.9% Ivpb Bag (06/23/20 11:15) Insulin (Regular) Human (Novolin R (Per (06/23/20 11:45) Insulin Determir (Per Unit) (Levemir (Pe (06/23/20 11:45) Medications Given in ED Current Medications Medications Dose Ordered Sig/Agusto Route Start Time Stop Time Status Last Admin Dose Admin Iohexol 75 ml ONCE ONCE IV 06/23/20 11:15 06/23/20 11:16 DC 06/23/20 11:29 75 ML Sodium Chloride 100 ml ONCE ONCE IV 06/23/20 11:15 06/23/20 11:16 DC 06/23/20 11:29 80 ML Sodium Chloride 500 ml @ 0 mls/hr Q0M ONCE IV 06/23/20 11:15 06/23/20 11:16 DC 06/23/20 11:44 0 MLS/HR Vital Signs/I&O 06/23/20 09:45 Temp 36.3 Pulse 119 Resp 38 B/P (MAP) 197/114 (141) Pulse Ox 96 O2 Delivery Room Air FSBG Bedside Testing Finger Stick Blood Glucose: 465 Progress Progress Note #1: Time: 10:08 Progress Note Blood sugars 465. Plan to give him 10 of regular insulin check some labs EKG and get a CT of his head to start. When the labs come back with okay kidney function we can give him a CT angiogram. Blood pressure significantly elevated 200/118. Were going to observe it for the time being. Progress Note #2: Time: 11:14 Progress Note Discussed the case with Dr. Casas, [facility] stroke neurologist on-call. She agrees that he is not a candidate for TPA. She also does not feel it very likely that he would be a candidate for embolectomy as it is almost r 24 hours since his symptoms appeared and he has such a low score of 4 points. She would recommend just the CT angiogram to get etiology of the stroke and appropriate work-up. Initial ECG Impression Date: Jun 23, 2020 Initial ECG Impression Time: 09:47 Initial ECG Rate: 111 Initial ECG Rhythm: S.Tach Initial ECG Intervals: Normal Initial ECG Impression: Normal, Nonspecific Changes Initial ECG Comparisson: No Previous ECG Available Comment Sinus tachycardia without clinically relevant ST elevation or depression. Diagnostic Imaging Diagonstic Imaging: Xray Plain Films/CT/US/NM/MRI: chest Comments [facility] [place] NAME: JEAN PIERRE MIDDLETON [facility] REC#: [id number] PT STATUS: REG ER : 1955 PHYSICIAN: PRASANTH DIETRICH MD ADMIT DATE: 06/23/20/ER Draft Date of Exam:06/23/20 CHEST 1 VIEW, AP/PA ONLY INDICATION: Headache and left facial droop. AP view of the chest is obtained with comparison made to study of 06/18/2017. There has been development of pulmonary venous congestion with increased perihilar density, greater on the right. No pneumothorax or significant pleural fluid is identified. IMPRESSION: Findings are most suggestive of pulmonary edema which may be secondary to congestive heart failure. Superimposed pneumonitis is not excluded. Dictated on workstation # [id number] Dict: 06/23/20 1043 Trans: 06/23/20 1054 ACB [id number] Interpreted by: SCOTT LARIOS MD Electronically signed by: Reviewed: Reviewed by Diagonstic Imaging: CT Plain Films/CT/US/NM/MRI: head Comments NAME: JEAN PIERRE MIDDLETON [facility] REC#: [id number] PT STATUS: REG ER : 1955 PHYSICIAN: PRASANTH DIETRICH MD ADMIT DATE: 06/23/20/ER Draft Date of Exam:06/23/20 CT HEAD WO-R/O STROKE INDICATION: Left-sided weakness, neurologic deficit. TECHNIQUE: Multiple contiguous axial images were obtained through the brain without the use of intravenous contrast. Auto Exposure Controls were utilized during the CT exam to meet ALARA standards for radiation dose reduction. COMPARISON: There is comparison to prior CT head of 06/18/2017. FINDINGS: There were no extra-axial fluid collections. No intracranial hemorrhage. No intracranial mass or mass effect. No midline shift. The ventricles are normal in size and position. There are minimal low-density changes in the periventricular white matter, compatible with chronic ischemic change. There is no overt acute abnormality. Orbital contents are unremarkable. The bony calvarium appears unremarkable. IMPRESSION: Minimal chronic changes in periventricular white matter. No acute hemorrhage or mass effect or subdural or epidural collection. Dictated on workstation # [id number] Dict: 06/23/20 1042 Trans: 06/23/20 1053 [facility] [id number] Interpreted by: DOROTHY ROBERTS MD Electronically signed by: Reviewed: Reviewed by Diagonstic Imaging: CT (angio) Plain Films/CT/US/NM/MRI: head (neck) Reviewed: Reviewed by Departure Communication (Admissions) Time/Spoke to Admitting Phy: 11:33 Discussed the case with Dr. Huffman and she agrees to take the patient to the floor with cardiology consult and speech therapy, physical therapy occupational therapy consults. Time/Spoke to Consulting Phy: 11:57 Discussed the case with Dr. Green and he agrees to consult on the case. He is okay with aspirin and clopidogrel. Impression Primary Impression: CVA (cerebral vascular accident) Qualified Codes: I63.9 - Cerebral infarction, unspecified Additional Impression: Hyperglycemia Disposition: 09 ADMITTED INPATIENT Condition: Stable Admissions Decision to Admit Reason: Admit from ER (General) Decision to Admit/Date: Jun 23, 2020 Time/Decision to Admit Time: 11:30 Departure-Patient Inst. Referrals: MISA,LOCAL PHYSICIAN (PCP) Primary Care Physician RAMAN BARAJAS (Family) Primary Care Physician PRASANTH DIETRICH Jun 23, 2020 10:07
[2020-06-23 10:13] LABS: ALBUMIN 4.1 GM/DL (3.2-4.5); CHLORIDE 99 MMOL/L (98-107); POTASSIUM 3.8 MMOL/L (3.6-5.0); SODIUM 134 MMOL/L (135-145)
[2020-06-23 10:15] LABS: CALCIUM 8.9 MG/DL (8.5-10.1); FIBRIN DEGRADATION PRODUCTS 1.96 UG/ML (0.00-0.49); INR 0.9 (0.8-1.4); PROTHROMBIN TIME PATIENT 12.5 SEC (12.2-14.7)
[2020-06-23 10:16] LABS: TOTAL PROTEIN 7.9 GM/DL (6.4-8.2)
[2020-06-23 10:17] LABS: BILIRUBIN,TOTAL 0.7 MG/DL (0.1-1.0); CARBON DIOXIDE 22 MMOL/L (21-32)
[2020-06-23 10:19] LABS: ALKALINE PHOSPHATASE 76 U/L (40-136); CREATININE SERUM 1.31 MG/DL (0.60-1.30); GFR ESTIMATED 55
[2020-06-23 10:20] LABS: BUN/CREATININE RATIO 16
[2020-06-23 10:22] LABS: ALANINE AMINOTRANSFERASE 23 U/L (0-55)
[2020-06-23 10:23] LABS: GLUCOSE 481 MG/DL (70-105)
--- NOTE | 2020-06-23 10:54 | Diagnostic Imaging Report ---
INDICATION: Left-sided weakness, neurologic deficit. TECHNIQUE: Multiple contiguous axial images were obtained through the brain without the use of intravenous contrast. Auto Exposure Controls were utilized during the CT exam to meet ALARA standards for radiation dose reduction. COMPARISON: There is comparison to prior CT head of 06/18/2017. FINDINGS: There were no extra-axial fluid collections. No intracranial hemorrhage. No intracranial mass or mass effect. No midline shift. The ventricles are normal in size and position. There are minimal low-density changes in the periventricular white matter, compatible with chronic ischemic change. There is no overt acute abnormality. Orbital contents are unremarkable. The bony calvarium appears unremarkable. IMPRESSION: Minimal chronic changes in periventricular white matter. No acute hemorrhage or mass effect or subdural or epidural collection. Dictated by: Dictated on workstation # [id number]
--- NOTE | 2020-06-23 10:54 | Diagnostic Imaging Report ---
INDICATION: Headache and left facial droop. AP view of the chest is obtained with comparison made to study of 06/18/2017. There has been development of pulmonary venous congestion with increased perihilar density, greater on the right. No pneumothorax or significant pleural fluid is identified. IMPRESSION: Findings are most suggestive of pulmonary edema which may be secondary to congestive heart failure. Superimposed pneumonitis is not excluded. Dictated by: Dictated on workstation # [id number]
[2020-06-23] MEDS ORDERED: NS IV 500 ML 500 ML IV ONE (11:15)
[2020-06-23] MEDS ORDERED: CATHETER FLUSH 10 ML SYR IV PRN ×2 (11:15→13:30)
[2020-06-23] MEDS ORDERED: NS 100 ML (IVPB) BAG IV ONE (11:15)
[2020-06-23] MEDS ORDERED: IOHEXOL 350 MG/ML 100 ML (OMNIPAQUE 350) VIAL IV ONE (11:15)
[2020-06-23] MEDS ORDERED: HOLD METFORMIN - RECEIVED CONTRAST 20 ML VIAL IV SCH (11:15)
[2020-06-23 11:41] LABS: BILIRUBIN,URINE NEGATIVE (NEGATIVE); CLARITY,URINE CLEAR; COLOR,URINE YELLOW; GLUCOSE, URINE (UA) 3+ (NEGATIVE); KETONES,URINE NEGATIVE (NEGATIVE); LEUKOCYTE ESTERASE ,URINE NEGATIVE (NEGATIVE); NITRITE,URINE NEGATIVE (NEGATIVE); PH,URINE 5.5 (5-9); PROTEIN,URINE 2+ (NEGATIVE)
[2020-06-23] MEDS ORDERED: inSUlin (REGULAR) HUMAN 1 UNIT/0.01 ML (CHARGE PER UNIT) SC ONE (11:45)
--- NOTE | 2020-06-23 11:45 | NUR ---
PT SELF ADMINISTERED HOME INSULIN. OK'D BY DR DIETRICH. VIDAL 20UNITS SC AND LOBITO [facility] 15UNITS SC IN [facility] ABD.
[2020-06-23 11:52] LABS: BACTERIA,URINE NEGATIVE /HPF; RBC,URINE RARE /HPF; SQUAMOUS EPITHELIAL CELL,UR RARE /HPF; WBC,URINE RARE /HPF
--- NOTE | 2020-06-23 12:02 | Diagnostic Imaging Report ---
PROCEDURE: CT angiography of the head and CT angiography of the neck with and without contrast. TECHNIQUE: Contiguous noncontrast images were obtained from the skull base through the vertex. After intravenous contrast administration, helical CT angiography of the neck was performed. Source data was reformatted into 3D MIP projections. Delayed post contrast acquisition was also obtained. Auto Exposure Controls were utilized during the CT exam to meet ALARA standards for radiation dose reduction. INDICATION: Left-sided deficits. Hypertensive patient with history of diabetes. FINDINGS: Delayed post contrast-enhanced head CT revealed no abnormal parenchymal or meningeal enhancement. No mass or mass effect. NECK: Note is made of biapical dependent pleural effusions showing no evidence for loculation. Branching pattern of the great vessels appeared normal. There is prominence of the upper lobe pulmonary venous structures as well as some mild septal thickening, raising the question of pulmonary edema owing to failure or hypervolemia. The cervical vertebral arteries are widely patent and codominant. There is substantial degree of mixed soft and hard plaque involving the carotid bulbs and bifurcations extending into the proximal bilateral internal carotids, on the left narrowed by 50% or less and on the right narrowed about 50 to 69%. The [id number] cervical internal carotids and major external carotid branches are unremarkable. HEAD: The intradural vertebral arteries and the basilar artery are widely patent. The bilateral [employer] segments are well opacified and patent. The intracranial ICAs revealed moderate circumferential calcified plaques, greatest along the cavernous segments with less than 50% stenosis. The bilateral A1 segments, the ACOM, and the paired anterior cerebral arteries are patent. The bilateral middle cerebral arterial segments and primary branches are patent. No large vessel occlusion or intraluminal thrombus found. No aneurysm or vascular malformation. IMPRESSION: 1. Biapical pleural effusions, vascular congestion, and probable interstitial edema. 2. Right greater than left carotid bifurcation and proximal ICA atherosclerotic disease. 3. CT angio head revealed no large vessel occlusion or acute-appearing abnormality. Dictated by: Dictated on workstation # [id number]
--- NOTE | 2020-06-23 12:54 | NUR ---
JEAN PIERRE MIDDLETON JR admitted to room 408-1, with an admitting diagnosis of CVA WITH LT WEAK, on 06/23/20 from ED via WC, accompanied by STAFF. JEAN PIERRE MIDDLETON JR introduced to surroundings, call light, bed controls, phone, TV, temperature control, lights, meal times, smoking policy, visitor policy, side rail policy, bathrooms and showers. Patient Rights given to patient in the handbook. JEAN PIERRE MIDDLETON JR verbalizes understanding that [facility] is not responsible for the loss or damage to any personal effects or valuables that are kept in the patients posession during their hospitalization. The following Patient Care Plans were discussed with the PT: Discharge Planning, PAIN, AND CVA. JEAN PIERRE MIDDLETON JR verbalizes understanding of Interdisciplinary Patient Education. Patient and/or family were informed about the Rapid Response Team and its purpose.
--- NOTE | 2020-06-23 13:00 | Consultation-Cardiology ---
HPI-Cardiology Cardiology Consultation Date of Consultation 06/23/20 Date of Admission Time Seen by Provider: 12:17 Indication: CVA of unknown etiology HPI Cardiology consult for medical management of patient with hx of CHF, hx of PR and coronary stent, HTN, hyperlipidemia, and diabetes Patient is a 65yo M that presented to the ED with a 1 day history of Left sided facial droop, L sided facial weakness, decreased visual acuity on the L and decreased hearing on the L. He states that he woke up yesterday with a headache and noticed the weakness on the L side of his face when he tired to drip and fluid would leak out of the left side of his mouth. He came to the ER today because Dr. French told him to come. He admits to having Dyspnea on exertion but denies having any chest pain, SOB @ rest, headache, nausea, vomiting, weakness/numbness in any of this extremities. Home Medications & Allergies Allergies: Coded Allergies: No Known Drug Allergies (Unverified , 06/18/17) Home Medication List Reviewed: Yes DDA-Mekjgk-Kdjzid Hx Patient Social History Alcohol Use: Denies Use Recreational Drug Use: No Smoking Status: Former Smoker Type Used: Cigarettes Recent Foreign Travel: No Recent Infectious Disease Expo: No Recent Hopitalizations: No Immunizations Up To Date Tetanus Booster (TDap): Unknown Past Medical History discussed below Family Medical History Family Medical Hx noncontributory to his current condition Review of Systems-General Review of Systems Constitutional: see HPI; No chills, No diaphoresis, No dizziness, No weakness EENTM: see HPI, hearing loss (on the L ), blurred vision (on the L ); No ear pain, No eye pain Respiratory: see HPI; No cough; dyspnea on exertion; No hemoptysis, No phlegm, No short of breath Cardiovascular: No chest pain, No edema; Hx of Intervention (stent place in 2003 ); No palpitations Gastrointestinal: no symptoms reported, see HPI; No abdominal pain, No constipation, No nausea, No vomiting Genitourinary: no symptoms reported, see HPI; No discharge, No dysuria Musculoskeletal: no symptoms reported, see HPI; No back pain, No joint pain Skin: no symptoms reported, see HPI Psychiatric/Neurological: No Symptoms Reported, See HPI; Denies Anxiety, Denies Depressed, Denies Headache, Denies Numbness, Denies Weakness All Other Systems Reviewed Negative Unless Noted: Yes Reviewed Test Results Reviewed Test Results Lab Laboratory Tests Test 06/23/20 09:50 06/23/20 09:51 06/23/20 11:34 06/23/20 12:50 Range/Units White Blood Count 6.6 4.3-11.0 10^3/uL Red Blood Count 5.35 4.30-5.52 10^6/uL Hemoglobin 14.9 13.3-17.7 g/dL Hematocrit 45 40-54 % Mean Corpuscular Volume 84 80-99 fL Mean Corpuscular Hemoglobin 28 25-34 pg Mean Corpuscular Hemoglobin Concent 33 32-36 g/dL Red Cell Distribution Width 15.5 H 10.0-14.5 % Platelet Count 217 130-400 10^3/uL Mean Platelet Volume 10.7 9.0-12.2 fL Immature Granulocyte % (Auto) 0 % Neutrophils (%) (Auto) 60 42-75 % Lymphocytes (%) (Auto) 28 12-44 % Monocytes (%) (Auto) 6 0-12 % Eosinophils (%) (Auto) 5 0-10 % Basophils (%) (Auto) 1 0-10 % Neutrophils # (Auto) 4.0 1.8-7.8 10^3/uL Lymphocytes # (Auto) 1.9 1.0-4.0 10^3/uL Monocytes # (Auto) 0.4 0.0-1.0 10^3/uL Eosinophils # (Auto) 0.3 0.0-0.3 10^3/uL Basophils # (Auto) 0.0 0.0-0.1 10^3/uL Immature Granulocyte # (Auto) 0.0 0.0-0.1 10^3/uL Erythrocyte Sedimentation Rate 18 0-30 MM/HR Prothrombin Time 12.5 12.2-14.7 SEC INR Comment 0.9 0.8-1.4 Activated Partial Thromboplast Time 26 24-35 SEC D-Dimer 1.96 H 0.00-0.49 UG/ML Sodium Level 134 L 135-145 MMOL/L Potassium Level 3.8 3.6-5.0 MMOL/L Chloride Level 99 98-107 MMOL/L Carbon Dioxide Level 22 21-32 MMOL/L Anion Gap 13 5-14 MMOL/L Blood Urea Nitrogen 21 H 7-18 MG/DL Creatinine 1.31 H 0.60-1.30 MG/DL Estimat Glomerular Filtration Rate 55 BUN/Creatinine Ratio 16 Glucose Level 481 *H 70-105 MG/DL Calcium Level 8.9 8.5-10.1 MG/DL Corrected Calcium 8.8 8.5-10.1 MG/DL Total Bilirubin 0.7 0.1-1.0 MG/DL Aspartate Amino Transf (AST/SGOT) 17 5-34 U/L Alanine Aminotransferase (ALT/SGPT) 23 0-55 U/L Alkaline Phosphatase 76 40-136 U/L Troponin I < 0.028 <0.028 NG/ML C-Reactive Protein High Sensitivity 0.92 H 0.00-0.50 MG/DL Total Protein 7.9 6.4-8.2 GM/DL Albumin 4.1 3.2-4.5 GM/DL Glucometer 445 *H 305 H 70-110 MG/DL Urine Color YELLOW Urine Clarity CLEAR Urine pH 5.5 5-9 Urine Specific [place] 1.015 L 1.016-1.022 Urine Protein 2+ H NEGATIVE Urine Glucose (UA) 3+ H NEGATIVE Urine Ketones NEGATIVE NEGATIVE Urine Nitrite NEGATIVE NEGATIVE Urine Bilirubin NEGATIVE NEGATIVE Urine Urobilinogen 0.2 < = 1.0 MG/DL Urine Leukocyte Esterase NEGATIVE NEGATIVE Urine RBC (Auto) TRACE-I NEGATIVE Urine RBC RARE /HPF Urine WBC RARE /HPF Urine Squamous Epithelial Cells RARE /HPF Urine Crystals NONE /LPF Urine Bacteria NEGATIVE /HPF Urine Casts NONE /LPF Urine Mucus NEGATIVE /LPF Urine Culture Indicated NO Test 06/23/20 15:37 Range/Units Glucometer 171 H 70-110 MG/DL Physical Exam Physical Exam Vital Signs Vital Signs - First Documented 06/23/20 09:45 Temp 36.3 Pulse 119 Resp 38 B/P (MAP) 197/114 (141) Pulse Ox 96 O2 Delivery Room Air Capillary Refill : Less Than 3 Seconds Height, Weight, BMI Height: 5'4.00" Weight: 174lbs. oz. 78.348496az; 35.00 BMI Method:Stated General Appearance: No Apparent Distress, WD/WN, Chronically ill, Obese Eyes: Bilateral Eye Normal Inspection, Bilateral Eye PERRL, Bilateral Eye EOMI HEENT: PERRL/EOMI, TMs Normal, Normal ENT Inspection, Pharynx Normal, Moist Mucous Membranes Neck: Full Range of Motion, Normal Inspection, Non Tender, Supple, Carotid Bruit Respiratory: Chest Non Tender, No Accessory Muscle Use, No Respiratory Distress Cardiovascular: Regular Rate, Rhythm, No Edema, No Gallop, Normal Peripheral Pulses Gastrointestinal: Normal Bowel Sounds, No Organomegaly, No Pulsatile Mass, Non Tender, Soft Back: Normal Inspection, No CVA Tenderness, No Vertebral Tenderness Extremity: Non Tender, No Calf Tenderness, No Pedal Edema Neurologic/Psychiatric: Alert, Oriented x3, Facial Droop (on the Left of face only, includes forehead), Sensory Deficit (on the Left side of his face ) Skin: Normal Color, Warm/Dry Lymphatic: No Adenopathy A/P-Cardiology Admission Diagnosis CVA Congestive heart failure Hypertension Hyperlipidemia Assessment/Plan Left sided facial weakness, concern for CVA accident; however, CT-head does not show any signs of acute hemorrhage, mass effect or signs of subdural or epidural fluid collection at this time, CTA-head does not show any signs of acute infract. CVA accident less likely to be cause of patient's symptoms at this time, continue on aspirin and Plavix. 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 Likely Acute on chronic CHF based on CT finding of biapical pleural effusions, vascular congestion, and probable interstitial edema,did not see any ophthalmic technologist recently. I will evaluate 2-D echo, I'll consider doing a stress testas an outpatient. Continue to monitor. Hypertension, restart benicar. will continue to monitor HIV positive, not on HAART currently, management per primary * recommend starting biktarvy if patient will be able to continue HAART therapy after discharge Hyperlipidemia, evaluate with lipid panel, not on a statin, will start on trial of crestor. Hx of PR with stent placement done in [place] Diabetes, management per primary care Diverticulosis Dr. Green, I have seen and evaluated the patient with the medical student, interviewed the patient personally and perform physical examination, discussed the management plan in details, reviewed the note and made correction to the daughter, agree with the finding on this note. Patient has left-sided facial droop probably Bonilla's palsy, possibility of CVA workup was initiated in the emergency room. There is questionable history of congestive heart failure, I will evaluate 2-D echocardiogram, restart home medication monitor Clinical Quality Measures Stroke: Date of last known well: Jun 22, 2020 Time of last known well: 12:00 FIDE STEVENS,MED STUDENT Jun 23, 2020 13:00 WING GREEN MD Jun 23, 2020 15:43
[2020-06-23 13:05] VITALS: BP 159/84
[2020-06-23] MEDS ORDERED: ACETAMINOPHEN 325 MG TABLET PO PRN (13:15)
[2020-06-23] MEDS ORDERED: APAP 325 MG/10.15 ML LIQ (TYLENOL) UDC NG PRN (13:15)
[2020-06-23] MEDS ORDERED: ACETAMINOPHEN 650 MG SUPP (TYLENOL) PR PRN (13:15)
[2020-06-23] MEDS ORDERED: ANTACID SUSP 30 ML UDC (MYLANTA) PO PRN (13:30)
[2020-06-23] MEDS ORDERED: ONDANSETRON 4 MG/2 ML (SDV) Z0FRAN IV PRN (13:30)
--- NOTE | 2020-06-23 14:28 | ST Dysphagia Evaluation ---
Speech Evaluation-General Medical Diagnosis CVA Onset Date: Jun 23, 2020 Therapy Diagnosis Therapy Diagnosis: Oropharyngeal Dysphagia Precautions Precautions: Aspiration Referral Referring Physician: Dr. Huffman Medical History Reviewed History: Yes Social History Current Living Status: Children (Patient lives with two foster sons) Speech PLF/Current-Dysphagia Prior Level of Function Patient lives in the home with two foster sons where he was independent. Subjective Patient was pleasant and cooperative with the Bedside Dysphagia Evaluation. Oral Motor Skills Dentition: Natural Current Food Consistancy: Regular Ability to Follow Directions: Good Oral Expression Ability: No Impairment Voice Voice Phonatory-Based Quality: Normal Voice Pitch: Normal Voice Loudness: Normal Face Facial Symmetry: Asymmetrical Very slight droop on the left side. Oral-Facial Assessment Oral-Facial Dentition: Normal Labial Seal Description: Normal Smile: Normal Puff Cheeks: Normal Lingual Protrusion: Normal Lingual ROM: Normal Lingual Strength: Normal Pharynx Velopharyngeal Move.: Normal Volitional Dry Swallow: Yes Voluntary Cough: Yes Can Clear Throat Volitionally: Yes Dysphagia Evaluation Consistencies Presented: Regular, Thin Liquid, Mechanical Soft, Pureed Oral phase is within normal range of function. Pharyngeal phase is within normal range of function. Dietary Recommendations: Regular Liquid Recommendations: Thin Swallowing Precautions: Alternate Liquids/Solids, Decreased Rate of Oral Intake, Liquids from Straw, Small Bites and Sips, Sitting Upright 90 Degrees, Sitting 90 Degrees 30 Post Intake Dysphagia Evaluation Summary Patient is a pleasant 65 y/o male who was admitted to the hospital due to CVA. Patient was referred by Dr. Huffman for a BDE which was completed this afternoon. The patient was given thin, puree, mechanical soft and regular consistencies by 1/2 tsp. sips/bites without overt s/s of aspiration. Patient is recommended to continue on the regular diet level with thin liquids. This information was provided to his nurse as well as written on the white board in his room. Barriers to Learning None identified Speech-Plan Patient/Family Goals Patient/Family Goals: Patient plans on returning to his home upon discharge. Treatment Plan Speech Therapy Treatment Plan: Discontinue ST Treatment Duration: Jun 23, 2020 Frequency: 1 time per week Estimated Hrs Per Day: .5 hour per day Rehab Potential: Good Barriers to Learning: None identified Pt/Family Agrees to Plan: Yes Safety Risks/Education Teaching Recipient: Patient Teaching Methods: Discussion Response to Teaching: Verbalize Understanding Education Topics Provided: Safety with oral intake, diet level Time Speech Therapy Time In: 14:00 Speech Therapy Time Out: 14:25 Total Billed Time: 25 Billed Treatment Time 1, RASHIDA DAVID [address] ST Jun 23, 2020 14:28
--- NOTE | 2020-06-23 14:37 | Physical Therapy Evaluation ---
PT Evaluation-General Medical Diagnosis Admission Date Jun 23, 2020 at 12:00 Medical Diagnosis: CVA/hyperglycemia Onset Date: Jun 23, 2020 Therapy Diagnosis Therapy Diagnosis: debility Height/Weight Height (Feet): 5 Height (Inches): 4.00 Weight (Pounds): 174 Precautions Precautions/Isolations: Standard Precautions Weight Bear Status Right Lower Extremity: Right Weight Bearing/Tolerated Left Lower Extremity: Left Weight Bearing/Tolerated Referral Physician: Armiad Reason for Referral: Evaluation/Treatment Medical History Pertinent Medical History: CAD, DM, Heart Failure Current History ER with left sided weakness and facial droop which began yesterday Social History Home: Single Level Current Living Status: Other Family Entry Into Home: Stairs With Railing PT Steps Into Home: 3 Prior Prior Level of Function SCALE: Activities may be completed with or without assistive devices. 7-Zsrdkraohi-uxvqjmj completes the activity by him/herself with no assistance from a helper. 5-Set-up or Clean-up Assistance-helper sets up or cleans up; patient completes activity. [place] assists only prior to or following the activity. 4-Supervision or Touching Assistance-helper provides verbal cues and/or touching/steadying and/or contact guard assistance as patient completes activity. Assistance may be provided throughout the activity or intermittently. 3-Partial/Moderate Assistance-helper does LESS THAN HALF the effort. [place] lifts, holds or supports trunk or limbs, but provides less than half the effort. 2-Substantial/Maximal Assistance-helper does MORE THAN HALF the effort. [place] lifts or holds trunk or limbs and provides more than half the effort. 7-Wusmgwtig-mvwkbv does ALL the effort. Patient does none of the effort to complete the activity. Or, the assistance of 2 or more helpers is required for the patient to complete the activity. If activity was not attempted, code reason: 7-Patient Refused. 9-Not Applicable-not attempted and the patient did not perform the activity before the current illness, exacerbation or injury. 10-Not Attempted due to Environmental Limitations-(lack of equipment, weather restraints, etc.). 88-Not Attempted due to Medical Conditions or Safety Concerns. Bed Mobility: 6 Transfers (B,C,W/C): 6 Gait: 6 Stairs: 6 Indoor Mobility (Ambulation): Independent Stairs: Independent Prior Devices Use: None PT Evaluation-Current Subjective Patient has no c/o except for facial droop and difficulty breathing with activity. Agrees to PT. Objective Patient Orientation: Normal For Age ROM/Strength ROM Lower Extremities bilateral LE WFL Strength Lower Extremities left knee flexion/extension 4/5; hip flexion 4/5; DF/PF 5/5 left knee flexion/extension 4/5; hip flexion 4/5; DF/PF 5/5 Integumentary/Posture Integumentary refer to nursing notes Bowel Incontinence: No Bladder Incontinence: No Posture WFL Neuromuscular (Tone, Coordination, Reflexes) grossly intact Sensory Vision: Wears Glasses Hearing: Functional Transfers Lying to Sitting/Side of Bed(Q: 6 Sit to Stand (QC): 6 Chair/Gyt-jf-Jimst Xfer(QC): 6 Gait Does the Patient Walk?: Yes Mode of Locomotion: Walk Anticipated Mode of Locomotion: Walk Walk 10 feet (QC): 6 Walk 50 ft with 2 Turns(QC): 6 Walk 150 ft (QC): 6 Distance: 250' Gait Assistive Device: None Comments/Gait Description safe and functional gait sequence (required 3 standing recovery periods due to SOA with SAO2 >90% RA) Balance Sitting Static: Normal Sitting Dynamic: Normal Standing Static: Normal Standing Dynamic: Normal Assessment/Needs 65 y.o. male, is currently at independent [facility] with all gross motor skills and does not require skilled therapy intervention. Rehab Potential: Fair PT Plan Treatment/Plan Treatment Plan: Discontinue PT, goals met Treatment Duration: Jun 23, 2020 Frequency: 1 time per week Estimated Hrs Per Day: .25 hour per day Patient and/or Family Agrees t: Yes Time/GCodes Time In: 1328 Time Out: 1345 Total Billed Treatment Time: 17 Total Billed Treatment 1 visit EVMod 17 min DAMIEN AMEZCUA PT Jun 23, 2020 14:36
--- NOTE | 2020-06-23 15:45 | NUR ---
smoking cessation orders rec'd. rapport established. motivational interviewing used. pt states, "I quit 40 years ago and never looked back." Patient and this RN had nice conversation regarding quitting smoking benefits, [place] Quitline, use of a stopping plan to help. Patient expresses he wishes daughter & granddaughter who still smoke would stop. pamphlet/information left with patient to share with family.
[2020-06-23] MEDS: inSUlin ASPART (NovoLOG) 1 UNIT/0.01 ML (CHARGE PER UNIT) SC SCH ×2 (15:48→20:40)
[2020-06-23] MEDS: CATHETER FLUSH 10 ML SYR IV SCH ×2 (15:48→20:47)
--- NOTE | 2020-06-23 15:56 | Occupational Therapy Eval ---
OT Evaluation-General/PLF Medical Diagnosis Admission Date Jun 23, 2020 at 12:00 Medical Diagnosis: CVA/hyperglycemia Onset Date: Jun 23, 2020 Therapy Diagnosis Therapy Diagnosis: debility Height/Weight Height (Feet): 5 Height (Inches): 4.00 Weight (Pounds): 174 Precautions Precautions/Isolations: Standard Precautions Referral Physician: Armida Referral Reason: Evaluation/Treatment Medical History Pertinent Medical History: CAD, DM, Heart Failure Additional Medical History CAD with stent , colon resection, HIV + Current History ER due to L facial droop and weakness starting noon 06/22/2020 Social History Home: Single Level Current Living Status: Other Family Entry Into Home: Stairs With Railing Steps Into Home: 3 ADL-Prior Level of Function SCALE: Activities may be completed with or without assistive devices. 7-Oknpvlkwus-fwgyqiq completes the activity by him/herself with no assistance from a helper. 5-Set-up or Clean-up Assistance-helper sets up or cleans up; patient completes activity. [place] assists only prior to or following the activity. 4-Supervision or Touching Assistance-helper provides verbal cues and/or touching/steadying and/or contact guard assistance as patient completes activity. Assistance may be provided throughout the activity or intermittently. 3-Partial/Moderate Assistance-helper does LESS THAN HALF the effort. [place] lifts, holds or supports trunk or limbs, but provides less than half the effort. 2-Substantial/Maximal Assistance-helper does MORE THAN HALF the effort. [place] lifts or holds trunk or limbs and provides more than half the effort. 8-Bjfxpuphq-cxndvv does ALL the effort. Patient does none of the effort to complete the activity. Or, the assistance of 2 or more helpers is required for the patient to complete the activity. If activity was not attempted, code reason: 7-Patient Refused. 9-Not Applicable-not attempted and the patient did not perform the activity before the current illness, exacerbation or injury. 10-Not Attempted due to Environmental Limitations-(lack of equipment, weather restraints, etc.). 88-Not Attempted due to Medical Conditions or Safety Concerns. ADL PLOF Comments Pt indicates he lives with his 2 foster kids which he is planning on adopting soon, they are 11 and 14 y.o. Pt indicates he was independent with all ADLS and functional mobility without AD at PLOF. Pt indicates he had to stabilize his R hand with tasks at PLOF due to surgery in R shoulder and partial paralysis in RUE DME/Equipment: Tub/Shower OT Current Status Subjective Pt seated in recliner, agreeable to OT evaluation. Mental Status/Objective Patient Orientation: Person, Place, Time, Situation Current Glasses/Contacts: Yes Hand Dominance: Right Upper Extremity ROM Decreased ROM RUE due to prior shoulder injury, LUE WFL Upper Extremity Coordination WFL Upper Extremity Sensation pt indicates slight changes in sensation in LUE ADL-Treatment Eating (QC): 88 (not attempted at this time due to pt needing swallow evaluation) Oral Hygiene (QC): 6 (based on clinical judgement, pt would be independent with task) On/Off Footwear (QC): 6 (IND seated in recliner) Other Treatments Pt seated in recliner, OT educated pt on purpose and benefits of OT, he verbalized understanding. Pt provided information about PLOF and home set up, and participated in UE screen. Pt indicates he feels like he is able to complete all ADLS and tasks he needs to upon returning home. Pt demo'd ability to don/doff gripper socks independently. Per PT report, pt is independent with functional mobility. Pt states he feels like he can do everything he needs to and does feel like he needs further OT services due to being at PLOF. Post OT tx, pt seated in recliner, call light in reach and all needs met. 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 2=Patient will verbalize/demonstrate understanding of assistive devices/modifications for ADL. 3=Patient will improve strength/tolerance for activity to enable patient to perform ADL's. OT Education/Plan Problem List/Assessment Assessment: No Skilled OT Needs ID'd No skilled OT services indicated at this time due to pts reports of being at PLOF, and he does not feel like he needs OT Discharge Recommendations Plan/Recommendations: Discharge/Goals Met Treatment Plan/Plan of Care Patient would benefit from OT for education, treatment and training to promote independence in ADL's, mobility, safety and/or upper extremity function for ADL's. Plan of Care: ADL Retraining Treatment Duration: Jun 23, 2020 Frequency: 1 time per week (eval only) Rehab Potential: Fair Time/GCodes Start Time: 13:46 Stop Time: 13:55 Total Time Billed (hr/min): 9 Billed Treatment Time 1, ORALIA HOLLAND OT Jun 23, 2020 15:56
[2020-06-23 16:39] VITALS: BP 156/82
--- NOTE | 2020-06-23 17:08 | NUR ---
DR. TAPIA NOTIFIED MRI WILL NOT BE DONE UNTIL TOMORROW.
[2020-06-23] MEDS ORDERED: OLME1TAB24 PO (17:24)
[2020-06-23] MEDS ORDERED: BICT1TAB PO (17:27)
[2020-06-23] MEDS ORDERED: ATOR10TA66 PO (17:27)
[2020-06-23] MEDS ORDERED: CARV25TA PO (17:27)
[2020-06-23] MEDS ORDERED: LORA10TA76 PO (17:27)
[2020-06-23] MEDS ORDERED: ASCO500T71 PO (17:28)
[2020-06-23] MEDS ORDERED: CHOL500049 PO (17:34)
[2020-06-23] MEDS ORDERED: MULT-974 PO (17:35)
[2020-06-23] MEDS ORDERED: SERT100T8 PO (17:42)
[2020-06-23] MEDS ORDERED: EMPA1TAB PO (17:42)
[2020-06-23] MEDS ORDERED: INSU100I29 SQ (17:42)
[2020-06-23] MEDS ORDERED: INSU100I14 SQ (17:42)
[2020-06-23] MEDS ORDERED: DULA1.5P2 SQ (17:42)
[2020-06-23 20:00] VITALS: BP 191/97
[2020-06-23] MEDS ORDERED: CARVEDILOL 12.5 MG (COREG) TABLET ONE (20:10)
[2020-06-23] MEDS ORDERED: CARVEDILOL 12.5 MG (COREG) TABLET PO ONE (20:15)
--- NOTE | 2020-06-23 20:17 | History & Physical-Hospitalist ---
History of Present Illness HPI/Chief Complaint CC: Left sided weakness with left facial droop HPI: This is a 65yoWM clinic patient of Dr French at [facility] who has a h/o DM who presented to the ER a day after noting left facial droop and left arm and leg weakness. He was assessed in the ER and completed CVA protocol. Not a tPa candidate. Sugars are very elevated along with BP. Currently he denies pain. Source: patient Exam Limitations: no limitations Date Seen 06/23/20 Time Seen by a Provider: 12:45 Attending Physician Tejal Huffman DO PCP No,Local Physician Referring Physician Date of Admission Jun 23, 2020 at 12:00 Home Medications & Allergies Home Medications Reviewed patient Home Medication Reconciliation performed by pharmacy medication reconciliations concrete technician and/or nursing. Patients Allergies have been reviewed. Allergies Allergies Coded Allergies No Known Drug Allergies (Axuyuuuikc13/17/20) Past Zomcjeg-Hpjqfq-Mejgoi Hx Past Med/Social Hx: Reviewed Nursing Past Med/Soc Hx, Reviewed and Corrections made Patient Social History Marrital Status: single Employed/Student: unemployed Alcohol Use: Denies Use Recreational Drug Use: No Smoking Status: Former Smoker Type Used: Cigarettes Physical Abuse Screen: No Sexual Abuse: No Recent Foreign Travel: No Contact w/other who traveled: No Recent Hopitalizations: No Recent Infectious Disease Expo: No Immunizations Up To Date Tetanus Booster (TDap): Unknown Pediatric: Yes Date of Pneumonia Vaccine: Apr 07, 2016 Date of Influenza Vaccine: Apr 07, 2020 Seasonal Allergies Seasonal Allergies: No Past Medical History Surgeries: Appendectomy HIV/AIDS: Yes Endocrine: Diabetes, Insulin dep Are Your Blood Sugars Over 250: Yes History of Blood Disorders: Yes (HIV +) Review of Systems Constitutional: see HPI, malaise, weakness Psychiatric/Neurological: Weakness Physical Exam Physical Exam Vital Signs Vital Signs - First Documented 06/23/20 09:45 Temp 36.3 Pulse 119 Resp 38 B/P (MAP) 197/114 (141) Pulse Ox 96 O2 Delivery Room Air Capillary Refill : Less Than 3 SecondsLess Than 3 Seconds Height, Weight, BMI Height: 5'4.00" Weight: 174lbs. oz. 78.998088qn; 37.15 BMI Method:Stated General Appearance: No Apparent Distress, Chronically ill Eyes: Right Eye Normal Inspection, Right Eye PERRL HEENT: PERRL/EOMI, Normal ENT Inspection, Pharynx Normal, Moist Mucous Membranes Neck: Full Range of Motion, Normal Inspection, Non Tender Respiratory: Chest Non Tender, Lungs Clear, Normal Breath Sounds, No Accessory Muscle Use, No Respiratory Distress Cardiovascular: Regular Rate, Rhythm, No Edema, No Gallop, No JVD, No Murmur, Normal Peripheral Pulses Gastrointestinal: Normal Bowel Sounds, No Organomegaly, No Pulsatile Mass, Non Tender, Soft Back: Normal Inspection, No CVA Tenderness, No Vertebral Tenderness Extremity: Normal Capillary Refill, Normal Inspection, Normal Range of Motion, Non Tender, No Calf Tenderness, No Pedal Edema Neurologic/Psychiatric: Alert, Oriented x3, Normal Mood/Affect, Facial Droop, Motor Weakness (left arm 4/5) Skin: Normal Color, Warm/Dry Lymphatic: No Adenopathy Results Results/Procedures Labs Laboratory Tests 06/23/20 09:50 Patient resulted labs reviewed. Assessment/Plan Admission Diagnosis Assessment: Presumed CVA with left facial droop and left sided weakness DM OOC HTN OOC Plan: Insulin CVA protocol MRI Monitor closely Admission Status: Inpatient Order (span 2 midnights) Reason for Inpatient Admission: cva Diagnosis/Problems Diagnosis/Problems (1) CVA (cerebral vascular accident) Status: Acute Qualifiers: CVA mechanism: unspecified Qualified Codes: I63.9 - Cerebral infarction, unspecified (2) Hyperglycemia Status: Acute Clinical Quality Measures DVT/VTE Risk/Contraindication: Risk Factor Score Per Nursin RFS Level Per Nursing on Admit: 4+=Very High Stroke: Date of last known well: Jun 22, 2020 Time of last known well: 12:00 TEJAL HUFFMAN DO Jun 23, 2020 20:17
[2020-06-23] MEDS ORDERED: DOCUSATE SODIUM 100 MG (COLACE) CAP PO PRN (20:30)
[2020-06-23] MEDS ORDERED: LOPERAMIDE 2 MG (IMODIUM) TABLET PO PRN (20:30)
[2020-06-23] MEDS ORDERED: diphenhydrAMINE 25 MG TAB (BENADRYL) PO PRN (20:30)
[2020-06-23] MEDS ORDERED: ONDANSETRON 4 MG/2 ML (SDV) Z0FRAN IVP PRN (20:30)
[2020-06-23] MEDS: ENOXAPARIN 40 MG/0.4 ML (LOVENOX) SYR SC SCH (20:46)
[2020-06-23] MEDS: SENNA W/DOCUSATE (SENOKOT S) TABLET PO SCH (20:48)
[2020-06-24] VITALS: BP 150/78
[2020-06-24 04:00] VITALS: BP 170/92
[2020-06-24 04:53] LABS: BASOPHILS % (AUTO) 1 % (0-10); EOSINOPHILS # (AUTO) 0.2 10^3/uL (0.0-0.3); EOSINOPHILS % (AUTO) 4 % (0-10); HEMATOCRIT 41 % (40-54); HEMOGLOBIN 13.7 g/dL (13.3-17.7); LYMPHOCYTES # (AUTO) 2.4 10^3/uL (1.0-4.0); LYMPHOCYTES % (AUTO) 39 % (12-44); MEAN CORPUSCULAR HEMOGLOBIN 28 pg (25-34); MEAN CORPUSCULAR HGB CONC 33 g/dL (32-36); MEAN CORPUSCULAR VOLUME 84 fL (80-99); MEAN PLATELET VOLUME 10.4 fL (9.0-12.2); MONOCYTES # (AUTO) 0.5 10^3/uL (0.0-1.0); MONOCYTES % (AUTO) 8 % (0-12); NEUTROPHILS % (AUTO) 48 % (42-75); PLATELET COUNT 215 10^3/uL (130-400); WHITE BLOOD COUNT 6.1 10^3/uL (4.3-11.0)
[2020-06-24 05:07] LABS: ALBUMIN 3.7 GM/DL (3.2-4.5); CHLORIDE 103 MMOL/L (98-107); POTASSIUM 3.4 MMOL/L (3.6-5.0); SODIUM 138 MMOL/L (135-145)
[2020-06-24 05:09] LABS: TRIGLYCERIDES 149 MG/DL (<150); VLDL CHOLESTEROL 30 MG/DL (5-40)
[2020-06-24 05:10] LABS: GLUCOSE 182 MG/DL (70-105)
[2020-06-24 05:11] LABS: CARBON DIOXIDE 24 MMOL/L (21-32)
[2020-06-24 05:12] LABS: BILIRUBIN,TOTAL 0.7 MG/DL (0.1-1.0)
[2020-06-24 05:13] LABS: ALKALINE PHOSPHATASE 57 U/L (40-136); CREATININE SERUM 1.15 MG/DL (0.60-1.30); GFR ESTIMATED > 60
[2020-06-24 05:14] LABS: CHOLESTEROL 154 MG/DL (< 200)
[2020-06-24 05:15] LABS: BUN/CREATININE RATIO 19
[2020-06-24 05:16] LABS: ALANINE AMINOTRANSFERASE 19 U/L (0-55); HDL CHOLESTEROL 36 MG/DL (40-60)
[2020-06-24] MEDS: CATHETER FLUSH 10 ML SYR IV SCH ×3 (05:17→20:44)
[2020-06-24] MEDS: inSUlin ASPART (NovoLOG) 1 UNIT/0.01 ML (CHARGE PER UNIT) SC SCH ×4 (05:17→20:46)
[2020-06-24] MEDS: amLODIPine 5 MG (NORVASC) TAB PO SCH ×2 (05:19→09:26)
--- NOTE | 2020-06-24 05:43 | Progress Note - Hospitalist ---
Subjective HPI/CC On Admission Date Seen by Provider: Jun 24, 2020 Time Seen by Provider: 10:00 CC: Left sided weakness with left facial droop HPI: This is a 65yoWM clinic patient of Dr French at [facility] who has a h/o DM who presented to the ER a day after noting left facial droop and left arm and leg weakness. He was assessed in the ER and completed CVA protocol. Not a tPa candidate. Sugars are very elevated along with BP. Currently he denies pain. 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 Prednisone started along with Valtrex in case this is the dx Appreciate Cardiology evaluation Sugars are improved Review of Systems General: Fatigue, Malaise Objective Exam Vital Signs Vital Signs Date Time Temp Pulse Resp B/P (MAP) Pulse Ox O2 Delivery O2 Flow Rate FiO2 06/25/20 04:48 36.6 06/25/20 04:02 168/88 (114) 06/25/20 04:00 95 18 97 Room Air Capillary Refill : Less Than 3 SecondsLess Than 3 Seconds General Appearance: No Apparent Distress, WD/WN, Chronically ill Respiratory: Chest Non Tender, Lungs Clear, Normal Breath Sounds, No Accessory Muscle Use, No Respiratory Distress Cardiovascular: Regular Rate, Rhythm, No Edema, No Gallop, No JVD, No Murmur, Normal Peripheral Pulses Neurologic/Psychiatric: Alert, Oriented x3, No Motor/Sensory Deficits, Normal Mood/Affect Results/Procedures Lab Patient resulted labs reviewed. Assessment/Plan Assessment and Plan Assess & Plan/Chief Complaint Assessment: Presumed CVA with left facial droop and left sided weakness DM OOC HTN OOC Plan: Insulin CVA protocol MRI Monitor closely 06/24/20: Prednisone Valtrex Monitor sugar Hga1c 9.1 Diagnosis/Problems Diagnosis/Problems (1) CVA (cerebral vascular accident) Status: Acute Qualifiers: CVA mechanism: unspecified Qualified Codes: I63.9 - Cerebral infarction, unspecified (2) Hyperglycemia Status: Acute Clinical Quality Measures DVT/VTE Risk/Contraindication: Risk Factor Score Per Nursin RFS Level Per Nursing on Admit: 4+=Very High Stroke: Date of last known well: Jun 22, 2020 Time of last known well: 12:00 SAMPSON TAPIA DO Jun 24, 2020 05:43
--- NOTE | 2020-06-24 07:30 | NUR ---
pt to ct via w[facility]
[2020-06-24 08:00] VITALS: BP 176/85
--- NOTE | 2020-06-24 08:05 | Diagnostic Imaging Report ---
PROCEDURE: MR imaging of the brain without contrast. TECHNIQUE: Multiplanar, multisequence MR imaging of the brain was performed without contrast. INDICATION: Left-sided weakness. Comparison is made with head CT performed one day earlier. The ventricles and sulci are within normal limits. Moderate periventricular and subcortical white matter signal abnormalities are identified, likely on basis of chronic microvascular ischemia. Diffusion-weighted images are without evidence of diffusion restriction to suggest acute ischemia. The normal expected flow-voids within the carotid siphons are identified. No acute intra-axial or extra-axial hemorrhage is identified. The corpus callosum is unremarkable. The sella and parasellar structures are unremarkable. IMPRESSION: 1. Changes of chronic microvascular ischemia. 2. No acute intracranial process is identified. Dictated by: Dictated on workstation # [id number]
[2020-06-24] MEDS ORDERED: NON-FORMULARY MEDICATION 1 EA EA (Carvedilol 25 MG) PO SCH (09:00)
[2020-06-24] MEDS: CLOPIDOGREL 75 MG (PLAVIX) TABLET PO SCH (09:25)
[2020-06-24] MEDS: ASPIRIN E.C. 325 MG (ECOTRIN) TABLET PO SCH (09:26)
[2020-06-24] MEDS: CARVEDILOL 12.5 MG (COREG) TABLET PO SCH (09:26)
[2020-06-24] MEDS: SENNA W/DOCUSATE (SENOKOT S) TABLET PO SCH ×2 (09:28→20:45)
--- NOTE | 2020-06-24 10:51 | Diagnostic Imaging Report ---
Clinical indication: Patient with CVA and hyperglycemia. Comparison: None Exam: Real-time carotid Doppler duplex imaging is performed bilaterally. Peak systolic velocity, ICA/CCA peak systolic ratio, spectral analysis, and vascular morphology are studied. Findings: ARTERY VELOCITY Right Left CCA 0.59 m/s 0.76 m/s ICA 0.96 m/s 0.86 m/s ECA 1.25 m/s 1.35 m/s ICA/CCA 1.63 1.12 VERT.ART Antegrade Antegrade There is mild atherosclerotic disease involving the bilateral carotid arteries with no grayscale evidence of significant stenosis. Impression: There is no grayscale or Doppler evidence of significant vascular stenosis. Dictated by: Dictated on workstation # [id number]
[2020-06-24 12:00] VITALS: BP 154/80
--- NOTE | 2020-06-24 12:22 | NUR ---
RD ASSESSMENT PMHx: DM; HTN; PT INTERACTION: Pt was awake and pleasant during nutrition assessment. Pt states current appetite is "normal" for him. Note PO intake 50% x1meal, per chart review. Pt states trying to watch his CHO intake, and has some issues with chewing food. Pt states no recent issues with nausea, vomiting, or constipation. Pt states occasional issues with diarrhea. Note last BM was 06/23, and pt currently on bowel regimen of senna BID, per chart review. Pt states some recent wt gain, which he attributes to his insulin regimen. Note unable to determine recent wt hx, per chart review. Pt states current DM management is pretty good, though "the last few days it's been out of whack." Note unable to determine recent HbA1c, per chart review. ABNORMAL NUTRITION-RELATED LAB VALUES LOW: K 3.4; HDL 36; HIGH: BUN 22; glu 182; Est. kcal needs: 8442-4528 kcal | 15-18 kcal/kg Est. Pro needs: 78-98 g Pro | 0.8-1.0 g Pro/kg PES STATEMENT: Inadequate oral intake (NI-2.1) related to loss of appetite, as evidenced by pt interview, and PO intake 50% x1meal. INTERVENTION: Continue with current diet order of CHO 60g/m 1snack diet. Pt may benefit from nutrition supplementation if PO intake declines. Offered diet education on DM management, but pt declined at this time. Will attempt to offer again prior to discharge. Will continue to follow and reassess as pt needs, intake, and status change. Chaz SOUTH, MS RD LD [phone] cell
[2020-06-24] MEDS: predniSONE 20 MG TAB PO SCH (12:49)
[2020-06-24] MEDS: VALACYCLOVIR 500 MG TAB (VALTREX) PO SCH ×3 (12:49→20:43)
--- NOTE | 2020-06-24 15:53 | Cardiology Progress Note ---
Cardiology SOAP Progress Note Subjective: no cardiac complaints Objective: I&O/Vital Signs 06/26/20 00:00 Intake Total 1310 ml Balance 1310 ml Weight (Pounds): 174 Weight (Calculated Kilograms): 78.244836 Constitutional: AAO x 3 Respiratory: chest is bilaterally symmetric, lungs clear to auscultation Cardiovascular: regular rate-rhythm, S1 and S2 Gastrointestional: soft, audible bowel sounds Extremities: normal range of motion, non-tender, normal inspection, no lower extremity edema bilateral Neurologic/Psychiatric: alert, normal mood/affect, oriented x 3 Skin: normal color, warm/dry Results/Procedures: Labs A/P: Assessment/Dx: CVA vs [place] paralysis Congestive heart failure Hypertension Hyperlipidemia Plan: Left sided facial weakness, concern for CVA accident; however, CT-head does not show any signs of acute hemorrhage, mass effect or signs of subdural or epidural fluid collection at this time, CTA-head does not show any signs of acute infract. CVA accident less likely to be cause of patient's symptoms at this time , continue on aspirin and Plavix. 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 Likely Acute on chronic CHF based on CT finding of biapical pleural effusions, vascular congestion, and probable interstitial edema,did not see any cardiol ogist recently. Echo. Stress test as an outpatient with Dr Green Hypertension, restart benicar. will continue to monitor HIV positive, not on HAART currently, management per primary * recommend starting biktarvy if patient will be able to continue HAART therapy after discharge Hyperlipidemia, evaluate with lipid panel, not on a statin, will start on trial of crestor. Hx of CO with stent placement done in [place] Diabetes, management per primary care Diverticulosis Follow with Dr Green as an outpatient Thank you for your consultation. Please call me if you have any questions. Mirna Gage MD, FACP, FACC, FSCAI, FHRS, CCDS Interventional Cardiology Cardiac Electrophysiology Vascular Medicine and Endovascular Interventions Clinical Quality Measures Stroke: Date of last known well: Jun 22, 2020 Time of last known well: 12:00 Jory GAGE MD Jun 24, 2020 15:53
[2020-06-24 16:00] VITALS: BP 161/83
--- NOTE | 2020-06-24 16:03 | NUR ---
BS 34, PT ALERT BUT DROWSY. 30G CARBS/OJ GIVEN, PT WAS ABLE TO SWALLOW WITHOUT DIFFICULTY. WILL RECHECK BS IN 15 MIN Addendum: 06/24/20 at 1604 by APRIL MURRIETA RN WRONG PT
[2020-06-24 19:11] VITALS: BP 158/91
[2020-06-24] MEDS: ENOXAPARIN 40 MG/0.4 ML (LOVENOX) SYR SC SCH (20:45)
[2020-06-25 00:10] VITALS: BP 162/87
[2020-06-25 04:00] VITALS: BP 185/91
[2020-06-25 04:02] VITALS: BP 168/88
[2020-06-25] MEDS: CATHETER FLUSH 10 ML SYR IV SCH ×2 (06:29→13:59)
[2020-06-25] MEDS: predniSONE 20 MG TAB PO SCH (06:29)
[2020-06-25] MEDS: inSUlin ASPART (NovoLOG) 1 UNIT/0.01 ML (CHARGE PER UNIT) SC SCH ×2 (06:40→11:54)
[2020-06-25 08:00] VITALS: BP 158/88
[2020-06-25] MEDS: SENNA W/DOCUSATE (SENOKOT S) TABLET PO SCH (08:35)
[2020-06-25] MEDS: CLOPIDOGREL 75 MG (PLAVIX) TABLET PO SCH (08:51)
[2020-06-25] MEDS: amLODIPine 5 MG (NORVASC) TAB PO SCH (08:51)
[2020-06-25] MEDS: ASPIRIN E.C. 325 MG (ECOTRIN) TABLET PO SCH (08:51)
[2020-06-25] MEDS: CARVEDILOL 12.5 MG (COREG) TABLET PO SCH (08:51)
[2020-06-25] MEDS: VALACYCLOVIR 500 MG TAB (VALTREX) PO SCH ×2 (08:51→13:50)
[2020-06-25 12:00] VITALS: BP 128/69
[2020-06-25] MEDS ORDERED: AMLO-250 PO (12:52)
[2020-06-25] MEDS ORDERED: INSU100I29 SQ (12:52)
[2020-06-25] MEDS ORDERED: CLOP75TA28 PO (12:52)
[2020-06-25] MEDS ORDERED: VALA500T4 PO (12:52)
[2020-06-25] MEDS ORDERED: PRED10TA22 PO (12:52)
[2020-06-25] MEDS ORDERED: INSU100I14 SQ (12:52)
[2020-06-25] MEDS ORDERED: ATOR80TA76 PO (12:52)
--- NOTE | 2020-06-25 12:53 | Discharge Summary ---
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 He was at high risk for CVA so will start Plavix in addition to his ASA daily due to high risk for CVA and increase statin dose Labs and Pending Lab Test: Laboratory Tests 06/24/20 16:03: Glucometer 203H 06/24/20 20:24: Glucometer 277H 06/25/20 06:36: Glucometer 224H 06/25/20 11:25: Glucometer 338H Home Meds Active Reported Novolog Flexpen (Insulin Aspart) 300 Units/3 Ml Solution 15 Units SQ BID Levemir Flextouch (Insulin Detemir) 100 Unit/1 Ml Insuln.pen 20 Units SQ BID Trulicity (Dulaglutide) 1.5 Mg/0.5 Ml Pen.injctr 1.5 Mg SQ EVERY SATURDAY Sertraline HCl 100 Mg Tablet 150 Mg PO DAILY Glyxambi 25 mg-5 mg Tablet (Empagliflozin/Linagliptin) 1 Each Tablet 1 Tab PO DAILY Multi-Vitamin Daily (Multivitamin) 1 Each Tablet 1 Each PO DAILY Vitamin D3 (Cholecalciferol (Vitamin D3)) 1,250 Mcg Capsule 50,000 Units PO TWICE WEEKLY Vitamin C (Ascorbic Acid) 500 Mg Tab.chew 500 Mg PO BID Claritin (Loratadine) 10 Mg Tablet 10 Mg PO DAILY Atorvastatin Calcium 10 Mg Tablet 10 Mg PO HS Carvedilol 25 Mg Tablet 25 Mg PO DAILY Biktarvy 50-200-25 mg Tablet (Bictegrav/Emtricit/Tenofov Ala) 1 Each Tablet 1 Tab PO DAILY Benicar Hct 40-25 mg Tablet (Olmesartan/Hydrochlorothiazide) 1 Each Tablet 1 Each PO DAILY Aspir 81 (Aspirin) 81 Mg Tablet.dr 81 Mg PO DAILY Lasix (Furosemide) 40 Mg Tablet 40 Mg PO DAILY Assessment/Pt Instructions PCP Saturday Discharge Planning: <30 minutes discharge planning Discharge Physical Examination Vital Signs Vital Signs Date Time Temp Pulse Resp B/P (MAP) Pulse Ox O2 Delivery O2 Flow Rate FiO2 06/25/20 12:32 93 06/25/20 08:26 Room Air 06/25/20 08:00 36.9 20 158/88 (111) 94 General Appearance: No Apparent Distress, WD/WN Respiratory: Lungs Clear Cardiovascular: Regular Rate, Rhythm Neurologic/Psychiatric: Alert, Oriented x3, No Motor/Sensory Deficits, Normal Mood/Affect, Facial Droop (left) Allergies: Coded Allergies: No Known Drug Allergies (Unverified , 06/23/20) Discharge Summary Date of Admission Jun 23, 2020 at 12:00 Date of Discharge Discharge Date: Jun 25, 2020 Admission Diagnosis Assessment: Presumed CVA with left facial droop and left sided weakness DM OOC HTN OOC Plan: Insulin CVA protocol MRI Monitor closely Discharge Diagnosis Assessment: Presumed CVA with left facial droop and left sided weakness DM OOC HTN OOC Plan: Insulin CVA protocol MRI Monitor closely 06/24/20: Prednisone Valtrex Monitor sugar Hga1c 9.1 (1) CVA (cerebral vascular accident) Status: Acute Qualifiers: Qualified Codes: I63.9 - Cerebral infarction, unspecified (2) Hyperglycemia Status: Acute Clinical Quality Measures DVT/VTE Risk/Contraindication: Risk Factor Score Per Nursin RFS Level Per Nursing on Admit: 4+=Very High Stroke: Date of last known well: Jun 22, 2020 Time of last known well: 12:00 SAMPSON TAPIA DO Jun 25, 2020 12:53
--- NOTE | 2020-06-25 15:33 | NUR ---
RX AND INST REVIEWED AND VERBALIZED UNDERSTANDING. TO CALL FOR F/U APPT ON SATURDAY. DC'D PER WC TO HOME.
== END 2020-06-25 15:34 | disposition home or self-care (01) | DRG 74 ==
LOC: EDUNIT# 09:43 → ER 09:45 → EDLOC 12:00 → 4TH 12:00
PROVIDERS: ADMIT Internal Medicine; ATTEND Internal Medicine
DX: G51.0 Bell's palsy (principal); E11.65 Type 2 diabetes mellitus with hyperglycemia; Z79.4 Long term (current) use of insulin; I11.0 Hypertensive heart disease with heart failure; I50.9 Heart failure, unspecified; I25.10 Atherosclerotic heart disease of native coronary artery without angina pectoris; R29.704 NIHSS score 4; E78.5 Hyperlipidemia, unspecified; Z21 Asymptomatic human immunodeficiency virus [HIV] infection status; Z95.5 Presence of coronary angioplasty implant and graft; I25.2 Old myocardial infarction; Z79.82 Long term (current) use of aspirin
CPT/HCPCS: 36415; 70450; 70496; 70498; 70551; 71045; 80053; 80061; 81000; 82962; 83036; 84443; 84484; 85025; 85379; 85610; 85652; 85730; 86141; 93005; 93041; 93880; 94664; 96360

== ENCOUNTER 2020-07-07 14:27 | Inpatient (IN) | payer BC ==
[~2020-07-07] VITALS: Ht 162.6 cm; Wt 96.8 kg
[~2020-07-07 14:27] MED LIST changes: +AMLO-250 PO; +ASCO500T71 PO; +ATOR10TA66 PO; +ATOR80TA76 PO; +BICT1TAB PO; +CARV25TA PO; +CHOL500049 PO; +CLOP75TA28 PO; +DULA1.5P2 SQ; +EMPA1TAB PO; +INSU100I14 SQ; +INSU100I29 SQ; +LORA10TA76 PO; +MULT-974 PO; +OLME1TAB24 PO; +PRED10TA22 PO; +SERT100T8 PO; +VALA500T4 PO
--- NOTE | 2020-07-07 14:54 | ED Dyspnea ---
General Stated Complaint: COVID + LOW O2 Source of Information: Patient Exam Limitations: No Limitations History of Present Illness Date Seen by Provider: Jul 07, 2020 Time Seen by Provider: 14:54 Initial Comments Tested positive for covid 07/04/20. Became symptomatic on 07/03/20. O2 sats 85% room air on arrival. Does not wear O2 at home. Sees [facility]. Hx DM, obesity, HTN. Interestingly, was here last week for bells palsy and given rx for prednisone. Timing/Duration: 1 Week Severity: Moderate Prior Episodes/Possible Cause: No Prior Episodes Associated Symptoms: Cough Allergies and Home Medications Allergies Coded Allergies: No Known Drug Allergies (Unverified , 06/23/20) Home Medications Amlodipine Besylate 5 Mg Tablet, 5 MG PO DAILY Prescribed by: SAMPSON TAPIA on 06/25/20 1252 Ascorbic Acid 500 Mg Tab.chew, 500 MG PO BID, (Reported) Aspirin 81 Mg Tablet.dr, 81 MG PO DAILY, (Reported) Atorvastatin Calcium 80 Mg Tablet, 80 MG PO HS Prescribed by: SAMPSON TAPIA on 06/25/20 1252 Bictegrav/Emtricit/Tenofov Ala 1 Each Tablet, 1 TAB PO DAILY, (Reported) Carvedilol 25 Mg Tablet, 25 MG PO DAILY, (Reported) Cholecalciferol (Vitamin D3) 1,250 Mcg Capsule, 50,000 UNITS PO TWICE WEEKLY, (Reported) Clopidogrel Bisulfate 75 Mg Tablet, 75 MG PO DAILY Prescribed by: SAMPSON TAPIA on 06/25/20 1252 Dulaglutide 1.5 Mg/0.5 Ml Pen.injctr, 1.5 MG SQ EVERY SATURDAY, (Reported) Empagliflozin/Linagliptin 1 Each Tablet, 1 TAB PO DAILY, (Reported) Furosemide 40 Mg Tablet, 40 MG PO DAILY, (Reported) Insulin Aspart 300 Units/3 Ml Solution, 20 UNITS SQ TIDAC Prescribed by: SAMPSON TAPIA on 06/25/20 125 Insulin Detemir 100 Unit/1 Ml Insuln.pen, 35 UNITS SQ BID Prescribed by: SAMPSON TAPIA on 06/25/20 125 Loratadine 10 Mg Tablet, 10 MG PO DAILY, (Reported) Multivitamin 1 Each Tablet, 1 EACH PO DAILY, (Reported) Olmesartan/Hydrochlorothiazide 1 Each Tablet, 1 EACH PO DAILY, (Reported) Prednisone 10 Mg Tab.ds.pk, 10 MG PO DAILY 4 pills once daily for 1 day then decrease by 1 pill daily Prescribed by: SAMPSON TAPIA on 06/25/20 1252 Sertraline HCl 100 Mg Tablet, 150 MG PO DAILY, (Reported) Valacyclovir HCl 500 Mg Tablet, 1,000 MG PO TID Prescribed by: SAMPSON TAPIA on 06/25/20 1252 Patient Home Medication List Home Medication List Reviewed: Yes Review of Systems Review of Systems Constitutional: see HPI, malaise, weakness EENTM: see HPI Respiratory: no symptoms reported Cardiovascular: no symptoms reported Genitourinary: no symptoms reported Musculoskeletal: no symptoms reported Skin: no symptoms reported Psychiatric/Neurological: No Symptoms Reported Endocrine: No Symptoms Reported Past Eivalvh-Uyykce-Utavwy Hx Patient Social History Type Used: Cigarettes Recent Hopitalizations: No Immunizations Up To Date Tetanus Booster (TDap): Unknown PED Vaccines UTD: Yes Date of Pneumonia Vaccine: Apr 07, 2016 Date of Influenza Vaccine: Apr 07, 2020 Seasonal Allergies Seasonal Allergies: No Past Medical History Surgeries: Yes (COLON RESECTION, HERNIA X3, APPY) Appendectomy Respiratory: No Cardiac: Yes (CHF, STENTS) Neurological: No HIV/AIDS: Yes Genitourinary: No Gastrointestinal: No Musculoskeletal: No Endocrine: Yes Diabetes, Insulin dep HEENT: No Cancer: No Psychosocial: No Integumentary: No Blood Disorders: Yes (HIV +) Physical Exam Vital Signs Vital Signs - First Documented 07/07/20 14:45 Temp 36.3 Pulse 79 Resp 16 B/P (MAP) 111/68 (82) Pulse Ox 96 O2 Delivery Nasal Cannula O2 Flow Rate 2.00 Capillary Refill : Height, Weight, BMI Height: 5'4.00" Weight: 174lbs. oz. 78.809668wa; 37.15 BMI Method:Stated General Appearance: No Apparent Distress, WD/WN, Obese HEENT: Other (Left facial droop noted. No deficit of upper or lower extremity) Neck: Full Range of Motion, Normal Inspection Respiratory: Lungs Clear, Normal Breath Sounds, No Accessory Muscle Use, No Respiratory Distress Gastrointestinal: Non Tender Neurologic/Psychiatric: Alert, Oriented x3 Skin: Normal Color, Warm/Dry Progress/Results/Core Measures Results/Orders Lab Results Laboratory Tests Test 07/07/20 14:54 Range/Units White Blood Count 5.5 4.3-11.0 10^3/uL Red Blood Count 4.74 4.30-5.52 10^6/uL Hemoglobin 13.2 L 13.3-17.7 g/dL Hematocrit 40 40-54 % Mean Corpuscular Volume 84 80-99 fL Mean Corpuscular Hemoglobin 28 25-34 pg Mean Corpuscular Hemoglobin Concent 33 32-36 g/dL Red Cell Distribution Width 15.2 H 10.0-14.5 % Platelet Count 186 130-400 10^3/uL Mean Platelet Volume 10.8 9.0-12.2 fL Immature Granulocyte % (Auto) 0 % Neutrophils (%) (Auto) 78 H 42-75 % Lymphocytes (%) (Auto) 18 12-44 % Monocytes (%) (Auto) 4 0-12 % Eosinophils (%) (Auto) 0 0-10 % Basophils (%) (Auto) 0 0-10 % Neutrophils # (Auto) 4.3 1.8-7.8 10^3/uL Lymphocytes # (Auto) 1.0 1.0-4.0 10^3/uL Monocytes # (Auto) 0.2 0.0-1.0 10^3/uL Eosinophils # (Auto) 0.0 0.0-0.3 10^3/uL Basophils # (Auto) 0.0 0.0-0.1 10^3/uL Immature Granulocyte # (Auto) 0.0 0.0-0.1 10^3/uL D-Dimer 2.57 H 0.00-0.49 UG/ML Sodium Level 135 135-145 MMOL/L Potassium Level 3.3 L 3.6-5.0 MMOL/L Chloride Level 99 98-107 MMOL/L Carbon Dioxide Level 24 21-32 MMOL/L Anion Gap 12 5-14 MMOL/L Blood Urea Nitrogen 20 H 7-18 MG/DL Creatinine 1.09 0.60-1.30 MG/DL Estimat Glomerular Filtration Rate > 60 BUN/Creatinine Ratio 18 Glucose Level 152 H 70-105 MG/DL Calcium Level 8.3 L 8.5-10.1 MG/DL Corrected Calcium 8.7 8.5-10.1 MG/DL Total Bilirubin 0.7 0.1-1.0 MG/DL Aspartate Amino Transf (AST/SGOT) 34 5-34 U/L Alanine Aminotransferase (ALT/SGPT) 51 0-55 U/L Alkaline Phosphatase 45 40-136 U/L C-Reactive Protein High Sensitivity 8.92 H 0.00-0.50 MG/DL Total Protein 6.9 6.4-8.2 GM/DL Albumin 3.5 3.2-4.5 GM/DL Procalcitonin 0.10 H <0.10 NG/ML Micro Results Microbiology 07/07/20 Influenza Types A,B Antigen (JEF) - Final, Complete My Orders Orders - MUNIRA ORDAZ APRN Cbc With Automated Diff (07/07/20 14:53) Comprehensive Metabolic Panel (07/07/20 14:53) Hs C Reactive Protein (07/07/20 14:53) Fibrin Degradation Products (07/07/20 14:53) Procalcitonin (Pct) (07/07/20 14:53) Chest 1 View, Ap/Pa Only (07/07/20 14:53) Ed Iv/Invasive Line Start (07/07/20 14:53) Ct Angio Chest W (07/07/20 15:48) Enoxaparin Injection (Lovenox Injection) (07/07/20 16:00) Iohexol Injection (Omnipaque 350 Mg/Ml 1 (07/07/20 16:00) Ns (Ivpb) (Sodium Chloride 0.9% Ivpb Bag (07/07/20 16:00) Received Contrast (Hold Metformin- Contr (07/07/20 16:00) Medications Given in ED Current Medications Medications Dose Ordered Sig/Agusto Route Start Time Stop Time Status Last Admin Dose Admin Enoxaparin Sodium 90 mg ONCE ONCE SC 07/07/20 16:00 07/07/20 16:01 DC 07/07/20 16:03 90 MG Iohexol 100 ml ONCE ONCE IV 07/07/20 16:00 07/07/20 16:01 DC 07/07/20 16:28 79 ML Sodium Chloride 100 ml ONCE ONCE IV 07/07/20 16:00 07/07/20 16:01 DC 07/07/20 16:28 100 ML Vital Signs/I&O 07/07/20 14:45 Temp 36.3 Pulse 79 Resp 16 B/P (MAP) 111/68 (82) Pulse Ox 96 O2 Delivery Nasal Cannula O2 Flow Rate 2.00 Diagnostic Imaging Diagonstic Imaging: CT Comments NAME: JEAN PIERRE [facility] REC#: [id number] PT STATUS: REG ER : 1955 PHYSICIAN: MUNIRA ORDAZ APRN ADMIT DATE: 07/07/20/ER Signed Date of Exam:07/07/20 CT ANGIO CHEST W PROCEDURE: CT angiography of the chest with contrast. TECHNIQUE: Multiple contiguous axial images were obtained through the chest after uneventful bolus administration of intravenous contrast. 3D reconstructed CTA MIP acquisitions were also performed. Auto Exposure Controls were utilized during the CT exam to meet ALARA standards for radiation dose reduction. INDICATION: Hypoxia. COVID positive. Elevated D-dimer. COMPARISON: Chest radiograph from 07/07/2020. FINDINGS: Examination is limited by motion. No large or central pulmonary emboli. Normal-caliber thoracic aorta. Heart size is upper limits of normal. No pericardial effusion. Right hilar lymphadenopathy measuring up to 1.3 cm in short axis dimension. There are also prominent subcarinal lymph nodes measuring up to 1.1 cm in short axis dimension. Dense airspace opacities throughout both lungs. Small bilateral pleural effusions. No pneumothorax. Age-appropriate changes in the spine. No acute osseous findings. Partially visualized hernia repair in the upper abdomen. IMPRESSION: 1. No large or central pulmonary emboli. 2. Dense airspace opacities throughout both lungs, compatible with reported COVID diagnosis. 3. Right hilar and mediastinal lymphadenopathy may be reactive. 4. Small bilateral pleural effusions. Dictated by: Dictated on workstation # [id number] Dict: 07/07/20 1639 Trans: 07/07/201648 AS [id number] Interpreted by: BIENVENIDO GARCIA MD Electronically signed by: BIENVENIDO GARCIA MD 07/07/201648 Departure Communication (Admissions) Discussed with him the emergency use authorization and experimental nature of remdesivir and convalescent plasma. He would like to proceed with using these. He understands the risk of anaphylaxis. Impression Primary Impression: Hypoxia Additional Impression: COVID-19 Disposition: ADMITTED INPATIENT Condition: Stable Admissions Decision to Admit Reason: Admit from ER (General) Decision to Admit/Date: Jul 07, 2020 Time/Decision to Admit Time: 16:34 Departure-Patient Inst. Referrals: RADHA LAWTON MD (PCP/Family) Primary Care Physician MUNIRA ORDAZ APRN Jul 07, 2020 14:54
[2020-07-07 15:11] LABS: BASOPHILS % (AUTO) 0 % (0-10); EOSINOPHILS % (AUTO) 0 % (0-10); HEMATOCRIT 40 % (40-54); HEMOGLOBIN 13.2 g/dL (13.3-17.7); LYMPHOCYTES % (AUTO) 18 % (12-44); MEAN CORPUSCULAR HEMOGLOBIN 28 pg (25-34); MEAN CORPUSCULAR HGB CONC 33 g/dL (32-36); MEAN CORPUSCULAR VOLUME 84 fL (80-99); MEAN PLATELET VOLUME 10.8 fL (9.0-12.2); MONOCYTES # (AUTO) 0.2 10^3/uL (0.0-1.0); MONOCYTES % (AUTO) 4 % (0-12); NEUTROPHILS # (AUTO) 4.3 10^3/uL (1.8-7.8); NEUTROPHILS % (AUTO) 78 % (42-75); PLATELET COUNT 186 10^3/uL (130-400); WHITE BLOOD COUNT 5.5 10^3/uL (4.3-11.0)
[2020-07-07 15:13] LABS: ALBUMIN 3.5 GM/DL (3.2-4.5); CHLORIDE 99 MMOL/L (98-107); POTASSIUM 3.3 MMOL/L (3.6-5.0); SODIUM 135 MMOL/L (135-145)
[2020-07-07 15:14] LABS: CALCIUM 8.3 MG/DL (8.5-10.1)
[2020-07-07 15:15] LABS: GLUCOSE 152 MG/DL (70-105); TOTAL PROTEIN 6.9 GM/DL (6.4-8.2)
[2020-07-07 15:16] LABS: CARBON DIOXIDE 24 MMOL/L (21-32)
[2020-07-07 15:17] LABS: BILIRUBIN,TOTAL 0.7 MG/DL (0.1-1.0)
[2020-07-07 15:19] LABS: ALKALINE PHOSPHATASE 45 U/L (40-136); CREATININE SERUM 1.09 MG/DL (0.60-1.30); GFR ESTIMATED > 60
[2020-07-07 15:20] LABS: BUN/CREATININE RATIO 18
[2020-07-07 15:22] LABS: ALANINE AMINOTRANSFERASE 51 U/L (0-55)
--- NOTE | 2020-07-07 15:35 | Diagnostic Imaging Report ---
Portable erect AP chest at 325 hours. INDICATION: Shortness of breath. FINDINGS: Both the heart and the central pulmonary vascularity are somewhat less prominent than noted on the prior exam of 06/23/2020. However, there still appears to be an element of mild pulmonary congestion present. There is also patchy alveolar/interstitial infiltrate in the right infrahilar region and in the right perihilar region. This finding is more conspicuous on the prior exam and may be related to coexistent pneumonia/atelectasis. There is no significant pleural effusion identified. The mediastinum is not widened. The osseous structures are intact. IMPRESSION: There are mixed results. The heart has decreased in size and there does seem to be less pulmonary congestion than on the prior exam. However, there may now be new areas of pneumonia/atelectasis involving the right lung. A follow-up study would be recommended for continued evaluation. Dictated by: Dictated on workstation # [id number]
[2020-07-07] MEDS ORDERED: HOLD METFORMIN - RECEIVED CONTRAST 20 ML VIAL IV SCH (16:00)
[2020-07-07] MEDS ORDERED: IOHEXOL 350 MG/ML 100 ML (OMNIPAQUE 350) VIAL IV ONE (16:00)
[2020-07-07] MEDS ORDERED: NS 100 ML (IVPB) BAG IV ONE (16:00)
[2020-07-07] MEDS ORDERED: ENOXAPARIN 100 MG/1 ML (LOVENOX) SYR SC ONE (16:00)
--- NOTE | 2020-07-07 16:49 | Diagnostic Imaging Report ---
PROCEDURE: CT angiography of the chest with contrast. TECHNIQUE: Multiple contiguous axial images were obtained through the chest after uneventful bolus administration of intravenous contrast. 3D reconstructed CTA MIP acquisitions were also performed. Auto Exposure Controls were utilized during the CT exam to meet ALARA standards for radiation dose reduction. INDICATION: Hypoxia. COVID positive. Elevated D-dimer. COMPARISON: Chest radiograph from 07/07/2020. FINDINGS: Examination is limited by motion. No large or central pulmonary emboli. Normal-caliber thoracic aorta. Heart size is upper limits of normal. No pericardial effusion. Right hilar lymphadenopathy measuring up to 1.3 cm in short axis dimension. There are also prominent subcarinal lymph nodes measuring up to 1.1 cm in short axis dimension. Dense airspace opacities throughout both lungs. Small bilateral pleural effusions. No pneumothorax. Age-appropriate changes in the spine. No acute osseous findings. Partially visualized hernia repair in the upper abdomen. IMPRESSION: 1. No large or central pulmonary emboli. 2. Dense airspace opacities throughout both lungs, compatible with reported COVID diagnosis. 3. Right hilar and mediastinal lymphadenopathy may be reactive. 4. Small bilateral pleural effusions. Dictated by: Dictated on workstation # [id number]
--- NOTE | 2020-07-07 17:13 | History & Physical-Hospitalist ---
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 Patient was exposed to COVID over [place] by his [id number] and his entire family is positive. Patient is high risk for decompensation. Source: patient Exam Limitations: no limitations Date Seen 07/07/20 Time Seen by a Provider: 17:00 Attending Physician Tejal Huffman Julie A MD Referring Physician Date of Admission Jul 07, 2020 at 16:29 Home Medications & Allergies Home Medications Reviewed patient Home Medication Reconciliation performed by pharmacy medication reconciliations electronic lab technician and/or nursing. Patients Allergies have been reviewed. Allergies Allergies Coded Allergies No Known Drug Allergies (Gkxgiflgnn81/17/20) Past Bolixke-Kzhqqw-Vwotze Hx Past Med/Social Hx: Reviewed Nursing Past Med/Soc Hx, Reviewed and Corrections made Patient Social History Marrital Status: single Employed/Student: retired ([employer]) Alcohol Use: Denies Use Recreational Drug Use: No Smoking Status: Former Smoker Former Smoker, Quit: Jun 22, 1981 Type Used: Cigarettes Recent Foreign Travel: No Contact w/other who traveled: No Recent Hopitalizations: No Recent Infectious Disease Expo: No Immunizations Up To Date Tetanus Booster (TDap): Unknown Pediatric: Yes Date of Pneumonia Vaccine: Apr 07, 2016 Date of Influenza Vaccine: Apr 07, 2020 Seasonal Allergies Seasonal Allergies: No Past Medical History Surgeries: Appendectomy Currently Using CPAP: Yes Cardiac: Heart Attack, High Cholesterol, Hypertension HIV/AIDS: Yes Gastrointestinal: Diverticulosis Endocrine: Diabetes, Insulin dep History of Blood Disorders: Yes (HIV +) Review of Systems Constitutional: see HPI Respiratory: cough, dyspnea on exertion Physical Exam Physical Exam Vital Signs Vital Signs - First Documented 07/07/20 14:45 Temp 36.3 Pulse 79 Resp 16 B/P (MAP) 111/68 (82) Pulse Ox 96 O2 Delivery Nasal Cannula O2 Flow Rate 2.00 Capillary Refill : Less Than 3 Seconds Height, Weight, BMI Height: 5'4.00" Weight: 174lbs. oz. 78.591104hn; 34.00 BMI Method:Stated General Appearance: No Apparent Distress, Chronically ill, Obese Eyes: Right Eye Normal Inspection, Right Eye PERRL HEENT: PERRL/EOMI, Normal ENT Inspection, Pharynx Normal, Moist Mucous Membranes Neck: Full Range of Motion, Normal Inspection, Non Tender Respiratory: Chest Non Tender, Lungs Clear, No Accessory Muscle Use, No Respiratory Distress, Decreased Breath Sounds Cardiovascular: Regular Rate, Rhythm, No Edema, No Gallop, No JVD, No Murmur, Normal Peripheral Pulses Gastrointestinal: Normal Bowel Sounds, No Organomegaly, No Pulsatile Mass, Non Tender, Soft Back: Normal Inspection, No CVA Tenderness, No Vertebral Tenderness Extremity: Normal Capillary Refill, Normal Inspection, Normal Range of Motion, Non Tender, No Calf Tenderness, No Pedal Edema Neurologic/Psychiatric: Alert, Oriented x3, No Motor/Sensory Deficits, Normal Mood/Affect Skin: Normal Color, Warm/Dry Lymphatic: No Adenopathy Results Results/Procedures Labs Laboratory Tests 07/07/20 14:54 Patient resulted labs reviewed. Assessment/Plan Admission Diagnosis Assessment: COVID-19 PNA Hypoxia DM insulin dependent Recent left sided Bonilla's Palsy Plan: COVID 19 meds O2 Monitor closely Admission Status: Inpatient Order (span 2 midnights) Reason for Inpatient Admission: covid 19 Diagnosis/Problems Diagnosis/Problems (1) COVID-19 Status: Acute (2) Hypoxia Status: Acute (3) Bonilla's palsy TEJAL HUFFMAN DO Jul 07, 2020 17:12
[2020-07-07 17:58] VITALS: BP 145/71
[2020-07-07] MEDS ORDERED: ACETAMINOPHEN 325 MG TABLET PO PRN (18:00)
[2020-07-07] MEDS ORDERED: ONDANSETRON 4 MG/2 ML (SDV) Z0FRAN IV PRN (18:15)
[2020-07-07 19:42] VITALS: BP 133/63
[2020-07-07] MEDS: NS IV 1000 ML 1,000 ML IV SCH (20:49)
[2020-07-07] MEDS ORDERED: LOPERAMIDE 2 MG (IMODIUM) TABLET PO PRN (21:45)
[2020-07-07] MEDS ORDERED: CALCIUM CARBONATE 500 MG (TUMS) TAB.CHEW PO PRN (21:45)
[2020-07-07] MEDS ORDERED: DOCUSATE SODIUM 100 MG (COLACE) CAP PO PRN (21:45)
[2020-07-07] MEDS ORDERED: ALPRAZolam 0.25 MG (XANAX) TAB PO PRN (21:45)
[2020-07-07] MEDS ORDERED: diphenhydrAMINE 25 MG TAB (BENADRYL) PO PRN (21:45)
[2020-07-07] MEDS ORDERED: MELATONIN 3 MG TABLET PO PRN (21:45)
[2020-07-07] MEDS ORDERED: HYDROcodone/APAP 5 MG/325 MG (LORTAB) TAB PO PRN (21:45)
[2020-07-07 23:18] VITALS: BP 154/85
[2020-07-08] MEDS: ENOXAPARIN 100 MG/1 ML (LOVENOX) SYR SC SCH ×2 (06:11→17:01)
[2020-07-08] MEDS: inSUlin ASPART (NovoLOG) 1 UNIT/0.01 ML (CHARGE PER UNIT) SC SCH ×5 (06:12→20:32)
[2020-07-08 07:20] VITALS: BP 154/85
[2020-07-08 08:18] VITALS: BP 172/82
[2020-07-08] MEDS: SENNA W/DOCUSATE (SENOKOT S) TABLET PO SCH ×2 (09:18→20:32)
[2020-07-08 09:48] LABS: BASOPHILS % (AUTO) 0 % (0-10); EOSINOPHILS % (AUTO) 0 % (0-10); HEMATOCRIT 34 % (40-54); HEMOGLOBIN 11.4 g/dL (13.3-17.7); LYMPHOCYTES % (AUTO) 25 % (12-44); MEAN CORPUSCULAR HEMOGLOBIN 28 pg (25-34); MEAN CORPUSCULAR HGB CONC 33 g/dL (32-36); MEAN CORPUSCULAR VOLUME 83 fL (80-99); MEAN PLATELET VOLUME 10.5 fL (9.0-12.2); MONOCYTES # (AUTO) 0.2 10^3/uL (0.0-1.0); MONOCYTES % (AUTO) 5 % (0-12); NEUTROPHILS # (AUTO) 2.8 10^3/uL (1.8-7.8); NEUTROPHILS % (AUTO) 70 % (42-75); PLATELET COUNT 174 10^3/uL (130-400)
[2020-07-08 10:00] LABS: CHLORIDE 100 MMOL/L (98-107); POTASSIUM 2.9 MMOL/L (3.6-5.0); SODIUM 133 MMOL/L (135-145)
[2020-07-08 10:01] LABS: CALCIUM 7.8 MG/DL (8.5-10.1)
[2020-07-08 10:02] LABS: GLUCOSE 305 MG/DL (70-105); TOTAL PROTEIN 6.1 GM/DL (6.4-8.2)
[2020-07-08 10:03] LABS: CARBON DIOXIDE 21 MMOL/L (21-32)
[2020-07-08 10:04] LABS: BILIRUBIN,TOTAL 0.5 MG/DL (0.1-1.0)
[2020-07-08 10:06] LABS: ALKALINE PHOSPHATASE 40 U/L (40-136); CREATININE SERUM 0.98 MG/DL (0.60-1.30); GFR ESTIMATED > 60
[2020-07-08 10:07] LABS: BUN/CREATININE RATIO 18
[2020-07-08 10:09] LABS: ALANINE AMINOTRANSFERASE 34 U/L (0-55)
[2020-07-08] MEDS ORDERED: RT-ALBUTEROL INHALER HFA (VENTOLIN HFA) 18 GM IH PRN (10:15)
[2020-07-08] MEDS: NS IV 1000 ML 1,000 ML IV SCH ×2 (11:01→17:06)
[2020-07-08] MEDS: RT-ALBUTEROL INHALER HFA (VENTOLIN HFA) 18 GM IH SCH ×3 (11:33→20:33)
[2020-07-08 11:52] VITALS: BP 162/74
--- NOTE | 2020-07-08 12:13 | Progress Note - Hospitalist ---
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 Patient was exposed to COVID over [place] by his [id number] and his entire family is positive. Patient is high risk for decompensation. Subjective/Events-last exam Patient doing better Maintained on O2 Sugars are high Restarted all home meds No pain reported Review of Systems General: Fatigue Pulmonary: Dyspnea Objective Exam Vital Signs Vital Signs Date Time Temp Pulse Resp B/P (MAP) Pulse Ox O2 Delivery O2 Flow Rate FiO2 07/08/20 16:12 37.5 92 20 138/67 (90) 94 Nasal Cannula 2.00 Capillary Refill : Less Than 3 Seconds General Appearance: No Apparent Distress, WD/WN, Chronically ill Respiratory: No Accessory Muscle Use, Decreased Breath Sounds Cardiovascular: Regular Rate, Rhythm Neurologic/Psychiatric: Alert, Oriented x3, No Motor/Sensory Deficits, Normal Mood/Affect Results/Procedures Lab Laboratory Tests 07/08/20 09:35 Patient resulted labs reviewed. 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
[2020-07-08] MEDS ORDERED: KCL 20 MEQ TAB (K-DUR) PO NR (12:15)
[2020-07-08] MEDS ORDERED: ATOR80TA76 PO (13:15)
[2020-07-08] MEDS ORDERED: PATIENT MAY USE OWN MEDS, ALL MC SCH (13:30)
[2020-07-08] MEDS ORDERED: CHOLECALCIFEROL 50000 UNIT PO SCH (13:30)
[2020-07-08] MEDS ORDERED: NON-FORMULARY MEDICATION 1 EA EA (Dulaglutide (Trulicity) 1.5 MG) SQ SCH (13:30)
[2020-07-08] MEDS ORDERED: [UNRECOGNIZED DRUG - OTHER] PO SCH (13:30)
[2020-07-08] MEDS ORDERED: CHOL500049 PO (14:40)
[2020-07-08 16:12] VITALS: BP 138/67
[2020-07-08] MEDS: KCL 20 MEQ TAB (K-DUR) PO SCH (17:01)
[2020-07-08] MEDS: dexAMETHasone 6 MG TAB (DECADRON) PO SCH (17:02)
[2020-07-08] MEDS: ASCORBIC ACID (VIT C) 500 MG TABLET PO SCH (20:31)
[2020-07-08 23:50] VITALS: BP 127/62
[2020-07-09] MEDS: RT-ALBUTEROL INHALER HFA (VENTOLIN HFA) 18 GM IH SCH ×4 (03:42→18:25)
[2020-07-09] MEDS: ENOXAPARIN 100 MG/1 ML (LOVENOX) SYR SC SCH ×2 (05:48→17:14)
[2020-07-09] MEDS: inSUlin ASPART (NovoLOG) 1 UNIT/0.01 ML (CHARGE PER UNIT) SC SCH ×7 (05:49→20:39)
[2020-07-09 06:45] LABS: BASOPHILS % (AUTO) 0 % (0-10); EOSINOPHILS % (AUTO) 0 % (0-10); HEMATOCRIT 36 % (40-54); HEMOGLOBIN 11.8 g/dL (13.3-17.7); LYMPHOCYTES # (AUTO) 0.5 10^3/uL (1.0-4.0); LYMPHOCYTES % (AUTO) 16 % (12-44); MEAN CORPUSCULAR HEMOGLOBIN 28 pg (25-34); MEAN CORPUSCULAR HGB CONC 33 g/dL (32-36); MEAN CORPUSCULAR VOLUME 83 fL (80-99); MEAN PLATELET VOLUME 11.1 fL (9.0-12.2); MONOCYTES # (AUTO) 0.1 10^3/uL (0.0-1.0); MONOCYTES % (AUTO) 4 % (0-12); NEUTROPHILS # (AUTO) 2.6 10^3/uL (1.8-7.8); NEUTROPHILS % (AUTO) 80 % (42-75); PLATELET COUNT 188 10^3/uL (130-400); WHITE BLOOD COUNT 3.2 10^3/uL (4.3-11.0)
[2020-07-09 06:56] LABS: ALBUMIN 3.3 GM/DL (3.2-4.5); CHLORIDE 104 MMOL/L (98-107); SODIUM 137 MMOL/L (135-145)
[2020-07-09 06:57] LABS: CALCIUM 8.3 MG/DL (8.5-10.1)
[2020-07-09 06:58] LABS: GLUCOSE 194 MG/DL (70-105)
[2020-07-09 06:59] LABS: TOTAL PROTEIN 6.8 GM/DL (6.4-8.2)
[2020-07-09 07:00] LABS: BILIRUBIN,TOTAL 0.4 MG/DL (0.1-1.0); CARBON DIOXIDE 21 MMOL/L (21-32)
[2020-07-09 07:02] LABS: ALKALINE PHOSPHATASE 44 U/L (40-136); CREATININE SERUM 0.97 MG/DL (0.60-1.30); GFR ESTIMATED > 60
[2020-07-09 07:03] LABS: BUN/CREATININE RATIO 27
[2020-07-09 07:05] LABS: ALANINE AMINOTRANSFERASE 33 U/L (0-55)
--- NOTE | 2020-07-09 07:23 | Progress Note - Hospitalist ---
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 Patient was exposed to COVID over [place] by his [id number]-qf-gur and his entire family is positive. Patient is high risk for decompensation. Subjective/Events-last exam No issues O2 3L/min Patient is at high risk for decompensation since he is in the critical time period of COVID-19 time line High risk for intubation No major issues Review of Systems General: Fatigue, Malaise Pulmonary: Dyspnea, Cough Objective Exam Vital Signs Vital Signs Date Time Temp Pulse Resp B/P (MAP) Pulse Ox O2 Delivery O2 Flow Rate FiO2 07/10/20 02:00 97 Nasal Cannula 1.00 07/10/20 00:21 36.0 94 20 156/90 (112) Capillary Refill : Less Than 3 Seconds General Appearance: No Apparent Distress, WD/WN, Chronically ill Respiratory: Chest Non Tender, Lungs Clear, Normal Breath Sounds, No Accessory Muscle Use, No Respiratory Distress Cardiovascular: Regular Rate, Rhythm, No Edema, No Gallop, No JVD, No Murmur, Normal Peripheral Pulses Neurologic/Psychiatric: Alert, Oriented x3, No Motor/Sensory Deficits, Normal Mood/Affect Skin: Normal Color, Warm/Dry Results/Procedures Lab Laboratory Tests 07/10/20 05:30 Patient resulted labs reviewed. Assessment/Plan Assessment and Plan Assess & Plan/Chief Complaint Assessment: COVID-19 PNA Hypoxia DM insulin dependent Recent left sided Bonilla's Palsy Plan: COVID 19 meds O2 Monitor closely 07/08/20: Monitor O2 Supportive care 07/09/20: O2 Monitor closely Diagnosis/Problems Diagnosis/Problems (1) COVID-19 Status: Acute (2) Hypoxia Status: Acute (3) Bonilla's palsy Clinical Quality Measures DVT/VTE Risk/Contraindication: Risk Factor Score Per Nursin RFS Level Per Nursing on Admit: 4+=Very High SAMPSON TAPIA DO Jul 09, 2020 07:22
[2020-07-09 07:40] VITALS: BP 151/80
[2020-07-09] MEDS: FUROSEMIDE 40 MG (LASIX) TAB PO SCH (08:10)
[2020-07-09] MEDS: ASCORBIC ACID (VIT C) 500 MG TABLET PO SCH ×2 (08:10→20:33)
[2020-07-09] MEDS: CARVEDILOL 12.5 MG (COREG) TABLET PO SCH (08:11)
[2020-07-09] MEDS: MULTIVIT W/MINERALS TAB (THERAGRAN M) PO SCH (08:11)
[2020-07-09] MEDS: KCL 20 MEQ TAB (K-DUR) PO SCH ×2 (08:11→17:14)
[2020-07-09] MEDS: ASPIRIN E.C. 81 MG (ECOTRIN) TAB PO SCH (08:12)
[2020-07-09] MEDS: amLODIPine 5 MG (NORVASC) TAB PO SCH (08:12)
[2020-07-09] MEDS: CLOPIDOGREL 75 MG (PLAVIX) TABLET PO SCH (08:12)
[2020-07-09] MEDS: SERTRALINE 100 MG (ZOLOFT) TAB PO SCH (08:12)
[2020-07-09] MEDS: dexAMETHasone 6 MG TAB (DECADRON) PO SCH (08:13)
[2020-07-09] MEDS: LORATADINE (CLARITIN) 10 MG TAB PO SCH (08:13)
[2020-07-09] MEDS: SENNA W/DOCUSATE (SENOKOT S) TABLET PO SCH ×2 (08:13→20:33)
[2020-07-09] MEDS: VALSARTAN 160 MG (DIOVAN) TABLET PO SCH (08:19)
[2020-07-09] MEDS ORDERED: [UNRECOGNIZED DRUG - OTHER] PO SCH (09:00)
[2020-07-09] MEDS ORDERED: LINAGLIPTIN PO SCH (09:00)
[2020-07-09] MEDS ORDERED: NON-FORMULARY MEDICATION 1 EA EA (Bictegrav/Emtricit/Tenofov Ala (Biktarvy 50-200-25 mg Ta PO SCH (09:00)
[2020-07-09] MEDS ORDERED: EMPAGLIFLOZIN PO SCH (09:00)
[2020-07-09 15:58] VITALS: BP 137/73
[2020-07-10 00:21] VITALS: BP 156/90
[2020-07-10] MEDS: RT-ALBUTEROL INHALER HFA (VENTOLIN HFA) 18 GM IH SCH ×4 (02:00→21:06)
[2020-07-10] MEDS: inSUlin ASPART (NovoLOG) 1 UNIT/0.01 ML (CHARGE PER UNIT) SC SCH ×7 (05:02→20:37)
[2020-07-10] MEDS: ENOXAPARIN 100 MG/1 ML (LOVENOX) SYR SC SCH ×2 (05:35→17:15)
[2020-07-10 05:52] LABS: BASOPHILS % (AUTO) 0 % (0-10); EOSINOPHILS % (AUTO) 0 % (0-10); HEMATOCRIT 34 % (40-54); HEMOGLOBIN 11.4 g/dL (13.3-17.7); LYMPHOCYTES # (AUTO) 0.8 10^3/uL (1.0-4.0); LYMPHOCYTES % (AUTO) 12 % (12-44); MEAN CORPUSCULAR HEMOGLOBIN 28 pg (25-34); MEAN CORPUSCULAR HGB CONC 33 g/dL (32-36); MEAN CORPUSCULAR VOLUME 83 fL (80-99); MEAN PLATELET VOLUME 11.6 fL (9.0-12.2); MONOCYTES # (AUTO) 0.3 10^3/uL (0.0-1.0); MONOCYTES % (AUTO) 5 % (0-12); NEUTROPHILS # (AUTO) 5.4 10^3/uL (1.8-7.8); NEUTROPHILS % (AUTO) 83 % (42-75); PLATELET COUNT 213 10^3/uL (130-400); WHITE BLOOD COUNT 6.5 10^3/uL (4.3-11.0)
[2020-07-10 06:08] LABS: ALBUMIN 3.2 GM/DL (3.2-4.5); CHLORIDE 107 MMOL/L (98-107); POTASSIUM 3.8 MMOL/L (3.6-5.0); SODIUM 140 MMOL/L (135-145)
[2020-07-10 06:10] LABS: CALCIUM 8.3 MG/DL (8.5-10.1)
[2020-07-10 06:11] LABS: GLUCOSE 144 MG/DL (70-105); TOTAL PROTEIN 6.6 GM/DL (6.4-8.2)
[2020-07-10 06:12] LABS: CARBON DIOXIDE 23 MMOL/L (21-32)
[2020-07-10 06:13] LABS: BILIRUBIN,TOTAL 0.3 MG/DL (0.1-1.0)
[2020-07-10 06:14] LABS: ALKALINE PHOSPHATASE 43 U/L (40-136); CREATININE SERUM 0.88 MG/DL (0.60-1.30); GFR ESTIMATED > 60
[2020-07-10 06:15] LABS: BUN/CREATININE RATIO 34
[2020-07-10 06:17] LABS: ALANINE AMINOTRANSFERASE 52 U/L (0-55)
[2020-07-10 08:00] VITALS: BP 160/83
[2020-07-10] MEDS: VALSARTAN 160 MG (DIOVAN) TABLET PO SCH (08:28)
[2020-07-10] MEDS: MULTIVIT W/MINERALS TAB (THERAGRAN M) PO SCH (08:28)
[2020-07-10] MEDS: KCL 20 MEQ TAB (K-DUR) PO SCH ×2 (08:28→17:15)
[2020-07-10] MEDS: amLODIPine 5 MG (NORVASC) TAB PO SCH (08:28)
[2020-07-10] MEDS: CLOPIDOGREL 75 MG (PLAVIX) TABLET PO SCH (08:28)
[2020-07-10] MEDS: ASCORBIC ACID (VIT C) 500 MG TABLET PO SCH ×2 (08:28→20:36)
[2020-07-10] MEDS: FUROSEMIDE 40 MG (LASIX) TAB PO SCH (08:28)
[2020-07-10] MEDS: CARVEDILOL 12.5 MG (COREG) TABLET PO SCH (08:28)
[2020-07-10] MEDS: dexAMETHasone 6 MG TAB (DECADRON) PO SCH (08:28)
[2020-07-10] MEDS: ASPIRIN E.C. 81 MG (ECOTRIN) TAB PO SCH (08:28)
[2020-07-10] MEDS: SERTRALINE 100 MG (ZOLOFT) TAB PO SCH (08:29)
[2020-07-10] MEDS: LORATADINE (CLARITIN) 10 MG TAB PO SCH (08:29)
[2020-07-10] MEDS: SENNA W/DOCUSATE (SENOKOT S) TABLET PO SCH ×2 (10:29→20:37)
--- NOTE | 2020-07-10 12:32 | Progress Note - Hospitalist ---
Subjective HPI/CC On Admission Date Seen by Provider: Jul 10, 2020 Time Seen by Provider: 11:30 CC: COVID-19 with hypoxia HPI: This is a 65yoWM clinic patient of [facility] who I recently admitted last week for presumed CVA but ultimately he had left sided Bonilla's palsy after entire w/u was negative. Patient was exposed to COVID over [place] by his [id number]-vl-rxq and his entire family is positive. Patient is high risk for decompensation. Subjective/Events-last exam Patient doing well Labs ok Tolerating all treatments well Sugars reviewed No pain reported Review of Systems General: Fatigue, Malaise Pulmonary: Dyspnea, Cough Objective Exam Vital Signs Vital Signs Date Time Temp Pulse Resp B/P (MAP) Pulse Ox O2 Delivery O2 Flow Rate FiO2 07/10/20 16:42 36.2 78 18 137/77 (97) 94 Room Air 07/10/20 08:25 2.00 Capillary Refill : Less Than 3 Seconds General Appearance: No Apparent Distress, WD/WN, Chronically ill Respiratory: Chest Non Tender, Lungs Clear, No Accessory Muscle Use, No Respiratory Distress, Decreased Breath Sounds Cardiovascular: Regular Rate, Rhythm, No Edema, No Gallop, No JVD, No Murmur, Normal Peripheral Pulses Neurologic/Psychiatric: Alert, Oriented x3, No Motor/Sensory Deficits, Normal Mood/Affect Results/Procedures Lab Laboratory Tests 07/10/20 05:30 Patient resulted labs reviewed. 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
[2020-07-10 16:42] VITALS: BP 137/77
[2020-07-11] VITALS: BP 160/89
[2020-07-11] MEDS: RT-ALBUTEROL INHALER HFA (VENTOLIN HFA) 18 GM IH SCH ×2 (02:31→11:16)
[2020-07-11] MEDS: inSUlin ASPART (NovoLOG) 1 UNIT/0.01 ML (CHARGE PER UNIT) SC SCH ×4 (05:32→12:24)
[2020-07-11] MEDS: ENOXAPARIN 100 MG/1 ML (LOVENOX) SYR SC SCH (05:52)
[2020-07-11 06:14] LABS: BASOPHILS % (AUTO) 0 % (0-10); EOSINOPHILS % (AUTO) 0 % (0-10); HEMATOCRIT 36 % (40-54); HEMOGLOBIN 11.6 g/dL (13.3-17.7); LYMPHOCYTES # (AUTO) 1.2 10^3/uL (1.0-4.0); LYMPHOCYTES % (AUTO) 19 % (12-44); MEAN CORPUSCULAR HEMOGLOBIN 28 pg (25-34); MEAN CORPUSCULAR HGB CONC 33 g/dL (32-36); MEAN CORPUSCULAR VOLUME 85 fL (80-99); MONOCYTES # (AUTO) 0.4 10^3/uL (0.0-1.0); MONOCYTES % (AUTO) 6 % (0-12); NEUTROPHILS # (AUTO) 4.9 10^3/uL (1.8-7.8); NEUTROPHILS % (AUTO) 75 % (42-75); PLATELET COUNT 251 10^3/uL (130-400); WHITE BLOOD COUNT 6.6 10^3/uL (4.3-11.0)
[2020-07-11 06:23] LABS: ALBUMIN 3.2 GM/DL (3.2-4.5)
[2020-07-11 06:24] LABS: CHLORIDE 111 MMOL/L (98-107); SODIUM 142 MMOL/L (135-145)
[2020-07-11 06:25] LABS: CALCIUM 8.4 MG/DL (8.5-10.1)
[2020-07-11 06:26] LABS: GLUCOSE 70 MG/DL (70-105); TOTAL PROTEIN 6.5 GM/DL (6.4-8.2)
[2020-07-11 06:27] LABS: CARBON DIOXIDE 22 MMOL/L (21-32)
[2020-07-11 06:28] LABS: BILIRUBIN,TOTAL 0.3 MG/DL (0.1-1.0)
[2020-07-11 06:29] LABS: ALKALINE PHOSPHATASE 40 U/L (40-136)
[2020-07-11 06:30] LABS: CREATININE SERUM 0.85 MG/DL (0.60-1.30); GFR ESTIMATED > 60
[2020-07-11 06:31] LABS: BUN/CREATININE RATIO 34
[2020-07-11 06:33] LABS: ALANINE AMINOTRANSFERASE 59 U/L (0-55)
[2020-07-11 08:00] VITALS: BP 173/92
[2020-07-11] MEDS: KCL 20 MEQ TAB (K-DUR) PO SCH (08:14)
[2020-07-11] MEDS: VALSARTAN 160 MG (DIOVAN) TABLET PO SCH (08:14)
[2020-07-11] MEDS: ASCORBIC ACID (VIT C) 500 MG TABLET PO SCH (08:15)
[2020-07-11] MEDS: SERTRALINE 100 MG (ZOLOFT) TAB PO SCH (08:15)
[2020-07-11] MEDS: amLODIPine 5 MG (NORVASC) TAB PO SCH (08:15)
[2020-07-11] MEDS: LORATADINE (CLARITIN) 10 MG TAB PO SCH (08:15)
[2020-07-11] MEDS: FUROSEMIDE 40 MG (LASIX) TAB PO SCH (08:15)
[2020-07-11] MEDS: MULTIVIT W/MINERALS TAB (THERAGRAN M) PO SCH (08:15)
[2020-07-11] MEDS: CARVEDILOL 12.5 MG (COREG) TABLET PO SCH (08:15)
[2020-07-11] MEDS: ASPIRIN E.C. 81 MG (ECOTRIN) TAB PO SCH (08:15)
[2020-07-11] MEDS: dexAMETHasone 6 MG TAB (DECADRON) PO SCH (08:15)
[2020-07-11] MEDS: CLOPIDOGREL 75 MG (PLAVIX) TABLET PO SCH (08:15)
[2020-07-11] MEDS: SENNA W/DOCUSATE (SENOKOT S) TABLET PO SCH (08:16)
[2020-07-11] MEDS ORDERED: ASPI-1238 PO (12:07)
[2020-07-11] MEDS ORDERED: CHOL10002 PO (12:07)
[2020-07-11] MEDS ORDERED: ATOR10TA66 PO (12:07)
[2020-07-11] MEDS ORDERED: AMLO-250 PO (12:07)
[2020-07-11] MEDS ORDERED: ATOR80TA76 PO (12:07)
[2020-07-11] MEDS ORDERED: CLOP75TA69 PO (12:07)
[2020-07-11] MEDS ORDERED: ZINC50TA51 PO (12:07)
--- NOTE | 2020-07-11 12:17 | NUR ---
I SPOKE WITH THE PATIENT ON THE ROOM PHONE, [facility] WENT THROUGH THE EXTERNAL MED HISTORY AND WENT OVER THE MED LIST FAXED OVER FROM PT'S DOCTOR'S OFFICE TO COMPLETE THIS MED REC. PATIENT HAS RECENTLY GOTTEN ATORVASTATIN 10MG AND 80MG FILLED AND STATES THAT HE TAKES 10MG DAILY AND 80MG HS. AFTER I CALLED THE PT'S DOCTOR'S OFFICE AND SPOKE WITH THE NURSE I FOUND OUT THAT HE'S ONLY SUPPOSED TO BE TAKING ATORVASTATIN 80MG HS. NURSE SAID THAT SHE WOULD DISCONTINUE THE 10MG WITH PT'S PHARMACY. WHEN ASKING PATIENT ABOUT HOW HE TAKES HIS INSULIN HE SAID HE TAKES LEVEMIR 45UNITS TID. DIRECTIONS FROM THE PHARMACY AND DOCTOR'S OFFICE SAY TO TAKE 35UNITS HS. WHEN CALLING TO CONFIRM THAT THIS WAS THE CORRECT DOSE PT QUIT ANSWERING THE PHONE. TRULICITY HASN'T BEEN PICKED UP SINCE 01/25/2020. PT STATES THAT IT'S BEEN A WHILE SINCE HE'S GOTTEN A SHOT BUT IS SURE THAT IT HASN'T BEEN THAT LONG. OTC: VITAMIN C VITAMIN D MULTI VITAMIN ASPIRIN CLARITIN
--- NOTE | 2020-07-11 17:33 | Discharge Summary ---
Discharge Summary Hospital Course Hospital Course Date of Admission: Jul 07, 2020 at 16:29 Admission Diagnosis : COVID19 pneumonia Diabetes HLD HIV HTN Obesity Family Physician/Provider: Radha Lawton MD Date of Discharge: 07/11/20 Discharge Diagnosis: COVID19 pneumonia Diabetes HLD HIV HTN Obesity Hospital Course: 65 yo male admitted with COVID19 pneumonia and hypoxia, treated with dexamethasone x 4 days. Convalescent plasma ordered but not available before discharge. He was stable on room air for around 24 hours before discharge and tolerated activity as well. His insulin dose was increased to levemir 35 units BID due to hyperglycemia, continued on d/c, but will likely need tapered as steroid leaves system. Labs and Pending Lab Test: Laboratory Tests 07/10/20 20:07: Glucometer 238H 07/11/20 05:25: Glucometer 72 07/11/20 05:45: White Blood Count 6.6, Red Blood Count 4.20L, Hemoglobin 11.6L, Hematocrit 36L, Mean Corpuscular Volume 85, Mean Corpuscular Hemoglobin 28, Mean Corpuscular Hemoglobin Concent 33, Red Cell Distribution Width 15.5H, Platelet Count 251, Mean Platelet Volume 11.0, Immature Granulocyte % (Auto) 0, Neutrophils (%) (Auto) 75, Lymphocytes (%) (Auto) 19, Monocytes (%) (Auto) 6, Eosinophils (%) (Auto) 0, Basophils (%) (Auto) 0, Neutrophils # (Auto) 4.9, Lymphocytes # (Auto) 1.2, Monocytes # (Auto) 0.4, Eosinophils # (Auto) 0.0, Basophils # (Auto) 0.0, Immature Granulocyte # (Auto) 0.0, Sodium Level 142, Potassium Level 4.0, Chloride Level 111H, Carbon Dioxide Level 22, Anion Gap 9, Blood Urea Nitrogen 29H, Creatinine 0.85, Estimat Glomerular Filtration Rate > 60, BUN/Creatinine Ratio 34, Glucose Level 70, Calcium Level 8.4L, Corrected Calcium 9.0, Total Bilirubin 0.3, Aspartate Amino Transf (AST/SGOT) 34, Alanine Aminotransferase (ALT/SGPT) 59H, Alkaline Phosphatase 40, Total Protein 6.5, Albumin 3.2 07/11/20 11:05: Glucometer 186H Microbiology 07/07/20 Blood Culture - Preliminary, Resulted No growth 07/07/20 Influenza Types A,B Antigen (JEF) - Final, Complete Home Meds Active Novolog Flexpen (Insulin Aspart) 300 Units/3 Ml Solution 20 Units SQ TIDAC 5 Days Levemir Flextouch (Insulin Detemir) 100 Unit/1 Ml Insuln.pen 35 Units SQ BID 5 Days Reported Zinc (Zinc Amino Acid Chelate) 50 Mg Tablet 50 Mg PO DAILY Plavix (Clopidogrel Bisulfate) 75 Mg Tablet 75 Mg PO DAILY Atorvastatin Calcium 10 Mg Tablet 10 Mg PO DAILY Atorvastatin Calcium 80 Mg Tablet 80 Mg PO HS Aspirin EC (Aspirin) 81 Mg Tablet.dr 81 Mg PO HS Amlodipine Besylate 5 Mg Tablet 5 Mg PO DAILY Vitamin D3 (Cholecalciferol (Vitamin D3)) 25 Mcg Tablet 25 Mcg PO DAILY Trulicity (Dulaglutide) 1.5 Mg/0.5 Ml Pen.injctr 1.5 Mg SQ EVERY SATURDAY LAST FILLED 01/25/2020 Sertraline HCl 100 Mg Tablet 150 Mg PO DAILY TAKES 1 1/2 (100MG) TABLETS Multi-Vitamin Daily (Multivitamin) 1 Each Tablet 1 Each PO DAILY Vitamin C (Ascorbic Acid) 500 Mg Tab.chew 500 Mg PO DAILY Claritin (Loratadine) 10 Mg Tablet 10 Mg PO DAILY Carvedilol 25 Mg Tablet 25 Mg PO HS Biktarvy 50-200-25 mg Tablet (Bictegrav/Emtricit/Tenofov Ala) 1 Each Tablet 1 Tab PO DAILY Benicar Hct 40-25 mg Tablet (Olmesartan/Hydrochlorothiazide) 1 Each Tablet 1 Each PO DAILY Lasix (Furosemide) 40 Mg Tablet 40 Mg PO DAILY Assessment/Pt DC Instructions Follow up with Dr. Lawton on July 18 at 10 am for e-visit. Discharge Diet: ADA Diet Activity as Tolerated: Yes Discharge Physical Examination Allergies: Coded Allergies: No Known Drug Allergies (Unverified , 06/23/20) General Appearance: No Apparent Distress, WD/WN Respiratory: Lungs Clear, Normal Breath Sounds Cardiovascular: Regular Rate, Rhythm, No Murmur Skin: Normal Color, Warm/Dry Neurologic/Psychiatric: Alert, Normal Mood/Affect Copy Copies To 1: RADHA LAWTON MD Clinical Quality Measures DVT/VTE Risk/Contraindication: Risk Factor Score Per Nursin RFS Level Per Nursing on Admit: 4+=Very High KARTHIK GARNETT MD Jul 11, 2020 17:33
== END 2020-07-11 14:20 | disposition home or self-care (01) | DRG 177 ==
LOC: EDUNIT# 14:27 → ER 14:30 → EDLOC 16:29 → 4TH 16:29
PROVIDERS: ADMIT Internal Medicine; ATTEND Family Medicine
DX: U07.1 COVID-19 (principal); J12.82 Pneumonia due to coronavirus disease 2019; R09.02 Hypoxemia; E11.9 Type 2 diabetes mellitus without complications; I11.0 Hypertensive heart disease with heart failure; I50.9 Heart failure, unspecified; E66.9 Obesity, unspecified; Z68.36 Body mass index [BMI] 36.0-36.9, adult; G51.0 Bell's palsy; Z21 Asymptomatic human immunodeficiency virus [HIV] infection status; E78.5 Hyperlipidemia, unspecified; Z79.4 Long term (current) use of insulin; Z95.5 Presence of coronary angioplasty implant and graft; Z79.82 Long term (current) use of aspirin; Z79.52 Long term (current) use of systemic steroids; Z73.0 Burn-out
CPT/HCPCS: 36415; 71045; 71275; 80053; 82962; 84145; 85025; 85379; 86141; 86900; 86901; 87040; 87804; 94640; 94664; 94760

== ENCOUNTER 2022-06-07 16:16 | Inpatient (IN) | payer MEDICARE, OTHER, MEDICAID ==
[~2022-06-07] VITALS: Ht 162.6 cm; Wt 100.0 kg
[~2022-06-07 16:16] MED LIST changes: +ASPI-1238 PO; +CHOL-34 PO; +CLOP-31 PO; +OLME-40 PO; -OLME1TAB24 PO; -OLME5TAB3 PO; +OLME5TAB32 PO; +POTA-160 PO; -POTA10TA6 PO; +SERT-414 PO; -SERT100T8 PO; +ZINC50TA51 PO
[2022-06-07 17:12] LABS: BASOPHILS % (AUTO) 0 % (0-10); EOSINOPHILS # (AUTO) 0.1 10^3/uL (0.0-0.3); EOSINOPHILS % (AUTO) 2 % (0-10); HEMATOCRIT 40 % (40-54); HEMOGLOBIN 12.2 g/dL (13.3-17.7); LYMPHOCYTES # (AUTO) 0.7 10^3/uL (1.0-4.0); LYMPHOCYTES % (AUTO) 14 % (12-44); MEAN CORPUSCULAR HEMOGLOBIN 25 pg (25-34); MEAN CORPUSCULAR HGB CONC 31 g/dL (32-36); MEAN CORPUSCULAR VOLUME 82 fL (80-99); MEAN PLATELET VOLUME 11.5 fL (9.0-12.2); MONOCYTES # (AUTO) 0.3 10^3/uL (0.0-1.0); MONOCYTES % (AUTO) 6 % (0-12); NEUTROPHILS # (AUTO) 4.1 10^3/uL (1.8-7.8); NEUTROPHILS % (AUTO) 77 % (42-75); PLATELET COUNT 214 10^3/uL (130-400); WHITE BLOOD COUNT 5.3 10^3/uL (4.3-11.0)
[2022-06-07 17:13] LABS: ALBUMIN 3.3 GM/DL (3.2-4.5)
[2022-06-07 17:15] LABS: CALCIUM 8.9 MG/DL (8.5-10.1)
[2022-06-07 17:18] LABS: BILIRUBIN,TOTAL 0.9 MG/DL (0.1-1.0)
[2022-06-07 17:20] LABS: CREATININE SERUM 1.16 MG/DL (0.60-1.30)
--- NOTE | 2022-06-07 18:04 | Diagnostic Imaging Report ---
INDICATION: Dyspnea AP view of the chest is obtained with comparison made to study of 07/07/2020. Heart size at the upper limits normal. There is pulmonary venous congestion with increased bilateral perihilar density which may represent mild pulmonary edema. No pneumothorax or significant pleural fluid is identified. IMPRESSION: Findings suggest probable mild congestive heart failure and central pulmonary edema without pneumothorax or consolidation detected. Dictated by: Dictated on workstation # [id number]
--- NOTE | 2022-06-07 18:32 | ED General ---
General Chief Complaint: Respiratory Problems Stated Complaint: FLUID IN LUNGS,SWOLLEN LEGS/FEET Nursing Triage Note: PT PRESENTS TO ED VIA POV FROM HOME WITH COMPLAINTS OF INCREASED SOA, DIZZINESS WITH AMBULATION, BILAT CRACKLES IN LUNGS. WAS SEEN AT DR KIM OFFICE TODAY AND REFERRED TO ED RELATED TO HIS LUNG SOUNDS. PT STATES HE WAS BEEN STRUGGLING WITH SOA X 3 WEEKS. History of Present Illness Date Seen by Provider: Jun 07, 2022 Time Seen by Provider: 16:30 Initial Comments Patient is a 67-year-old male who presents to the emergency department for evaluation of shortness of air, dizziness, and "crackles in my lungs". Patient was seen by PCP and sent here for further evaluation. Patient has been having increased shortness of air for the last 3 weeks. He was admitted last week to a hospital in [place] where he was diuresed. He states he felt much better upon discharge there but states his symptoms have progressively worsened since that time. He states that shortness of air now is worse than it was prior to his last admission. He reportedly was told he has a "clot in my heart and clot in my kidney" during his last admission. He was placed on Eliquis. He is unable to further specify the exact locations of these clots. States he also has some intermittent substernal chest pain. Allergies and Home Medications Allergies Coded Allergies: No Known Drug Allergies (Unverified , 06/23/20) Patient Home Medication List Home Medication List Reviewed: Yes Amlodipine Besylate (Amlodipine Besylate) 5 Mg Tablet, 5 MG PO DAILY, (Reported) Entered as Reported by: LURDES ZHONG on 07/11/20 1207 Ascorbic Acid (Vitamin C) 500 Mg Tab.chew, 500 MG PO DAILY, (Reported) Entered as Reported by: MARK RUIZ on 06/23/20 1728 Aspirin (Aspirin EC) 81 Mg Tablet.dr, 81 MG PO HS, (Reported) Entered as Reported by: LURDES ZHONG on 07/11/20 1207 Atorvastatin Calcium (Atorvastatin Calcium) 80 Mg Tablet, 80 MG PO HS, (Reported) Entered as Reported by: LURDES ZHONG on 07/11/20 1207 Atorvastatin Calcium (Atorvastatin Calcium) 10 Mg Tablet, 10 MG PO DAILY, (Reported) Entered as Reported by: LURDES ZHONG on 07/11/20 1207 Bictegrav/Emtricit/Tenofov Ala (Biktarvy 50-200-25 mg Tablet) 1 Each Tablet, 1 TAB PO DAILY, (Reported) Entered as Reported by: MARK RUIZ on 06/23/20 172 Carvedilol (Carvedilol) 25 Mg Tablet, 25 MG PO HS, (Reported) Entered as Reported by: MARK RUIZ on 06/23/20 172 Cholecalciferol (Vitamin D3) (Vitamin D3) 25 Mcg Tablet, 25 MCG PO DAILY, (Reported) Entered as Reported by: LURDES ZHONG on 07/11/20 1207 Clopidogrel Bisulfate (Plavix) 75 Mg Tablet, 75 MG PO DAILY, (Reported) Entered as Reported by: LURDES ZHONG on 07/11/20 120 Dulaglutide (Trulicity) 1.5 Mg/0.5 Ml Pen.injctr, 1.5 MG SQ EVERY SATURDAY, (Reported) Entered as Reported by: MARK RUIZ on 06/23/20 174 Furosemide (Lasix) 40 Mg Tablet, 40 MG PO DAILY, (Reported) Entered as Reported by: ROBERT BENITEZ on 06/18/17 1147 Insulin Aspart (Novolog Flexpen) 300 Units/3 Ml Solution, 20 UNITS SQ TIDAC Prescribed by: SAMPSON TAPIA on 06/25/20 1252 Insulin Detemir (Levemir Flextouch) 100 Unit/1 Ml Insuln.pen, 35 UNITS SQ BID Prescribed by: SAMPSON TAPIA on 06/25/20 1252 Loratadine (Claritin) 10 Mg Tablet, 10 MG PO DAILY, (Reported) Entered as Reported by: MARK RUIZ on 06/23/20 172 Multivitamin (Multi-Vitamin Daily) 1 Each Tablet, 1 EACH PO DAILY, (Reported) Entered as Reported by: MARK RUIZ on 06/23/20 173 Olmesartan/Hydrochlorothiazide (Benicar Hct 40-25 mg Tablet) 1 Each Tablet, 1 EACH PO DAILY, (Reported) Entered as Reported by: MARK RUIZ on 06/23/20 172 Sertraline HCl (Sertraline HCl) 100 Mg Tablet, 150 MG PO DAILY, (Reported) Entered as Reported by: MARK RUIZ on 06/23/20 174 Zinc Amino Acid Chelate (Zinc) 50 Mg Tablet, 50 MG PO DAILY, (Reported) Entered as Reported by: LURDSE ZHONG on 07/11/20 9502 Review of Systems Review of Systems Constitutional: see HPI, weakness EENTM: no symptoms reported Respiratory: see HPI, cough, dyspnea on exertion, short of breath Cardiovascular: see HPI, chest pain Gastrointestinal: no symptoms reported Genitourinary: no symptoms reported Musculoskeletal: no symptoms reported Skin: no symptoms reported Past Wruwmlo-Aqwamw-Jbnofo Hx Patient Social History Tobacco Use?: No Substance use?: No Alcohol Use?: No Pt feels they are or have been: No Immunizations Up To Date Tetanus Booster (TDap): Unknown PED Vaccines UTD: Yes First/Initial COVID19 Vaccinat: YES Second COVID19 Vaccination Prashanth: YES COVID19 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: [employer] Seasonal Allergies Seasonal Allergies: No Past Medical History Surgery/Hospitalization HX: PMH: CHF, COPD, L KIDNEY BLOOD CLOT, DM-ID, HIV, SX: DIVERTICULITIS-COLOSTOMY AND REVERSAL, HERNIA REPAIR, Surgeries: Yes (COLON RESECTION, HERNIA X3, APPY) Appendectomy Respiratory: Yes Sleep Apnea Currently Using CPAP: Yes Cardiac: Yes (CHF, STENTS, mi in 2003) Heart Attack, High Cholesterol, Hypertension 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 oz. 78.630202aa; 38.00 BMI Method:Stated General Appearance: No Apparent Distress, WD/WN HEENT: PERRL/EOMI, TMs Normal, Normal ENT Inspection, Pharynx Normal Neck: Normal Inspection, Non Tender Respiratory: Chest Non Tender, No Accessory Muscle Use, Crackles Cardiovascular: Regular Rate, Rhythm Gastrointestinal: Non Tender, Soft Extremity: Pedal Edema Neurologic/Psychiatric: Alert, Oriented x3, No Motor/Sensory Deficits, Normal Mood/Affect Skin: Normal Color, Warm/Dry Progress/Results/Core Measures Suspected Sepsis SIRS Temperature: Pulse: 99 Respiratory Rate: 26 Laboratory Tests 06/07/22 17:04: White Blood Count 5.3 Blood Pressure 154 /83 Mean: 106 Laboratory Tests 06/07/22 17:04: Creatinine 1.16, Platelet Count 214, Total Bilirubin 0.9 Results/Orders Lab Results Laboratory Tests Test 06/07/22 17:04 Range/Units White Blood Count 5.3 4.3-11.0 10^3/uL Red Blood Count 4.83 4.30-5.52 10^6/uL Hemoglobin 12.2 L 13.3-17.7 g/dL Hematocrit 40 40-54 % Mean Corpuscular Volume 82 80-99 fL Mean Corpuscular Hemoglobin 25 25-34 pg Mean Corpuscular Hemoglobin Concent 31 L 32-36 g/dL Red Cell Distribution Width 17.3 H 10.0-14.5 % Platelet Count 214 130-400 10^3/uL Mean Platelet Volume 11.5 9.0-12.2 fL Immature Granulocyte % (Auto) 0 % Neutrophils (%) (Auto) 77 H 42-75 % Lymphocytes (%) (Auto) 14 12-44 % Monocytes (%) (Auto) 6 0-12 % Eosinophils (%) (Auto) 2 0-10 % Basophils (%) (Auto) 0 0-10 % Neutrophils # (Auto) 4.1 1.8-7.8 10^3/uL Lymphocytes # (Auto) 0.7 L 1.0-4.0 10^3/uL Monocytes # (Auto) 0.3 0.0-1.0 10^3/uL Eosinophils # (Auto) 0.1 0.0-0.3 10^3/uL Basophils # (Auto) 0.0 0.0-0.1 10^3/uL Immature Granulocyte # (Auto) 0.0 0.0-0.1 10^3/uL Sodium Level 139 135-145 MMOL/L Potassium Level 3.0 L 3.6-5.0 MMOL/L Chloride Level 101 98-107 MMOL/L Carbon Dioxide Level 27 21-32 MMOL/L Anion Gap 11 5-14 MMOL/L Blood Urea Nitrogen 18 7-18 MG/DL Creatinine 1.16 0.60-1.30 MG/DL Estimat Glomerular Filtration Rate 69 BUN/Creatinine Ratio 16 Glucose Level 116 H 70-105 MG/DL Calcium Level 8.9 8.5-10.1 MG/DL Corrected Calcium 9.5 8.5-10.1 MG/DL Magnesium Level 1.8 1.6-2.4 MG/DL Total Bilirubin 0.9 0.1-1.0 MG/DL Aspartate Amino Transf (AST/SGOT) 48 H 5-34 U/L Alanine Aminotransferase (ALT/SGPT) 54 0-55 U/L Alkaline Phosphatase 173 H 40-136 U/L Troponin I 0.056 H <0.028 NG/ML B-Type Natriuretic Peptide 1526.3 H <100.0 PG/ML Total Protein 7.0 6.4-8.2 GM/DL Albumin 3.3 3.2-4.5 GM/DL My Orders Orders - 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 ROTH 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 Cbc With Automated Diff (06/07/22 17:01) Comprehensive Metabolic Panel (06/07/22 17:01) Bnp Hunt (06/07/22 17:01) Troponin I Janet (06/07/22 17:01) Ekg Tracing (06/07/22 17:01) Chest 1 View, Ap/Pa Only (06/07/22 17:43) Magnesium (06/07/22 18:37) Potassium Chloride (Tablet) (K Dur Table (06/07/22 18:45) Ed Admission (Communication) (06/07/22 18:40) Vital Signs/I&O 06/07/22 16:27 Temp 36.3 Pulse 99 Resp 26 B/P (MAP) 154/83 (106) Pulse Ox 98 O2 Delivery Nasal Cannula O2 Flow Rate 2.00 Capillary Refill : Less Than 3 Seconds Blood Pressure Mean: 106 Progress Note : Progress Note Patient is nontoxic and well-hydrated on exam. Patient was initially hypoxic on room air was placed on 1 L of oxygen with subsequent improvement. Patient does have coarse breath sounds in all lung [place]. Mild 1+ pitting edema noted to bilateral lower extremities. Laboratory evaluation notable for markedly elevated BNP as well as elevated troponin. Mild hypokalemia noted. Given patient's likely CHF exacerbation, will admit for further evaluation and treatment. Hospitalist kindly agreed to admit. Cardiology was consulted who kindly agreed to see the patient in consultation. Patient was updated on plan of care and understanding verbalized. ECG EKG : EKG Time: 17:11 Rate: 94 Rhythm: Normal Sinus Comment PVCs noted Departure Impression Primary Impression: CHF exacerbation Qualified Codes: I50.9 - Heart failure, unspecified Additional Impression: Elevated troponin Disposition: ADMITTED INPATIENT Condition: Stable Admissions Decision to Admit Reason: Admit from ER (General) Decision to Admit/Date: Jun 07, 2022 Time/Decision to Admit Time: 17:45 Departure-Patient Inst. Referrals: RADHA LAWTON MD (PCP/Family) Primary Care Physician JADEN ROTH APRN Jun 07, 2022 18:32
[2022-06-07] MEDS ORDERED: KCL 20 MEQ TAB (K-DUR) PO ONE (18:45)
[2022-06-07 20:30] VITALS: BP 149/95
[2022-06-07] MEDS: SENNOSIDES 8.6 MG (SENOKOT) TAB PO SCH (21:00)
[2022-06-07] MEDS ORDERED: ONDANSETRON 4 MG (ZOFRAN) ORAL DISSOLVE TAB PO PRN (21:00)
[2022-06-07] MEDS ORDERED: diphenhydrAMINE 50 MG/ML INJ (BENADRYL) IVP PRN (21:00)
[2022-06-07] MEDS ORDERED: MILK OF MAGNESIA 400 MG/5 ML 30 ML UDC PO PRN (21:00)
[2022-06-07] MEDS ORDERED: BISACODYL 10 MG SUPP (DULCOLAX) PR PRN (21:00)
[2022-06-07] MEDS: DOCUSATE SODIUM 100 MG (COLACE) CAP PO SCH (21:00)
[2022-06-07] MEDS ORDERED: LACTULOSE SYRUP 10GM/15ML (ENULOSE) 30ML UDC PO PRN (21:00)
[2022-06-07] MEDS ORDERED: CALCIUM CARBONATE 500 MG (TUMS) TAB.CHEW PO PRN (21:00)
[2022-06-07] MEDS ORDERED: ALPRAZolam 0.5 MG (XANAX) TAB PO PRN (21:00)
[2022-06-07] MEDS ORDERED: polyethylene glycoL POWDER 17 GM (MIRALAX) PACK PO PRN (21:00)
[2022-06-07] MEDS ORDERED: ACETAMINOPHEN 325 MG TABLET PO PRN (21:00)
[2022-06-07] MEDS ORDERED: HYDROmorphone 2 MG/ML VIAL (DILAUDID) IV PRN (21:00)
[2022-06-07] MEDS ORDERED: diphenhydrAMINE 25 MG TAB (BENADRYL) PO PRN (21:00)
[2022-06-07] MEDS ORDERED: ONDANSETRON 4 MG/2 ML (SDV) Z0FRAN IV PRN (21:00)
[2022-06-07] MEDS ORDERED: ANTACID SUSP 30 ML UDC (MYLANTA) PO PRN (21:00)
[2022-06-07] MEDS ORDERED: LIDOCAINE UROJET 2% GEL 10 ML PKG TOP ONE (21:00)
[2022-06-07] MEDS ORDERED: MELATONIN 3 MG TABLET PO PRN (21:00)
[2022-06-07 21:02] VITALS: BP 154/83
[2022-06-07] MEDS ORDERED: RT-ALBUTEROL/IPRATROPIUM 3 ML (DUONEB) VIAL INH PRN (21:15)
[2022-06-07] MEDS: inSUlin ASPART (NovoLOG) 1 UNIT/0.01 ML (CHARGE PER UNIT) SC SCH (22:37)
[2022-06-07] MEDS: FUROSEMIDE 40 MG/4 ML INJ (LASIX) IV SCH (22:38)
[2022-06-07] MEDS: APIXABAN 5 MG (ELIQUIS) TABLET PO SCH (22:38)
[2022-06-08] VITALS: BP 147/109
[2022-06-08] MEDS: RT-ALBUTEROL/IPRATROPIUM 3 ML (DUONEB) VIAL INH SCH ×4 (02:08→20:07)
[2022-06-08 04:00] VITALS: BP 151/103
[2022-06-08 05:29] LABS: BASOPHILS % (AUTO) 1 % (0-10); EOSINOPHILS # (AUTO) 0.2 10^3/uL (0.0-0.3); EOSINOPHILS % (AUTO) 4 % (0-10); HEMATOCRIT 37 % (40-54); HEMOGLOBIN 11.6 g/dL (13.3-17.7); LYMPHOCYTES # (AUTO) 1.2 10^3/uL (1.0-4.0); LYMPHOCYTES % (AUTO) 27 % (12-44); MEAN CORPUSCULAR HEMOGLOBIN 26 pg (25-34); MEAN CORPUSCULAR HGB CONC 31 g/dL (32-36); MEAN CORPUSCULAR VOLUME 82 fL (80-99); MEAN PLATELET VOLUME 11.7 fL (9.0-12.2); MONOCYTES # (AUTO) 0.4 10^3/uL (0.0-1.0); MONOCYTES % (AUTO) 8 % (0-12); NEUTROPHILS # (AUTO) 2.8 10^3/uL (1.8-7.8); NEUTROPHILS % (AUTO) 61 % (42-75); PLATELET COUNT 200 10^3/uL (130-400); WHITE BLOOD COUNT 4.5 10^3/uL (4.3-11.0)
[2022-06-08 05:47] LABS: ALBUMIN 3.1 GM/DL (3.2-4.5); POTASSIUM 3.5 MMOL/L (3.6-5.0)
[2022-06-08 05:48] LABS: CALCIUM 8.7 MG/DL (8.5-10.1)
[2022-06-08 05:49] LABS: TOTAL PROTEIN 6.7 GM/DL (6.4-8.2)
[2022-06-08 05:51] LABS: BILIRUBIN,TOTAL 0.6 MG/DL (0.1-1.0)
[2022-06-08 05:53] LABS: CREATININE SERUM 1.16 MG/DL (0.60-1.30)
[2022-06-08] MEDS: inSUlin ASPART (NovoLOG) 1 UNIT/0.01 ML (CHARGE PER UNIT) SC SCH ×4 (05:57→20:57)
[2022-06-08 07:56] VITALS: BP_SYST 145; BP_SYST 151; BP_DIAS 102; BP_DIAS 103
[2022-06-08] MEDS ORDERED: meTOproloL SUCCINATE 50 MG (TOPROL XL) TAB PO SCH (08:45)
--- NOTE | 2022-06-08 08:50 | Consultation-Cardiology ---
HPI-Cardiology Cardiology Consultation: Date of Consultation 06/08/22 Time Seen by a Provider: 08:40 Date of Admission 06-07-22 Attending Physician Nancy French MD Admitting Physician Admitting Physician: Tejal Tapia DO Attending Physician: Tejal Tapia DO Consulting Physician Boone Lozano MD HPI: Chief Complaint: Increasing SOB Decompensated CHF Mr. Hopper is a 67 yr old male admitted to 511 from the ED. He reports he has had increasing SOB over the last few months. He reports he developed weight gain and LE swelling. He reports he was directed by his PCP to be evaluated in the ED. He denies any c/o CP or palpitations. No c/o syncope or near syncope. No c/o n/v/d. No c/o fever or chills. He states his breathing is better this morning, but not yet back to baseline. Review of Systems-Cardiology Review of Systems Constitutional: No chills, No fever; malaise Eyes: No vision change Ears/Nose/Throat: No epistaxis, No recent hearing loss Respiratory: As described under HPI Cardiovascular: As described under HPI Gastrointestinal: As described under HPI Genitourinary: No dysuria, No hematuria Musculoskeletal: no symptoms reported Skin: No rash on exposed areas, No ulcerations on exposed areas Psychiatric/Neurological: No anxiety, No depression, No seizure, No focal weakness, No syncope Hematologic: No bleeding abnormalities GMK-Rhwgjc-Kvjxph Hx Patient Social History Have you traveled recently?: No Alcohol Use?: No Pt feels they are or have been: No Immunizations Up To Date Tetanus Booster (TDap): Unknown Date of Pneumonia Vaccine: Apr 07, 2017 Date of Influenza Vaccine: Apr 07, 2020 Past Medical History PMH As described under Assessment. Family Medical History Family Medical History: He reports he has a brother with a "leaky heart valve" Allergies and Home Medications Allergies Coded Allergies: No Known Drug Allergies (Unverified , 06/23/20) Patient Home Medication List Albuterol Sulfate (Ventolin Hfa) 90 Mcg Hfa.aer.ad, 2 PUFF INH Q6H PRN for SHORTNESS OF BREATH, (Reported) Entered as Reported by: EB PERAZA on 06/08/22 5639 Last Action: Reviewed Amlodipine Besylate (Amlodipine Besylate) 5 Mg Tablet, 5 MG PO DAILY, (Reported) Entered as Reported by: LURDES ZHONG on 07/11/201206 Last Action: Reviewed Apixaban (Eliquis) 5 Mg Tablet, 5 MG PO BID, (Reported) Entered as Reported by: EB PERAZA on 06/08/221531 Last Action: Reviewed Ascorbic Acid (Vitamin C) 500 Mg Tab.chew, 500 MG PO DAILY, (Reported) Entered as Reported by: MARK RUIZ on 06/23/201727 Last Action: Reviewed Aspirin (Aspirin EC) 81 Mg Tablet.dr, 81 MG PO HS, (Reported) Entered as Reported by: LURDES ZHONG on 07/11/201206 Last Action: Reviewed Atorvastatin Calcium (Atorvastatin Calcium) 80 Mg Tablet, 80 MG PO HS, (Reported) Entered as Reported by: LURDES ZHONG on 07/11/201206 Last Action: Reviewed Bictegrav/Emtricit/Tenofov Ala (Biktarvy 50-200-25 mg Tablet) 1 Each Tablet, 1 TAB PO DAILY, (Reported) Entered as Reported by: MARK RUIZ on 06/23/201726 Last Action: Reviewed Carvedilol (Carvedilol) 25 Mg Tablet, 25 MG PO BID, (Reported) Entered as Reported by: MARK RUIZ on 06/23/201726 Last Action: Reviewed Clopidogrel Bisulfate (Clopidogrel) 75 Mg Tablet, 75 MG PO DAILY, (Reported) Entered as Reported by: EB PERAZA on 06/08/221531 Last Action: Reviewed Dulaglutide (Trulicity) 4.5 Mg/0.5 Ml Pen.injctr, 4.5 MG IJ THUR, (Reported) Entered as Reported by: EB PERAZA on 06/08/221531 Last Action: Reviewed Furosemide (Lasix) 40 Mg Tablet, 40 MG PO DAILY, (Reported) Entered as Reported by: ROBERT BENITEZ on 06/18/17 114 Last Action: Reviewed Insulin Aspart (Novolog Flexpen) 100 Unit/Ml (3 Ml) Solution, 20 UNITS SQ HS, (Reported) Entered as Reported by: EB PERAZA on 06/08/221531 Last Action: Reviewed Insulin Degludec (Tresiba Flextouch U-200) 200 Unit/Ml (3 Ml) Insuln.pen, 40 UNITS SC HS, (Reported) Entered as Reported by: EB PERAZA on 06/08/22 1532 Last Action: Reviewed Multivitamin (Multi-Vitamin Daily) 1 Each Tablet, 1 EACH PO DAILY, (Reported) Entered as Reported by: MARK RUIZ on 06/23/201734 Last Action: Reviewed Olmesartan/Hydrochlorothiazide (Benicar Hct 40-25 mg Tablet) 1 Each Tablet, 1 EACH PO DAILY, (Reported) Entered as Reported by: MARK RUIZ on 06/23/201723 Last Action: Reviewed Sertraline HCl (Sertraline HCl) 100 Mg Tablet, 200 MG PO DAILY, (Reported) Entered as Reported by: MARK RUIZ on 06/23/201741 Last Action: Reviewed Zinc Amino Acid Chelate (Zinc) 50 Mg Tablet, 50 MG PO DAILY, (Reported) Entered as Reported by: LURDES ZHONG on 07/11/201206 Last Action: Reviewed Discontinued Medications Atorvastatin Calcium (Atorvastatin Calcium) 10 Mg Tablet, 10 MG PO DAILY, (Reported) Discontinued Reason: Duplicate Order Entered as Reported by: LURDES ZHONG on 07/11/201206 Last Action: Discontinued Cholecalciferol (Vitamin D3) (Vitamin D3) 25 Mcg Tablet, 25 MCG PO DAILY, (Reported) Discontinued Reason: No Longer Taking Entered as Reported by: LURDES ZHONG on 07/11/201206 Last Action: Discontinued Clopidogrel Bisulfate (Plavix) 75 Mg Tablet, 75 MG PO DAILY, (Reported) Discontinued Reason: Duplicate Order Entered as Reported by: LURDES ZHONG on 07/11/201206 Last Action: Discontinued Dulaglutide (Trulicity) 1.5 Mg/0.5 Ml Pen.injctr, 1.5 MG SQ EVERY SATURDAY, (Reported) Discontinued Reason: Duplicate Order Entered as Reported by: MARK RUIZ on 06/23/201741 Last Action: Discontinued Insulin Aspart (Novolog Flexpen) 300 Units/3 Ml Solution, 20 UNITS SQ TIDAC Discontinued Reason: Duplicate Order Prescribed by: TEJAL TAPIA on 06/25/20 1252 Last Action: Discontinued Insulin Detemir (Levemir Flextouch) 100 Unit/1 Ml Insuln.pen, 35 UNITS SQ BID Discontinued Reason: No Longer Taking Prescribed by: TEJAL TAPIA on 06/25/20 1252 Last Action: Discontinued Loratadine (Claritin) 10 Mg Tablet, 10 MG PO DAILY, (Reported) Discontinued Reason: No Longer Taking Entered as Reported by: MARK RUIZ on 06/23/20 3817 Last Action: Discontinued Physical Exam-Cardiology Physical Exam Vital Signs/I&O 06/11/22 06/11/22 06/11/22 06/11/22 00:00 01:00 02:33 04:38 Temp 35.9 36.3 Pulse 78 80 73 Resp 16 16 B/P (MAP) 125/82 (96) 137/85 (102) Pulse Ox 96 94 96 O2 Delivery High Flow N/C Nasal Cannula High Flow N/C O2 Flow Rate 2.00 2.00 2.00 06/11/22 06/11/22 06/11/22 06:55 07:26 08:00 Temp 36.4 Pulse 81 74 Resp 16 B/P (MAP) 121/84 (96) Pulse Ox 96 97 O2 Delivery Nasal Cannula Nasal Cannula O2 Flow Rate 2.00 2.00 06/10/22 23:59 Intake Total 1250 ml Output Total 1125 ml Balance 125 ml Capillary Refill : Less Than 3 Seconds Constitutional: AAO x 3, well-developed, well-nourished HEENT: PERRL, hearing is well preserved, oral hygience is good Neck: No carotid bruit; carotid pulses are 2 + bilaterally Respiratory: No accessory muscle use, No respiratory distress; chest expansion is symmetric, chest is bilaterally symmetric, rhonchi (scattered), other (diminished lower lobes bilat) Cardiovascular: regular rate-rhythm; No JVD; S1 and S2 Gastrointestinal: No tender; soft, other (abdominal hernia) Extremities: no lower extremity edema bilateral Skin: No rash on exposed areas, No ulcerations on exposed areas Data Review Labs Laboratory Tests 06/10/22 11:07: Glucometer 146H 06/10/22 15:47: Glucometer 137H 06/10/22 20:16: Glucometer 193H 06/11/22 05:19: White Blood Count 4.5, Red Blood Count 4.90, Hemoglobin 12.5L, Hematocrit 40, Mean Corpuscular Volume 81, Mean Corpuscular Hemoglobin 26, Mean Corpuscular Hemoglobin Concent 31L, Red Cell Distribution Width 17.2H, Platelet Count 232, Mean Platelet Volume 11.8, Immature Granulocyte % (Auto) 0, Neutrophils (%) (Au to) 52, Lymphocytes (%) (Auto) 34, Monocytes (%) (Auto) 9, Eosinophils (%) (Auto) 4, Basophils (%) (Auto) 1, Neutrophils # (Auto) 2.4, Lymphocytes # (Auto) 1.5, Monocytes # (Auto) 0.4, Eosinophils # (Auto) 0.2, Basophils # (Auto) 0.0, Immature Granulocyte # (Auto) 0.0, Sodium Level 137, Potassium Level 4.2, Chloride Level 104, Carbon Dioxide Level 22, Anion Gap 11, Blood Urea Nitrogen 31H, Creatinine 1.42H, Estimat Glomerular Filtration Rate 54, BUN/Creatinine Ratio 22, Glucose Level 127H, Calcium Level 8.7, Corrected Calcium 9.7, Total Bilirubin 0.5, Aspartate Amino Transf (AST/SGOT) 39H, Alanine Aminotransferase (ALT/SGPT) 51, Alkaline Phosphatase 142H, Total Protein 6.1L, Albumin 2.8L Radiology NAME: KANEJEAN PIERRE Gustavo [facility] REC#: [id number] PT STATUS: REG ER : 1955 PHYSICIAN: JADEN ROTH APRN ADMIT DATE: 06/07/22/ER Signed Date of Exam:06/07/22 CHEST 1 VIEW, AP/PA ONLY INDICATION: Dyspnea AP view of the chest is obtained with comparison made to study of 07/07/2020. Heart size at the upper limits normal. There is pulmonary venous congestion with increased bilateral perihilar density which may represent mild pulmonary edema. No pneumothorax or significant pleural fluid is identified. IMPRESSION: Findings suggest probable mild congestive heart failure and central pulmonary edema without pneumothorax or consolidation detected. Dictated by: Dictated on workstation # [id number] Dict: 06/07/221800 Trans: 06/07/221839 CVB [id number] Interpreted by: SCOTT LARIOS MD Electronically signed by: SCOTT LARIOS MD 06/07/221839 ECG Impression ECG Comment SR with PVC's A/P-Cardiology Assessment/Admission Diagnosis Acute on chronic systolic CHF ICM - Echocardiogram of 06-08-22 showed LVEF 20-25%. Severe diffuse hypokinesis. Mod MR. Mod right sided pleural effusion. PASP 45-50 mmHg CAD - Reported Hx of SC with stent placement done in [place] in 2003 - exact details unknown Acute on chronic exacerbation of COPD LLOYD - CPAP tx Reports "blood clot in his kidney and heart" dx 2 weeks ago during a hospitalization at [facility] - a-fib suspected - has been on Eliquis Hypertension Hyperlipidemia Diabetes H/O colon resection d/t diverticulitis H/O HIV (+) Discussion and Recomendations Acute on chronic systolic CHF - Echocardiogram - treat with diuretics ICM H/o CAD - reports he has been on Plavix - continue Continue Eliquis - d/t pt reporting he has a "blood clot in his heart and kidney" dx at [facility] 2 weeks ago - suspect it is d/t a-fib - request records Monitor lab closely Replace electrolytes as indicated We would like to thank medical services for this consult JAMIE GONZALEZ Jun 08, 2022 08:50
[2022-06-08] MEDS: ASPIRIN 81 MG CHEW (CHILDREN'S ASA) PO SCH (09:08)
[2022-06-08] MEDS: SENNOSIDES 8.6 MG (SENOKOT) TAB PO SCH ×2 (09:08→20:44)
[2022-06-08] MEDS: KCL 20 MEQ TAB (K-DUR) PO SCH ×2 (09:09→20:57)
[2022-06-08] MEDS: FUROSEMIDE 40 MG/4 ML INJ (LASIX) IV SCH ×2 (09:09→20:57)
[2022-06-08] MEDS: APIXABAN 5 MG (ELIQUIS) TABLET PO SCH ×2 (09:09→20:57)
[2022-06-08] MEDS: DOCUSATE SODIUM 100 MG (COLACE) CAP PO SCH ×2 (09:09→20:43)
[2022-06-08] MEDS ORDERED: SPIRONOLACTONE 25 MG (ALDACTONE) TAB PO ONE (09:30)
[2022-06-08] MEDS ORDERED: SACUBITRIL/VALSARTAN 24/26 MG (ENTRESTO) TABLET PO ONE (09:30)
[2022-06-08] MEDS ORDERED: EMPAGLIFLOZIN 10 MG TABLET (JARDIANCE) PO ONE (09:30)
--- NOTE | 2022-06-08 10:08 | Physical Therapy Evaluation ---
PT Evaluation-General Medical Diagnosis Admission Date Jun 07, 2022 at 18:41 Medical Diagnosis: CHF exacerbation Onset Date: Jun 07, 2022 Therapy Diagnosis Therapy Diagnosis: Impaired Mobility Height/Weight Height (Feet): 5 Height (Inches): 4.00 Weight (Pounds): 174 Precautions Precautions/Isolations: Fall Prevention, Standard Precautions Weight Bear Status Right Lower Extremity: Right Full Weight Bearing Left Lower Extremity: Left Full Weight Bearing Referral Physician: Armida Reason for Referral: Evaluation/Treatment Medical History Pertinent Medical History: CAD, DM, Heart Failure Additional Medical History PMH: CHF, COPD, L KIDNEY BLOOD CLOT, DM-ID, HIV, SX: DIVERTICULITIS-COLOSTOMY AND REVERSAL, HERNIA REPAIR, Surgeries: Yes (COLON RESECTION, HERNIA X3, APPY) Appendectomy Respiratory: Yes Sleep Apnea Currently Using CPAP: Yes Cardiac: Yes (CHF, STENTS, mi in 2003) Heart Attack, High Cholesterol, Hypertension Neurological: No (bells palsy) HIV/AIDS: Yes Genitourinary: No Gastrointestinal: No Diverticulosis Musculoskeletal: No Endocrine: Yes Diabetes, Insulin dep HEENT: No Cancer: No Psychosocial: No Integumentary: No Blood Disorders: Yes (HIV +) Reviewed History: Yes Social History Home: Apartment Current Living Status: Significant Other Entry Into Home: Stairs With Railing PT Steps Into Home: 3 PT Steps Inside Home: 12 (but does not go upstairs) Prior Prior Level of Function SCALE: Activities may be completed with or without assistive devices. 5-Ljbuksmpxr-xxopebp completes the activity by him/herself with no assistance from a helper. 5-Set-up or Clean-up Assistance-helper sets up or cleans up; patient completes activity. [place] assists only prior to or following the activity. 4-Supervision or Touching Assistance-helper provides verbal cues and/or touching/steadying and/or contact guard assistance as patient completes activity. Assistance may be provided throughout the activity or intermittently. 3-Partial/Moderate Assistance-helper does LESS THAN HALF the effort. [place] lifts, holds or supports trunk or limbs, but provides less than half the effort. 2-Substantial/Maximal Assistance-helper does MORE THAN HALF the effort. [place] lifts or holds trunk or limbs and provides more than half the effort. 4-Prwmywazh-pxrids does ALL the effort. Patient does none of the effort to complete the activity. Or, the assistance of 2 or more helpers is required for the patient to complete the activity. If activity was not attempted, code reason: 7-Patient Refused. 9-Not Applicable-not attempted and the patient did not perform the activity before the current illness, exacerbation or injury. 10-Not Attempted due to Environmental Limitations-(lack of equipment, weather restraints, etc.). 88-Not Attempted due to Medical Conditions or Safety Concerns. Bed Mobility: 6 Transfers (B,C,W/C): 6 Gait: 6 Stairs: 6 Indoor Mobility (Ambulation): Independent Stairs: Independent Prior Devices Use: None PT Evaluation-Current Subjective Patient in bed pre-tx with significant other in room, reports no pain, agrees to PT. Objective Patient Orientation: Person, Place, Situation Attachments: Oxygen ROM/Strength ROM Lower Extremities BLE grossly WNL Strength Lower Extremities BLE grossly 5/5 except hips 3+/5 Neuromuscular (Tone, Coordination, Reflexes) Coordination intact Sensory Vision: Functional Hearing: Functional Sensation Right Lower Extremit: Intact Sensation Left Lower Extremity: Intact Transfers Roll Left to Right (QC): 4 Sit to Lying (QC): 4 Lying to Sitting/Side of Bed(Q: 4 Sit to Stand (QC): 4 Chair/Tvq-rs-Kbjsw Xfer(QC): 4 SBA Gait Does the Patient Walk?: Yes Mode of Locomotion: Walk Anticipated Mode of Locomotion: Walk Walk 10 feet (QC): 4 Walk 50 ft with 2 Turns(QC): 4 Walk 150 ft (QC): 4 Distance: 150 Gait Assistive Device: FWW Comments/Gait Description Patient walks steady with FWW, SBA, but gets SOB very quickly and requires many breaks. Balance Sitting Static: Normal Sitting Dynamic: Normal Standing Static: Normal Standing Dynamic: Normal Treatment LE Strengthening, Ambulation Assessment/Needs Patient drops around 86 O2 and then goes back to low 90s with deep breaths, demonstrates decreased endurance. Patient sitting EOB eating post-tx with significant other in room, tray, phone, nurse call, all needs met. Rehab Potential: Fair PT Jewel Bearing Turner Goals Residential Goals PT Residential Goals Time Frame: Jun 15, 2022 Roll Left & Right (QC): 6 Sit to Lying (QC): 6 Lying-Sitting on Side/Bed(QC): 6 Sit to Stand (QC): 6 Chair/Wtj-on-Vricl Xfer(QC): 6 Toilet Transfer (QC): 6 Does the Patient Walk: Yes Walk 10 feet (QC): 6 Walk 50ft with 2 Turns (QC): 6 Walk 150 ft (QC): 6 PT Plan Problem List Problem List: Activity Tolerance, Functional Strength, Safety, Balance, Gait, Transfer, Bed Mobility, ROM Treatment/Plan Treatment Plan: Continue Plan of Care Treatment Plan: Bed Mobility, Education, Functional Activity Shannon, Functional Strength, Gait, Safety, Therapeutic Exercise, Transfers Treatment Duration: Jun 15, 2022 Frequency: 6 times per week Estimated Hrs Per Day: .25 hour per day Patient and/or Family Agrees t: Yes Safety Risks/Education Patient Education: Gait Training, Transfer Techniques, Correct Positioning, Safety Issues Teaching Recipient: Patient Teaching Methods: Demonstration, Discussion Response to Teaching: Reinforcement Needed Discharge Recommendations Plan Patient will perform bed mobility and transfer training, balance and endurance training, gait training and functional strengthening in order to be independent at home. Therapy Discharge Recommendati: Home & Family Time Time In: 924 Time Out: 942 DATE: Jun 08, 2022 Total Billed Treatment Time: 18 Total Billed Treatment 1 visit EVM 18' CASS MENDENHALL PT Jun 08, 2022 10:08
--- NOTE | 2022-06-08 11:12 | Occ Therapy Progress Note ---
Therapy Progress Note OT orders received and chart reviewed. OT visited with pt and S.O, who indicate pt is at his PLOF with ADLs. Pt demo'd ability to complete footwear and toileting independently, and states no concerns with other ADLS. No further OT services indicated at this time as pt is at his PLOF, independent with ADLS, and pt and S.O decline further OT services. D/C from OT. 1, visit 1045 ORALIA ROD OT Jun 08, 2022 11:12
[2022-06-08 12:02] VITALS: BP 152/117
--- NOTE | 2022-06-08 13:35 | History & Physical-Hospitalist ---
JOCELYN SHERWOOD 06/08/22 1335: History of Present Illness HPI/Chief Complaint CC: CHF Exacerbation HPI: Chris Hopper is a 67 yo male with a history of CHF and COPD who was admitted for acute CHF exacerbation. The patient reports he has experienced 3-4 weeks of worsening SOB. He states he has been in and out of the [facility] 3 times in the past 4 weeks for symptoms of SOB, cough, and wheezing. He was received diuresis treatment while in the [facility] but feels that he did not improve following his most recent hospitalization, prompting him to follow up with his PCP, Dr. French. Dr. French instructed the patient to present to the [facility] ED with concerning lung crackles on auscultation and worsening respiratory symptoms. In the ED at [facility], the patient had a CXR revealing mild CHF and central pulmonary edema. Labs were significant for HGB 12.2 and K+ 3.0, otherwise unremarkable. EKG showed normal sinus rhythm. The patient on evaluation today is lying comfortably on bed. He states he feels slightly improved compared to his time of admission but still has SOB, cough, and wheezing, all worsened by exertion as simple as sitting forward. The patient denies any headache, sore throat, chest pain, abdominal pain, diarrhea, constipation, or urinary symptoms. Source: patient, old records Exam Limitations: no limitations Date Seen 06/08/22 Time Seen by a Provider: 10:55 Attending Physician Nancy French MD PCP Admitting Physician: Tejal Tapia DO Attending Physician: Tejal Tapia DO Referring Physician Date of Admission Jun 07, 2022 at 18:41 Home Medications & Allergies Home Medications Reviewed patient Home Medication Reconciliation performed by pharmacy medication reconciliations instrument repair technician and/or nursing. Patients Allergies have been reviewed. Allergies Allergies Coded Allergies No Known Drug Allergies (Vfmlrbluxj47/17/20) Past Vzwiyse-Gcgvns-Rbqzjh Hx Patient Social History Tobacco Use?: No Use of E-Cig and/or Vaping dev: No Substance use?: No Alcohol Use?: No Pt feels they are or have been: No Immunizations Up To Date Date of Influenza Vaccine: Apr 07, 2020 First/Initial COVID19 Vaccinat: YES Second COVID19 Vaccination Prashanth: YES Tetanus Booster (TDap): Unknown Hepatitis A: Yes PED Vaccines UTD: Yes Date of Pneumonia Vaccine: Apr 07, 2017 Seasonal Allergies Seasonal Allergies: No Current Status Advance Directives: No Communicates: Verbally Primary Language: Portuguese Preferred Spoken Language: Portuguese Is interpretation needed?: No Sensory deficits: Vision impairment, Hearing impairment Implanted or Applied Medical D: Stents, Other Past Medical History Surgeries: Appendectomy Sleep Apnea, COPD Currently Using CPAP: Yes Heart Attack, High Cholesterol, Hypertension HIV/AIDS: Yes Diverticulosis Diabetes, Insulin dep Blood Disorders: Yes (HIV +) Review of Systems Constitutional: No chills, No fever EENTM: other (no headache); No throat pain Respiratory: cough, dyspnea on exertion, short of breath, wheezing Cardiovascular: No chest pain, No edema Gastrointestinal: No abdominal pain, No constipation, No diarrhea, No nausea, No vomiting Genitourinary: no symptoms reported Physical Exam Physical Exam Vital Signs Vital Signs - First Documented 06/07/22 06/07/22 16:27 21:02 Temp 36.3 Pulse 99 Resp 26 B/P (MAP) 154/83 (106) Pulse Ox 98 O2 Delivery Nasal Cannula O2 Flow Rate 2.00 FiO2 28 Capillary Refill : Less Than 3 Seconds Height, Weight, BMI Height: 5'4.00" Weight: 174lbs. oz. 78.980752rv; 38.46 BMI Method:Stated General Appearance: WD/WN, Mild Distress Respiratory: Chest Non Tender, No Accessory Muscle Use, Crackles (diffuse), Decreased Breath Sounds (lower lung [place] bilaterally), Wheezing (diffuse, mild) Cardiovascular: Regular Rate, Rhythm, No Edema, No Murmur, Normal Peripheral Pulses Gastrointestinal: No Pulsatile Mass, Non Tender, Soft Extremity: Non Tender, No Calf Tenderness, Other (compression sleeves in place to bilateral lower extremities) Neurologic/Psychiatric: Alert, Oriented x3 Skin: Normal Color, Warm/Dry Results Results/Procedures Labs Laboratory Tests 06/07/22 17:04 06/08/22 04:53 Patient resulted labs reviewed. Imaging Date of Exam:06/07/22 CHEST 1 VIEW, AP/PA ONLY IMPRESSION: Findings suggest probable mild congestive heart failure and central pulmonary edema without pneumothorax or consolidation detected. Assessment/Plan Admission Diagnosis CHF exacerbation Admission Status: Inpatient Order (span 2 midnights) Reason for Inpatient Admission: CHF exacerbation Assessment and Plan 1. CHF Exacerbation: Initiate Lasix therapy. Monitor edema status, O2 saturation, and respiratory symptoms. Consult cardiology. 2. COPD: Administer DuoNeb as needed. 3. Hypokalemia: K+ 3.0 on admission. Initiate oral potassium replacement. 4. DVT Prophylaxis: Initiate anticoagulation therapy. 5. HTN, HLD, diabetes: Continue home meds. WILLIETEJAL PAEZ 06/09/2227: History of Present Illness HPI/Chief Complaint CC: CHF HPI: This is a 67 yr old male with a history of heart failure. He comes in after multiple ER visits for volume overload. Echo cardiogram will be obtained. Dr. Lozano will see him. Lasix is given. He is feeling a lot better. Source: patient, family, RN/MD, old records Exam Limitations: no limitations Past Vyxhwwb-Frsfcc-Uhklwc Hx Patient Social History Marrital Status: Review of Systems Constitutional: see HPI Physical Exam Physical Exam General Appearance: Anxious, Chronically ill Respiratory: Crackles (diffuse), Decreased Breath Sounds (lower lung [place] bilaterally) Assessment/Plan Admission Diagnosis Assessment: AECHF HTN CKD Hypokalemia Plan: Lasix Cardiology consult ECHO Admission Status: Inpatient Order (span 2 midnights) Reason for Inpatient Admission: [facility] Supervisory-Addendum Brief Verification & Attestation Participated in pt care: history, MDM, physical Personally performed: exam, history, MDM, supervision of care Care discussed with: Medical Student Procedures: n/a Results interpretation: Verified all documentation Verification and Attestation of Medical Student E/M Service A medical student performed and documented this service in my presence. I reviewed and verified all information documented by the medical student and made modifications to such information, when appropriate. I personally performed the physical exam and medical decision making. Tejal Tapia, Jun 09, 2022,06:25 JOCELYN SHERWOOD Jun 08, 2022 13:35 TEJAL TAPIA DO Jun 09, 2022 06:27
[2022-06-08 15:30] VITALS: BP 140/84
[2022-06-08] MEDS ORDERED: ALBU18HF2 INH (15:32)
[2022-06-08] MEDS ORDERED: INSU100I14 SQ (15:32)
[2022-06-08] MEDS ORDERED: CLOP75TA28 PO (15:32)
[2022-06-08] MEDS ORDERED: DULA4.5P IJ (15:32)
[2022-06-08] MEDS ORDERED: INSU200I4 SC (15:32)
[2022-06-08] MEDS ORDERED: APIX5TAB PO (15:32)
--- NOTE | 2022-06-08 16:39 | Consultation-Cardiology ---
HPI-Cardiology Cardiology Consultation: Date of Consultation 06/08/22 Time Seen by a Provider: 15:30 Date of Admission Attending Physician Nancy French MD Admitting Physician Admitting Physician: Tejal Tapia DO Attending Physician: Tejal Tapia DO Consulting Physician KARLA COPELAND MD, MA, FACP, FACC, [facility], CCDS Physician requesting consult: Dr Tapia HPI: Chief Complaint: Increasing SOB Mr. Hopper is a 67 yr old male admitted to 511 from the ED. He reports he has had increasing SOB over the last few months. He reports he developed weight gain and LE swelling. He reports he was directed by his PCP to be evaluated in the ED. He denies any c/o CP or palpitations. No c/o syncope or near syncope. No c/o n/v/d. No c/o fever or chills. He states his breathing is better this morning, but not yet back to baseline. Review of Systems-Cardiology Review of Systems Constitutional: No chills, No fever; malaise Eyes: No vision change Ears/Nose/Throat: No epistaxis, No recent hearing loss Respiratory: As described under HPI Cardiovascular: As described under HPI Gastrointestinal: As described under HPI Genitourinary: No dysuria, No hematuria Musculoskeletal: no symptoms reported Skin: No rash on exposed areas, No ulcerations on exposed areas Psychiatric/Neurological: No anxiety, No depression, No seizure, No focal weakness, No syncope Hematologic: No bleeding abnormalities BDG-[id number]-Wcksdq Hx Patient Social History Have you traveled recently?: No Alcohol Use?: No Pt feels they are or have been: No Immunizations Up To Date Tetanus Booster (TDap): Unknown Date of Pneumonia Vaccine: Apr 07, 2017 Date of Influenza Vaccine: Apr 07, 2020 Past Medical History PMH As described under Assessment. Family Medical History Family Medical History: He reports he has a brother with a "leaky heart valve" Allergies and Home Medications Allergies Coded Allergies: No Known Drug Allergies (Unverified , 06/23/20) Patient Home Medication List Home Medication List Reviewed: Yes Albuterol Sulfate (Ventolin Hfa) 90 Mcg Hfa.aer.ad, 2 PUFF INH Q6H PRN for SHORTNESS OF BREATH, (Reported) Entered as Reported by: EB PERAZA on 06/08/22 7109 Last Action: Reviewed Amlodipine Besylate (Amlodipine Besylate) 5 Mg Tablet, 5 MG PO DAILY, (Reported) Entered as Reported by: LURDES ZHONG on 07/11/201206 Last Action: Reviewed Apixaban (Eliquis) 5 Mg Tablet, 5 MG PO BID, (Reported) Entered as Reported by: EB PERAZA on 06/08/221531 Last Action: Reviewed Ascorbic Acid (Vitamin C) 500 Mg Tab.chew, 500 MG PO DAILY, (Reported) Entered as Reported by: MARK RUIZ on 06/23/201727 Last Action: Reviewed Aspirin (Aspirin EC) 81 Mg Tablet.dr, 81 MG PO HS, (Reported) Entered as Reported by: LURDES ZHONG on 07/11/201206 Last Action: Reviewed Atorvastatin Calcium (Atorvastatin Calcium) 80 Mg Tablet, 80 MG PO HS, (Reported) Entered as Reported by: LURDES ZHONG on 07/11/201206 Last Action: Reviewed Bictegrav/Emtricit/Tenofov Ala (Biktarvy 50-200-25 mg Tablet) 1 Each Tablet, 1 TAB PO DAILY, (Reported) Entered as Reported by: MARK RUIZ on 06/23/201726 Last Action: Reviewed Carvedilol (Carvedilol) 25 Mg Tablet, 25 MG PO BID, (Reported) Entered as Reported by: MARK RUIZ on 06/23/201726 Last Action: Reviewed Clopidogrel Bisulfate (Clopidogrel) 75 Mg Tablet, 75 MG PO DAILY, (Reported) Entered as Reported by: EB PERAZA on 06/08/221531 Last Action: Reviewed Dulaglutide (Trulicity) 4.5 Mg/0.5 Ml Pen.injctr, 4.5 MG IJ THUR, (Reported) Entered as Reported by: EB PERAZA on 06/08/221531 Last Action: Reviewed Furosemide (Lasix) 40 Mg Tablet, 40 MG PO DAILY, (Reported) Entered as Reported by: ROBERT BENITEZ on 06/18/17 114 Last Action: Reviewed Insulin Aspart (Novolog Flexpen) 100 Unit/Ml (3 Ml) Solution, 20 UNITS SQ HS, (Reported) Entered as Reported by: EB PERAZA on 06/08/221531 Last Action: Reviewed Insulin Degludec (Tresiba Flextouch U-200) 200 Unit/Ml (3 Ml) Insuln.pen, 40 UNITS SC HS, (Reported) Entered as Reported by: EB PERAZA on 06/08/22 153 Last Action: Reviewed Multivitamin (Multi-Vitamin Daily) 1 Each Tablet, 1 EACH PO DAILY, (Reported) Entered as Reported by: MARK RUIZ on 06/23/20 173 Last Action: Reviewed Olmesartan/Hydrochlorothiazide (Benicar Hct 40-25 mg Tablet) 1 Each Tablet, 1 EACH PO DAILY, (Reported) Entered as Reported by: MARK RUIZ on 06/23/201723 Last Action: Reviewed Sertraline HCl (Sertraline HCl) 100 Mg Tablet, 200 MG PO DAILY, (Reported) Entered as Reported by: MARK RUIZ on 06/23/201741 Last Action: Reviewed Zinc Amino Acid Chelate (Zinc) 50 Mg Tablet, 50 MG PO DAILY, (Reported) Entered as Reported by: LURDES ZHONG on 07/11/201206 Last Action: Reviewed Discontinued Medications Atorvastatin Calcium (Atorvastatin Calcium) 10 Mg Tablet, 10 MG PO DAILY, (Reported) Discontinued Reason: Duplicate Order Entered as Reported by: LURDES ZHONG on 07/11/201206 Last Action: Discontinued Cholecalciferol (Vitamin D3) (Vitamin D3) 25 Mcg Tablet, 25 MCG PO DAILY, (Reported) Discontinued Reason: No Longer Taking Entered as Reported by: LURDES ZHONG on 07/11/201206 Last Action: Discontinued Clopidogrel Bisulfate (Plavix) 75 Mg Tablet, 75 MG PO DAILY, (Reported) Discontinued Reason: Duplicate Order Entered as Reported by: LURDES ZHONG on 07/11/201206 Last Action: Discontinued Dulaglutide (Trulicity) 1.5 Mg/0.5 Ml Pen.injctr, 1.5 MG SQ EVERY SATURDAY, (Reported) Discontinued Reason: Duplicate Order Entered as Reported by: MARK RUIZ on 06/23/201741 Last Action: Discontinued Insulin Aspart (Novolog Flexpen) 300 Units/3 Ml Solution, 20 UNITS SQ TIDAC Discontinued Reason: Duplicate Order Prescribed by: TEJAL TAPIA on 06/25/20 1252 Last Action: Discontinued Insulin Detemir (Levemir Flextouch) 100 Unit/1 Ml Insuln.pen, 35 UNITS SQ BID Discontinued Reason: No Longer Taking Prescribed by: TEJAL TAPIA on 06/25/20 1252 Last Action: Discontinued Loratadine (Claritin) 10 Mg Tablet, 10 MG PO DAILY, (Reported) Discontinued Reason: No Longer Taking Entered as Reported by: MARK RUIZ on 06/23/20 1727 Last Action: Discontinued Physical Exam-Cardiology Physical Exam Vital Signs/I&O 06/08/22 06/08/22 06/08/22 06/08/22 07:00 07:56 07:56 08:00 Temp 36.3 36.2 Pulse 96 96 96 Resp 20 25 B/P (MAP) 151/103 (119) 145/102 (116) Pulse Ox 95 96 O2 Delivery Nasal Cannula Nasal Cannula Nasal Cannula O2 Flow Rate 1.00 1.00 1.00 1.00 FiO2 94 06/08/22 06/08/22 06/08/22 06/08/22 08:30 12:02 13:00 15:06 Temp 36.6 Pulse 121 121 Resp 27 B/P (MAP) 152/117 (129) Pulse Ox 94 94 O2 Delivery Nasal Cannula Nasal Cannula Nasal Cannula O2 Flow Rate 2.00 1.00 1.00 06/08/22 15:30 Temp 36.4 Pulse 85 Resp 24 B/P (MAP) 140/84 (102) Pulse Ox 95 06/08/22 00:00 Intake Total 0 ml Output Total 0 ml Balance 0 ml Capillary Refill : Less Than 3 Seconds Constitutional: AAO x 3, well-developed, well-nourished HEENT: PERRL, hearing is well preserved, oral hygience is good Neck: No carotid bruit; carotid pulses are 2 + bilaterally Respiratory: No accessory muscle use, No respiratory distress; chest expansion is symmetric, chest is bilaterally symmetric, rhonchi (scattered), other (diminished lower lobes bilat) Cardiovascular: regular rate-rhythm; No JVD; S1 and S2 Gastrointestinal: No tender; soft, other (abdominal hernia) Extremities: no lower extremity edema bilateral Skin: No rash on exposed areas, No ulcerations on exposed areas Data Review Labs Laboratory Tests 06/07/22 17:04: White Blood Count 5.3, Red Blood Count 4.83, Hemoglobin 12.2L, Hematocrit 40, Mean Corpuscular Volume 82, Mean Corpuscular Hemoglobin 25, Mean Corpuscular Hemoglobin Concent 31L, Red Cell Distribution Width 17.3H, Platelet Count 214, Mean Platelet Volume 11.5, Immature Granulocyte % (Auto) 0, Neutrophils (%) (Auto) 77H, Lymphocytes (%) (Auto) 14, Monocytes (%) (Auto) 6, Eosinophils (%) (Auto) 2, Basophils (%) (Auto) 0, Neutrophils # (Auto) 4.1, Lymphocytes # (Auto) 0.7L, Monocytes # (Auto) 0.3, Eosinophils # (Auto) 0.1, Basophils # (Auto) 0.0, Immature Granulocyte # (Auto) 0.0, Sodium Level 139, Potassium Level 3.0L, Chloride Level 101, Carbon Dioxide Level 27, Anion Gap 11, Blood Urea Nitrogen 18, Creatinine 1.16, Estimat Glomerular Filtration Rate 69, BUN/Creatinine Ratio 16, Glucose Level 116H, Calcium Level 8.9, Corrected Calcium 9.5, Magnesium Level 1.8, Total Bilirubin 0.9, Aspartate Amino Transf (AST/SGOT) 48H, Alanine Aminotransferase (ALT/SGPT) 54, Alkaline Phosphatase 173H, Troponin I 0.056H, B- Type Natriuretic Peptide 1526.3H, Total Protein 7.0, Albumin 3.3 06/07/22 22:33: Glucometer 195H 06/08/22 04:53: White Blood Count 4.5, Red Blood Count 4.54, Hemoglobin 11.6L, Hematocrit 37L, Mean Corpuscular Volume 82, Mean Corpuscular Hemoglobin 26, Mean Corpuscular Hemoglobin Concent 31L, Red Cell Distribution Width 17.3H, Platelet Count 200, Mean Platelet Volume 11.7, Immature Granulocyte % (Auto) 0, Neutrophils (%) (Auto) 61, Lymphocytes (%) (Auto) 27, Monocytes (%) (Auto) 8, Eosinophils (%) (Auto) 4, Basophils (%) (Auto) 1, Neutrophils # (Auto) 2.8, Lymphocytes # (Auto) 1.2, Monocytes # (Auto) 0.4, Eosinophils # (Auto) 0.2, Basophils # (Auto) 0.0, Immature Granulocyte # (Auto) 0.0, Sodium Level 141, Potassium Level 3.5L, Chloride Level 107, Carbon Dioxide Level 21, Anion Gap 13, Blood Urea Nitrogen 20H, Creatinine 1.16, Estimat Glomerular Filtration Rate 69, BUN/Creatinine Ratio 17, Glucose Level 118H, Calcium Level 8.7, Corrected Calcium 9.4, Total Bilirubin 0.6, Aspartate Amino Transf (AST/SGOT) 38H, Alanine Aminotransferase (ALT/SGPT) 45, Alkaline Phosphatase 160H, Total Protein 6.7, Albumin 3.1L 06/08/22 11:10: Glucometer 173H 06/08/22 15:49: Glucometer 177H Laboratory Tests 06/07/22 17:04 06/08/22 04:53 A/P-Cardiology Assessment/Admission Diagnosis Acute on chronic systolic CHF ICM - Echocardiogram of 06-08-22 showed LVEF 20-25%. Severe diffuse hypokinesis. Mod MR. Mod right sided pleural effusion. PASP 45-50 mmHg CAD - Reported Hx of [place] with stent placement done in [place] in 2003 - exact details unknown Acute on chronic exacerbation of COPD LLOYD - CPAP tx Reports "blood clot in his kidney and heart" dx 2 weeks ago during a hospitalization at [facility] - a-fib suspected - has been on Eliquis Hypertension Hyperlipidemia Diabetes H/O colon resection d/t diverticulitis H/O HIV (+) Discussion and Recomendations Acute on chronic systolic CHF - Echocardiogram - treat with diuretics ICM H/o CAD - reports he has been on Plavix - continue Continue Eliquis - d/t pt reporting he has a "blood clot in his heart and kidney" dx at [facility] 2 weeks ago - suspect it is d/t a-fib - request records Monitor lab closely Replace electrolytes as indicated We would like to thank Medical services for this consult KARLA COPELAND MD FACP [facility]S Jun 08, 2022 16:39
[2022-06-08 19:54] VITALS: BP 129/80
[2022-06-08] MEDS: SACUBITRIL/VALSARTAN 24/26 MG (ENTRESTO) TABLET PO SCH (20:57)
[2022-06-09 00:45] VITALS: BP 123/95
[2022-06-09] MEDS: RT-ALBUTEROL/IPRATROPIUM 3 ML (DUONEB) VIAL INH SCH ×4 (00:50→22:01)
[2022-06-09 03:29] VITALS: BP 143/94
[2022-06-09 06:02] LABS: BASOPHILS % (AUTO) 1 % (0-10); EOSINOPHILS # (AUTO) 0.2 10^3/uL (0.0-0.3); EOSINOPHILS % (AUTO) 4 % (0-10); HEMATOCRIT 39 % (40-54); LYMPHOCYTES # (AUTO) 1.6 10^3/uL (1.0-4.0); LYMPHOCYTES % (AUTO) 31 % (12-44); MEAN CORPUSCULAR HEMOGLOBIN 25 pg (25-34); MEAN CORPUSCULAR HGB CONC 31 g/dL (32-36); MEAN CORPUSCULAR VOLUME 82 fL (80-99); MEAN PLATELET VOLUME 11.4 fL (9.0-12.2); MONOCYTES # (AUTO) 0.4 10^3/uL (0.0-1.0); MONOCYTES % (AUTO) 8 % (0-12); NEUTROPHILS # (AUTO) 2.9 10^3/uL (1.8-7.8); NEUTROPHILS % (AUTO) 57 % (42-75); PLATELET COUNT 225 10^3/uL (130-400); WHITE BLOOD COUNT 5.1 10^3/uL (4.3-11.0)
[2022-06-09 06:21] LABS: BILIRUBIN,TOTAL 0.7 MG/DL (0.1-1.0); CALCIUM 8.7 MG/DL (8.5-10.1); CREATININE SERUM 1.12 MG/DL (0.60-1.30); MAGNESIUM 1.8 MG/DL (1.6-2.4); POTASSIUM 3.6 MMOL/L (3.6-5.0); TOTAL PROTEIN 6.4 GM/DL (6.4-8.2)
[2022-06-09] MEDS: inSUlin ASPART (NovoLOG) 1 UNIT/0.01 ML (CHARGE PER UNIT) SC SCH ×4 (06:26→20:21)
--- NOTE | 2022-06-09 06:38 | Progress Note - Hospitalist ---
Subjective HPI/CC On Admission Date Seen by Provider: Jun 09, 2022 Time Seen by Provider: 11:00 CC: CHF HPI: This is a 67 yr old male with a history of heart failure. He comes in after multiple ER visits for volume overload. Echo cardiogram will be obtained. Dr. Lozano will see him. Lasix is given. He is feeling a lot better. Subjective/Events-last exam Patient much better Lasix helping Diuresis successful Cardiac cath will be performed on Saturday Ejection fraction 20-25% so he will need a LifeVest on Saturday Review of Systems Pulmonary: Dyspnea, Cough Objective Exam Vital Signs Vital Signs Date Time Temp Pulse Resp B/P (MAP) Pulse Ox O2 Delivery O2 Flow Rate FiO2 06/09/22 16:47 36.7 88 22 140/94 (109) 97 06/09/22 16:41 Nasal Cannula 2.00 06/09/22 08:00 97 Capillary Refill : Less Than 3 Seconds General Appearance: No Apparent Distress, WD/WN, Anxious, Chronically ill, Obese Respiratory: No Accessory Muscle Use, No Respiratory Distress, Decreased Breath Sounds Cardiovascular: Regular Rate, Rhythm Neurologic/Psychiatric: Alert, Oriented x3, No Motor/Sensory Deficits, Normal Mood/Affect Results/Procedures Lab Laboratory Tests 06/09/22 05:24 Patient resulted labs reviewed. Assessment/Plan Assessment and Plan Assess & Plan/Chief Complaint Assessment: AECHF HTN CKD Hypokalemia Plan: Lasix Cardiology consult ECHO reviewed SAMPSON TAPIA DO Jun 09, 2022 06:38
[2022-06-09] MEDS: DOCUSATE SODIUM 100 MG (COLACE) CAP PO SCH ×2 (07:35→20:14)
[2022-06-09 07:48] VITALS: BP 148/99
[2022-06-09] MEDS: KCL 20 MEQ TAB (K-DUR) PO SCH ×2 (10:34→20:13)
[2022-06-09] MEDS: EMPAGLIFLOZIN 10 MG TABLET (JARDIANCE) PO SCH (10:34)
[2022-06-09] MEDS: SENNOSIDES 8.6 MG (SENOKOT) TAB PO SCH ×2 (10:34→20:14)
[2022-06-09] MEDS: ASPIRIN 81 MG CHEW (CHILDREN'S ASA) PO SCH (10:34)
[2022-06-09] MEDS: APIXABAN 5 MG (ELIQUIS) TABLET PO SCH ×2 (10:34→20:13)
[2022-06-09] MEDS: SACUBITRIL/VALSARTAN 24/26 MG (ENTRESTO) TABLET PO SCH ×2 (10:35→20:13)
[2022-06-09] MEDS: FUROSEMIDE 40 MG/4 ML INJ (LASIX) IV SCH ×2 (10:35→20:14)
[2022-06-09] MEDS: SPIRONOLACTONE 25 MG (ALDACTONE) TAB PO SCH (10:35)
--- NOTE | 2022-06-09 11:47 | Progress Note - Cardiology ---
Cardiology SOAP Progress Note Subjective: Shortness of breath somewhat improved No n/v/d Gen weakness and malaise No focal weakness Mild leg swelling No cp or palp or syncope Objective: I&O/Vital Signs 06/09/22 06/09/22 06/09/22 06/09/22 00:45 00:50 01:00 03:29 Temp 36.6 36.5 Pulse 95 92 89 Resp 16 16 B/P (MAP) 123/95 (104) 143/94 (110) Pulse Ox 96 96 95 O2 Delivery Nasal Cannula Nasal Cannula Nasal Cannula O2 Flow Rate 2.00 1.00 2.00 06/09/22 06/09/22 07:00 07:48 Temp 36.3 Pulse 88 89 Resp 18 B/P (MAP) 148/99 (115) Pulse Ox 93 06/09/22 00:00 Intake Total 1445 ml Output Total 1475 ml Balance -30 ml Weight (Pounds): 174 Weight (Calculated Kilograms): [id number] Constitutional: AAO x 3, well-developed, well-nourished Respiratory: No accessory muscle use, No respiratory distress; chest expansion is symmetric, chest is bilaterally symmetric, rhonchi (scattered), other (diminished lower lobes bilat) Cardiovascular: regular rate-rhythm; No JVD; S1 and S2 Gastrointestional: No tender; soft, other (abdominal hernia) Extremities: swelling (mild, bilateral leg edema) Neurologic/Psychiatric: oriented x 3, other (moves all limbs equally) Skin: normal color, warm/dry; No cyanosis, No cool, No diaphoresis, No rash on exposed areas, No ulcerations on exposed areas Results/Procedures: Labs Laboratory Tests 06/08/22 15:49: Glucometer 177H 06/08/22 20:29: Glucometer 193H 06/09/22 05:24: White Blood Count 5.1, Red Blood Count 4.76, Hemoglobin 12.0L, Hematocrit 39L, Mean Corpuscular Volume 82, Mean Corpuscular Hemoglobin 25, Mean Corpuscular Hemoglobin Concent 31L, Red Cell Distribution Width 17.5H, Platelet Count 225, Mean Platelet Volume 11.4, Immature Granulocyte % (Auto) 0, Neutrophils (%) (Auto) 57, Lymphocytes (%) (Auto) 31, Monocytes (%) (Auto) 8, Eosinophils (%) (Auto) 4, Basophils (%) (Auto) 1, Neutrophils # (Auto) 2.9, Lymphocytes # (Auto) 1.6, Monocytes # (Auto) 0.4, Eosinophils # (Auto) 0.2, Basophils # (Auto) 0.0, Immature Granulocyte # (Auto) 0.0, Sodium Level 141, Potassium Level 3.6, Chloride Level 106, Carbon Dioxide Level 21, Anion Gap 14, Blood Urea Nitrogen 20H, Creatinine 1.12, Estimat Glomerular Filtration Rate 72, BUN/Creatinine Ratio 18, Glucose Level 87, Calcium Level 8.7, Corrected Calcium 9.5, Magnesium Level 1.8, Total Bilirubin 0.7, Aspartate Amino Transf (AST/SGOT) 38H, Alanine Aminotransferase (ALT/SGPT) 45, Alkaline Phosphatase 159H, Total Protein 6.4, Albumin 3.0L 06/09/22 10:15: Glucometer 170H Laboratory Tests 06/07/22 17:04 06/08/22 04:53 06/09/22 05:24 A/P: Assessment: Acute on chronic systolic CHF ICM - Echocardiogram of 06-08-22 showed LVEF 20-25%. Severe diffuse hypokinesis. Mod MR. Mod right sided pleural effusion. PASP 45-50 mmHg CAD - Reported Hx of [place] with stent placement done in [place] in 2003 - exact details unknown Acute on chronic exacerbation of COPD LLOYD - CPAP tx Reports "blood clot in his kidney and heart" dx 2 weeks ago during a hospitalization at [facility] - a-fib suspected - has been on Eliquis Hypertension Hyperlipidemia Diabetes H/O colon resection d/t diverticulitis H/O HIV (+) Plan: * further titrate heart failure meds (see today's orders) * continue antiplatelet therapy because of h/o CAD * continue OAC because he is reporting he has a "blood clot in his heart and kidney" dx at [facility] in mid May 2022 - suspect P a-fib * continue diuretics for heart failure * LifeVest * heart cath after med optimization and improvement of heart failure * monitor labs KARLA COPELAND MD FACP [facility] Jun 09, 2022 11:47
[2022-06-09 12:00] VITALS: BP 147/95
--- NOTE | 2022-06-09 13:20 | Physical Therapy Daily Note ---
PT Daily Note-Current Subjective Pt agreeable. Reports he hopes to be out of here soon as he is schedule to be a few weeks from now. Pain Section J - Health Conditions 1. Rarely or not at all 2. Occasionally 3. Frequently 4. Almost constantly 8. Unable to answer Pain Effect on Sleep: 2 Pain Interference with Therapy: 2 Pain Interference w/Day-to-Day: 2 Transfers SCALE: Activities may be completed with or without assistive devices. 3-Qbeuczoyer-gvxmbtd completes the activity by him/herself with no assistance from a helper. 5-Set-up or Clean-up Assistance-helper sets up or cleans up; patient completes activity. [place] assists only prior to or following the activity. 4-Supervision or Touching Assistance-helper provides verbal cues and/or touching/steadying and/or contact guard assistance as patient completes activity. Assistance may be provided throughout the activity or intermittently. 3-Partial/Moderate Assistance-helper does LESS THAN HALF the effort. [place] lifts, holds or supports trunk or limbs, but provides less than half the effort. 2-Substantial/Maximal Assistance-helper does MORE THAN HALF the effort. [place] lifts or holds trunk or limbs and provides more than half the effort. 1-Qgzfywkns-ojjsso does ALL the effort. Patient does none of the effort to complete the activity. Or, the assistance of 2 or more helpers is required for the patient to complete the activity. If activity was not attempted, code reason: 7-Patient Refused. 9-Not Applicable-not attempted and the patient did not perform the activity before the current illness, exacerbation or injury. 10-Not Attempted due to Environmental Limitations-(lack of equipment, weather restraints, etc.). 88-Not Attempted due to Medical Conditions or Safety Concerns. Transfers SBA. Weight Bearing Right Lower Extremity: Right Full Weight Bearing Left Lower Extremity: Left Full Weight Bearing Gait Training Gait Assistive Device: FWW Ambulate 150ft with FWW and CGA with Oxygen at 2L. Standing rest and repeat. Limited by SOB. Assessment Progressed ambulation this session. Pt please with his ability to walk further this visit. Pt needs continued conditioning to promote d/c to home. 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 Mcfp Goals PT Mcfp Goals Time Frame: Jun 15, 2022 Roll Left & Right (QC): 6 Sit to Lying (QC): 6 Lying-Sitting on Side/Bed(QC): 6 Sit to Stand (QC): 6 Chair/Rgb-pw-Tntsi Xfer(QC): 6 Toilet Transfer (QC): 6 Does the Patient Walk: Yes Walk 10 feet (QC): 6 Walk 50ft with 2 Turns (QC): 6 Walk 150 ft (QC): 6 PT Plan Treatment/Plan Treatment Plan: Continue Plan of Care Treatment Plan: Bed Mobility, Education, Functional Activity Shannon, Functional Strength, Gait, Safety, Therapeutic Exercise, Transfers Treatment Duration: Jun 15, 2022 Frequency: 6 times per week Estimated Hrs Per Day: .25 hour per day Patient and/or Family Agrees t: Yes Time Time In: 1300 Time Out: 1319 DATE: Jun 09, 2022 Total Billed Treatment Time: 19 Total Billed Treatment visit, gait 19 min EVETTE HALL PT Jun 09, 2022 13:20
[2022-06-09 16:47] VITALS: BP 140/94
[2022-06-09 20:14] VITALS: BP 143/90
[2022-06-10] VITALS (7 sets, daily range): BP systolic 125–138; BP diastolic 83–91
[2022-06-10] MEDS: RT-ALBUTEROL/IPRATROPIUM 3 ML (DUONEB) VIAL INH SCH ×4 (03:08→23:34)
[2022-06-10] MEDS: inSUlin ASPART (NovoLOG) 1 UNIT/0.01 ML (CHARGE PER UNIT) SC SCH ×3 (04:58→20:19)
[2022-06-10 05:38] LABS: BASOPHILS % (AUTO) 1 % (0-10); EOSINOPHILS # (AUTO) 0.2 10^3/uL (0.0-0.3); EOSINOPHILS % (AUTO) 4 % (0-10); HEMATOCRIT 39 % (40-54); HEMOGLOBIN 12.2 g/dL (13.3-17.7); LYMPHOCYTES # (AUTO) 1.5 10^3/uL (1.0-4.0); LYMPHOCYTES % (AUTO) 35 % (12-44); MEAN CORPUSCULAR HEMOGLOBIN 26 pg (25-34); MEAN CORPUSCULAR HGB CONC 32 g/dL (32-36); MEAN CORPUSCULAR VOLUME 82 fL (80-99); MEAN PLATELET VOLUME 11.2 fL (9.0-12.2); MONOCYTES # (AUTO) 0.4 10^3/uL (0.0-1.0); MONOCYTES % (AUTO) 9 % (0-12); NEUTROPHILS # (AUTO) 2.2 10^3/uL (1.8-7.8); NEUTROPHILS % (AUTO) 51 % (42-75); PLATELET COUNT 216 10^3/uL (130-400); WHITE BLOOD COUNT 4.3 10^3/uL (4.3-11.0)
[2022-06-10 05:53] LABS: ALBUMIN 2.8 GM/DL (3.2-4.5)
[2022-06-10 05:54] LABS: CALCIUM 8.3 MG/DL (8.5-10.1)
[2022-06-10 05:55] LABS: TOTAL PROTEIN 6.2 GM/DL (6.4-8.2)
[2022-06-10 05:57] LABS: BILIRUBIN,TOTAL 0.6 MG/DL (0.1-1.0)
[2022-06-10 05:59] LABS: CREATININE SERUM 1.29 MG/DL (0.60-1.30)
[2022-06-10 06:01] LABS: MAGNESIUM 1.8 MG/DL (1.6-2.4)
--- NOTE | 2022-06-10 06:02 | Progress Note - Hospitalist ---
Subjective HPI/CC On Admission Date Seen by Provider: Jun 10, 2022 Time Seen by Provider: 11:30 CC: CHF HPI: This is a 67 yr old male with a history of heart failure. He comes in after multiple ER visits for volume overload. Echo cardiogram will be obtained. Dr. Lozano will see him. Lasix is given. He is feeling a lot better. Subjective/Events-last exam Doing better No pain reported Less dyspnea Checked meds and labs Review of Systems Pulmonary: Dyspnea, Cough Cardiovascular: Edema Objective Exam Vital Signs Vital Signs Date Time Temp Pulse Resp B/P (MAP) Pulse Ox O2 Delivery O2 Flow Rate FiO2 06/10/22 13:00 77 06/10/22 12:00 36.0 20 127/84 (98) 95 High Flow N/C 2.00 06/09/22 08:00 97 Capillary Refill : Less Than 3 Seconds General Appearance: No Apparent Distress, WD/WN, Chronically ill Respiratory: Lungs Clear, Normal Breath Sounds Cardiovascular: Regular Rate, Rhythm Neurologic/Psychiatric: Alert, Oriented x3, No Motor/Sensory Deficits, Normal Mood/Affect Results/Procedures Lab Laboratory Tests 06/10/22 05:23 Patient resulted labs reviewed. Assessment/Plan Assessment and Plan Assess & Plan/Chief Complaint Assessment: AECHF HTN CKD Hypokalemia Plan: Lasix Cardiology consult ECHO reviewed SAMPSON TAPIA DO Jun 10, 2022 06:02
[2022-06-10] MEDS: APIXABAN 5 MG (ELIQUIS) TABLET PO SCH ×2 (09:22→20:18)
[2022-06-10] MEDS: EMPAGLIFLOZIN 10 MG TABLET (JARDIANCE) PO SCH (09:22)
[2022-06-10] MEDS: KCL 20 MEQ TAB (K-DUR) PO SCH (09:22)
[2022-06-10] MEDS: DOCUSATE SODIUM 100 MG (COLACE) CAP PO SCH ×2 (09:22→20:19)
[2022-06-10] MEDS: SENNOSIDES 8.6 MG (SENOKOT) TAB PO SCH ×2 (09:22→20:19)
[2022-06-10] MEDS: SPIRONOLACTONE 25 MG (ALDACTONE) TAB PO SCH (09:22)
[2022-06-10] MEDS: ASPIRIN 81 MG CHEW (CHILDREN'S ASA) PO SCH (09:22)
[2022-06-10] MEDS: FUROSEMIDE 40 MG/4 ML INJ (LASIX) IV SCH (09:23)
[2022-06-10] MEDS: SACUBITRIL/VALSARTAN 24/26 MG (ENTRESTO) TABLET PO SCH ×2 (09:23→20:19)
--- NOTE | 2022-06-10 14:42 | Progress Note - Cardiology ---
Cardiology SOAP Progress Note Subjective: Shortness of breath improving Gen malaise present No cp or palp or syncope No focal weakness Swelling better Objective: I&O/Vital Signs 06/10/22 06/10/22 06/10/22 06/10/22 03:08 04:52 06:00 06:01 Temp 36.1 Pulse 79 80 Resp 27 22 B/P (MAP) 128/83 (98) 129/86 (100) Pulse Ox 96 91 94 O2 Delivery Nasal Cannula Nasal Cannula Nasal Cannula O2 Flow Rate 2.00 2.00 2.00 06/10/22 06/10/22 06/10/22 06/10/22 07:00 07:59 08:00 12:00 Temp 35.9 36.0 Pulse 82 79 81 Resp 14 20 B/P (MAP) 134/91 (105) 127/84 (98) Pulse Ox 97 95 O2 Delivery High Flow N/C Nasal Cannula High Flow N/C O2 Flow Rate 2.00 2.00 2.00 06/10/22 13:00 Pulse 77 06/10/22 00:00 Intake Total 1000 ml Output Total 1975 ml Balance -975 ml Weight (Pounds): 174 Weight (Calculated Kilograms): 78.822426 Constitutional: AAO x 3, well-developed, well-nourished Respiratory: No accessory muscle use, No respiratory distress; chest expansion is symmetric, chest is bilaterally symmetric, rhonchi (scattered), other (diminished lower lobes bilat) Cardiovascular: regular rate-rhythm; No JVD; S1 and S2 Gastrointestional: No tender; soft, other (abdominal hernia) Extremities: swelling (mild, bilateral leg edema) Neurologic/Psychiatric: oriented x 3, other (moves all limbs equally) Skin: normal color, warm/dry; No cyanosis, No cool, No diaphoresis, No rash on exposed areas, No ulcerations on exposed areas Results/Procedures: Labs Laboratory Tests 06/09/22 16:20: Glucometer 183H 06/09/22 20:12: Glucometer 189H 06/10/22 04:58: Glucometer 94 06/10/22 05:23: White Blood Count 4.3, Red Blood Count 4.74, Hemoglobin 12.2L, Hematocrit 39L, Mean Corpuscular Volume 82, Mean Corpuscular Hemoglobin 26, Mean Corpuscular Hemoglobin Concent 32, Red Cell Distribution Width 17.2H, Platelet Count 216, Mean Platelet Volume 11.2, Immature Granulocyte % (Auto) 1, Neutrophils (%) (Auto) 51, Lymphocytes (%) (Auto) 35, Monocytes (%) (Auto) 9, Eosinophils (%) (Auto) 4, Basophils (%) (Auto) 1, Neutrophils # (Auto) 2.2, Lymphocytes # (Auto) 1.5, Monocytes # (Auto) 0.4, Eosinophils # (Auto) 0.2, Basophils # (Auto) 0.0, Immature Granulocyte # (Auto) 0.0, Sodium Level 138, Potassium Level 4.0, Chloride Level 105, Carbon Dioxide Level 21, Anion Gap 12, Blood Urea Nitrogen 26H, Creatinine 1.29, Estimat Glomerular Filtration Rate 61, BUN/Creatinine Ratio 20, Glucose Level 94, Calcium Level 8.3L, Corrected Calcium 9.3, Magnesium Level 1.8, Total Bilirubin 0.6, Aspartate Amino Transf (AST/SGOT) 42H, Alanine Aminotransferase (ALT/SGPT) 45, Alkaline Phosphatase 150H, Total Protein 6.2L, Albumin 2.8L 06/10/22 11:07: Glucometer 146H Laboratory Tests 06/09/22 05:24 06/10/22 05:23 A/P: Assessment: Acute on chronic systolic CHF ICM - Echocardiogram of 06-08-22 showed LVEF 20-25%. Severe diffuse hypokinesis. Mod MR. Mod right sided pleural effusion. PASP 45-50 mmHg CAD - Reported Hx of [place] with stent placement done in [place] in 2003 - exact details unknown Acute on chronic exacerbation of COPD LLOYD - CPAP tx Reports "blood clot in his kidney and heart" dx 2 weeks ago during a hospitalization at [facility] - a-fib suspected - has been on Eliquis Hypertension Hyperlipidemia Diabetes H/O colon resection d/t diverticulitis H/O HIV (+) Plan: * continue to titrate heart failure meds (see today's orders) * continue antiplatelet therapy because of h/o CAD * continue OAC because he is reporting he has a "blood clot in his heart and kidney" dx at [facility] in mid May 2022 - suspect P a-fib * LifeVest * monitor labs * plan cath for tomorrow afternoon. I discussed the rationale, procedure, risks, benefits, potential complications, and alternatives of card cath and possible ad hoc PCI with him in detail and answered questions. He understands and is willing to proceed KARLA COPELAND MD FACP LOCATED [facility]IN [facility] CCDS Jun 10, 2022 14:42
[2022-06-11] VITALS (7 sets, daily range): BP systolic 119–137; BP diastolic 77–85
[2022-06-11] MEDS: RT-ALBUTEROL/IPRATROPIUM 3 ML (DUONEB) VIAL INH SCH ×4 (02:33→21:43)
[2022-06-11 05:32] LABS: BASOPHILS % (AUTO) 1 % (0-10); EOSINOPHILS # (AUTO) 0.2 10^3/uL (0.0-0.3); EOSINOPHILS % (AUTO) 4 % (0-10); HEMATOCRIT 40 % (40-54); HEMOGLOBIN 12.5 g/dL (13.3-17.7); LYMPHOCYTES # (AUTO) 1.5 10^3/uL (1.0-4.0); LYMPHOCYTES % (AUTO) 34 % (12-44); MEAN CORPUSCULAR HEMOGLOBIN 26 pg (25-34); MEAN CORPUSCULAR HGB CONC 31 g/dL (32-36); MEAN CORPUSCULAR VOLUME 81 fL (80-99); MEAN PLATELET VOLUME 11.8 fL (9.0-12.2); MONOCYTES # (AUTO) 0.4 10^3/uL (0.0-1.0); MONOCYTES % (AUTO) 9 % (0-12); NEUTROPHILS # (AUTO) 2.4 10^3/uL (1.8-7.8); NEUTROPHILS % (AUTO) 52 % (42-75); PLATELET COUNT 232 10^3/uL (130-400); WHITE BLOOD COUNT 4.5 10^3/uL (4.3-11.0)
[2022-06-11 05:57] LABS: ALBUMIN 2.8 GM/DL (3.2-4.5); BILIRUBIN,TOTAL 0.5 MG/DL (0.1-1.0); CALCIUM 8.7 MG/DL (8.5-10.1); CREATININE SERUM 1.42 MG/DL (0.60-1.30); POTASSIUM 4.2 MMOL/L (3.6-5.0); TOTAL PROTEIN 6.1 GM/DL (6.4-8.2)
[2022-06-11] MEDS: inSUlin ASPART (NovoLOG) 1 UNIT/0.01 ML (CHARGE PER UNIT) SC SCH ×4 (06:20→21:20)
[2022-06-11] MEDS: KCL 10 MEQ TAB (MICRO K) PO SCH (06:34)
--- NOTE | 2022-06-11 08:50 | Physical Therapy Daily Note ---
PT Daily Note-Current Subjective Patient in bed pre-tx, reports no pain, agrees to PT. Pain Section J - Health Conditions 1. Rarely or not at all 2. Occasionally 3. Frequently 4. Almost constantly 8. Unable to answer Pain Effect on Sleep: 2 Pain Interference with Therapy: 2 Pain Interference w/Day-to-Day: 2 Appearance Patient in bed post-tx with nurse call, phone, tray, all needs met. Mental Status Patient Orientation: Person, Place, Situation Attachments: Oxygen Transfers SCALE: Activities may be completed with or without assistive devices. 5-Kwnsoyqkvg-fnzjxly completes the activity by him/herself with no assistance from a helper. 5-Set-up or Clean-up Assistance-helper sets up or cleans up; patient completes activity. [place] assists only prior to or following the activity. 4-Supervision or Touching Assistance-helper provides verbal cues and/or touching/steadying and/or contact guard assistance as patient completes activity. Assistance may be provided throughout the activity or intermittently. 3-Partial/Moderate Assistance-helper does LESS THAN HALF the effort. [place] lifts, holds or supports trunk or limbs, but provides less than half the effort. 2-Substantial/Maximal Assistance-helper does MORE THAN HALF the effort. [place] lifts or holds trunk or limbs and provides more than half the effort. 0-Ugnlioyzn-rztfom does ALL the effort. Patient does none of the effort to complete the activity. Or, the assistance of 2 or more helpers is required for the patient to complete the activity. If activity was not attempted, code reason: 7-Patient Refused. 9-Not Applicable-not attempted and the patient did not perform the activity before the current illness, exacerbation or injury. 10-Not Attempted due to Environmental Limitations-(lack of equipment, weather restraints, etc.). 88-Not Attempted due to Medical Conditions or Safety Concerns. Roll Left & Right (QC): 4 Sit to Lying (QC): 4 Lying to Sitting/Side of Bed(Q: 4 Sit to Stand (QC): 4 Chair/Ujd-pv-Umquh Xfer(QC): 4 SBA with transfers and bed mobility Weight Bearing Right Lower Extremity: Right Full Weight Bearing Left Lower Extremity: Left Full Weight Bearing Gait Training Does the Patient Walk?: Yes Distance: 200' Walk 10 feet (QC): 4 Walk 50 ft with 2 Turns(QC): 4 Walk 150 ft (QC): 4 Gait Persons Needed: 1 Gait Assistive Device: FWW SBA, Patient walks with slower gait speed but steady with FWW. He gets SOB quickly and needs a standing break to catch his breath. Exercises Seated Therapy Exercises: Ankle pumps, Long arc quads, Hip flexion, Glut set Seated Reps: 20 Treatments Ambulation, LE Strengthening Assessment Current Status: Fair Progress Patient less SOB today with ambulation, able to put his clothes on by himself. PT Bookkeeping Service Sales Agent Goals Bookkeeping Service Sales Agent Goals PT Bookkeeping Service Sales Agent Goals Time Frame: Jun 15, 2022 Roll Left & Right (QC): 6 Sit to Lying (QC): 6 Lying-Sitting on Side/Bed(QC): 6 Sit to Stand (QC): 6 Chair/Uay-yt-Bbnml Xfer(QC): 6 Toilet Transfer (QC): 6 Does the Patient Walk: Yes Walk 10 feet (QC): 6 Walk 50ft with 2 Turns (QC): 6 Walk 150 ft (QC): 6 PT Plan Problem List Problem List: Activity Tolerance, Functional Strength, Safety, Balance, Gait, Transfer, Bed Mobility, ROM Treatment/Plan Treatment Plan: Continue Plan of Care Treatment Plan: Bed Mobility, Education, Functional Activity Shannon, Functional Strength, Gait, Safety, Therapeutic Exercise, Transfers Treatment Duration: Jun 15, 2022 Frequency: 6 times per week Estimated Hrs Per Day: .25 hour per day Patient and/or Family Agrees t: Yes Safety Risks/Education Patient Education: Gait Training, Transfer Techniques, Correct Positioning, Safety Issues Teaching Recipient: Patient Teaching Methods: Demonstration, Discussion Response to Teaching: Reinforcement Needed Time Time In: 804 Time Out: 819 DATE: Jun 11, 2022 Total Billed Treatment Time: 15 Total Billed Treatment 1 visit FA 15CASS SAEED PT Jun 11, 2022 08:50
[2022-06-11] MEDS: SPIRONOLACTONE 25 MG (ALDACTONE) TAB PO SCH (09:16)
[2022-06-11] MEDS: FUROSEMIDE 40 MG (LASIX) TAB PO SCH (09:16)
[2022-06-11] MEDS: SACUBITRIL/VALSARTAN 24/26 MG (ENTRESTO) TABLET PO SCH ×2 (09:16→20:19)
[2022-06-11] MEDS: SENNOSIDES 8.6 MG (SENOKOT) TAB PO SCH ×2 (09:16→20:20)
[2022-06-11] MEDS: DOCUSATE SODIUM 100 MG (COLACE) CAP PO SCH ×2 (09:16→20:20)
[2022-06-11] MEDS: EMPAGLIFLOZIN 10 MG TABLET (JARDIANCE) PO SCH (09:16)
[2022-06-11] MEDS: APIXABAN 5 MG (ELIQUIS) TABLET PO SCH ×2 (09:20→20:19)
[2022-06-11] MEDS: ASPIRIN 81 MG CHEW (CHILDREN'S ASA) PO SCH (09:20)
[2022-06-11] MEDS ORDERED: NS IV 1000 ML 0 ML ONE (11:48)
[2022-06-11] MEDS ORDERED: HEParin (CATH LAB) 0 ML IV ONE (11:48)
[2022-06-11] MEDS ORDERED: LIDOCAINE 1% INJ 30 ML (XYLOCAINE) VIAL ONE (11:48)
--- NOTE | 2022-06-11 12:59 | Progress Note - Cardiology ---
Cardiology SOAP Progress Note Subjective: No cp or palp or syncope No n/v/d Shortness of breath improving Gen malaise improving No focal weakness Objective: I&O/Vital Signs 06/11/22 06/11/22 06/11/22 06/11/22 01:00 02:33 04:38 06:55 Temp 36.3 Pulse 80 73 Resp 16 B/P (MAP) 137/85 (102) Pulse Ox 94 96 96 O2 Delivery Nasal Cannula High Flow N/C Nasal Cannula O2 Flow Rate 2.00 2.00 2.00 06/11/22 06/11/22 06/11/22 06/11/22 07:26 08:00 08:00 11:23 Temp 36.4 36.7 Pulse 81 74 79 Resp 16 20 B/P (MAP) 121/84 (96) 136/83 (100) Pulse Ox 97 98 O2 Delivery Nasal Cannula Nasal Cannula Nasal Cannula O2 Flow Rate 2.00 2.00 2.00 06/11/22 00:00 Intake Total 1250 ml Output Total 1125 ml Balance 125 ml Weight (Pounds): 174 Weight (Calculated Kilograms): 78.140808 Constitutional: AAO x 3, well-developed, well-nourished Respiratory: No accessory muscle use, No respiratory distress; chest expansion is symmetric, chest is bilaterally symmetric, rhonchi (scattered), other (diminished lower lobes bilat) Cardiovascular: regular rate-rhythm; No JVD; S1 and S2 Gastrointestional: No tender; soft, other (abdominal hernia) Extremities: swelling (mild, bilateral leg edema) Neurologic/Psychiatric: oriented x 3, other (moves all limbs equally) Skin: normal color, warm/dry; No cyanosis, No cool, No diaphoresis, No rash on exposed areas, No ulcerations on exposed areas Results/Procedures: Labs Laboratory Tests 06/10/22 15:47: Glucometer 137H 06/10/22 20:16: Glucometer 193H 06/11/22 05:19: White Blood Count 4.5, Red Blood Count 4.90, Hemoglobin 12.5L, Hematocrit 40, Mean Corpuscular Volume 81, Mean Corpuscular Hemoglobin 26, Mean Corpuscular Hemoglobin Concent 31L, Red Cell Distribution Width 17.2H, Platelet Count 232, Mean Platelet Volume 11.8, Immature Granulocyte % (Auto) 0, Neutrophils (%) (Auto) 52, Lymphocytes (%) (Auto) 34, Monocytes (%) (Auto) 9, Eosinophils (%) ( Auto) 4, Basophils (%) (Auto) 1, Neutrophils # (Auto) 2.4, Lymphocytes # (Auto) 1.5, Monocytes # (Auto) 0.4, Eosinophils # (Auto) 0.2, Basophils # (Auto) 0.0, Immature Granulocyte # (Auto) 0.0, Sodium Level 137, Potassium Level 4.2, Chloride Level 104, Carbon Dioxide Level 22, Anion Gap 11, Blood Urea Nitrogen 31H, Creatinine 1.42H, Estimat Glomerular Filtration Rate 54, BUN/Creatinine Ratio 22, Glucose Level 127H, Calcium Level 8.7, Corrected Calcium 9.7, Total Bilirubin 0.5, Aspartate Amino Transf (AST/SGOT) 39H, Alanine Aminotransferase (ALT/SGPT) 51, Alkaline Phosphatase 142H, Total Protein 6.1L, Albumin 2.8L 06/11/22 10:43: Glucometer 232H Laboratory Tests 06/10/22 05:23 06/11/22 05:19 A/P: Assessment: Acute on chronic systolic CHF ICM - Echocardiogram of 06-08-22 showed LVEF 20-25%. Severe diffuse hypokinesis. Mod MR. Mod right sided pleural effusion. PASP 45-50 mmHg Prerenal azotemia due to diuretic therapy - diuretics reduced beginning 06/11/22 CAD - Reported Hx of [place] with stent placement done in [place] in 2003 - exact details unknown Acute on chronic exacerbation of COPD LLOYD - CPAP tx Reports "blood clot in his kidney and heart" dx 2 weeks ago during a hospitalization at [facility] - a-fib suspected - has been on Eliquis Hypertension Hyperlipidemia Diabetes H/O colon resection d/t diverticulitis H/O HIV (+) Plan: * continue to titrate heart failure meds as tolerated * diuretics reduced due to developing pre-renal azotemia due to vol depletion * continue antiplatelet therapy because of h/o CAD * continue OAC because he is reporting he has a "blood clot in his heart and kidney" dx at [facility] in mid May 2022 - suspect P a-fib * LifeVest * monitor labs * plan cath for tomorrow 06/12/22. I discussed the rationale, procedure, risks, benefits, potential complications, and alternatives of card cath and possible ad hoc PCI with him in detail and answered questions. He understands and is willing to proceed KARLA COPELAND MD [facility] CCDS Jun 11, 2022 12:59
--- NOTE | 2022-06-11 20:14 | Progress Note ---
Subjective Subjective/Events-last exam Pt states he is feeling okay, denies concerns. Objective Exam Last Set of Vital Signs Vital Signs Date Time Temp Pulse Resp B/P (MAP) Pulse Ox O2 Delivery O2 Flow Rate FiO2 06/11/22 20:08 36.2 81 23 131/84 (100) 95 Nasal Cannula 2.00 06/09/22 08:00 97 Capillary Refill : Less Than 3 Seconds I&O Intake and Output 06/11/22 00:00 Intake Total 1370 ml Output Total 1525 ml Balance -155 ml Intake Oral 1370 ml Output Urine Total 1525 ml General: Alert, No Acute Distress Lungs: Clear to Auscultation Heart: Regular Rate Extremities: Other (1+ pitting edema bilateral legs to mid-calf) Psych/Mental Status: Mental Status NL Results/Procedures Lab Laboratory Tests 06/10/22 20:16: Glucometer 193H 06/11/22 05:19: White Blood Count 4.5, Red Blood Count 4.90, Hemoglobin 12.5L, Hematocrit 40, Mean Corpuscular Volume 81, Mean Corpuscular Hemoglobin 26, Mean Corpuscular Hemoglobin Concent 31L, Red Cell Distribution Width 17.2H, Platelet Count 232, Mean Platelet Volume 11.8, Immature Granulocyte % (Auto) 0, Neutrophils (%) (Auto) 52, Lymphocytes (%) (Auto) 34, Monocytes (%) (Auto) 9, Eosinophils (%) (Auto) 4, Basophils (%) (Auto) 1, Neutrophils # (Auto) 2.4, Lymphocytes # (Auto) 1.5, Monocytes # (Auto) 0.4, Eosinophils # (Auto) 0.2, Basophils # (Auto) 0.0, Immature Granulocyte # (Auto) 0.0, Sodium Level 137, Potassium Level 4.2, Chloride Level 104, Carbon Dioxide Level 22, Anion Gap 11, Blood Urea Nitrogen 31H, Creatinine 1.42H, Estimat Glomerular Filtration Rate 54, BUN/Creatinine Ratio 22, Glucose Level 127H, Calcium Level 8.7, Corrected Calcium 9.7, Total B ilirubin 0.5, Aspartate Amino Transf (AST/SGOT) 39H, Alanine Aminotransferase (ALT/SGPT) 51, Alkaline Phosphatase 142H, Total Protein 6.1L, Albumin 2.8L 06/11/22 10:43: Glucometer 232H 06/11/22 15:50: Glucometer 89 Radiology NAME: JEAN PIERRE MIDDLETON JR [facility] REC#: [id number] PT STATUS: REG ER : 1955 PHYSICIAN: JADEN ROTH APRN ADMIT DATE: 06/07/22/ER Signed Date of Exam:06/07/22 CHEST 1 VIEW, AP/PA ONLY INDICATION: Dyspnea AP view of the chest is obtained with comparison made to study of 07/07/2020. Heart size at the upper limits normal. There is pulmonary venous congestion with increased bilateral perihilar density which may represent mild pulmonary edema. No pneumothorax or significant pleural fluid is identified. IMPRESSION: Findings suggest probable mild congestive heart failure and central pulmonary edema without pneumothorax or consolidation detected. Dictated by: Dictated on workstation # [id number] Dict: 06/07/22 1801 Trans: 06/07/22 1840 CVB [id number] Interpreted by: SCOTT LARIOS MD Electronically signed by: SCOTT LARIOS MD 06/07/22 1840 Assessment/Plan Assessment/Plan Assessment & Plan Acute on chronic systolic CHF- Cardiology consulted, appreciate recommendations. Echo 06/08/22 with EF 20-25%. Plan for cath tomorrow. Acute kidney injury- suspect secondary to diuretics, decreased 06/11 per Cardiology CAD- reported history of stent placement, continue aspirin COPD- duonebs HIV- on Biktarvy LLOYD Hypertension- hold home amlodipine, olmesartan/HCTZ; started on sacubatril/valsartan for CHF, continue carvedilol Hyperlipidemia- resume home atorvastatin Diabetes- hold home insulin and dulaglutide, started on empagliflozin for CHF, sliding scale insulin and diabetic diet. DVT ppx- apixaban KARTHIK GARNETT MD Jun 11, 2022 20:14
[2022-06-12] VITALS (25 sets, daily range): BP systolic 103–140; BP diastolic 20–99
[2022-06-12 04:54] LABS: BASOPHILS % (AUTO) 1 % (0-10); EOSINOPHILS # (AUTO) 0.1 10^3/uL (0.0-0.3); EOSINOPHILS % (AUTO) 3 % (0-10); HEMATOCRIT 42 % (40-54); HEMOGLOBIN 12.7 g/dL (13.3-17.7); LYMPHOCYTES # (AUTO) 1.8 10^3/uL (1.0-4.0); LYMPHOCYTES % (AUTO) 37 % (12-44); MEAN CORPUSCULAR HEMOGLOBIN 25 pg (25-34); MEAN CORPUSCULAR HGB CONC 30 g/dL (32-36); MEAN CORPUSCULAR VOLUME 82 fL (80-99); MEAN PLATELET VOLUME 11.9 fL (9.0-12.2); MONOCYTES # (AUTO) 0.5 10^3/uL (0.0-1.0); MONOCYTES % (AUTO) 10 % (0-12); NEUTROPHILS # (AUTO) 2.4 10^3/uL (1.8-7.8); NEUTROPHILS % (AUTO) 49 % (42-75); PLATELET COUNT 243 10^3/uL (130-400); WHITE BLOOD COUNT 4.9 10^3/uL (4.3-11.0)
[2022-06-12 05:04] LABS: ALBUMIN 2.9 GM/DL (3.2-4.5)
[2022-06-12 05:05] LABS: POTASSIUM 4.7 MMOL/L (3.6-5.0)
[2022-06-12 05:06] LABS: CALCIUM 8.5 MG/DL (8.5-10.1)
[2022-06-12 05:07] LABS: TOTAL PROTEIN 6.3 GM/DL (6.4-8.2)
[2022-06-12 05:09] LABS: BILIRUBIN,TOTAL 0.4 MG/DL (0.1-1.0)
[2022-06-12 05:11] LABS: CREATININE SERUM 1.39 MG/DL (0.60-1.30)
[2022-06-12] MEDS: inSUlin ASPART (NovoLOG) 1 UNIT/0.01 ML (CHARGE PER UNIT) SC SCH ×4 (06:43→20:29)
[2022-06-12] MEDS: KCL 10 MEQ TAB (MICRO K) PO SCH (06:44)
[2022-06-12] MEDS ORDERED: NON-FORMULARY MEDICATION 1 EA EA (Bictegrav/Emtricit/Tenofov Ala (Biktarvy 50-200-25 mg Ta PO SCH (09:00)
[2022-06-12] MEDS: RT-ALBUTEROL/IPRATROPIUM 3 ML (DUONEB) VIAL INH SCH ×2 (09:20→21:18)
--- NOTE | 2022-06-12 09:20 | Physical Therapy Daily Note ---
PT Daily Note-Current Subjective Patient in bed pre-tx, reports no pain, agrees to PT. Pain Section J - Health Conditions 1. Rarely or not at all 2. Occasionally 3. Frequently 4. Almost constantly 8. Unable to answer Pain Effect on Sleep: 2 Pain Interference with Therapy: 2 Pain Interference w/Day-to-Day: 2 Appearance Patient in bed post-tx with family in room, nurse call, phone, tray, all needs met. Mental Status Patient Orientation: Person, Place, Situation Attachments: Oxygen Transfers SCALE: Activities may be completed with or without assistive devices. 4-Btybrloros-nsxnvxf completes the activity by him/herself with no assistance from a helper. 5-Set-up or Clean-up Assistance-helper sets up or cleans up; patient completes activity. [place] assists only prior to or following the activity. 4-Supervision or Touching Assistance-helper provides verbal cues and/or touching/steadying and/or contact guard assistance as patient completes activity. Assistance may be provided throughout the activity or intermittently. 3-Partial/Moderate Assistance-helper does LESS THAN HALF the effort. [place] lifts, holds or supports trunk or limbs, but provides less than half the effort. 2-Substantial/Maximal Assistance-helper does MORE THAN HALF the effort. [place] lifts or holds trunk or limbs and provides more than half the effort. 5-Mksrkndfw-frajgg does ALL the effort. Patient does none of the effort to complete the activity. Or, the assistance of 2 or more helpers is required for the patient to complete the activity. If activity was not attempted, code reason: 7-Patient Refused. 9-Not Applicable-not attempted and the patient did not perform the activity before the current illness, exacerbation or injury. 10-Not Attempted due to Environmental Limitations-(lack of equipment, weather restraints, etc.). 88-Not Attempted due to Medical Conditions or Safety Concerns. Roll Left & Right (QC): 4 Sit to Lying (QC): 4 Lying to Sitting/Side of Bed(Q: 4 Sit to Stand (QC): 4 Chair/Teq-yp-Frsds Xfer(QC): 4 SBA Weight Bearing Right Lower Extremity: Right Full Weight Bearing Left Lower Extremity: Left Full Weight Bearing Gait Training Does the Patient Walk?: Yes Distance: 200' Walk 10 feet (QC): 4 Walk 50 ft with 2 Turns(QC): 4 Walk 150 ft (QC): 4 Gait Persons Needed: 1 Gait Assistive Device: FWW SBA, patient continues to walk steady without needing a break. He still gets SOB by the time we get back to the room. Exercises Seated Therapy Exercises: Ankle pumps, Long arc quads, Hip flexion, Hip abd/add (manual resistance), Glut set Seated Reps: 20 Treatments Ambulation, LE Strengthening Assessment Current Status: Fair Progress Patient able to get up out of bed by himself and is aware off all his lines. He walks steady and demonstrates better endurance. Patient still gets SOB, but O2 stays in mid 90s. Patient needed to use hand-held urinal before ambulation. PT Balance Wheel Motion Inspector Goals Balance Wheel Motion Inspector Goals PT Usp Goals Time Frame: Jun 15, 2022 Roll Left & Right (QC): 6 Sit to Lying (QC): 6 Lying-Sitting on Side/Bed(QC): 6 Sit to Stand (QC): 6 Chair/Pam-rm-Horbw Xfer(QC): 6 Toilet Transfer (QC): 6 Does the Patient Walk: Yes Walk 10 feet (QC): 6 Walk 50ft with 2 Turns (QC): 6 Walk 150 ft (QC): 6 PT Plan Problem List Problem List: Activity Tolerance, Functional Strength, Safety, Balance, Gait, Transfer, Bed Mobility, ROM Treatment/Plan Treatment Plan: Continue Plan of Care Treatment Plan: Bed Mobility, Education, Functional Activity Shannon, Functional Strength, Gait, Safety, Therapeutic Exercise, Transfers Treatment Duration: Jun 15, 2022 Frequency: 6 times per week Estimated Hrs Per Day: .25 hour per day Patient and/or Family Agrees t: Yes Safety Risks/Education Patient Education: Gait Training, Transfer Techniques, Correct Positioning, Safety Issues Teaching Recipient: Patient Teaching Methods: Demonstration, Discussion Response to Teaching: Reinforcement Needed Time Time In: 852 Time Out: 911 DATE: Jun 12, 2022 Total Billed Treatment Time: 19 Total Billed Treatment 1 visit FA Abundio' CASS MENDENHALL PT Jun 12, 2022 09:20
[2022-06-12] MEDS: EMPAGLIFLOZIN 10 MG TABLET (JARDIANCE) PO SCH (09:32)
[2022-06-12] MEDS: SENNOSIDES 8.6 MG (SENOKOT) TAB PO SCH ×2 (09:32→20:12)
[2022-06-12] MEDS: SERTRALINE 100 MG (ZOLOFT) TAB PO SCH (09:32)
[2022-06-12] MEDS: SACUBITRIL/VALSARTAN 24/26 MG (ENTRESTO) TABLET PO SCH ×2 (09:32→20:12)
[2022-06-12] MEDS: FUROSEMIDE 40 MG (LASIX) TAB PO SCH (09:32)
[2022-06-12] MEDS: SPIRONOLACTONE 25 MG (ALDACTONE) TAB PO SCH (09:32)
[2022-06-12] MEDS: ASPIRIN 81 MG CHEW (CHILDREN'S ASA) PO SCH (09:32)
[2022-06-12] MEDS: APIXABAN 5 MG (ELIQUIS) TABLET PO SCH ×2 (09:33→20:12)
[2022-06-12] MEDS: DOCUSATE SODIUM 100 MG (COLACE) CAP PO SCH ×2 (09:33→20:12)
[2022-06-12] MEDS ORDERED: HEParin (CATH LAB) 2,000 ML IV ONE (10:24)
[2022-06-12] MEDS ORDERED: LIDOCAINE 1% INJ 30 ML (XYLOCAINE) VIAL ONE (10:24)
[2022-06-12] MEDS ORDERED: fentaNYL INJ 100 MCG/2 ML AMP ONE (10:25)
[2022-06-12] MEDS ORDERED: MIDAZOLAM 5 MG/5 ML (VERSED) VIAL ONE (10:26)
[2022-06-12] MEDS ORDERED: NS IV 1000 ML 1,000 ML ONE (10:26)
[2022-06-12] MEDS ORDERED: HEParin 1000 UNIT/ML (10ML VIAL) FOR BOLUS ONE (11:17)
--- NOTE | 2022-06-12 11:59 | Progress Note - Cardiology ---
Cardiology SOAP Progress Note Subjective: Gen weakness and malaise No focal weakness No n/v/d No cp or syncope or palp No swelling Objective: I&O/Vital Signs 06/12/22 06/12/22 06/12/22 06/12/22 00:00 00:08 01:00 04:00 Temp 36.1 Pulse 84 83 78 Resp 36 19 B/P (MAP) 114/78 (90) 130/99 (109) Pulse Ox 95 97 O2 Delivery Nasal Cannula Nasal Cannula O2 Flow Rate 2.00 2.00 06/12/22 06/12/22 06/12/22 06/12/22 04:00 07:00 07:37 07:39 Temp 36.3 36.0 Pulse 72 74 72 Resp 20 16 B/P (MAP) 127/85 (99) 127/85 (99) Pulse Ox 98 97 O2 Delivery Nasal Cannula Nasal Cannula O2 Flow Rate 2.00 2.00 06/12/22 06/12/22 06/12/22 08:00 09:20 09:20 Pulse 75 Resp 39 B/P (MAP) 134/94 (107) Pulse Ox 95 95 O2 Delivery Nasal Cannula Nasal Cannula Nasal Cannula O2 Flow Rate 2.00 2.00 2.00 06/11/22 23:59 Intake Total 1550 ml Output Total 2500 ml Balance -950 ml Weight (Pounds): 174 Weight (Calculated Kilograms): 78.388472 Constitutional: AAO x 3, well-developed, well-nourished Respiratory: No accessory muscle use, No respiratory distress; chest expansion is symmetric, chest is bilaterally symmetric, rhonchi (scattered), other (diminished lower lobes bilat) Cardiovascular: regular rate-rhythm; No JVD; S1 and S2 Gastrointestional: No tender; soft, other (abdominal hernia) Extremities: swelling (mild, bilateral leg edema) Neurologic/Psychiatric: oriented x 3, other (moves all limbs equally) Skin: normal color, warm/dry; No cyanosis, No cool, No diaphoresis, No rash on exposed areas, No ulcerations on exposed areas Results/Procedures: Labs Laboratory Tests 06/11/22 15:50: Glucometer 89 06/11/22 20:43: Glucometer 206H 06/12/22 04:36: White Blood Count 4.9, Red Blood Count 5.11, Hemoglobin 12.7L, Hematocrit 42, Mean Corpuscular Volume 82, Mean Corpuscular Hemoglobin 25, Mean Corpuscular Hemoglobin Concent 30L, Red Cell Distribution Width 17.8H, Platelet Count 243, Mean Platelet Volume 11.9, Immature Granulocyte % (Auto) 0, Neutrophils (%) (Auto) 49, Lymphocytes (%) (Auto) 37, Monocytes (%) (Auto) 10, Eosinophils (%) (Auto) 3, Basophils (%) (Auto) 1, Neutrophils # (Auto) 2.4, Lymphocytes # (Auto) 1.8, Monocytes # (Auto) 0.5, Eosinophils # (Auto) 0.1, Basophils # (Auto) 0.0, Immature Granulocyte # (Auto) 0.0, Sodium Level 136, Potassium Level 4.7, Chloride Level 103, Carbon Dioxide Level 22, Anion Gap 11, Blood Urea Nitrogen 32H, Creatinine 1.39H, Estimat Glomerular Filtration Rate 56, BUN/Creatinine Ratio 23, Glucose Level 127H, Calcium Level 8.5, Corrected Calcium 9.4, Total Bilirubin 0.4, Aspartate Amino Transf (AST/SGOT) 37H, Alanine Aminotransferase (ALT/SGPT) 43, Alkaline Phosphatase 132, Total Protein 6.3L, Albumin 2.9L A/P: Assessment: Acute on chronic systolic CHF ICM - Echocardiogram of 06-08-22 showed LVEF 20-25%. Severe diffuse hypokinesis. Mod MR. Mod right sided pleural effusion. PASP 45-50 mmHg - Card cath on 06-12-22: LMCA ok, patent stent in prox LAD with 50% stenosis prior the the stent across which iFR is 0.92, LCX ok, RCA dominant with 60% distal stenosis across which iFR is 0.95, LVEDP 15 mmHg Prerenal azotemia due to diuretic therapy - diuretics reduced beginning 06/11/22 CAD - Reported Hx of [place] with stent placement done in [place] in 2003 - exact details unknown Acute on chronic exacerbation of COPD LLOYD - CPAP tx Reports "blood clot in his kidney and heart" dx 2 weeks ago during a hospitalization at [facility] - a-fib suspected - has been on Eliquis Hypertension Hyperlipidemia Diabetes H/O colon resection d/t diverticulitis H/O HIV (+) Plan: * continue to titrate heart failure meds as tolerated * diuretics reduced due to developing pre-renal azotemia due to vol depletion * continue antiplatelet therapy because of h/o CAD * continue OAC because he is reporting he has a "blood clot in his heart and kidney" dx at [facility] in mid May 2022 - suspect P a-fib * LifeVest * monitor labs * cath findings described above KARLA COPELAND MD FACP FAC CCDS Jun 12, 2022 11:59
[2022-06-12] MEDS ORDERED: PATIENT MAY USE OWN MEDS, ALL PO SCH (12:15)
[2022-06-12] MEDS ORDERED: ATROPINE INJECTION 1 MG/10 ML SYR (ABBOTT) ONE (12:53)
[2022-06-12] MEDS: NS IV 1000 ML 1,000 ML IV SCH ×2 (13:58→23:32)
--- NOTE | 2022-06-12 14:23 | CARDIAC CATHETERIZATION ---
DATE OF SERVICE: 06/12/2022 CARDIAC CATHETERIZATION INDICATION: The patient is a 67-year-old gentleman who was admitted with decompensated congestive heart failure and was diagnosed with dilated cardiomyopathy with marked impairment of global left ventricular systolic function. Heart failure medications were initiated and adjusted. Cardiac catheterization was carried out today after having obtained informed consent DESCRIPTION OF PROCEDURE: The patient was brought to the cardiac catheterization laboratory in a fasting state. Right groin was prepared and draped in the usual sterile fashion. A 1% lidocaine used for local anesthesia. Modified Seldinger technique was used to advance a 5-American sheath in the right femoral artery, 5-American JL4 catheter was used for left coronary angiography, 5-American JR4 catheter for right coronary artery, 5-American pigtail catheter was used for left heart catheterization. Left ventricular angiography was not performed. This was to conserve contrast because the patient's baseline creatinine was 1.39 with an estimated GFR of 56. We then proceeded with IFR measurements in the left anterior descending and the right coronary arteries. This is described below. This was carried out after having pulled back the pigtail catheter from the left ventricle and having removed it. IFR measurement in the left anterior descending: We exchanged the sheath over a wire for a 6-American sheath. We used a 6-American L4 guide catheter to engage the left coronary artery. We gave 5000 units of intravenous heparin. An IFR wire was advanced across the proximal lesion in the left anterior descending and the tip was placed in the distal vessel. IFR across the 50% proximal lesion was 0.92. The guide and the wire were removed. IFR measurement of the right coronary: Right coronary artery is dominant. It had approximately 60% stenosis in its distal portion. We used a 6-American JR4 guide catheter to engage the right coronary artery and advanced an IFR wire across the lesion. IFR was measured to be 0.95. The wire and the catheter was then removed. Angiography of the right femoral artery was carried out through the sheath. Manual pressure was used to achieve hemostasis. HEMODYNAMICS: Left ventricular end diastolic pressure, following coronary angiography was 15 mmHg. There is no significant pressure gradient on pullback across the aortic valve. CORONARY ANGIOGRAPHY: Left main coronary artery is free of significant disease. Left anterior descending artery is widely patent in its proximal portion and there is approximately 50% stenosis proximal to the proximal edge of the stent and IFR across this is 0.92, indicating hemodynamically nonsignificance. The left circumflex artery is nondominant and does not exhibit significant disease. Right coronary artery is dominant and has 60% distal stenosis. IFR across this lesion is 0.95 indicating hemodynamically nonsignificance. CONCLUSIONS - CAD: LMCA ok, LAD has widely patent in its proximal portion and there is approximately 50% stenosis proximal to the proximal edge of the stent and IFR across this is 0.92, indicating hemodynamically nonsignificance. The left circumflex artery is nondominant and does not exhibit significant disease. Right coronary artery is dominant and has 60% distal stenosis and IFR across this lesion is 0.95 indicating hemodynamically nonsignificance. - Left ventricular end-diastolic pressure is 15 mmHg. Job ID: [id number] DocumentID: [id number] Dictated Date: 06/12/2022 12:04:01 Store Leader Date: 06/12/2022 14:21:00 Dictated By: KARLA COPELAND MD; OLIVIA; FERNANDOP; FACC; ANGEL
--- NOTE | 2022-06-12 22:03 | Progress Note ---
Subjective Subjective/Events-last exam Pt seen at 1610, reports feeling okay, hopeful to go home soon. He doesn't know results of cath yet. Objective Exam Last Set of Vital Signs Vital Signs Date Time Temp Pulse Resp B/P (MAP) Pulse Ox O2 Delivery O2 Flow Rate FiO2 06/12/22 21:18 97 Nasal Cannula 1.00 06/12/22 20:00 77 8 131/77 (95) 06/12/22 19:36 36.0 06/09/22 08:00 97 Capillary Refill : Less Than 3 Seconds I&O Intake and Output 06/12/22 00:00 Intake Total 1550 ml Output Total 2750 ml Balance -1200 ml Intake Oral 1550 ml Output Urine Total 2750 ml General: Alert, No Acute Distress Lungs: Clear to Auscultation Heart: Regular Rate Neuro: Normal Speech Results/Procedures Lab Laboratory Tests 06/12/22 04:36: White Blood Count 4.9, Red Blood Count 5.11, Hemoglobin 12.7L, Hematocrit 42, Mean Corpuscular Volume 82, Mean Corpuscular Hemoglobin 25, Mean Corpuscular Hemoglobin Concent 30L, Red Cell Distribution Width 17.8H, Platelet Count 243, Mean Platelet Volume 11.9, Immature Granulocyte % (Auto) 0, Neutrophils (%) (Aut o) 49, Lymphocytes (%) (Auto) 37, Monocytes (%) (Auto) 10, Eosinophils (%) (Auto) 3, Basophils (%) (Auto) 1, Neutrophils # (Auto) 2.4, Lymphocytes # (Auto) 1.8, Monocytes # (Auto) 0.5, Eosinophils # (Auto) 0.1, Basophils # (Auto) 0.0, Immature Granulocyte # (Auto) 0.0, Sodium Level 136, Potassium Level 4.7, Chloride Level 103, Carbon Dioxide Level 22, Anion Gap 11, Blood Urea Nitrogen 32H, Creatinine 1.39H, Estimat Glomerular Filtration Rate 56, BUN/Creatinine Ratio 23, Glucose Level 127H, Calcium Level 8.5, Corrected Calcium 9.4, Total Bilirubin 0.4, Aspartate Amino Transf (AST/SGOT) 37H, Alanine Aminotransferase (ALT/SGPT) 43, Alkaline Phosphatase 132, Total Protein 6.3L, Albumin 2.9L 06/12/22 16:04: Glucometer 108 06/12/22 20:16: Glucometer 96 Microbiology 06/11/22 MRSA Screen - Final, Complete MRSA not isolated Radiology NAME: JEAN PIERRE MIDDLETON [facility] REC#: [id number] PT STATUS: REG ER : 1955 PHYSICIAN: JADEN ROTH APRN ADMIT DATE: 06/07/22/ER Signed Date of Exam:06/07/22 CHEST 1 VIEW, AP/PA ONLY INDICATION: Dyspnea AP view of the chest is obtained with comparison made to study of 07/07/2020. Heart size at the upper limits normal. There is pulmonary venous congestion with increased bilateral perihilar density which may represent mild pulmonary edema. No pneumothorax or significant pleural fluid is identified. IMPRESSION: Findings suggest probable mild congestive heart failure and central pulmonary edema without pneumothorax or consolidation detected. Dictated by: Dictated on workstation # [id number] Dict: 06/07/22 1801 Trans: 06/07/22 1840 CVB [id number] Interpreted by: SCOTT LARIOS MD Electronically signed by: SCOTT LARIOS MD 06/07/22 1840 Assessment/Plan Assessment/Plan Assessment & Plan Acute on chronic systolic CHF- Cardiology consulted, appreciate recommendations. Echo 06/08/22 with EF 20-25%. Cath today. Acute kidney injury- suspect secondary to diuretics, decreased 06/11 per Cardiology CAD- reported history of stent placement, continue aspirin COPD- duonebs HIV- on Biktarvy LLOYD Hypertension- hold home amlodipine, olmesartan/HCTZ; started on sacubatril/valsartan for CHF, continue carvedilol Hyperlipidemia- resume home atorvastatin Diabetes- hold home insulin and dulaglutide, started on empagliflozin for CHF, sliding scale insulin and diabetic diet. DVT ppx- apixaban KARTHIK GARNETT MD Jun 12, 2022 22:03
[2022-06-13] VITALS (10 sets, daily range): BP systolic 101–131; BP diastolic 60–84
[2022-06-13 05:06] LABS: BASOPHILS % (AUTO) 1 % (0-10); EOSINOPHILS # (AUTO) 0.1 10^3/uL (0.0-0.3); EOSINOPHILS % (AUTO) 3 % (0-10); HEMATOCRIT 38 % (40-54); HEMOGLOBIN 11.6 g/dL (13.3-17.7); LYMPHOCYTES # (AUTO) 1.1 10^3/uL (1.0-4.0); LYMPHOCYTES % (AUTO) 25 % (12-44); MEAN CORPUSCULAR HEMOGLOBIN 25 pg (25-34); MEAN CORPUSCULAR HGB CONC 30 g/dL (32-36); MEAN CORPUSCULAR VOLUME 83 fL (80-99); MEAN PLATELET VOLUME 11.4 fL (9.0-12.2); MONOCYTES # (AUTO) 0.4 10^3/uL (0.0-1.0); MONOCYTES % (AUTO) 9 % (0-12); NEUTROPHILS # (AUTO) 2.7 10^3/uL (1.8-7.8); NEUTROPHILS % (AUTO) 62 % (42-75); PLATELET COUNT 217 10^3/uL (130-400); WHITE BLOOD COUNT 4.4 10^3/uL (4.3-11.0)
[2022-06-13 05:19] LABS: ALBUMIN 2.7 GM/DL (3.2-4.5)
[2022-06-13 05:20] LABS: POTASSIUM 4.6 MMOL/L (3.6-5.0)
[2022-06-13 05:21] LABS: CALCIUM 8.2 MG/DL (8.5-10.1)
[2022-06-13 05:22] LABS: TOTAL PROTEIN 5.8 GM/DL (6.4-8.2)
[2022-06-13 05:24] LABS: BILIRUBIN,TOTAL 0.5 MG/DL (0.1-1.0)
[2022-06-13 05:26] LABS: CREATININE SERUM 1.26 MG/DL (0.60-1.30)
[2022-06-13] MEDS: inSUlin ASPART (NovoLOG) 1 UNIT/0.01 ML (CHARGE PER UNIT) SC SCH ×3 (05:35→18:31)
[2022-06-13] MEDS: KCL 10 MEQ TAB (MICRO K) PO SCH (06:03)
[2022-06-13] MEDS: SENNOSIDES 8.6 MG (SENOKOT) TAB PO SCH (08:00)
[2022-06-13] MEDS: DOCUSATE SODIUM 100 MG (COLACE) CAP PO SCH (08:00)
[2022-06-13] MEDS: ASPIRIN 81 MG CHEW (CHILDREN'S ASA) PO SCH (08:17)
[2022-06-13] MEDS: EMPAGLIFLOZIN 10 MG TABLET (JARDIANCE) PO SCH (08:17)
[2022-06-13] MEDS: SACUBITRIL/VALSARTAN 24/26 MG (ENTRESTO) TABLET PO SCH ×2 (08:17→19:48)
[2022-06-13] MEDS: SERTRALINE 100 MG (ZOLOFT) TAB PO SCH (08:17)
[2022-06-13] MEDS: SPIRONOLACTONE 25 MG (ALDACTONE) TAB PO SCH (08:17)
[2022-06-13] MEDS: FUROSEMIDE 40 MG (LASIX) TAB PO SCH (08:18)
[2022-06-13] MEDS: APIXABAN 5 MG (ELIQUIS) TABLET PO SCH (08:18)
[2022-06-13] MEDS: RT-ALBUTEROL/IPRATROPIUM 3 ML (DUONEB) VIAL INH SCH (08:27)
--- NOTE | 2022-06-13 09:32 | Physical Therapy Daily Note ---
PT Daily Note-Current Subjective Pt laying Supine in bed receiving breathing tx upon arrival. Pt agrees to PT for amb. Pain Location: No Pain Reported Section J - Health Conditions 1. Rarely or not at all 2. Occasionally 3. Frequently 4. Almost constantly 8. Unable to answer Pain Effect on Sleep: 2 Pain Interference with Therapy: 2 Pain Interference w/Day-to-Day: 2 Mental Status Patient Orientation: Person, Place, Time, Situation Attachments: Oxygen Transfers SCALE: Activities may be completed with or without assistive devices. 9-Ggsawcuida-gfpygzr completes the activity by him/herself with no assistance from a helper. 5-Set-up or Clean-up Assistance-helper sets up or cleans up; patient completes activity. Mineral assists only prior to or following the activity. 4-Supervision or Touching Assistance-helper provides verbal cues and/or touching/steadying and/or contact guard assistance as patient completes activity. Assistance may be provided throughout the activity or intermittently. 3-Partial/Moderate Assistance-helper does LESS THAN HALF the effort. Mineral lifts, holds or supports trunk or limbs, but provides less than half the effort. 2-Substantial/Maximal Assistance-helper does MORE THAN HALF the effort. Mineral lifts or holds trunk or limbs and provides more than half the effort. 9-Raqnqbskm-aeifsu does ALL the effort. Patient does none of the effort to complete the activity. Or, the assistance of 2 or more helpers is required for the patient to complete the activity. If activity was not attempted, code reason: 7-Patient Refused. 9-Not Applicable-not attempted and the patient did not perform the activity before the current illness, exacerbation or injury. 10-Not Attempted due to Environmental Limitations-(lack of equipment, weather restraints, etc.). 88-Not Attempted due to Medical Conditions or Safety Concerns. Sit to Lying (QC): 6 Lying to Sitting/Side of Bed(Q: 6 Sit to Stand (QC): 6 Weight Bearing Right Lower Extremity: Right Full Weight Bearing Left Lower Extremity: Left Full Weight Bearing Gait Training Does the Patient Walk?: Yes Distance: 125', 100' Walk 10 feet (QC): 5 Walk 50 ft with 2 Turns(QC): 5 Walk 150 ft (QC): 5 Gait Assistive Device: FWW SBA, ERRAND RUNNER management of O2 bottle. Pt takes a few standing RB due to SOA. Wheelchair Training Does the Pt Use a Wheelchair?: No Treatments TF to EOB and uses urinal then TF to standing and amb. in hallway w/few standing RB. Pt returns to room to rest Supine in bed. All needs met, call light in restrepo nd. Assessment Current Status: Good Progress Pt able to walk farther with a few short standing RB. PT Cast Iron Drain Pipe Layer Goals Retirement Goals PT Retirement Goals Time Frame: Jun 15, 2022 Roll Left & Right (QC): 6 Sit to Lying (QC): 6 Lying-Sitting on Side/Bed(QC): 6 Sit to Stand (QC): 6 Chair/Xac-nt-Csdvf Xfer(QC): 6 Toilet Transfer (QC): 6 Does the Patient Walk: Yes Walk 10 feet (QC): 6 Walk 50ft with 2 Turns (QC): 6 Walk 150 ft (QC): 6 PT Plan Problem List Problem List: Activity Tolerance Treatment/Plan Treatment Plan: Continue Plan of Care Treatment Plan: Bed Mobility, Education, Functional Activity Shannon, Functional Strength, Gait, Safety, Therapeutic Exercise, Transfers Treatment Duration: Jun 15, 2022 Frequency: 6 times per week Estimated Hrs Per Day: .25 hour per day Patient and/or Family Agrees t: Yes Time Time In: 837 Time Out: 900 DATE: Jun 13, 2022 Total Billed Treatment Time: 23 Total Billed Treatment 1, GT (12m) & FA (11m) CINDY ONEIL PTA Jun 13, 2022 09:32
--- NOTE | 2022-06-13 10:47 | Progress Note - Cardiology ---
Cardiology SOAP Progress Note Subjective: Lying in bed Reports S[place]AN, which is better than before No c/o CP or palpitations C/O mild right groin discomfort Objective: I&O/Vital Signs 06/13/22 06/13/22 06/13/22 06/13/22 00:00 00:00 01:00 04:00 Temp 36.4 36.4 Pulse 75 80 79 Resp 12 17 B/P (MAP) 109/60 (76) 117/72 (87) Pulse Ox 94 94 98 O2 Delivery Nasal Cannula Nasal Cannula Nasal Cannula O2 Flow Rate 1.00 2.00 2.00 06/13/22 06/13/22 06/13/22 06/13/22 07:38 07:40 08:00 08:10 Temp 36.6 Pulse 83 86 Resp 12 B/P (MAP) 131/80 (97) Pulse Ox 93 96 O2 Delivery Nasal Cannula Nasal Cannula Nasal Cannula O2 Flow Rate 1.00 1.00 2.00 06/13/22 06/13/22 08:28 09:00 Pulse 82 Resp 14 B/P (MAP) 124/80 (95) Pulse Ox 95 95 O2 Delivery Nasal Cannula Nasal Cannula O2 Flow Rate 1.00 1.00 06/13/22 00:00 Intake Total 425 ml Output Total 1175 ml Balance -750 ml Weight (Pounds): 174 Weight (Calculated Kilograms): 78.482740 Side: right Condition: DP/PT pulses palpable, extremity w/d/p Bruising: mild bruising Constitutional: AAO x 3, well-developed, well-nourished Respiratory: No accessory muscle use, No respiratory distress; chest expansion is symmetric, chest is bilaterally symmetric, rhonchi (scattered), other (diminished lower lobes bilat) Cardiovascular: regular rate-rhythm; No JVD; S1 and S2 Gastrointestional: No tender; soft, other (abdominal hernia) Extremities: swelling (mild, bilateral leg edema) Neurologic/Psychiatric: oriented x 3, other (moves all limbs equally) Skin: normal color, warm/dry; No cyanosis, No cool, No diaphoresis, No rash on exposed areas, No ulcerations on exposed areas Results/Procedures: Labs Laboratory Tests 06/12/22 16:04: Glucometer 108 06/12/22 20:16: Glucometer 96 06/13/22 04:50: White Blood Count 4.4, Red Blood Count 4.65, Hemoglobin 11.6L, Hematocrit 38L, Mean Corpuscular Volume 83, Mean Corpuscular Hemoglobin 25, Mean Corpuscular Hemoglobin Concent 30L, Red Cell Distribution Width 17.9H, Platelet Count 217, Mean Platelet Volume 11.4, Immature Granulocyte % (Auto) 1, Neutrophils (%) (Auto) 62, Lymphocytes (%) (Auto) 25, Monocytes (%) (Auto) 9, Eosinophils (%) (Auto) 3, Basophils (%) (Auto) 1, Neutrophils # (Auto) 2.7, Lymphocytes # (Auto) 1.1, Monocytes # (Auto) 0.4, Eosinophils # (Auto) 0.1, Basophils # (Auto) 0.0, Immature Granulocyte # (Auto) 0.0, Sodium Level 138, Potassium Level 4.6, Chloride Level 104, Carbon Dioxide Level 24, Anion Gap 10, Blood Urea Nitrogen 28H, Creatinine 1.26, Estimat Glomerular Filtration Rate 63, BUN/Creatinine Ratio 22, Glucose Level 141H, Calcium Level 8.2L, Corrected Calcium 9.2, Total Bilirubin 0.5, Aspartate Amino Transf (AST/SGOT) 29, Alanine Aminotransferase (ALT/SGPT) 33, Alkaline Phosphatase 115, Total Protein 5.8L, Albumin 2.7L Microbiology 06/11/22 MRSA Screen - Final, Complete MRSA not isolated Laboratory Tests 06/12/22 04:36 06/13/22 04:50 A/P: Assessment: Acute on chronic systolic CHF - improving ICM - Echocardiogram of 06-08-22 showed LVEF 20-25%. Severe diffuse hypokinesis. Mod MR. Mod right sided pleural effusion. PASP 45-50 mmHg - Card cath on 06-12-22: LMCA ok, patent stent in prox LAD with 50% stenosis prior the the stent across which iFR is 0.92, LCX ok, RCA dominant with 60% distal stenosis across which iFR is 0.95, LVEDP 15 mmHg Prerenal azotemia due to diuretic therapy - diuretics reduced beginning 06/11/22 CAD - Reported Hx of [place] with stent placement done in [place] in 2003 - exact details unknown Acute on chronic exacerbation of COPD LLOYD - CPAP tx Reports "blood clot in his kidney and heart" dx 2 weeks ago during a hospitalization at [facility] - a-fib suspected - has been on Eliquis Hypertension Hyperlipidemia Diabetes H/O colon resection d/t diverticulitis H/O HIV (+) Plan: * continue to titrate heart failure meds as tolerated * Renal function improved with reduction of diuretics * continue antiplatelet therapy because of h/o CAD * continue OAC because he is reporting he has a "blood clot in his heart and kidney" dx at [facility] in mid May 2022 - suspect P a-fib * LifeVest * monitor labs - replace electrolytes as indicated * Increase activity - PT JAMIE GONZALEZ Jun 13, 2022 10:47
[2022-06-13] MEDS ORDERED: CARV12.52 PO (13:33)
[2022-06-13] MEDS ORDERED: EMPA10TA PO (13:33)
[2022-06-13] MEDS ORDERED: SACU1TAB7 PO (13:33)
[2022-06-13] MEDS ORDERED: SPIR25TA5 PO (13:33)
[2022-06-13] MEDS ORDERED: CLOP75TA28 PO (13:33)
--- NOTE | 2022-06-13 16:30 | Progress Note - Cardiology ---
Cardiology SOAP Progress Note Subjective: No cp or palp or syncope or shortness of breath Weakness and malaise have improved No n/v/d No leg swelling No focal weakness Objective: I&O/Vital Signs 06/13/22 06/13/22 06/13/22 06/13/22 07:38 07:40 08:00 08:10 Temp 36.6 Pulse 83 86 Resp 12 B/P (MAP) 131/80 (97) Pulse Ox 93 96 O2 Delivery Nasal Cannula Nasal Cannula Nasal Cannula O2 Flow Rate 1.00 1.00 2.00 06/13/22 06/13/22 06/13/22 06/13/22 08:28 09:00 10:00 11:51 Temp 36.1 Pulse 82 80 79 Resp 14 19 22 B/P (MAP) 124/80 (95) 128/72 (90) 128/71 (90) Pulse Ox 95 95 90 96 O2 Delivery Nasal Cannula Nasal Cannula Nasal Cannula Nasal Cannula O2 Flow Rate 1.00 1.00 1.00 1.00 06/13/22 06/13/22 06/13/22 06/13/22 12:00 13:00 13:09 16:19 Temp 36.6 Pulse 79 80 79 Resp 28 16 B/P (MAP) 129/84 (99) 101/72 (82) Pulse Ox 96 95 O2 Delivery Nasal Cannula Nasal Cannula O2 Flow Rate 1.00 1.00 06/13/22 00:00 Intake Total 425 ml Output Total 1175 ml Balance -750 ml Weight (Pounds): 174 Weight (Calculated Kilograms): 78.858520 Side: right Condition: DP/PT pulses palpable, extremity w/d/p Bruising: mild bruising Constitutional: AAO x 3, well-developed, well-nourished Respiratory: No accessory muscle use, No respiratory distress; chest expansion is symmetric, chest is bilaterally symmetric, rhonchi (scattered), other (diminished lower lobes bilat) Cardiovascular: regular rate-rhythm; No JVD; S1 and S2 Gastrointestional: No tender; soft, other (abdominal hernia) Extremities: swelling (mild, bilateral leg edema) Neurologic/Psychiatric: oriented x 3, other (moves all limbs equally) Skin: normal color, warm/dry; No cyanosis, No cool, No diaphoresis, No rash on exposed areas, No ulcerations on exposed areas Results/Procedures: Labs Laboratory Tests 06/12/22 20:16: Glucometer 96 06/13/22 04:50: White Blood Count 4.4, Red Blood Count 4.65, Hemoglobin 11.6L, Hematocrit 38L, M lisa Corpuscular Volume 83, Mean Corpuscular Hemoglobin 25, Mean Corpuscular Hemoglobin Concent 30L, Red Cell Distribution Width 17.9H, Platelet Count 217, Mean Platelet Volume 11.4, Immature Granulocyte % (Auto) 1, Neutrophils (%) (Auto) 62, Lymphocytes (%) (Auto) 25, Monocytes (%) (Auto) 9, Eosinophils (%) (Auto) 3, Basophils (%) (Auto) 1, Neutrophils # (Auto) 2.7, Lymphocytes # (Auto) 1.1, Monocytes # (Auto) 0.4, Eosinophils # (Auto) 0.1, Basophils # (Auto) 0.0, Immature Granulocyte # (Auto) 0.0, Sodium Level 138, Potassium Level 4.6, Chloride Level 104, Carbon Dioxide Level 24, Anion Gap 10, Blood Urea Nitrogen 28H, Creatinine 1.26, Estimat Glomerular Filtration Rate 63, BUN/Creatinine Ratio 22, Glucose Level 141H, Calcium Level 8.2L, Corrected Calcium 9.2, Total Bilirubin 0.5, Aspartate Amino Transf (AST/SGOT) 29, Alanine Aminotransferase (ALT/SGPT) 33, Alkaline Phosphatase 115, Total Protein 5.8L, Albumin 2.7L 06/13/22 10:49: Glucometer 166H 06/13/22 15:53: Glucometer 193H Microbiology 06/11/22 MRSA Screen - Final, Complete MRSA not isolated Laboratory Tests 06/12/22 04:36 06/13/22 04:50 A/P: Assessment: Acute on chronic systolic CHF - improving ICM - Echocardiogram of 06-08-22 showed LVEF 20-25%. Severe diffuse hypokinesis. Mod MR. Mod right sided pleural effusion. PASP 45-50 mmHg - Card cath on 06-12-22: LMCA ok, patent stent in prox LAD with 50% stenosis prior the the stent across which iFR is 0.92, LCX ok, RCA dominant with 60% distal stenosis across which iFR is 0.95, LVEDP 15 mmHg Prerenal azotemia due to diuretic therapy - diuretics reduced beginning 06/11/22 CAD - Reported Hx of [place] with stent placement done in [place] in 2003 - exact details unknown Acute on chronic exacerbation of COPD LLOYD - CPAP tx Reports "blood clot in his kidney and heart" dx 2 weeks ago during a hospitalization at [facility] - a-fib suspected - has been on Eliquis Hypertension Hyperlipidemia Diabetes H/O colon resection d/t diverticulitis H/O HIV (+) Plan: * continue heart failure meds as tolerated * Renal function improved with reduction of diuretics * continue antiplatelet therapy because of h/o CAD * continue OAC because he is reporting he has a "blood clot in his heart and kidney" dx at [facility] in mid May 2022 - suspect P a-fib * LifeVest * I discussed his cardiac w/u and our treatment plan with him in detail. Questions answered. Close outpt f/u advised KARLA COPELAND MD FACP FAC CCDS Jun 13, 2022 16:30
--- NOTE | 2022-06-13 16:41 | D/C HH Face to Face Order ---
D/C Face to Face Orders Instructions for Patient Via Camilla IIIMOBI, Patient Instructions/FollowUp: Follow up with Dr. Lozano as directed. Follow up with primary doctor within a week. Physician to follow Patient: CHCSETorri Discharge Diet for Home: Cardiac Diet Patient Data-Allergies,Ht & Wt Patient Allergies: Coded Allergies: No Known Drug Allergies (Unverified , 06/23/20) Height (Feet): 5 Height (Inches): 4.00 Weight (Pounds): 174 Home Health Need/Face to Face Date of Face to Face: Jun 13, 2022 Clinical Findings: Shortness of breath I have seen Pt [id number]: Yes Discharged To: Home Diagnosis/Conditions: Acute systolic congestive heart failure Acute kidney injury- resolved CAD COPD HIV LLOYD HTN HLD DMII Suspected history of a fib Patient is Homebound due to: Shortness of breath/distress Homebound Status Due to the above stated illness, injury or surgical procedure (medical condition or diagnosis) and associated clinical findings, the patient is homebound because of his/her inability to leave home except with aid of a supportive device and/or person AND leaving the home requires a considerable and taxing effort or is medically contraindicated. Pt req the following assistanc: Aid of another person Home Health Nursing Orders Home Health Services Order: Nursing Services, Physical Therapy-Evaluate & Treat Home Health Infusion Therapy Line Start Date: Jun 07, 2022 Certify Stmt I certify that this patient is under my care and that I, a nurse practitioner or a physician; a human resources assistant working with me, had a face to face encounter that - meets the physician face to face encounter requirements with this patient as dated. KARTHIK GARNETT MD Jun 13, 2022 16:41
--- NOTE | 2022-06-13 16:42 | Discharge Summary ---
Discharge Summary Hospital Course Hospital Course Date of Admission: Jun 07, 2022 at 18:41 Admission Diagnosis : Family Physician/Provider: Nancy French MD Date of Discharge: 06/13/22 Discharge Diagnosis: [ ] Hospital Course: [ ] Labs and Pending Lab Test: Laboratory Tests 06/12/22 20:16: Glucometer 96 06/13/22 04:50: White Blood Count 4.4, Red Blood Count 4.65, Hemoglobin 11.6L, Hematocrit 38L, Mean Corpuscular Volume 83, Mean Corpuscular Hemoglobin 25, Mean Corpuscular Hemoglobin Concent 30L, Red Cell Distribution Width 17.9H, Platelet Count 217, Mean Platelet Volume 11.4, Immature Granulocyte % (Auto) 1, Neutrophils (%) (Au to) 62, Lymphocytes (%) (Auto) 25, Monocytes (%) (Auto) 9, Eosinophils (%) (Auto) 3, Basophils (%) (Auto) 1, Neutrophils # (Auto) 2.7, Lymphocytes # (Auto) 1.1, Monocytes # (Auto) 0.4, Eosinophils # (Auto) 0.1, Basophils # (Auto) 0.0, Immature Granulocyte # (Auto) 0.0, Sodium Level 138, Potassium Level 4.6, Chloride Level 104, Carbon Dioxide Level 24, Anion Gap 10, Blood Urea Nitrogen 28H, Creatinine 1.26, Estimat Glomerular Filtration Rate 63, BUN/Creatinine Ratio 22, Glucose Level 141H, Calcium Level 8.2L, Corrected Calcium 9.2, Total Bilirubin 0.5, Aspartate Amino Transf (AST/SGOT) 29, Alanine Aminotransferase (ALT/SGPT) 33, Alkaline Phosphatase 115, Total Protein 5.8L, Albumin 2.7L 06/13/22 10:49: Glucometer 166H 06/13/22 15:53: Glucometer 193H Microbiology 06/11/22 MRSA Screen - Final, Complete MRSA not isolated Home Meds Active Spironolactone 25 Mg Tablet 25 Mg PO DAILY Jardiance (Empagliflozin) 10 Mg Tablet 10 Mg PO DAILY Entresto 49 mg-51 mg Tablet (Sacubitril/Valsartan) 49 Mg-51 Mg Tablet 1 Tab PO BID Coreg (Carvedilol) 12.5 Mg Tablet 12.5 Mg PO BID Clopidogrel (Clopidogrel Bisulfate) 75 Mg Tablet 75 Mg PO DAILY Reported Ventolin Hfa (Albuterol Sulfate) 90 Mcg Hfa.aer.ad 2 Puff INH Q6H PRN Novolog Flexpen (Insulin Aspart) 100 Unit/Ml (3 Ml) Solution 20 Units SQ HS Trulicity (Dulaglutide) 4.5 Mg/0.5 Ml Pen.injctr 4.5 Mg IJ THUR Eliquis (Apixaban) 5 Mg Tablet 5 Mg PO BID Tresiba Flextouch U-200 (Insulin Degludec) 200 Unit/Ml (3 Ml) Insuln.pen 40 Units SC HS Zinc (Zinc Amino Acid Chelate) 50 Mg Tablet 50 Mg PO DAILY Atorvastatin Calcium 80 Mg Tablet 80 Mg PO HS Aspirin EC (Aspirin) 81 Mg Tablet.dr 81 Mg PO HS Amlodipine Besylate 5 Mg Tablet 5 Mg PO DAILY Sertraline HCl 100 Mg Tablet 200 Mg PO DAILY TAKES 2 (100MG) TABS Multi-Vitamin Daily (Multivitamin) 1 Each Tablet 1 Each PO DAILY Vitamin C (Ascorbic Acid) 500 Mg Tab.chew 500 Mg PO DAILY Carvedilol 25 Mg Tablet 25 Mg PO BID Biktarvy 50-200-25 mg Tablet (Bictegrav/Emtricit/Tenofov Ala) 1 Each Tablet 1 Tab PO DAILY Benicar Hct 40-25 mg Tablet (Olmesartan/Hydrochlorothiazide) 1 Each Tablet 1 Each PO DAILY Lasix (Furosemide) 40 Mg Tablet 40 Mg PO DAILY Discharge Physical Examination Allergies: Coded Allergies: No Known Drug Allergies (Unverified , 06/23/20) KARTHIK GARNETT MD Jun 13, 2022 16:42
== END 2022-06-13 20:42 | disposition home or self-care (01) | DRG 286 ==
LOC: EDUNIT# 16:16 → ER 16:18 → CSD 18:41
PROVIDERS: ADMIT Internal Medicine; ATTEND Family Medicine
PROC: 4A023N7 Measurement of Cardiac Sampling and Pressure, Left Heart, Percutaneous Approach (ICD-10-PCS; principal; 2022-06-12)
PROC: B2111ZZ Fluoroscopy of Multiple Coronary Arteries using Low Osmolar Contrast (ICD-10-PCS; 2022-06-12)
PROC: 4A033BC Measurement of Arterial Pressure, Coronary, Percutaneous Approach (ICD-10-PCS; 2022-06-12)
PROC: 5A0935A Assistance with Respiratory Ventilation, Less than 24 Consecutive Hours, High Flow/Velocity Cannula (ICD-10-PCS; 2022-06-12)
DX: I13.0 Hypertensive heart and chronic kidney disease with heart failure and stage 1 through stage 4 chronic kidney disease, or unspecified chronic kidney disease (principal); I50.23 Acute on chronic systolic (congestive) heart failure; N17.9 Acute kidney failure, unspecified; J44.1 Chronic obstructive pulmonary disease with (acute) exacerbation; T50.2X5A Adverse effect of carbonic-anhydrase inhibitors, benzothiadiazides and other diuretics, initial encounter; Z66 Do not resuscitate; I25.10 Atherosclerotic heart disease of native coronary artery without angina pectoris; Z21 Asymptomatic human immunodeficiency virus [HIV] infection status; G47.33 Obstructive sleep apnea (adult) (pediatric); I25.2 Old myocardial infarction; E78.00 Pure hypercholesterolemia, unspecified; K57.90 Diverticulosis of intestine, part unspecified, without perforation or abscess without bleeding; E87.6 Hypokalemia; N18.9 Chronic kidney disease, unspecified; E11.22 Type 2 diabetes mellitus with diabetic chronic kidney disease; Z90.49 Acquired absence of other specified parts of digestive tract; I25.5 Ischemic cardiomyopathy; Z79.82 Long term (current) use of aspirin; Z79.4 Long term (current) use of insulin; Z79.899 Other long term (current) drug therapy
CPT/HCPCS: 36415; 71045; 80053; 82947; 83735; 83880; 84484; 85025; 87081; 93005; 93306; 93458; 94640; 94761

== ENCOUNTER 2022-07-04 14:08 | Observation (INO) | payer MEDICARE, OTHER, MEDICAID ==
[~2022-07-04] VITALS: Ht 162.6 cm; Wt 105.9 kg
[~2022-07-04 14:08] MED LIST changes: +ALBU18HF2 INH; +APIX5TAB PO; +CARV12.52 PO; +DULA4.5P IJ; +EMPA10TA PO; +INSU200I4 SC; +SACU1TAB7 PO; +SPIR25TA5 PO
--- NOTE | 2022-07-04 14:57 | ED Respiratory ---
General Chief Complaint: Respiratory Problems Stated Complaint: SOB | FLUID ON LUNGS Nursing Triage Note: PT TO RM 7 BY WHEELCHAIR WITH COMPLAINT OF SOA. STATES HAS WORSENED OVER THE LAST TWO DAYS. STATES WAS ADMITTED RECENTLY FOR CHF AND COPD. WEARS 4LNC AT ALL TIMES. Source: patient, family (Brianne) Exam Limitations: no limitations History of Present Illness Date Seen by Provider: Jul 04, 2022 Time Seen by Provider: 14:45 Initial Comments Patient is a 67-year-old male with a history of congestive heart failure and diabetes who presents to the emergency room with worsening shortness of breath over the last 24 hours. Patient was recently admitted at the beginning of the month for about a week for CHF exacerbation. He had cardiac catheterization without intervention. He was noted to have an EF of 20 to 25% and was placed on a LifeVest. The patient states subsequent to that the automobile service advisor told him that he did not have to wear it if he did not want to as he was going to get a defibrillator placed anyways. The patient denies any chest pain, productive cough. No fevers or chills. No sick contacts. He states that he is compliant with his daily medications which includes Lasix and another diuretic. He states that he has been weighing himself daily until this week when it became too exhausting to get himself up and to the bathroom and on the scale and back to the living room. He is not sure how much weight he has gained recently. He wears 4 L of oxygen chronically. He states he is a diabetic and his sugars are well controlled. His primary care physician is Dr. Radha Lawton. He denies salty food intake, he does not drink soda. He does not eat canned vegetables. He does not use extra salt on his food. All other review of systems reviewed and negative except as stated Timing/Duration: week, getting worse Severity: moderate Prior Episodes/Possible Cause: frequent episodes Associated Symptoms: shortness of breath, other (swelling in legs) Allergies and Home Medications Allergies Coded Allergies: No Known Drug Allergies (Unverified , 06/23/20) Patient Home Medication List Home Medication List Reviewed: Yes Albuterol Sulfate (Ventolin Hfa) 90 Mcg Hfa.aer.ad, 2 PUFF INH Q6H PRN for SHORTNESS OF BREATH, (Reported) Entered as Reported by: EB PERAZA on 06/08/22 1532 Apixaban (Eliquis) 5 Mg Tablet, 5 MG PO BID, (Reported) Entered as Reported by: EB PERAZA on 06/08/22 153 Ascorbic Acid (Vitamin C) 500 Mg Tab.chew, 500 MG PO DAILY, (Reported) Entered as Reported by: MARK RUIZ on 06/23/20 1728 Atorvastatin Calcium (Atorvastatin Calcium) 80 Mg Tablet, 80 MG PO HS, (Reported) Entered as Reported by: LURDES ZHONG on 07/11/20 1207 Bictegrav/Emtricit/Tenofov Ala (Biktarvy 50-200-25 mg Tablet) 1 Each Tablet, 1 TAB PO DAILY, (Reported) Entered as Reported by: MARK RUIZ on 06/23/20 172 Carvedilol (Coreg) 12.5 Mg Tablet, 12.5 MG PO BID Prescribed by: JAMIE GONZALEZ on 06/13/22 1333 Clopidogrel Bisulfate (Clopidogrel) 75 Mg Tablet, 75 MG PO DAILY Prescribed by: JAMIE GONZALEZ on 06/13/22 1333 Dulaglutide (Trulicity) 4.5 Mg/0.5 Ml Pen.injctr, 4.5 MG IJ THUR, (Reported) Entered as Reported by: EB PERAZA on 06/08/22 153 Empagliflozin (Jardiance) 10 Mg Tablet, 10 MG PO DAILY Prescribed by: JAMIE GONZALEZ on 06/13/22 1333 Furosemide (Lasix) 40 Mg Tablet, 40 MG PO DAILY, (Reported) Entered as Reported by: ROBERT BENITEZ on 06/18/17 1147 Insulin Aspart (Novolog Flexpen) 100 Unit/Ml (3 Ml) Solution, 20 UNITS SQ HS, (Reported) Entered as Reported by: EB PERAZA on 06/08/22 153 Insulin Degludec (Tresiba Flextouch U-200) 200 Unit/Ml (3 Ml) Insuln.pen, 40 UNITS SC HS, (Reported) Entered as Reported by: EB PERAZA on 06/08/22 153 Multivitamin (Multi-Vitamin Daily) 1 Each Tablet, 1 EACH PO DAILY, (Reported) Entered as Reported by: MARK RUIZ on 06/23/20 1735 Sacubitril/Valsartan (Entresto 49 mg-51 mg Tablet) 49 Mg-51 Mg Tablet, 1 TAB PO BID Prescribed by: JAMIE GONZALEZ on 06/13/22 1333 Sertraline HCl (Sertraline HCl) 100 Mg Tablet, 200 MG PO DAILY, (Reported) Entered as Reported by: MARK RUIZ on 06/23/20 1742 Spironolactone (Spironolactone) 25 Mg Tablet, 25 MG PO DAILY Prescribed by: JAMIE GONZALEZ on 06/13/22 1333 Zinc Amino Acid Chelate (Zinc) 50 Mg Tablet, 50 MG PO DAILY, (Reported) Entered as Reported by: LURDES ZHONG on 07/11/20 1207 Review of Systems Review of Systems Constitutional: see HPI EENTM: no symptoms reported Respiratory: dyspnea on exertion, orthopnea Cardiovascular: no symptoms reported Gastrointestinal: no symptoms reported Genitourinary: no symptoms reported Musculoskeletal: other (leg swelling) Skin: no symptoms reported Psychiatric/Neurological: No Symptoms Reported All Other Systems Reviewed Negative Unless Noted: Yes Past Ksmtulf-Gjpfil-Qifmum Hx Patient Social History Tobacco Use?: No Use of E-Cig and/or Vaping dev: No Substance use?: No Alcohol Use?: No Pt feels they are or have been: No Immunizations Up To Date Tetanus Booster (TDap): Unknown PED Vaccines UTD: Yes First/Initial COVID19 Vaccinat: YES Second COVID19 Vaccination Prashanth: YES Third COVID19 Vaccination Date: YES Seasonal Allergies Seasonal Allergies: No Past Medical History Surgery/Hospitalization HX: PMH: CHF, COPD, L KIDNEY BLOOD CLOT, DM-ID, HIV, SX: DIVERTICULITIS-COLOSTOMY AND REVERSAL, HERNIA REPAIR, Surgeries: Yes (COLON RESECTION, HERNIA X3, APPY) Appendectomy Respiratory: Yes Sleep Apnea, COPD Currently Using CPAP: Yes Cardiac: Yes (CHF, STENTS, mi in 2003) Heart Attack, High Cholesterol, Hypertension Neurological: No (bells palsy) HIV/AIDS: Yes Genitourinary: No Gastrointestinal: No Diverticulosis Musculoskeletal: No Endocrine: Yes Diabetes, Insulin dep HEENT: No Cancer: No Psychosocial: No Integumentary: No Blood Disorders: Yes (HIV +) Physical Exam Vital Signs - First Documented 07/04/22 14:13 Temp 35.9 Pulse 101 Resp 34 B/P (MAP) 158/104 (122) Pulse Ox 94 O2 Delivery Nasal Cannula O2 Flow Rate 4.00 Capillary Refill : Height: 5'4.00" Weight: 174lbs. oz. 78.637152hx; 39.00 BMI Method:Stated General Appearance: WD/WN, obese Eyes: Bilateral Eye Normal Inspection, Bilateral Eye PERRL, Bilateral Eye EOMI HEENT: PERRL/EOMI Neck: normal inspection Respiratory: no accessory muscle use, crackles (bilateral bases posteriorly; Sats on 4L O2 = 96%; conversational dyspnea) Cardiovascular: regular rate, rhythm Gastrointestinal: non tender, soft Extremities: normal range of motion, pedal edema (3+ bilateral pedal edema) Neurologic/Psychiatric: alert, normal mood/affect, oriented x 3 Skin: normal color, warm/dry Progress/Results/Core Measures Suspected Sepsis SIRS Temperature: Pulse: 101 Respiratory Rate: 34 Laboratory Tests 07/04/22 14:20: White Blood Count 8.8 Blood Pressure 158 /104 Mean: 122 Laboratory Tests 07/04/22 14:20: Creatinine 1.23, Platelet Count 248 Results/Orders Lab Results Laboratory Tests Test 07/04/22 14:20 Range/Units White Blood Count 8.8 4.3-11.0 10^3/uL Red Blood Count 5.56 H 4.30-5.52 10^6/uL Hemoglobin 13.9 13.3-17.7 g/dL Hematocrit 45 40-54 % Mean Corpuscular Volume 81 80-99 fL Mean Corpuscular Hemoglobin 25 25-34 pg Mean Corpuscular Hemoglobin Concent 31 L 32-36 g/dL Red Cell Distribution Width 19.8 H 10.0-14.5 % Platelet Count 248 130-400 10^3/uL Mean Platelet Volume 11.5 9.0-12.2 fL Immature Granulocyte % (Auto) 0 % Neutrophils (%) (Auto) 66 42-75 % Lymphocytes (%) (Auto) 25 12-44 % Monocytes (%) (Auto) 7 0-12 % Eosinophils (%) (Auto) 1 0-10 % Basophils (%) (Auto) 0 0-10 % Neutrophils # (Auto) 5.9 1.8-7.8 10^3/uL Lymphocytes # (Auto) 2.2 1.0-4.0 10^3/uL Monocytes # (Auto) 0.6 0.0-1.0 10^3/uL Eosinophils # (Auto) 0.1 0.0-0.3 10^3/uL Basophils # (Auto) 0.0 0.0-0.1 10^3/uL Immature Granulocyte # (Auto) 0.0 0.0-0.1 10^3/uL Percent Immature Platelet Fraction 7.1 0.0-7.6 % Sodium Level 140 135-145 MMOL/L Potassium Level 4.1 3.6-5.0 MMOL/L Chloride Level 102 98-107 MMOL/L Carbon Dioxide Level 26 21-32 MMOL/L Anion Gap 12 5-14 MMOL/L Blood Urea Nitrogen 28 H 7-18 MG/DL Creatinine 1.23 0.60-1.30 MG/DL Estimat Glomerular Filtration Rate 65 BUN/Creatinine Ratio 23 Glucose Level 210 H 70-105 MG/DL Calcium Level 8.9 8.5-10.1 MG/DL B-Type Natriuretic Peptide 2802.8 H <100.0 PG/ML Smear Scan YES My Orders Orders - CHAPARRO ALDANA MD Ed Iv/Invasive Line Start (07/04/22 14:52) Cbc With Automated Diff (07/04/22 14:52) Basic Metabolic Panel (07/04/22 14:52) Bnp Janet (07/04/22 14:52) Chest 1 View, Ap/Pa Only (07/04/22 14:52) Ekg Tracing (07/04/22 14:52) Furosemide Injection (Lasix Injection) (07/04/22 15:45) Ed Admission (Communication) (07/04/22 16:47) Medications Given in ED Current Medications Medications Dose Ordered Sig/Agusto Route Start Time Stop Time Status Last Admin Dose Admin Furosemide 80 mg ONCE ONCE IVP 07/04/22 15:45 07/04/22 15:46 DC 07/04/22 16:06 80 MG Vital Signs/I&O 07/04/22 07/04/22 14:13 14:13 Temp 35.9 Pulse 101 Resp 34 B/P (MAP) 158/104 (122) Pulse Ox 94 O2 Delivery Nasal Cannula Nasal Cannula O2 Flow Rate 4.00 4.00 Capillary Refill : Blood Pressure Mean: 122 ECG Initial ECG Impression Date: Jul 04, 2022 Initial ECG Impression Time: 15:03 Initial ECG Rate: 96 Initial ECG Rhythm: Normal Sinus Comment frequent ectopy; NSR; NSSTW change; no ST elevation or depression Q waves anteriorly Diagnostic Imaging Diagonstic Imaging: Xray Plain Films/CT/US/NM/MRI: chest Comments [facility] [place], [place] NAME: JEAN PIERRE MIDDLETON [facility] REC#: [id number] PT STATUS: REG ER : 1955 PHYSICIAN: CHAPARRO ALDANA MD ADMIT DATE: 07/04/22/ER Draft Date of Exam:07/04/22 CHEST 1 VIEW, AP/PA ONLY CHEST 1 VIEW, AP/PA ONLY INDICATION: Worsening shortness of breath. COMPARISON: 06/07/2022. FINDINGS: Stable cardiomegaly. Increased consolidations in the left lung base. Central vascular indistinctness persists. Small left pleural effusion has worsened. No pneumothorax. IMPRESSION: 1. Worsening of pulmonary edema and small left pleural effusion. Dictated on workstation # [id number] Dict: 07/04/22 1521 Trans: 07/04/22 1525 [id number] Interpreted by: ELMER GASTON MD Electronically signed by: Departure Communication (Admissions) Time/Spoke to Admitting Phy: 15:[address] Huffman Time/Spoke to Consulting Phy: 15:[address] Green of consult - he will be down to see Impression Primary Impression: CHF exacerbation Qualified Codes: I50.9 - Heart failure, unspecified Disposition: ADMITTED INPATIENT Condition: Stable Admissions Decision to Admit Reason: Admit from ER (General) Decision to Admit/Date: Jul 04, 2022 Time/Decision to Admit Time: 16:50 Departure-Patient Inst. Referrals: RADHA LAWTON MD (PCP/Family) Primary Care Physician Copy Copies To 1: RADHA LAWTON MD Copies To 2: KARLA COPELAND MD FACP FAC CCDS; WING GREEN MD, KATHRYN M MD Jul 04, 2022 14:57
[2022-07-04 14:58] LABS: EOSINOPHILS # (AUTO) 0.1 10^3/uL (0.0-0.3); EOSINOPHILS % (AUTO) 1 % (0-10); MEAN CORPUSCULAR VOLUME 81 fL (80-99)
[2022-07-04 14:59] LABS: BASOPHILS % (AUTO) 0 % (0-10); HEMATOCRIT 45 % (40-54); HEMOGLOBIN 13.9 g/dL (13.3-17.7); LYMPHOCYTES # (AUTO) 2.2 10^3/uL (1.0-4.0); LYMPHOCYTES % (AUTO) 25 % (12-44); MEAN CORPUSCULAR HEMOGLOBIN 25 pg (25-34); MEAN CORPUSCULAR HGB CONC 31 g/dL (32-36); MEAN PLATELET VOLUME 11.5 fL (9.0-12.2); MONOCYTES # (AUTO) 0.6 10^3/uL (0.0-1.0); MONOCYTES % (AUTO) 7 % (0-12); NEUTROPHILS # (AUTO) 5.9 10^3/uL (1.8-7.8); NEUTROPHILS % (AUTO) 66 % (42-75); PLATELET COUNT 248 10^3/uL (130-400); WHITE BLOOD COUNT 8.8 10^3/uL (4.3-11.0)
[2022-07-04 15:02] LABS: POTASSIUM 4.1 MMOL/L (3.6-5.0)
[2022-07-04 15:03] LABS: CALCIUM 8.9 MG/DL (8.5-10.1); SMEAR SCAN COMMENT YES
[2022-07-04 15:08] LABS: CREATININE SERUM 1.23 MG/DL (0.60-1.30)
--- NOTE | 2022-07-04 15:25 | Diagnostic Imaging Report ---
CHEST 1 VIEW, AP/PA ONLY INDICATION: Worsening shortness of breath. COMPARISON: 06/07/2022. FINDINGS: Stable cardiomegaly. Increased consolidations in the left lung base. Central vascular indistinctness persists. Small left pleural effusion has worsened. No pneumothorax. IMPRESSION: 1. Worsening of pulmonary edema and small left pleural effusion. Dictated by: Dictated on workstation # [id number]
[2022-07-04] MEDS ORDERED: FUROSEMIDE 40 MG/4 ML INJ (LASIX) IVP ONE (15:45)
--- NOTE | 2022-07-04 16:58 | Consultation-Cardiology ---
HPI-Cardiology Cardiology Consultation Date of Consultation 07/04/22 Date of Admission Time Seen by Provider: 16:52 Indication: Shortness of breath HPI 67 years old gentleman with history of severe cardiomyopathy. Was discharged recently from the hospital, noncompliant with his CPAP or LifeVest. Taking his medication regularly. Patient reported having worsening dyspnea and pedal edema, unable to finish a full sentence. Came into the emergency room for evaluation. On my evaluation he was still having some dyspnea and significant peripheral edema. Denied any chest pain. Home Medications & Allergies Allergies: Coded Allergies: No Known Drug Allergies (Unverified , 06/23/20) Home Medication List Reviewed: Yes QBA-Rgwado-Effins Hx Patient Social History Marital Status: Employed/Student: retired Type Used: Cigarettes Recent Hopitalizations: No Have you traveled recently?: No Alcohol Use?: No Immunizations Up To Date Tetanus Booster (TDap): Unknown Date of Pneumonia Vaccine: Apr 07, 2017 Date of Influenza Vaccine: Apr 07, 2020 Past Medical History Discussed Family Medical History Significant Family History: No Pertinent Family Hx Review of Systems-General Review of Systems Constitutional: see HPI, malaise, weakness EENTM: no symptoms reported Respiratory: see HPI; No cough; dyspnea on exertion; No hemoptysis; orthopnea; No phlegm; short of breath; No stridor, No wheezing, No other Cardiovascular: see HPI; No chest pain; edema; No Hx of Intervention, No palpitations, No syncope, No vascular heart diseas, No other Gastrointestinal: no symptoms reported, see HPI Genitourinary: no symptoms reported, see HPI Musculoskeletal: see HPI, other (leg swelling) Skin: no symptoms reported, see HPI Psychiatric/Neurological: No Symptoms Reported, See HPI All Other Systems Reviewed Negative Unless Noted: Yes Reviewed Test Results Reviewed Test Results Lab Laboratory Tests Test 07/04/22 14:20 Range/Units White Blood Count 8.8 4.3-11.0 10^3/uL Red Blood Count 5.56 H 4.30-5.52 10^6/uL Hemoglobin 13.9 13.3-17.7 g/dL Hematocrit 45 40-54 % Mean Corpuscular Volume 81 80-99 fL Mean Corpuscular Hemoglobin 25 25-34 pg Mean Corpuscular Hemoglobin Concent 31 L 32-36 g/dL Red Cell Distribution Width 19.8 H 10.0-14.5 % Platelet Count 248 130-400 10^3/uL Mean Platelet Volume 11.5 9.0-12.2 fL Immature Granulocyte % (Auto) 0 % Neutrophils (%) (Auto) 66 42-75 % Lymphocytes (%) (Auto) 25 12-44 % Monocytes (%) (Auto) 7 0-12 % Eosinophils (%) (Auto) 1 0-10 % Basophils (%) (Auto) 0 0-10 % Neutrophils # (Auto) 5.9 1.8-7.8 10^3/uL Lymphocytes # (Auto) 2.2 1.0-4.0 10^3/uL Monocytes # (Auto) 0.6 0.0-1.0 10^3/uL Eosinophils # (Auto) 0.1 0.0-0.3 10^3/uL Basophils # (Auto) 0.0 0.0-0.1 10^3/uL Immature Granulocyte # (Auto) 0.0 0.0-0.1 10^3/uL Percent Immature Platelet Fraction 7.1 0.0-7.6 % Sodium Level 140 135-145 MMOL/L Potassium Level 4.1 3.6-5.0 MMOL/L Chloride Level 102 98-107 MMOL/L Carbon Dioxide Level 26 21-32 MMOL/L Anion Gap 12 5-14 MMOL/L Blood Urea Nitrogen 28 H 7-18 MG/DL Creatinine 1.23 0.60-1.30 MG/DL Estimat Glomerular Filtration Rate 65 BUN/Creatinine Ratio 23 Glucose Level 210 H 70-105 MG/DL Calcium Level 8.9 8.5-10.1 MG/DL B-Type Natriuretic Peptide 2802.8 H <100.0 PG/ML Smear Scan YES Physical Exam Physical Exam Vital Signs Vital Signs - First Documented 07/04/22 14:13 Temp 35.9 Pulse 101 Resp 34 B/P (MAP) 158/104 (122) Pulse Ox 94 O2 Delivery Nasal Cannula O2 Flow Rate 4.00 Capillary Refill : Height, Weight, BMI Height: 5'4.00" Weight: 174lbs. oz. 78.439574jb; 39.00 BMI Method:Stated General Appearance: No Apparent Distress, WD/WN Eyes: Bilateral Eye Normal Inspection, Bilateral Eye PERRL, Bilateral Eye EOMI HEENT: PERRL/EOMI, TMs Normal, Normal ENT Inspection, Pharynx Normal, Moist Mucous Membranes Neck: Full Range of Motion, Normal Inspection, Non Tender, Supple, Carotid Bruit Respiratory: Normal Breath Sounds, No Accessory Muscle Use, No Respiratory Distress, Crackles, Decreased Breath Sounds Cardiovascular: Regular Rate, Rhythm, Normal Peripheral Pulses, Systolic Murmur, Gallop/S3 Gastrointestinal: Normal Bowel Sounds, No Organomegaly, No Pulsatile Mass, Non Tender, Soft Back: Normal Inspection, No CVA Tenderness, No Vertebral Tenderness Extremity: Normal Capillary Refill, Normal Inspection, Normal Range of Motion, Non Tender, No Calf Tenderness, Pedal Edema Neurologic/Psychiatric: Alert, Oriented x3, No Motor/Sensory Deficits, Normal Mood/Affect Skin: Normal Color, Warm/Dry Lymphatic: No Adenopathy A/P-Cardiology Admission Diagnosis Congestive heart failure, dilated cardiomyopathy, acute on chronic left ventricular systolic dysfunction, nonischemic cardiomyopathy Coronary artery disease Hypertension Hyperlipidemia Diabetes mellitus Assessment/Plan Congestive heart failure, acute on chronic left ventricular systolic dysfunction, nonischemic cardiomyopathy Last echo was done on June 08, 2022 with ejection fraction 20 to 25% with severe diffuse left ventricular hypokinesia, moderate mitral regurgitation. I will start on Lasix IV in addition to restarting Aldactone, metolazone, and the rest of his home medication as described in the orders. Educated about the importance of compliance with medication and limiting salt and fluid intake. Coronary artery disease, history of myocardial infarction in 2003. Cardiac catheterization was carried out by Dr. Lozano on June 12, 2022 which showed patent stent in the proximal LAD, 50% stenosis within the stent with IFR 0.92, left circumflex artery is okay, right coronary artery is dominant with 60% dominant stenosis IFR 0.95. Conservative management is recommended Hypertension, restart Coreg and Entresto and monitor blood pressure Hyperlipidemia, restart Lipitor 80 mg and monitor lipids COPD, obstructive sleep apnea, noncompliant with the CPAP. Continue on oxygen treatment Diabetes mellitus, followed and managed by primary care physician Morbid obesity, BMI 39, discussed and educated on the importance of weight loss History of colon resection with diverticulitis History of HIV positive Noncompliance with LifeVest, patient does not want to wear the LifeVest. WING MARCELINO MD Jul 04, 2022 16:58
--- NOTE | 2022-07-04 17:20 | History & Physical-Hospitalist ---
History of Present Illness HPI/Chief Complaint Chief complaint: Acute exacerbation of congestive heart failure HPI: This is a 67-year-old male patient of [facility] who has a past medical history of severe cardiomyopathy ejection fraction 20% who presented with shortness of breath and volume overload. Dr. Green evaluated him and placed on protocol meds in. Currently he is feeling much better after Lasix was given. He remains on oxygen 28/01. Source: patient, family Exam Limitations: clinical condition Date Seen 07/04/22 Time Seen by a Provider: 18:00 Attending Physician Nancy French MD PCP Admitting Physician: Tejal Huffman DO Attending Physician: Tejal Huffman DO Referring Physician Date of Admission Jul 04, 2022 at 16:47 Home Medications & Allergies Home Medications Reviewed patient Home Medication Reconciliation performed by pharmacy medication reconciliations personnel technician and/or nursing. Patients Allergies have been reviewed. Allergies Allergies Coded Allergies No Known Drug Allergies (Lpmngcjkjw11/17/20) Past Hobzvhq-Enjisu-Jftryl Hx Patient Social History Marrital Status: Employed/Student: retired Tobacco Use?: No Use of E-Cig and/or Vaping dev: No Substance use?: No Alcohol Use?: No Pt feels they are or have been: No Immunizations Up To Date Date of Influenza Vaccine: Apr 07, 2020 First/Initial COVID19 Vaccinat: YES Second COVID19 Vaccination Prashanth: YES Tetanus Booster (TDap): Unknown Hepatitis A: Yes PED Vaccines UTD: Yes Date of Pneumonia Vaccine: Apr 07, 2017 Seasonal Allergies Seasonal Allergies: No Current Status Advance Directives: No Primary Language: Mongolian Preferred Spoken Language: Mongolian Past Medical History Surgeries: Appendectomy Sleep Apnea, COPD Currently Using CPAP: Yes Chronic Edema/Swelling, Heart Attack, High Cholesterol, Hypertension HIV/AIDS: Yes Diverticulosis Diabetes, Insulin dep Blood Disorders: Yes (HIV +) Family Medical History No Pertinent Family Hx Review of Systems Constitutional: see HPI Respiratory: dyspnea on exertion, short of breath Physical Exam Physical Exam Vital Signs Vital Signs - First Documented 07/04/22 14:13 Temp 35.9 Pulse 101 Resp 34 B/P (MAP) 158/104 (122) Pulse Ox 94 O2 Delivery Nasal Cannula O2 Flow Rate 4.00 Capillary Refill : Height, Weight, BMI Height: 5'4.00" Weight: 174lbs. oz. 78.969196nr; 39.00 BMI Method:Stated General Appearance: Anxious, Chronically ill, Mild Distress Eyes: Right Eye Normal Inspection, Right Eye PERRL HEENT: PERRL/EOMI, Normal ENT Inspection, Pharynx Normal, Moist Mucous Membranes Neck: Full Range of Motion, Normal Inspection, Non Tender Respiratory: Chest Non Tender, Lungs Clear, No Accessory Muscle Use, No Respiratory Distress, Decreased Breath Sounds Cardiovascular: Regular Rate, Rhythm, No Edema, No Gallop, No JVD, No Murmur, Normal Peripheral Pulses Gastrointestinal: Normal Bowel Sounds, No Organomegaly, No Pulsatile Mass, Non Tender, Soft Back: Normal Inspection, No CVA Tenderness, No Vertebral Tenderness Extremity: Normal Capillary Refill, Normal Inspection, Normal Range of Motion, Non Tender, No Calf Tenderness, No Pedal Edema Neurologic/Psychiatric: Alert, Oriented x3, No Motor/Sensory Deficits, Normal Mood/Affect Skin: Normal Color, Warm/Dry Lymphatic: No Adenopathy Results Results/Procedures Labs Laboratory Tests 07/04/22 14:20 Patient resulted labs reviewed. Assessment/Plan Admission Diagnosis Assessment: Acute volume overload Severe cardiomyopathy ejection fraction 20% Chronic respiratory failure maintained on oxygen Plan: Diuresis Heart failure meds Admission Status: Observation Diagnosis/Problems Diagnosis/Problems (1) CHF exacerbation Qualifiers: Heart failure type: unspecified Qualified Codes: I50.9 - Heart failure, unspecified TEJAL HUFFMAN DO Jul 04, 2022 17:20
[2022-07-04 18:00] VITALS: BP 149/100
[2022-07-04] MEDS ORDERED: ONDANSETRON 4 MG (ZOFRAN) ORAL DISSOLVE TAB PO PRN (18:00)
[2022-07-04] MEDS ORDERED: BISACODYL 10 MG SUPP (DULCOLAX) PR PRN (18:00)
[2022-07-04] MEDS ORDERED: ONDANSETRON 4 MG/2 ML (SDV) Z0FRAN IV PRN (18:00)
[2022-07-04] MEDS ORDERED: diphenhydrAMINE 50 MG/ML INJ (BENADRYL) IVP PRN (18:00)
[2022-07-04] MEDS ORDERED: MELATONIN 3 MG TABLET PO PRN (18:00)
[2022-07-04] MEDS ORDERED: ACETAMINOPHEN 325 MG TABLET PO PRN (18:00)
[2022-07-04] MEDS ORDERED: MILK OF MAGNESIA 400 MG/5 ML 30 ML UDC PO PRN (18:00)
[2022-07-04] MEDS ORDERED: polyethylene glycoL POWDER 17 GM (MIRALAX) PACK PO PRN (18:00)
[2022-07-04] MEDS ORDERED: CALCIUM CARBONATE 500 MG (TUMS) TAB.CHEW PO PRN (18:00)
[2022-07-04] MEDS ORDERED: diphenhydrAMINE 25 MG TAB (BENADRYL) PO PRN (18:00)
[2022-07-04] MEDS ORDERED: ANTACID SUSP 30 ML UDC (MYLANTA) PO PRN (18:00)
[2022-07-04] MEDS ORDERED: LACTULOSE SYRUP 10GM/15ML (ENULOSE) 30ML UDC PO PRN (18:00)
[2022-07-04] MEDS ORDERED: HYDROmorphone 2 MG/ML VIAL (DILAUDID) IV PRN (18:00)
[2022-07-04] MEDS: FUROSEMIDE 40 MG/4 ML INJ (LASIX) IVP SCH (18:16)
[2022-07-04] MEDS ORDERED: FLU QUAD HIGH DOSE 240 MCG/0.7 ML 2022-23 (FLUZONE) IM ONE (18:45)
[2022-07-04 19:46] VITALS: BP 141/81
[2022-07-04] MEDS: SACUBITRIL/VALSARTAN 24/26 MG (ENTRESTO) TABLET PO SCH (20:19)
[2022-07-04] MEDS: DOCUSATE SODIUM 100 MG (COLACE) CAP PO SCH (20:20)
[2022-07-04] MEDS: APIXABAN 5 MG (ELIQUIS) TABLET PO SCH (20:20)
[2022-07-04] MEDS: SENNOSIDES 8.6 MG (SENOKOT) TAB PO SCH (20:21)
[2022-07-04] MEDS: RT-ALBUTEROL SULF 2.5 MG/3 ML PRE-MIX VIAL INH SCH (22:14)
[2022-07-05 00:15] VITALS: BP 149/99
[2022-07-05] MEDS: RT-ALBUTEROL SULF 2.5 MG/3 ML PRE-MIX VIAL INH SCH ×6 (02:12→22:40)
[2022-07-05 04:30] VITALS: BP 126/82
[2022-07-05 06:00] LABS: BASOPHILS % (AUTO) 1 % (0-10); EOSINOPHILS # (AUTO) 0.1 10^3/uL (0.0-0.3); EOSINOPHILS % (AUTO) 2 % (0-10); HEMATOCRIT 39 % (40-54); HEMOGLOBIN 11.8 g/dL (13.3-17.7); LYMPHOCYTES # (AUTO) 0.9 10^3/uL (1.0-4.0); LYMPHOCYTES % (AUTO) 14 % (12-44); MEAN CORPUSCULAR HEMOGLOBIN 24 pg (25-34); MEAN CORPUSCULAR HGB CONC 30 g/dL (32-36); MEAN CORPUSCULAR VOLUME 81 fL (80-99); MONOCYTES # (AUTO) 0.4 10^3/uL (0.0-1.0); MONOCYTES % (AUTO) 6 % (0-12); NEUTROPHILS # (AUTO) 4.7 10^3/uL (1.8-7.8); NEUTROPHILS % (AUTO) 77 % (42-75); PLATELET COUNT 185 10^3/uL (130-400); WHITE BLOOD COUNT 6.1 10^3/uL (4.3-11.0)
[2022-07-05 06:04] LABS: ALBUMIN 2.8 GM/DL (3.2-4.5); POTASSIUM 3.3 MMOL/L (3.6-5.0)
[2022-07-05 06:05] LABS: CALCIUM 8.4 MG/DL (8.5-10.1)
[2022-07-05 06:07] LABS: TOTAL PROTEIN 6.1 GM/DL (6.4-8.2)
[2022-07-05 06:08] LABS: BILIRUBIN,TOTAL 0.9 MG/DL (0.1-1.0)
[2022-07-05 06:10] LABS: CREATININE SERUM 1.05 MG/DL (0.60-1.30)
[2022-07-05 06:13] LABS: MAGNESIUM 1.8 MG/DL (1.6-2.4)
[2022-07-05] MEDS: FUROSEMIDE 40 MG/4 ML INJ (LASIX) IVP SCH ×2 (06:30→17:09)
[2022-07-05 08:00] VITALS: BP 131/103
--- NOTE | 2022-07-05 08:35 | Cardiology Progress Note ---
Subjective Date Seen by Provider: Jul 05, 2022 Time Seen by Provider: 08:33 Subjective/Events-last exam Patient was seen at bedside, laying down comfortably, feeling better. Breathing better. Review of Systems General: No Chills, No Night Sweats; Fatigue; No Malaise, No Appetite, No Other HEENT: No Head Aches, No Visual Changes, No Eye Pain, No Ear Pain, No Dysphas ia, No Sinus Congestion, No Post Nasal Drip, No Sore Throat, No Other Pulmonary: Dyspnea; No Cough, No Pleuritic Chest Pain, No Other Cardiovascular: Edema; No: Chest Pain, Palpitations, Orthopnea, Paroxysmal Noc. Dyspnea, Lt Headedness, Other Objective-Cardiology Exam Last Set of Vital Signs Vital Signs 07/05/22 07/05/22 07:11 08:00 Temp 36.5 Pulse 85 Resp 18 B/P (MAP) 131/103 (112) Pulse Ox 94 O2 Delivery Nasal Cannula O2 Flow Rate 4.00 FiO2 97 I&O Intake and Output 07/05/22 00:00 Intake Total 200 ml Output Total 575 ml Balance -375 ml Intake Oral 200 ml Output Urine Total 575 ml # Bowel Movements 1 Daily Weight Change No General: Alert, Oriented X3, Cooperative HEENT: Atraumatic, PERRLA Neck: Supple, No JVD, No Thyromegaly Lungs: Normal Air Movement, Other (Bilateral rhonchi) Heart: Regular Rate, Normal S1, Normal S2, No Murmurs Abdomen: Normal Bowel Sounds, Soft, No Tenderness, No Hepatosplenomegaly, No Masses Extremities: No Clubbing, No Cyanosis, Normal Pulses, No Tenderness/Swelling, Other (Peripheral edema) Skin: No Rashes, No Breakdown, No Significant Lesion Neuro: Normal Gait, Normal Speech, Strength at 5/5 X4 Ext, Normal Tone, Sensation Intact Psych/Mental Status: Mental Status NL, Mood NL Results Lab Laboratory Tests 07/04/22 14:20 07/05/22 05:43 A/P-Cardiology Admission Diagnosis Congestive heart failure, dilated cardiomyopathy, acute on chronic left ventricular systolic dysfunction, nonischemic cardiomyopathy Coronary artery disease Hypertension Hyperlipidemia Diabetes mellitus Assessment/Plan Congestive heart failure, acute on chronic left ventricular systolic dysfunction, nonischemic cardiomyopathy Last echo was done on June 08, 2022 with ejection fraction 20 to 25% with severe diffuse left ventricular hypokinesia, moderate mitral regurgitation. Started on IV Lasix in addition to his metolazone and Aldactone and responding well to treatment Reporting significant improvement. Continue with aggressive diuresis. Coronary artery disease, history of myocardial infarction in 2003. Cardiac catheterization was carried out by Dr. Lozano on June 12, 2022 which showed patent stent in the proximal LAD, 50% stenosis within the stent with IFR 0.92, left circumflex artery is okay, right coronary artery is dominant with 60% dominant stenosis IFR 0.95. Conservative management is recommended Hypertension, restarted on Coreg and Entresto and monitor blood pressure Hyperlipidemia, restart Lipitor 80 mg and monitor lipids COPD, obstructive sleep apnea, noncompliant with the CPAP. Continue on oxygen treatment Diabetes mellitus, followed and managed by primary care physician Morbid obesity, BMI 39, discussed and educated on the importance of weight loss History of colon resection with diverticulitis History of HIV positive Noncompliance with LifeVest, patient does not want to wear the LifeVest. WING MARCELINO MD Jul 05, 2022 08:35
[2022-07-05] MEDS: EMPAGLIFLOZIN 10 MG TABLET (JARDIANCE) PO SCH (09:57)
[2022-07-05] MEDS: DOCUSATE SODIUM 100 MG (COLACE) CAP PO SCH ×2 (09:57→20:03)
[2022-07-05] MEDS: SACUBITRIL/VALSARTAN 24/26 MG (ENTRESTO) TABLET PO SCH ×2 (09:57→20:04)
[2022-07-05] MEDS: CLOPIDOGREL 75 MG (PLAVIX) TABLET PO SCH (09:57)
[2022-07-05] MEDS: METOLAZONE 2.5 MG (ZAROXOLYN) TAB PO SCH (09:57)
[2022-07-05] MEDS: APIXABAN 5 MG (ELIQUIS) TABLET PO SCH ×2 (09:57→20:03)
[2022-07-05] MEDS: SENNOSIDES 8.6 MG (SENOKOT) TAB PO SCH ×2 (09:58→20:03)
--- NOTE | 2022-07-05 11:02 | Physical Therapy Evaluation ---
PT Evaluation-General Medical Diagnosis Admission Date Jul 04, 2022 at 16:47 Medical Diagnosis: CHF exacrebation Onset Date: Jul 04, 2022 Therapy Diagnosis Therapy Diagnosis: debility/weakness Height/Weight Height (Feet): 5 Height (Inches): 4.00 Weight (Pounds): 174 Precautions Precautions/Isolations: Fall Prevention, Standard Precautions Referral Physician: Armida Reason for Referral: Strengthening Medical History Pertinent Medical History: CAD, DM, Heart Failure, HTN, [place] Current History ER secondary to SOA Reviewed History: Yes Social History Home: Multilevel Current Living Status: Spouse Entry Into Home: Stairs With Railing PT Steps Into Home: 3 PT Steps Inside Home: 8 Prior Prior Level of Function SCALE: Activities may be completed with or without assistive devices. 7-Rmkhqfcsok-pfhgjdl completes the activity by him/herself with no assistance from a helper. 5-Set-up or Clean-up Assistance-helper sets up or cleans up; patient completes activity. [place] assists only prior to or following the activity. 4-Supervision or Touching Assistance-helper provides verbal cues and/or touching/steadying and/or contact guard assistance as patient completes activity. Assistance may be provided throughout the activity or intermittently. 3-Partial/Moderate Assistance-helper does LESS THAN HALF the effort. [place] lifts, holds or supports trunk or limbs, but provides less than half the effort. 2-Substantial/Maximal Assistance-helper does MORE THAN HALF the effort. [place] lifts or holds trunk or limbs and provides more than half the effort. 9-Wwidpdpqq-cyfevx does ALL the effort. Patient does none of the effort to comp lete the activity. Or, the assistance of 2 or more helpers is required for the patient to complete the activity. If activity was not attempted, code reason: 7-Patient Refused. 9-Not Applicable-not attempted and the patient did not perform the activity before the current illness, exacerbation or injury. 10-Not Attempted due to Environmental Limitations-(lack of equipment, weather restraints, etc.). 88-Not Attempted due to Medical Conditions or Safety Concerns. Bed Mobility: 6 Transfers (B,C,W/C): 6 Gait: 6 Stairs: 6 Indoor Mobility (Ambulation): Independent Stairs: Independent Prior Devices Use: Walker PT Evaluation-Current Subjective Patient agrees to PT Objective Patient Orientation: Normal For Age Attachments: Oxygen (4L PLOF and current) ROM/Strength ROM Lower Extremities bilateral LE WFL Strength Lower Extremities 4/5 grossly bilateral LE all planes Integumentary/Posture Integumentary refer to nursing notes Bowel Incontinence: Yes Bladder Incontinence: Yes Posture WFL Neuromuscular (Tone, Coordination, Reflexes) grossly intact Sensory Vision: Wears Glasses Hearing: Functional Transfers Sit to Stand (QC): 4 Chair/Odj-gz-Uflhc Xfer(QC): 4 Gait Mode of Locomotion: Walk Anticipated Mode of Locomotion: Walk Walk 10 feet (QC): 4 Walk 50 ft with 2 Turns(QC): 4 Walk 150 ft (QC): 4 Distance: 200' Gait Assistive Device: FWW Comments/Gait Description SBA for safety with patient demonstrating functional gait sequence Balance Sitting Static: Normal Sitting Dynamic: Normal Standing Static: Normal Standing Dynamic: Normal Assessment/Needs Patient will be seen short term by skilled PT to address functional mobility to ensure safe return to home at maximum LOF. Patient reports he doesn't go upstairs in his home. Rehab Potential: Fair PT Vice Principal Goals Vice Principal Goals PT Vice Principal Goals Time Frame: Jul 14, 2022 Roll Left & Right (QC): 6 Sit to Lying (QC): 6 Lying-Sitting on Side/Bed(QC): 6 Sit to Stand (QC): 6 Chair/Les-zb-Lzusv Xfer(QC): 6 Toilet Transfer (QC): 6 Walk 10 feet (QC): 6 Walk 50ft with 2 Turns (QC): 6 Walk 150 ft (QC): 6 PT Plan Problem List Problem List: Activity Tolerance, Functional Strength, Balance, Gait, Transfer, Bed Mobility Treatment/Plan Treatment Plan: Continue Plan of Care Treatment Plan: Bed Mobility, Education, Functional Activity Shannon, Functional Strength, Gait, Safety, Therapeutic Exercise, Transfers Treatment Duration: Jul 14, 2022 Frequency: 6 times per week Estimated Hrs Per Day: .25 hour per day Patient and/or Family Agrees t: Yes Discharge Recommendations Therapy Discharge Recommendati: Home & Family Time Time In: 1012 Time Out: 1026 DATE: Jul 05, 2022 Total Billed Treatment Time: 14 Total Billed Treatment 1 visit EVMod 14 min DAMIEN AMEZCUA PT Jul 05, 2022 11:02
--- NOTE | 2022-07-05 11:19 | Occupational Therapy Eval ---
OT Evaluation-General/PLF Medical Diagnosis Admission Date Jul 04, 2022 at 16:47 Medical Diagnosis: CHF exacrebation Onset Date: Jul 04, 2022 Therapy Diagnosis Therapy Diagnosis: SOA with exertion, reduced adl status Height/Weight Height (Feet): 5 Height (Inches): 4.00 Weight (Pounds): 174 Precautions Precautions/Isolations: Fall Prevention, Standard Precautions Referral Physician: Armida Referral Reason: Evaluation/Treatment Medical History Pertinent Medical History: CAD, DM, Heart Failure, HTN, [place] Additional Medical History noncompliance with lifeVest and CPAP Current History Pt presented to ER with SOB and volume overload. Per patient, he lives with his in a multilevel home. All needs can be met on main level. Pt reports that his has been helping him with donnin g/doffing socks/pants over feet and helps with washing buttocks in the shower. He states that he doesn't do very well with rectal vic care after toileting but is too proud to ask for help. He reports that he recently purchased a 4WW but that it has not come in yet. Pt wears oxygen 28/01. Reviewed History: Yes Social History Home: Multilevel Current Living Status: Spouse Entry Into Home: Stairs With Railing Steps Into Home: 3 Steps Inside Home: 8 ADL-Prior Level of Function SCALE: Activities may be completed with or without assistive devices. 7-Njycbxlwew-kldyfog completes the activity by him/herself with no assistance from a helper. 5-Set-up or Clean-up Assistance-helper sets up or cleans up; patient completes activity. [place] assists only prior to or following the activity. 4-Supervision or Touching Assistance-helper provides verbal cues and/or touching/steadying and/or contact guard assistance as patient completes activity. Assistance may be provided throughout the activity or intermittently. 3-Partial/Moderate Assistance-helper does LESS THAN HALF the effort. [place] l ifts, holds or supports trunk or limbs, but provides less than half the effort. 2-Substantial/Maximal Assistance-helper does MORE THAN HALF the effort. [place] lifts or holds trunk or limbs and provides more than half the effort. 6-Fdzeehvue-excfjz does ALL the effort. Patient does none of the effort to complete the activity. Or, the assistance of 2 or more helpers is required for t he patient to complete the activity. If activity was not attempted, code reason: 7-Patient Refused. 9-Not Applicable-not attempted and the patient did not perform the activity before the current illness, exacerbation or injury. 10-Not Attempted due to Environmental Limitations-(lack of equipment, weather restraints, etc.). 88-Not Attempted due to Medical Conditions or Safety Concerns. Self Care: Needed Some Help Functional Cognition: Independent DME/Equipment: Bath Chair, Tub/Shower OT Current Status Subjective Pt denies pain, only SOA, agreeable to eval. Appearance Pt returned to sitting in recliner, all needs within reach. Mental Status/Objective Patient Orientation: Person, Place, Situation Attachments: IV, Oxygen, Telemetry Current Glasses/Contacts: Yes Upper Extremity ROM WFL Upper Extremity Strength R shoulder: 3/5 All other joints 4/5 ADL-Treatment Lower Body Dressing (QC): 2 On/Off Footwear (QC): 2 Toileting Hygiene (QC): 3 (per patient report) Pt reclined in chair at OT arrival. He was able to doff bilateral socks, however oxygen drops to 79% with exertion. Quick to recover with rest. Dependent to don socks. Pt could benefit from instruction on AE for LB dressing/bathing activities. He verbalizes that he does require assist with rectal vic care after toileting but is too proud to ask his for help. OT educated pt on different tools he could use to improve independence in task such as toilet tongs, wand, or squeeze bottle (similar to bidet). Pt was able to stand with SBA, steady on feet. Oxygen does drop slightly into the 80's but again recovers quickly. Education OT Patient Education: Correct positioning, Energy conservation, Modified ADL techniques, Progress toward Goal/Update tx plan, Purpose of tx/functional activities, Rehab process, Safety issues, Use of adapted equipment Teaching Recipient: Patient Teaching Methods: Discussion Response to Teaching: Verbalize Understanding, Reinforcement Needed OT Half-Way Goals Half-Way Goals Time Frame: Jul 19, 2022 Eating (QC): 6 Oral Hygiene (QC): 5 Toileting Hygiene (QC): 4 Shower/Bathe Self (QC): 4 Upper Body Dressing (QC): 4 Lower Body Dressing (QC): 4 On/Off Footwear (QC): 3 Additional Goals: 1-Demonstrate ADL Tasks, 2-Verbalize Understanding, 3- ImproveStrength/Shannon 1=Demonstrate adherence to instructed precautions during ADL tasks. 2=Patient will verbalize/demonstrate understanding of assistive devices/mod ifications for ADL. 3=Patient will improve strength/tolerance for activity to enable patient to perform ADL's. OT Education/Plan Problem List/Assessment Assessment: Decreased Activ Tolerance, Decreased UE Strength, Impaired I ADL's, Impaired Self-Care Skills Discharge Recommendations Plan/Recommendations: Continue POC Therapy Discharge Recommendati: Post Acute OT Treatment Plan/Plan of Care Treatment,Training & Education: Yes Patient would benefit from OT for education, treatment and training to promote independence in ADL's, mobility, safety and/or upper extremity function for ADL's. Plan of Care: ADL Retraining, Functional Mobility, Group Exercise/Act as Ind, UE Funct Exercise/Act Treatment Duration: Jul 19, 2022 Frequency: 3 times per week (3-5x/week ) Estimated Hrs Per Day: .25 hour per day Rehab Potential: Fair Time Start Time: 10:56 Stop Time: 11:11 DATE: Jul 05, 2022 Total Time Billed (hr/min): 15 Billed Treatment Time 1 visit Mindy Herndon OT Jul 05, 2022 11:19
[2022-07-05 11:39] VITALS: BP 119/72
[2022-07-05] MEDS ORDERED: ACET325T38 PO (13:22)
[2022-07-05] MEDS ORDERED: METO2.5T PO (13:22)
[2022-07-05] MEDS ORDERED: AMLO-250 PO (13:22)
[2022-07-05] MEDS ORDERED: CLOP75TA28 PO (13:22)
[2022-07-05] MEDS ORDERED: SPIR50TA4 PO (13:22)
[2022-07-05] MEDS ORDERED: OLME-11 PO (13:22)
--- NOTE | 2022-07-05 15:02 | Progress Note - Hospitalist ---
BRUCE LEAL 07/05/22 1502: Subjective HPI/CC On Admission Date Seen by Provider: Jul 05, 2022 Time Seen by Provider: 09:35 Chief complaint: Acute exacerbation of congestive heart failure HPI: This is a 67-year-old male patient of [facility] who has a past medical history of severe cardiomyopathy ejection fraction 20% who presented with shortness of breath and volume overload. Dr. Green evaluated him and placed on protocol meds in. Currently he is feeling much better after Lasix was given. He remains on oxygen 28/01. Subjective/Events-last exam pt was about to take a shower with nurse when visited today, he was seen sitting in his chair. He was pleasant and reported feeling better but still experiencing SOB with exertion. He is noncompliant with CPAP, and refusing to utilize Lifeve st. Agreed to staying another day to continue monitoring of his recovery.He denied n/v/d, chills, fever, pain, or dizziness. Review of Systems General: No Chills, No Night Sweats, No Fatigue, No Malaise, No Appetite HEENT: No Head Aches, No Visual Changes, No Eye Pain, No Ear Pain, No Dysphasia, No Sinus Congestion, No Post Nasal Drip, No Sore Throat Pulmonary: Dyspnea, Cough Cardiovascular: No: Chest Pain, Edema, Lt Headedness Gastrointestinal: No: Nausea, Vomiting, Abdominal Pain, Diarrhea Genitourinary: No Dysuria, No Frequency, No Incontinence, No Hematuria, No Retention, No Other Musculoskeletal: No: neck pain, shoulder pain, arm pain, back pain, hand pain, leg pain, foot pain Neurological: Weakness Objective Exam Vital Signs Vital Signs Date Time Temp Pulse Resp B/P (MAP) Pulse Ox O2 Delivery O2 Flow Rate FiO2 07/05/22 14:38 Nasal Cannula 4.00 94 07/05/22 13:00 76 07/05/22 11:39 36.7 18 119/72 (88) 95 Capillary Refill : General Appearance: No Apparent Distress, WD/WN Neck: Full Range of Motion, Normal Inspection, Non Tender, Supple Respiratory: Chest Non Tender, Normal Breath Sounds, No Accessory Muscle Use Cardiovascular: Regular Rate, Rhythm, No Edema, No Gallop, No JVD, No Murmur, Normal Peripheral Pulses Gastrointestinal: Normal Bowel Sounds, No Organomegaly, No Pulsatile Mass, Non Tender, Soft Back: Normal Inspection, No CVA Tenderness, No Vertebral Tenderness Extremity: Normal Capillary Refill, Normal Inspection, Normal Range of Motion, Non Tender Neurologic/Psychiatric: Alert, Oriented x3, No Motor/Sensory Deficits, Normal Mood/Affect Skin: Normal Color, Warm/Dry Lymphatic: No Adenopathy Results/Procedures Lab Laboratory Tests 07/05/22 05:43 Patient resulted labs reviewed. Assessment/Plan Assessment and Plan Assess & Plan/Chief Complaint Assessment: Acute volume overload Severe cardiomyopathy ejection fraction 20% Chronic respiratory failure maintained on oxygen Obesity Non-compliance LLOYD Hypokalemia HIV Plan: Diuresis Heart failure meds Potassium supplementation Weight loss education CBC CMP Supportive care TEJAL TAPIA DO 07/06/22 0454: Supervisory-Addendum Brief Verification & Attestation Participated in pt care: history, MDM, physical Personally performed: exam, history, MDM, supervision of care Care discussed with: Medical Student Procedures: n/a Results interpretation: Verified all documentation Verification and Attestation of Medical Student E/M Service A medical student performed and documented this service in my presence. I reviewed and verified all information documented by the medical student and made modifications to such information, when appropriate. I personally performed the physical exam and medical decision making. Tejal Tapia Jul 06, 2022,04:54 BRUCE LEAL Jul 05, 2022 15:02 TEJAL TAPIA DO Jul 06, 2022 04:54
[2022-07-05 16:14] VITALS: BP 131/81
[2022-07-05 19:37] VITALS: BP 132/75
[2022-07-06 02:30] VITALS: BP 137/93
[2022-07-06] MEDS: RT-ALBUTEROL SULF 2.5 MG/3 ML PRE-MIX VIAL INH SCH ×4 (03:04→14:28)
[2022-07-06 04:30] VITALS: BP 125/77
[2022-07-06] MEDS: FUROSEMIDE 40 MG/4 ML INJ (LASIX) IVP SCH (06:17)
[2022-07-06 07:34] VITALS: BP 125/77
[2022-07-06 08:31] LABS: BASOPHILS % (AUTO) 1 % (0-10); EOSINOPHILS # (AUTO) 0.1 10^3/uL (0.0-0.3); EOSINOPHILS % (AUTO) 2 % (0-10); HEMATOCRIT 39 % (40-54); HEMOGLOBIN 11.9 g/dL (13.3-17.7); LYMPHOCYTES # (AUTO) 1.3 10^3/uL (1.0-4.0); LYMPHOCYTES % (AUTO) 21 % (12-44); MEAN CORPUSCULAR HEMOGLOBIN 25 pg (25-34); MEAN CORPUSCULAR HGB CONC 31 g/dL (32-36); MEAN CORPUSCULAR VOLUME 81 fL (80-99); MEAN PLATELET VOLUME 11.2 fL (9.0-12.2); MONOCYTES # (AUTO) 0.5 10^3/uL (0.0-1.0); MONOCYTES % (AUTO) 8 % (0-12); NEUTROPHILS # (AUTO) 4.3 10^3/uL (1.8-7.8); NEUTROPHILS % (AUTO) 69 % (42-75); PLATELET COUNT 185 10^3/uL (130-400); WHITE BLOOD COUNT 6.3 10^3/uL (4.3-11.0)
[2022-07-06] MEDS: METOLAZONE 2.5 MG (ZAROXOLYN) TAB PO SCH (08:34)
[2022-07-06] MEDS: SENNOSIDES 8.6 MG (SENOKOT) TAB PO SCH (08:35)
[2022-07-06] MEDS: APIXABAN 5 MG (ELIQUIS) TABLET PO SCH (08:35)
[2022-07-06] MEDS: DOCUSATE SODIUM 100 MG (COLACE) CAP PO SCH (08:35)
[2022-07-06] MEDS: CLOPIDOGREL 75 MG (PLAVIX) TABLET PO SCH (08:35)
[2022-07-06] MEDS: EMPAGLIFLOZIN 10 MG TABLET (JARDIANCE) PO SCH (08:35)
[2022-07-06] MEDS: SACUBITRIL/VALSARTAN 24/26 MG (ENTRESTO) TABLET PO SCH (08:35)
[2022-07-06 08:52] LABS: ALBUMIN 2.8 GM/DL (3.2-4.5); POTASSIUM 3.1 MMOL/L (3.6-5.0)
[2022-07-06 08:54] LABS: CALCIUM 8.4 MG/DL (8.5-10.1)
[2022-07-06 08:55] LABS: TOTAL PROTEIN 6.1 GM/DL (6.4-8.2)
[2022-07-06 08:57] LABS: BILIRUBIN,TOTAL 1.1 MG/DL (0.1-1.0)
[2022-07-06 08:58] LABS: CREATININE SERUM 1.1 MG/DL (0.60-1.30)
[2022-07-06] MEDS ORDERED: KCL 20 MEQ TAB (K-DUR) PO ONE (09:30)
--- NOTE | 2022-07-06 10:22 | Physical Therapy Daily Note ---
PT Daily Note-Current Subjective Patient agrees to PT. Pain Section J - Health Conditions 1. Rarely or not at all 2. Occasionally 3. Frequently 4. Almost constantly 8. Unable to answer Pain Effect on Sleep: 1 Pain Interference with Therapy: 1 Pain Interference w/Day-to-Day: 1 Mental Status Patient Orientation: Normal For Age Attachments: Oxygen (4L NC) Transfers SCALE: Activities may be completed with or without assistive devices. 3-Khhnalvkdy-wmcdlrn completes the activity by him/herself with no assistance from a helper. 5-Set-up or Clean-up Assistance-helper sets up or cleans up; patient completes activity. [place] assists only prior to or following the activity. 4-Supervision or Touching Assistance-helper provides verbal cues and/or touching/steadying and/or contact guard assistance as patient completes activity. Assistance may be provided throughout the activity or intermittently. 3-Partial/Moderate Assistance-helper does LESS THAN HALF the effort. [place] lifts, holds or supports trunk or limbs, but provides less than half the effort. 2-Substantial/Maximal Assistance-helper does MORE THAN HALF the effort. [place] lifts or holds trunk or limbs and provides more than half the effort. 3-Rlepxspnw-cvdjls does ALL the effort. Patient does none of the effort to complete the activity. Or, the assistance of 2 or more helpers is required for the patient to complete the activity. If activity was not attempted, code reason: 7-Patient Refused. 9-Not Applicable-not attempted and the patient did not perform the activity before the current illness, exacerbation or injury. 10-Not Attempted due to Environmental Limitations-(lack of equipment, weather restraints, etc.). 88-Not Attempted due to Medical Conditions or Safety Concerns. Lying to Sitting/Side of Bed(Q: 6 Sit to Stand (QC): 5 Chair/Bha-tm-Kebmg Xfer(QC): 5 patient toileted self Gait Training Distance: 225' Walk 10 feet (QC): 5 Walk 50 ft with 2 Turns(QC): 5 Walk 150 ft (QC): 5 Gait Assistive Device: FWW slow, safe and functional Assessment Patient desires to return to home soon per his report. Patient requires time to complete all functional tasks due to mild SOA with activity. Patient tolerated treatment well and is up in recliner with needs met. PT Foam Tank Laminator Goals Intermediate Goals PT Foam Tank Laminator Goals Time Frame: Jul 14, 2022 Roll Left & Right (QC): 6 Sit to Lying (QC): 6 Lying-Sitting on Side/Bed(QC): 6 Sit to Stand (QC): 6 Chair/Hfh-ad-Nyaal Xfer(QC): 6 Toilet Transfer (QC): 6 Walk 10 feet (QC): 6 Walk 50ft with 2 Turns (QC): 6 Walk 150 ft (QC): 6 PT Plan Treatment/Plan Treatment Plan: Continue Plan of Care Treatment Plan: Bed Mobility, Education, Functional Activity Shannon, Functional Strength, Gait, Safety, Therapeutic Exercise, Transfers Treatment Duration: Jul 14, 2022 Frequency: 6 times per week Estimated Hrs Per Day: .25 hour per day Patient and/or Family Agrees t: Yes Time Time In: 730 Time Out: 753 DATE: Jul 06, 2022 Total Billed Treatment Time: 23 Total Billed Treatment 1 visit FA x 2 23 min DAMIEN AMEZCUA PT Jul 06, 2022 10:22
--- NOTE | 2022-07-06 11:27 | Cardiology Progress Note ---
Subjective Date Seen by Provider: Jul 06, 2022 Time Seen by Provider: 11:26 Subjective/Events-last exam Patient was seen at bedside, sitting comfortably, still having significant edema but reporting improvement, asking about going home. Review of Systems General: No Chills, No Night Sweats; Fatigue; No Malaise, No Appetite, No Other HEENT: No Head Aches, No Visual Changes, No Eye Pain, No Ear Pain, No Dysphasia, No Sinus Congestion, No Post Nasal Drip, No Sore Throat, No Other Pulmonary: No Dyspnea, No Cough, No Pleuritic Chest Pain, No Other Cardiovascular: Edema; No: Chest Pain, Palpitations, Orthopnea, Paroxysmal Noc. Dyspnea, Lt Headedness, Other Objective-Cardiology Exam Last Set of Vital Signs Vital Signs 07/06/22 07/06/22 06:37 07:34 Temp 36.2 Pulse 73 Resp 16 B/P (MAP) 125/77 (93) Pulse Ox 92 O2 Delivery NIV CPAP O2 Flow Rate 4.00 FiO2 92 I&O Intake and Output 07/06/22 00:00 Intake Total 1020 ml Output Total 3425 ml Balance -2405 ml Intake Oral 1020 ml Output Urine Total 3425 ml # Bowel Movements 3 General: Alert, Oriented X3, Cooperative HEENT: Atraumatic, PERRLA Neck: Supple, No JVD, No Thyromegaly Lungs: Normal Air Movement, Other (Bilateral rhonchi) Heart: Regular Rate, Normal S1, Normal S2, No Murmurs Abdomen: Normal Bowel Sounds, Soft, No Tenderness, No Hepatosplenomegaly, No Masses Extremities: No Clubbing, No Cyanosis, Normal Pulses, No Tenderness/Swelling, Other (Peripheral edema) Skin: No Rashes, No Breakdown, No Significant Lesion Neuro: Normal Gait, Normal Speech, Strength at 5/5 X4 Ext, Normal Tone, Sensation Intact Psych/Mental Status: Mental Status NL, Mood NL Results Lab Laboratory Tests 07/06/22 08:23 A/P-Cardiology Admission Diagnosis Congestive heart failure, dilated cardiomyopathy, acute on chronic left ve ntricular systolic dysfunction, nonischemic cardiomyopathy Coronary artery disease Hypertension Hyperlipidemia Diabetes mellitus Assessment/Plan Congestive heart failure, acute on chronic left ventricular systolic dysfunction, nonischemic cardiomyopathy Last echo was done on June 08, 2022 with ejection fraction 20 to 25% with severe diffuse left ventricular hypokinesia, moderate mitral regurgitation. Started on IV Lasix in addition to his metolazone and Aldactone and responding well to treatment Reporting significant improvement in his breathing, still having significant peripheral edema. Hypokalemia, given KCl 40 mEq. Coronary artery disease, history of myocardial infarction in 2003. Cardiac catheterization was carried out by Dr. Lozano on June 12, 2022 which showed patent stent in the proximal LAD, 50% stenosis within the stent with IFR 0.92, left circumflex artery is okay, right coronary artery is dominant with 60% dominant stenosis IFR 0.95. Conservative management is recommended Hypertension, restarted on Coreg and Entresto and monitor blood pressure Hyperlipidemia, restart Lipitor 80 mg and monitor lipids COPD, obstructive sleep apnea, noncompliant with the CPAP. Continue on oxygen treatment Diabetes mellitus, followed and managed by primary care physician Morbid obesity, BMI 39, discussed and educated on the importance of weight loss History of colon resection with diverticulitis History of HIV positive Noncompliance with LifeVest, patient does not want to wear the LifeVest. WING MARCELINO MD Jul 06, 2022 11:27
[2022-07-06] MEDS ORDERED: INSU100I14 SQ (11:28)
[2022-07-06] MEDS ORDERED: CLOP75TA28 PO (11:28)
[2022-07-06] MEDS ORDERED: OXC5T PO (11:28)
[2022-07-06] MEDS ORDERED: INSU200I4 SC (11:28)
[2022-07-06] MEDS ORDERED: APIX5TAB PO (11:28)
[2022-07-06] MEDS ORDERED: SACU1TAB2 PO (11:28)
[2022-07-06] MEDS ORDERED: ATOR80TA76 PO (11:28)
[2022-07-06] MEDS ORDERED: CARV12.53 PO (11:28)
--- NOTE | 2022-07-06 11:28 | Occupational Ther Daily Note ---
OT Current Status-Daily Note Subjective Pt denies pain, reports slight lightheadedness following shower. Appearance Pt left sitting in recliner, doctor entering room. Mental Status/Objective Patient Orientation: Person, Place, Situation Attachments: IV, Oxygen ADL-Treatment Therapy Code Descriptions/Definitions Functional [place] Measure: 0=Not Assessed/NA 4=Minimal Assistance 1=Total Assistance 5=Supervision or Setup 2=Maximal Assistance 6=Modified [place] 3=Moderate Assistance 7=Complete IndependenceSCALE: Activities may be completed with or without assistive devices. 9-Fwgvufeckg-ttuyqxn completes the activity by him/herself with no assistance from a helper. 5-Set-up or Clean-up Assistance-helper sets up or cleans up; patient completes activity. [place] assists only prior to or following the activity. 4-Supervision or Touching Assistance-helper provides verbal cues and/or touching/steadying and/or contact guard assistance as patient completes activity. Assistance may be provided throughout the activity or intermittently. 3-Partial/Moderate Assistance-helper does LESS THAN HALF the effort. [place] lifts, holds or supports trunk or limbs, but provides less than half the effort. 2-Substantial/Maximal Assistance-helper does MORE THAN HALF the effort. [place] lifts or holds trunk or limbs and provides more than half the effort. 6-Jtohtyhdy-miuoyc does ALL the effort. Patient does none of the effort to complete the activity. Or, the assistance of 2 or more helpers is required for the patient to complete the activity. If activity was not attempted, code reason: 7-Patient Refused. 9-Not Applicable-not attempted and the patient did not perform the activity before the current illness, exacerbation or injury. 10-Not Attempted due to Environmental Limitations-(lack of equipment, weather restraints, etc.). 88-Not Attempted due to Medical Conditions or Safety Concerns. Shower/Bathe Self (QC): 3 On/Off Footwear: 5 Toilet Transfer (QC): 6 Pt sitting in shower at OT arrival. He reports he already washed all body parts but needed assist with buttocks (which he receives help with at home). Pt dem onstrates difficulty reaching secondary to body habitus. Education provided on LHS to improve reach. Pt SOB post task and reports slight lightheadedness. Improves once sitting and resting. New gown donned per request of RN. OT introduced and instructed pt on use of sock aid, however due to significant swelling in feet, pt was unable to use at this time. He was able to don sandals post set up. Pt stood and ambulated independently with walker this session. Education OT Patient Education: Correct positioning, Energy conservation, Modified ADL techniques, Purpose of tx/functional activities, Use of adapted equipment Teaching Recipient: Patient Teaching Methods: Demonstration, Discussion Response to Teaching: Verbalize Understanding, Return Demonstration, Reinforcement Needed OT Detention Goals Detention Goals Time Frame: Jul 19, 2022 Eating (QC): 6 Oral Hygiene (QC): 5 Toileting Hygiene (QC): 4 Shower/Bathe Self (QC): 4 Upper Body Dressing (QC): 4 Lower Body Dressing (QC): 4 On/Off Footwear (QC): 3 Additional Goals: 1-Demonstrate ADL Tasks, 2-Verbalize Understanding, 3-Imp roveStrength/Shannon 1=Demonstrate adherence to instructed precautions during ADL tasks. 2=Patient will verbalize/demonstrate understanding of assistive devices/modifications for ADL. 3=Patient will improve strength/tolerance for activity to enable patient to perform ADL's. OT Education/Plan Problem List/Assessment Assessment: Decreased Activ Tolerance, Impaired I ADL's, Impaired Self-Care Skills Discharge Recommendations Plan/Recommendations: Continue POC Therapy Discharge Recommendati: Home & Family Treatment Plan/Plan of Care Treatment,Training & Education: Yes Patient would benefit from OT for education, treatment and training to promote independence in ADL's, mobility, safety and/or upper extremity function for ADL's. Plan of Care: ADL Retraining, Functional Mobility, Group Exercise/Act as Ind, UE Funct Exercise/Act Treatment Duration: Jul 19, 2022 Frequency: 3 times per week (3-5x/week ) Estimated Hrs Per Day: .25 hour per day Rehab Potential: Fair Time Start Time: 11:03 Stop Time: 11:19 DATE: Jul 06, 2022 Total Time Billed (hr/min): 16 Billed Treatment Time 1 visit ADL Mindy Sal OT Jul 06, 2022 11:28
--- NOTE | 2022-07-06 11:30 | D/C HH Face to Face Order ---
D/C HH Face to Face Orders Reconcile Patient Problems Problems Reviewed?: Yes Instructions for Patient HH Patient Instructions/FollowUp: PCP 1 week Physician to follow Patient: [facility] Discharge Diet for Home: Low Sodium Diet Patient Problems: Debility Patient Data-Allergies,Ht & Wt Patient Allergies: Coded Allergies: No Known Drug Allergies (Unverified , 06/23/20) Height (Feet): 5 Height (Inches): 4.00 Weight (Pounds): 174 Home Health Need/Face to Face Date of Face to Face: Jul 06, 2022 Clinical Findings: Generalized weakness and fatigue, Instability, Muscle w eakness I have seen Pt jlww-vh-[id number]: Yes Discharged To: Home Diagnosis/Conditions: Debility Patient is Homebound due to: Shortness of breath/distress Homebound Status Due to the above stated illness, injury or surgical procedure (medical condition or diagnosis) and associated clinical findings, the patient is homebound because of his/her inability to leave home except with aid of a supp ortive device and/or person AND leaving the home requires a considerable and taxing effort or is medically contraindicated. Pt req the following assistanc: Walker Home Health Nursing Orders Home Health Services Order: Nursing Services, E Commerce Manager-Evaluate & Treat, Physical Therapy-Evaluate & Treat Home Health Infusion Therapy Line Start Date: Jul 04, 2022 Certify Stmt I certify that this patient is under my care and that I, a nurse practitioner or a physician; a chemical laboratory assistant working with me, had a face to face encounter that - meets the physician face to face encounter requirements with this patient as dated. SAMPSON TAPIA DO Jul 06, 2022 11:30
--- NOTE | 2022-07-06 11:30 | Discharge Summary ---
Discharge Summary Hospital Course Problems/Dx: (1) CHF exacerbation Qualifiers: Qualified Codes: I50.9 - Heart failure, unspecified Hospital Course Date of Admission: Jul 04, 2022 at 16:47 Admission Diagnosis : Family Physician/Provider: Nancy French MD Date of Discharge: 07/06/22 Discharge Diagnosis: [ ] Hospital Course: Hospital Course: 07/04/22- Chris is a 67-year-old male patient of [facility] who has a past medical history of [place], [place], and severe cardiomyopathy ejection fraction 20% who presented with shortness of breath and volume overload. Dr. Green evaluated him and placed on protocol meds. when seen by IM doctor he was feeling much better after Lasix was given. He remains on oxygen 28/01 and will need it after leaving the hospital. 07/05/22- reported feeling better but still experiencing SOB with exertion. He is noncompliant with CPAP, and refusing to utilize Lifevest. Agreed to staying another day to continue monitoring of his recovery.He denied n/v/d, chills, fever, pain, or dizziness. 07/06/22- Pt said he was ready to go home to his and children, he still presented with sever pitting edema, and excertional dyspnea, said he would be better at complying with oxygen and heart medications. Agreed to being D/Cd and that he would go get his medications from the pharmacy same day. BRUCE LEAL Labs and Pending Lab Test: Laboratory Tests 07/06/22 08:23: White Blood Count 6.3, Red Blood Count 4.80, Hemoglobin 11.9L, Hematocrit 39L, Mean Corpuscular Volume 81, Mean Corpuscular Hemoglobin 25, Mean Corpuscular Hemoglobin Concent 31L, Red Cell Distribution Width 19.4H, Platelet Count 185, Mean Platelet Volume 11.2, Immature Granulocyte % (Auto) 0, Neutrophils (%) (Auto) 69, Lymphocytes (%) (Auto) 21, Monocytes (%) (Auto) 8, Eosinophils (%) (Auto) 2, Basophils (%) (Auto) 1, Neutrophils # (Auto) 4.3, Lymphocytes # (Auto) 1.3, Monocytes # (Auto) 0.5, Eosinophils # (Auto) 0.1, Basophils # (Auto) 0.0, Immature Granulocyte # (Auto) 0.0, Sodium Level 144, Potassium Level 3.1L, Chloride Level 100, Carbon Dioxide Level 32, Anion Gap 12, Blood Urea Nitrogen 22H, Creatinine 1.10, Estimat Glomerular Filtration Rate 74, BUN/Creatinine Ratio 20, Glucose Level 69L, Calcium Level 8.4L, Corrected Calcium 9.4, Total Bilirubin 1.1H, Aspartate Amino Transf (AST/SGOT) 30, Alanine Aminotransferase (ALT/SGPT) 35, Alkaline Phosphatase 101, Total Protein 6.1L, Albumin 2.8L Home Meds Active Oxyir Tablet (Oxycodone HCl) 5 Mg Tab 5 Mg PO Q4HR PRN Entresto 24 mg-26 mg Tablet (Sacubitril/Valsartan) 24 Mg-26 Mg Tablet 2 Tab PO BID Carvedilol 12.5 Mg Tablet 12.5 Mg PO BID Eliquis (Apixaban) 5 Mg Tablet 5 Mg PO BID Clopidogrel (Clopidogrel Bisulfate) 75 Mg Tablet 75 Mg PO DAILY Novolog Flexpen (Insulin Aspart) 100 Unit/Ml (3 Ml) Solution 10 Units SQ HS 7 Days Tresiba Flextouch U-200 (Insulin Degludec) 200 Unit/Ml (3 Ml) Insuln.pen 20 Units SC HS 7 Days Atorvastatin Calcium 80 Mg Tablet 80 Mg PO DAILY Reported Tylenol (Acetaminophen) 325 Mg Tablet 650 Mg PO Q6H PRN Olmesartan-Hctz 40-25 mg Tab (Olmesartan/Hydrochlorothiazide) 40 Mg-25 Mg Tablet 1 Tab PO DAILY Amlodipine Besylate 5 Mg Tablet 5 Mg PO DAILY Spironolactone 50 Mg Tablet 50 Mg PO DAILY Metolazone 2.5 Mg Tablet 2.5 Mg PO DAILY Ventolin Hfa (Albuterol Sulfate) 90 Mcg Hfa.aer.ad 2 Puff INH Q6H PRN Trulicity (Dulaglutide) 4.5 Mg/0.5 Ml Pen.injctr 4.5 Mg IJ MONTHLY Zinc (Zinc Amino Acid Chelate) 50 Mg Tablet 50 Mg PO DAILY Sertraline HCl 100 Mg Tablet 200 Mg PO DAILY TAKES 2 (100MG) TABS Multi-Vitamin Daily (Multivitamin) 1 Each Tablet 1 Each PO DAILY Biktarvy 50-200-25 mg Tablet (Bictegrav/Emtricit/Tenofov Ala) 1 Each Tablet 1 Tab PO DAILY Lasix (Furosemide) 40 Mg Tablet 40 Mg PO DAILY Assessment/Pt Instructions PCP in 1 week Discharge Planning: <30 minutes discharge planning Discharge Physical Examination Vital Signs Vital Signs Date Time Temp Pulse Resp B/P (MAP) Pulse Ox O2 Delivery O2 Flow Rate FiO2 07/06/22 07:34 36.2 73 16 125/77 (93) 92 07/06/22 06:37 NIV CPAP 4.00 92 General Appearance: No Apparent Distress, WD/WN, Chronically ill Allergies: Coded Allergies: No Known Drug Allergies (Unverified , 06/23/20) Discharge Summary Date of Admission Jul 04, 2022 at 16:47 Date of Discharge Discharge Date: Jul 06, 2022 Admission Diagnosis Assessment: Acute volume overload Severe cardiomyopathy ejection fraction 20% Chronic respiratory failure maintained on oxygen Plan: Diuresis Heart failure meds Discharge Diagnosis (1) CHF exacerbation Qualifiers: Qualified Codes: I50.9 - Heart failure, unspecified SAMPSON TAPIA DO Jul 06, 2022 11:30
[2022-07-06 12:00] VITALS: BP 113/76
--- NOTE | 2022-07-06 13:03 | Progress Note ---
BRUCE LEAL 07/06/22 1303: Progress Note Hospital Course: 07/04/22- Chris is a 67-year-old male patient of [facility] who has a past medical history of [place], DM, and severe cardiomyopathy ejection fraction 20% who presented with shortness of breath and volume overload. Dr. Green evaluated him and placed on protocol meds. when seen by IM doctor he was feeling much better after Lasix was given. He remains on oxygen 28/01 and will need it after leaving the hospital. 07/05/22- reported feeling better but still experiencing SOB with exertion. He is noncompliant with CPAP, and refusing to utilize Lifevest. Agreed to staying another day to continue monitoring of his recovery.He denied n/v/d, chills, fever, pain, or dizziness. 07/06/22- Pt said he was ready to go home to his and children, he still presented with sever pitting edema, and excertional dyspnea, said he would be better at complying with oxygen and heart medications. Agreed to being D/Cd and that he would go get his medications from the pharmacy same day. TEJAL TAPIA DO 07/06/228: Supervisory-Addendum Brief Verification & Attestation Participated in pt care: history, MDM, physical Personally performed: exam, history, MDM, supervision of care Care discussed with: Medical Student Procedures: n/a Results interpretation: Verified all documentation Verification and Attestation of Medical Student E/M Service A medical student performed and documented this service in my presence. I reviewed and verified all information documented by the medical student and made modifications to such information, when appropriate. I personally performed the physical exam and medical decision making. Tejal Tapia, Jul 06, 2022,21:28 BRUCE LEAL Jul 06, 2022 13:03 TEJAL TAPIA DO Jul 06, 2022 21:28
[2022-07-06 17:16] VITALS: BP 113/76
== END 2022-07-06 11:26 | disposition home or self-care (01) ==
LOC: EDUNIT# 14:08 → ER 14:10 → CSD 16:47 → UNDOADMOB 16:47 → CSD 18:00 → UNDODISOB 07-06 11:26
PROVIDERS: ADMIT Internal Medicine; ATTEND Internal Medicine
DX: I11.0 Hypertensive heart disease with heart failure (principal); I50.9 Heart failure, unspecified; Z79.899 Other long term (current) drug therapy; E87.70 Fluid overload, unspecified; I42.9 Cardiomyopathy, unspecified; J96.01 Acute respiratory failure with hypoxia; Z99.81 Dependence on supplemental oxygen; E66.9 Obesity, unspecified; G47.33 Obstructive sleep apnea (adult) (pediatric); E87.6 Hypokalemia; B20 Human immunodeficiency virus [HIV] disease
CPT/HCPCS: 36415; 71045; 80048; 80053; 83735; 83880; 85025; 93005; 94640; 94760; 96374; 96376

== ENCOUNTER 2022-07-17 12:51 | Emergency (ER) | payer MEDICARE, OTHER, MEDICAID ==
[~2022-07-17] VITALS: Ht 162.5 cm; Wt 105.9 kg
[~2022-07-17 12:51] MED LIST changes: +ACET325T38 PO; +CARV12.53 PO; +METO2.5T PO; +OLME-11 PO; +OXC5T PO; +SACU1TAB2 PO; +SPIR50TA4 PO
[2022-07-17 13:25] LABS: BASOPHILS % (AUTO) 0 % (0-10); MEAN CORPUSCULAR VOLUME 82 fL (80-99)
[2022-07-17 13:27] LABS: EOSINOPHILS # (AUTO) 0.1 10^3/uL (0.0-0.3); EOSINOPHILS % (AUTO) 1 % (0-10); HEMATOCRIT 41 % (40-54); HEMOGLOBIN 12.3 g/dL (13.3-17.7); LYMPHOCYTES # (AUTO) 1.6 10^3/uL (1.0-4.0); LYMPHOCYTES % (AUTO) 19 % (12-44); MEAN CORPUSCULAR HEMOGLOBIN 25 pg (25-34); MEAN CORPUSCULAR HGB CONC 30 g/dL (32-36); MEAN PLATELET VOLUME 12.6 fL (9.0-12.2); MONOCYTES # (AUTO) 0.5 10^3/uL (0.0-1.0); MONOCYTES % (AUTO) 6 % (0-12); NEUTROPHILS % (AUTO) 73 % (42-75); PLATELET COUNT 192 10^3/uL (130-400); WHITE BLOOD COUNT 8.2 10^3/uL (4.3-11.0)
--- NOTE | 2022-07-17 13:39 | ED Respiratory ---
General Chief Complaint: Respiratory Problems Stated Complaint: SOB | SLURRING SPEECH Nursing Triage Note: PT AMB TO RM 4 WITH COMPLAINT OF SOA AND SLURRED SPEECH. PT STATES HE HAS CONFUSION WHEN HE WAKES UP IN THE MORNING. ALERT AND ORIENTED ON ARRIVAL TO ED. HAS BEEN ADMITTED RECENTLY FOR CHF. Source: patient, old records History of Present Illness Date Seen by Provider: Jul 17, 2022 Time Seen by Provider: 13:10 Initial Comments PT ARRIVES VIA POV FROM HOME PT WALKS IN ON HIS OWN WITH A WHEELED WALKER C/O SHORTNESS OF BREATH STATES THIS IS A CHRONIC PROBLEM AND IS NO DIFFERENT TODAY PT WEARS O2 AT 4L/NC CONTINUOUSLY. DENIES CHEST PAIN DENIES PAIN ANYWHERE NO COUGH NO FEVER/SWEATS/CHILLS NO NAUSEA/VOMITING/DIARRHEA OR ABDOMINAL PAIN. HE HAS BEEN EATING AND DRINKING NORMALLY HE IS VOIDING NORMALLY NO CHANGE IN CHRONIC LEG SWELLING--STATES IT IS ACTUALLY MUCH BETTER THAN NORMAL. PT WAS ADMITTED TWICE IN JUNE FOR CHF EXACERBATION. AND DID HAVE SEVERAL MEDICATION CHANGES, INCLUDING HIS INSULIN. CARDIAC CATH 06/12/22 --NO INTERVENTION PT NOTED TO HAVE EF 20-25%, AND LIFE VEST WAS ORDERED, BUT PT REFUSES TO WEAR IT. PT REPORTED AT TRIAGE THAT HE HAD SOME SLURRED SPEECH YESTERDAY, AND THAT HE HAS BEEN WAKING UP IN THE MORNINGS CONFUSED LATELY. NO HEADACHE NO VISION CHANGES NO PARESTHESIAS OR MOTOR DEFICITS. NO DIZZINESS HE HAS SLEEP APNEA, AND HAS BEEN PRESCRIBED A CPAP, BUT HE REFUSES TO WEAR IT HE HAS INHALERS AT HOME, BUT HAS NOT BEEN USING THEM PCP: DR. RADHA LAWTON AT [facility] Allergies and Home Medications Allergies Coded Allergies: No Known Drug Allergies (Unverified , 06/23/20) Patient Home Medication List Acetaminophen (Tylenol) 325 Mg Tablet, 650 MG PO Q6H PRN for PAIN-MILD (1-4), (Reported) Entered as Reported by: LURDES ZHONG on 07/05/22 1322 Albuterol Sulfate (Ventolin Hfa) 90 Mcg Hfa.aer.ad, 2 PUFF INH Q6H PRN for SHORTNESS OF BREATH, (Reported) Entered as Reported by: EB PERAZA on 06/08/22 1532 Apixaban (Eliquis) 5 Mg Tablet, 5 MG PO BID Prescribed by: SAMPSON TAPIA on 07/06/22 1128 Atorvastatin Calcium (Atorvastatin Calcium) 80 Mg Tablet, 80 MG PO DAILY Prescribed by: SAMPSON TAPIA on 07/06/22 112 Carvedilol (Carvedilol) 12.5 Mg Tablet, 12.5 MG PO BID Prescribed by: SAMPSON TAPIA on 07/06/22 112 Clopidogrel Bisulfate (Clopidogrel) 75 Mg Tablet, 75 MG PO DAILY Prescribed by: SAMPSON TAPIA on 07/06/22 112 Dulaglutide (Trulicity) 4.5 Mg/0.5 Ml Pen.injctr, 4.5 MG IJ MONTHLY, (Reported) Entered as Reported by: EB PERAZA on 06/08/22 1532 Furosemide (Lasix) 40 Mg Tablet, 40 MG PO DAILY, (Reported) Entered as Reported by: ROBERT BENITEZ on 06/18/17 1147 Insulin Aspart (Novolog Flexpen) 100 Unit/Ml (3 Ml) Solution, 10 UNITS SQ HS Prescribed by: SAMPSON TAPIA on 07/06/22 112 Insulin Degludec (Tresiba Flextouch U-200) 200 Unit/Ml (3 Ml) Insuln.pen, 20 UNITS SC HS Prescribed by: SAMPSON TAPIA on 07/06/22 112 Metolazone (Metolazone) 2.5 Mg Tablet, 2.5 MG PO DAILY, (Reported) Entered as Reported by: LURDES ZHONG on 07/05/22 1322 Multivitamin (Multi-Vitamin Daily) 1 Each Tablet, 1 EACH PO DAILY, (Reported) Entered as Reported by: MARK RUIZ on 06/23/20 1735 Oxycodone Hcl (Oxyir Tablet) 5 Mg Tab, 5 MG PO Q4HR PRN for PAIN-SEE DOSE INSTRUCTIONS Prescribed by: SAMPSON TAPIA on 07/06/22 112 Sacubitril/Valsartan (Entresto 24 mg-26 mg Tablet) 24 Mg-26 Mg Tablet, 2 TAB PO BID Prescribed by: SAMPSON TAPIA on 07/06/22 112 Sertraline HCl (Sertraline HCl) 100 Mg Tablet, 200 MG PO DAILY, (Reported) Entered as Reported by: MARK RUIZ on 06/23/20 1742 Zinc Amino Acid Chelate (Zinc) 50 Mg Tablet, 50 MG PO DAILY, (Reported) Entered as Reported by: LURDES ZHONG on 07/11/20 7357 Review of Systems Review of Systems Constitutional: no symptoms reported EENTM: no symptoms reported Respiratory: see HPI Cardiovascular: see HPI Gastrointestinal: no symptoms reported Genitourinary: no symptoms reported Musculoskeletal: see HPI Skin: no symptoms reported Psychiatric/Neurological: See HPI; Denies Headache Past Pdaxnwj-Johqfs-Wmpqsw Hx Patient Social History Tobacco Use?: No Use of E-Cig and/or Vaping dev: No Substance use?: No Alcohol Use?: No Pt feels they are or have been: No Immunizations Up To Date Tetanus Booster (TDap): Unknown PED Vaccines UTD: Yes First/Initial COVID19 Vaccinat: YES Second COVID19 Vaccination Prashanth: YES Third COVID19 Vaccination Date: YES Seasonal Allergies Seasonal Allergies: No Past Medical History Surgery/Hospitalization HX: PMH: CHF, COPD, L KIDNEY BLOOD CLOT, DM-ID, HIV, SX: DIVERTICULITIS-COLOSTOMY AND REVERSAL, HERNIA REPAIR, Surgeries: Yes (COLON RESECTION, HERNIA X3, APPY) Appendectomy Respiratory: Yes Sleep Apnea, COPD Currently Using CPAP: No (PT REFUSES TO WEAR) Cardiac: Yes (CHF, STENTS, mi in 2003;EF 20-25%. REFUSES TO WEAR LIFE VESTION) Atrial Fibrillation, Cardiomyopathy, Chronic Edema/Swelling, Heart Attack, High Cholesterol, Hypertension Neurological: Yes (ÁLVAREZ'S PALSY) HIV/AIDS: Yes Genitourinary: No Gastrointestinal: Yes Diverticulosis Musculoskeletal: No Endocrine: Yes (OBESITY) Diabetes, Insulin dep HEENT: No Cancer: No Psychosocial: No Integumentary: No Blood Disorders: Yes (HIV +) Family Medical History No Pertinent Family Hx SOCIAL HISTORY: -SMOKING -ALCOHOL -DRUGS PAST SURGICAL HISTORY: -APPENDECTOMY -COLON RESECTION WITH COLOSTOMY FOR DIVERTICULITIS, WITH LATER REVERSAL. COMPLICATED BY INFECTIONS, FISTULA -HERNIA REPAIR X 3 -CARDIAC CATH--NO INTERVENTION. ECHOCARDIOGRAM 06/08/22--EF 20-25%. LIFE VEST ORDERED. PT REFUSES TO WEAR. CARDIAC CATH 06/12/[address] COPELAND: CONCLUSIONS - CAD: LMCA ok, LAD has widely patent in its proximal portion and there is approximately 50% stenosis proximal to the proximal edge of the stent and IFR across this is 0.92, indicating hemodynamically nonsignificance. The left circumflex artery is nondominant and does not exhibit significant disease. Right coronary artery is dominant and has 60% distal stenosis and IFR across this lesion is 0.95 indicating hemodynamically nonsignificance. - Left ventricular end-diastolic pressure is 15 mmHg. Physical Exam Vital Signs - First Documented 07/17/22 12:55 Pulse 76 Resp 23 B/P (MAP) 150/110 (123) Pulse Ox 96 O2 Delivery Nasal Cannula O2 Flow Rate 4.00 Capillary Refill : Less Than 3 Seconds Height: 5'4.00" Weight: 174lbs. oz. 78.250409wq; 40.00 BMI Method:Stated General Appearance: WD/WN, no apparent distress, obese HEENT: PERRL/EOMI, other (POOR DENTITION) Neck: normal inspection Respiratory: normal breath sounds, no respiratory distress, no accessory muscle use Cardiovascular: regular rate, rhythm, no murmur Gastrointestinal: normal bowel sounds, non tender, soft Extremities: normal capillary refill, pedal edema (3+ EDEMA BILATERALLY) Neurologic/Psychiatric: no motor/sensory deficits, alert, oriented x 3, other (FLAT AFFECT) Skin: normal color, warm/dry; No rash Focused Exam Lactate Level 07/17/22 13:13: Lactic Acid Level 1.70 Lactic Acid Level Laboratory Tests Test 07/17/22 13:13 Lactic Acid Level 1.70 MMOL/L (0.50-2.00) Progress/Results/Core Measures Suspected Sepsis SIRS Temperature: Pulse: 76 Respiratory Rate: 23 Laboratory Tests 07/17/22 13:13: White Blood Count 8.2 Blood Pressure 150 /110 Mean: 123 07/17/22 13:13: Lactic Acid Level 1.70 Laboratory Tests 07/17/22 13:13: Creatinine 1.20, INR Comment 1.1, Platelet Count 192, Total Bilirubin 0.9 Results/Orders Lab Results Laboratory Tests Test 07/17/22 13:13 07/17/22 13:14 07/17/22 13:34 07/17/22 15:15 Range/Units White Blood Count 8.2 4.3-11.0 10^3/uL Red Blood Count 5.03 4.30-5.52 10^6/uL Hemoglobin 12.3 L 13.3-17.7 g/dL Hematocrit 41 40-54 % Mean Corpuscular Volume 82 80-99 fL Mean Corpuscular Hemoglobin 25 25-34 pg Mean Corpuscular Hemoglobin Concent 30 L 32-36 g/dL Red Cell Distribution Width 19.0 H 10.0-14.5 % Platelet Count 192 130-400 10^3/uL Mean Platelet Volume 12.6 H 9.0-12.2 fL Immature Granulocyte % (Auto) 0 % Neutrophils (%) (Auto) 73 42-75 % Lymphocytes (%) (Auto) 19 12-44 % Monocytes (%) (Auto) 6 0-12 % Eosinophils (%) (Auto) 1 0-10 % Basophils (%) (Auto) 0 0-10 % Neutrophils # (Auto) 6.0 1.8-7.8 10^3/uL Lymphocytes # (Auto) 1.6 1.0-4.0 10^3/uL Monocytes # (Auto) 0.5 0.0-1.0 10^3/uL Eosinophils # (Auto) 0.1 0.0-0.3 10^3/uL Basophils # (Auto) 0.0 0.0-0.1 10^3/uL Immature Granulocyte # (Auto) 0.0 0.0-0.1 10^3/uL Percent Immature Platelet Fraction 8.6 H 0.0-7.6 % Erythrocyte Sedimentation Rate 14 0-30 MM/HR Prothrombin Time 15.0 H 12.2-14.7 SEC INR Comment 1.1 0.8-1.4 Activated Partial Thromboplast Time 32 24-35 SEC D-Dimer 3.20 H 0.00-0.49 UG/ML Sodium Level 145 135-145 MMOL/L Potassium Level 3.5 L 3.6-5.0 MMOL/L Chloride Level 103 98-107 MMOL/L Carbon Dioxide Level 34 H 21-32 MMOL/L Anion Gap 8 5-14 MMOL/L Blood Urea Nitrogen 21 H 7-18 MG/DL Creatinine 1.20 0.60-1.30 MG/DL Estimat Glomerular Filtration Rate 67 BUN/Creatinine Ratio 18 Glucose Level 90 70-105 MG/DL Lactic Acid Level 1.70 0.50-2.00 MMOL/L Calcium Level 9.1 8.5-10.1 MG/DL Corrected Calcium 9.7 8.5-10.1 MG/DL Magnesium Level 1.9 1.6-2.4 MG/DL Total Bilirubin 0.9 0.1-1.0 MG/DL Aspartate Amino Transf (AST/SGOT) 29 5-34 U/L Alanine Aminotransferase (ALT/SGPT) 27 0-55 U/L Alkaline Phosphatase 104 40-136 U/L Ammonia 18 11-32 UMOL/L Total Creatine Kinase 83 30-200 U/L Creatine Kinase MB 3.4 <6.6 NG/ML Myoglobin 134.0 H 10.0-92.0 NG/ML Troponin I 0.057 H <0.028 NG/ML C-Reactive Protein High Sensitivity 0.80 H 0.00-0.50 MG/DL B-Type Natriuretic Peptide 3588.5 H <100.0 PG/ML Total Protein 7.0 6.4-8.2 GM/DL Albumin 3.3 3.2-4.5 GM/DL TSH Bailey Testing 1.74 0.35-4.94 UIU/ML Glucometer 92 70-110 MG/DL Blood Gas Puncture Site LEFT RADIAL Blood Gas Patient Temperature 96.9 Arterial Blood pH 7.36 L 7.37-7.43 Arterial Blood Partial Pressure CO2 58 H 35-45 MMHG Arterial Blood Partial Pressure O2 218 H 79-93 MMHG Arterial Blood HCO3 32 H 23-27 MMOL/L Arterial Blood Total CO2 34.2 H 21.0-31.0 MMOL/L Arterial Blood Oxygen Saturation 100 94-100 % Arterial Blood Base Excess 6.8 H -2.5-2.5 MMOL/L Krish Test YES-POS Blood Gas Ventilator Setting NO Blood Gas Inspired Oxygen 3.5% Urine Color ORANGE Urine Clarity CLEAR Urine pH 7.0 5-9 Urine Specific [place] 1.020 1.016-1.022 Urine Protein 3+ H NEGATIVE Urine Glucose (UA) NEGATIVE NEGATIVE Urine Ketones NEGATIVE NEGATIVE Urine Nitrite NEGATIVE NEGATIVE Urine Bilirubin NEGATIVE NEGATIVE Urine Urobilinogen 4.0 < = 1.0 MG/DL Urine Leukocyte Esterase NEGATIVE NEGATIVE Urine RBC (Auto) TRACE-I H NEGATIVE Urine RBC 0-2 /HPF Urine WBC 2-5 /HPF Urine Squamous Epithelial Cells 0-2 /HPF Urine Crystals NONE /LPF Urine Bacteria TRACE /HPF Urine Casts PRESENT /LPF Urine Hyaline Casts 5-10 H /LPF Urine Mucus SMALL H /LPF Urine Culture Indicated CULTURE PENDING Urine Opiates Screen NEGATIVE NEGATIVE Urine Oxycodone Screen NEGATIVE NEGATIVE Urine Methadone Screen NEGATIVE NEGATIVE Urine Propoxyphene Screen NEGATIVE NEGATIVE Urine Barbiturates Screen NEGATIVE NEGATIVE Ur Tricyclic Antidepressants Screen NEGATIVE NEGATIVE Urine Phencyclidine Screen NEGATIVE NEGATIVE Urine Amphetamines Screen NEGATIVE NEGATIVE Urine Methamphetamines Screen NEGATIVE NEGATIVE Urine Benzodiazepines Screen NEGATIVE NEGATIVE Urine Cocaine Screen NEGATIVE NEGATIVE Urine Cannabinoids Screen NEGATIVE NEGATIVE My Orders Orders - FREDERICK SAAB DO Ed Iv/Invasive Line Start (07/17/22 13:13) Ekg Tracing (07/17/22 13:13) O2 (07/17/22 13:13) Monitor-Rhythm Ecg Trace Only (07/17/22 13:13) Ammonia (07/17/22 13:13) Arterial Blood Gas (07/17/22 13:13) Bnp Janet (07/17/22 13:13) Cbc With Automated Diff (07/17/22 13:13) Comprehensive Metabolic Panel (07/17/22 13:13) Creatine Kinase (07/17/22 13:13) Creatine Kinase Mb (07/17/22 13:13) Hs C Reactive Protein (07/17/22 13:13) Fibrin Degradation Products (07/17/22 13:13) Drug Screen Stat (Urine) (07/17/22 13:13) Lactic Acid Analyzer (07/17/22 13:13) Magnesium (07/17/22 13:13) Protime With Inr (07/17/22 13:13) Partial Thromboplastin Time (07/17/22 13:13) Thyroid Analyzer (07/17/22 13:13) Erythrocyte Sedimentation Rate (07/17/22 13:13) Myoglobin Serum (07/17/22 13:13) Troponin I Janet (07/17/22 13:13) Blood Culture (07/17/22 13:20) Sputum Culture (07/17/22 13:20) Urinalysis (07/17/22 13:20) Urine Culture (07/17/22 13:20) Chest 1 View, Ap/Pa Only (07/17/22 13:20) Ed Iv/Invasive Line Start (07/17/22 13:20) Vital Signs Adult Sepsis Patie Q15M (07/17/22 13:20) O2 (07/17/22 13:20) Remove Rings In Anticipation O (07/17/22 13:20) Ct Head Wo-R/O Stroke (07/17/22 13:29) Ct Angio Chest W (R/O Pe) (07/17/22 14:04) Arterial Blood Draw - Obtain (07/17/22 13:34) Iohexol Injection (Omnipaque 350 Mg/Ml 1 (07/17/22 14:15) Received Contrast (Hold Metformin- Contr (07/17/22 14:15) Ns (Ivpb) (Sodium Chloride 0.9% Ivpb Bag (07/17/22 14:15) Furosemide Injection (Lasix Injection) (07/17/22 15:30) Straight Cath For Spec.-Adult (07/17/22 15:29) Medications Given in ED Current Medications Medications Dose Ordered Sig/Agusto Route Start Time Stop Time Status Last Admin Dose Admin Furosemide 40 mg ONCE ONCE IVP 07/17/22 15:30 07/17/22 15:31 DC 07/17/22 15:49 40 MG Iohexol 100 ml ONCE ONCE IV 07/17/22 14:15 07/17/22 14:18 DC 07/17/22 14:19 83 ML Sodium Chloride 100 ml ONCE ONCE IV 07/17/22 14:15 07/17/22 14:18 DC 07/17/22 14:20 80 ML Vital Signs/I&O 07/17/22 07/17/22 07/17/22 12:55 13:00 13:13 Pulse 76 Resp 23 B/P (MAP) 150/110 (123) Pulse Ox 96 98 O2 Delivery Nasal Cannula Nasal Cannula Nasal Cannula O2 Flow Rate 4.00 4.00 4.00 Capillary Refill : Less Than 3 Seconds Blood Pressure Mean: 123 Point of Care Testing Finger Stick Blood Glucose: 92 Blood Glucose Action Taken: provider notifed Progress Note : Progress Note PPE WORN COVID AND FLU TESTING DONE LAB, CXR, AND CT HEAD ORDERED. O2 SATS IN THE UPPER 90'S ON 4L/NC NO HYPOXIA NO DYSPNEA NO HYPOTENSION NO TACHYCARDIA OR BRADYCARDIA NO FEVER NO SYMPTOMS OF ANY KIND DURING ER STAY TROPONIN 06/07/22 WAS 0.056, AND HE HAD A CARDIAC CATH THAT SHOWED NON- OBSTRUCTIVE DISEASE, AND HAS NOT HAD ANY INTERVENTIONS. LATER HE STATES THAT HE HAS BEEN USING HIS CPAP AND ALSO WEARS HIS REGULAR OXYGEN/NASAL CANULA UNDER IT HE STATES HE HAS HAD CPAP SINCE 2003., HAS NEVER HAD IT ADJUSTED OR HAD ANY RE- EVALUATIONS. ECG Initial ECG Impression Date: Jul 17, 2022 Initial ECG Impression Time: 13:36 Initial ECG Rate: 71 Initial ECG Rhythm: Normal Sinus Initial ECG Impression: Nonspecific Changes Initial ECG Comparisson: Unchanged Comment INTERPRETED BY ME Diagnostic Imaging Comments CXR--PER RADIOLOGIST REPORT AT 1433 FINDINGS: Lung volumes are low. There is cardiomegaly with central pulmonary vascular congestion. Likely small pleural effusions are seen. No pneumothorax. IMPRESSION: 1. Cardiomegaly with central pulmonary vascular congestion. 2. Low lung volumes. 3. Small bilateral pleural effusions. CT HEAD--PER RADIOLOGIST REPORT AT [address] is compared to 06/23/2020. There are mild diffuse atrophic changes. There are mild low-density changes in deep white matter compatible with chronic ischemic change. There is no acute territorial ischemia. There is no subdural or epidural collection. The ventricles are normal in size and position. Calvarial windows appear unremarkable. IMPRESSION: Mild atrophic changes and chronic ischemic change in the deep white matter. No acute hemorrhage or mass effect or acute intracranial finding. CT CHEST ANGIOGRAM--PER RADIOLOGIST REPORT AT 1513 COMPARISON: Chest radiograph performed earlier the same date. 07/07/2020. FINDINGS: This helical CT pulmonary angiogram is diagnostic to the subsegmental level branches of the pulmonary artery and demonstrates no pulmonary emboli. The heart size is prominent. There is no pericardial effusion. There is no axillary, mediastinal, or hilar adenopathy. Soft tissue nodule is seen in the right upper lobe measuring 2.5 cm. There is a moderate right and small left pleural effusion with bibasilar atelectasis present. No central endobronchial obstructing lesion. No pneumothorax. Osseous structures appear normal. Generalized anasarca is present. There is ascites in the upper abdomen. IMPRESSION: 1. No acute pulmonary embolus. 2. Moderate right and small left pleural effusions with bibasilar atelectasis. 3. Soft tissue nodule in the right upper lobe measuring 2.5 cm. This was not present on the prior exam from 2019. Findings are concerning for malignancy and close follow-up is recommended to ensure resolution. 4. Cardiomegaly. 5. Anasarca. 6. Ascites noted in the upper abdomen. Reviewed: Reviewed by Me Departure Impression Primary Impression: Chronic CHF Additional Impressions: O2 dependent HX OF NONCOMPLIANCE IDDM (insulin dependent diabetes mellitus) HIV positive Cardiomyopathy Disposition: 01 HOME, SELF-CARE Condition: Stable Departure-Patient Inst. Decision time for Depature: 15:56 Referrals: KARLA COPELAND MD FACP FAC CCDS RADHA LAWTON MD (PCP/Family) Primary Care Physician Patient Instructions: Heart Failure ED Add. Discharge Instructions: TAKE ALL YOUR MEDICATIONS PRESCRIBED WEAR HOUR CPAP EVERY NIGHT PRESCRIBED FOLLOW UP WITH BOTH YOUR PRIMARY CARE AND WITH DR. COPELAND THIS WEEK FOR FURTHER CARE--CALL TODAY OR FIRST THING IN THE MORNING TO SCHEDULE AN APPOINTMENT. RETURN TO ER IF SYMPTOMS WORSEN All discharge instructions reviewed with patient and/or family. Voiced understanding. FREDERICK SAAB DO Jul 17, 2022 13:39
[2022-07-17 13:41] LABS: ALBUMIN 3.3 GM/DL (3.2-4.5); BILIRUBIN,TOTAL 0.9 MG/DL (0.1-1.0); CALCIUM 9.1 MG/DL (8.5-10.1); CREATININE SERUM 1.2 MG/DL (0.60-1.30); MAGNESIUM 1.9 MG/DL (1.6-2.4); POTASSIUM 3.5 MMOL/L (3.6-5.0)
[2022-07-17 13:44] LABS: ABG BASE EXCESS 6.8 MMOL/L (-2.5-2.5); ABG OXYGEN SATURATION 100 % (94-100); ABG PCO2 58 MMHG (35-45); ABG PH 7.36 (7.37-7.43); ABG PO2 218 MMHG (79-93); ABG TCO2 34.2 MMOL/L (21.0-31.0)
[2022-07-17 13:46] LABS: ALLENS TEST YES-POS; PATIENT TEMP 96.9; VENTILATOR NO
[2022-07-17 13:50] LABS: FIBRIN DEGRADATION PRODUCTS 3.2 UG/ML (0.00-0.49); INR 1.1 (0.8-1.4)
--- NOTE | 2022-07-17 13:53 | Diagnostic Imaging Report ---
EXAMINATION: Chest 1 view HISTORY: Shortness of breath. Dyspnea. COMPARISON: 07/04/2022. FINDINGS: Lung volumes are low. There is cardiomegaly with central pulmonary vascular congestion. Likely small pleural effusions are seen. No pneumothorax. IMPRESSION: 1. Cardiomegaly with central pulmonary vascular congestion. 2. Low lung volumes. 3. Small bilateral pleural effusions. Dictated by: Dictated on workstation # [id number]
[2022-07-17 13:56] LABS: ERYTHROCYTE SEDIMENTATION RATE 14 MM/HR (0-30)
[2022-07-17 14:01] LABS: CREATINE KINASE MB 3.4 NG/ML (<6.6); TSH (THYROID ANALYZER) 1.74 UIU/ML (0.35-4.94)
--- NOTE | 2022-07-17 14:06 | Diagnostic Imaging Report ---
INDICATION: Slurred speech and confusion. TECHNIQUE: Multiple contiguous axial images were obtained through the brain without the use of intravenous contrast. Auto Exposure Controls were utilized during the CT exam to meet ALARA standards for radiation dose reduction. Noncontrast head CT is compared to 06/23/2020. There are mild diffuse atrophic changes. There are mild low-density changes in deep white matter compatible with chronic ischemic change. There is no acute territorial ischemia. There is no subdural or epidural collection. The ventricles are normal in size and position. Calvarial windows appear unremarkable. IMPRESSION: Mild atrophic changes and chronic ischemic change in the deep white matter. No acute hemorrhage or mass effect or acute intracranial finding. Dictated by: Dictated on workstation # [id number]
[2022-07-17] MEDS ORDERED: NS 100 ML (IVPB) BAG IV ONE (14:15)
[2022-07-17] MEDS ORDERED: IOHEXOL 350 MG/ML 100 ML (OMNIPAQUE 350) VIAL IV ONE (14:15)
[2022-07-17] MEDS ORDERED: HOLD METFORMIN - RECEIVED CONTRAST 20 ML VIAL IV SCH (14:15)
--- NOTE | 2022-07-17 14:43 | Diagnostic Imaging Report ---
TECHNIQUE: CTA chest was performed with contrast bolus timing optimized for evaluation of the pulmonary arteries. 3D reformats were obtained and reviewed. Dose-reduction techniques were utilized. REASON FOR EXAM: Elevated D-dimer. Shortness of breath. COMPARISON: Chest radiograph performed earlier the same date. 07/07/2020. FINDINGS: This helical CT pulmonary angiogram is diagnostic to the subsegmental level branches of the pulmonary artery and demonstrates no pulmonary emboli. The heart size is prominent. There is no pericardial effusion. There is no axillary, mediastinal, or hilar adenopathy. Soft tissue nodule is seen in the right upper lobe measuring 2.5 cm. There is a moderate right and small left pleural effusion with bibasilar atelectasis present. No central endobronchial obstructing lesion. No pneumothorax. Osseous structures appear normal. Generalized anasarca is present. There is ascites in the upper abdomen. IMPRESSION: 1. No acute pulmonary embolus. 2. Moderate right and small left pleural effusions with bibasilar atelectasis. 3. Soft tissue nodule in the right upper lobe measuring 2.5 cm. This was not present on the prior exam from 2019. Findings are concerning for malignancy and close follow-up is recommended to ensure resolution. 4. Cardiomegaly. 5. Anasarca. 6. Ascites noted in the upper abdomen. Dictated by: Dictated on workstation # [id number]
[2022-07-17] MEDS ORDERED: FUROSEMIDE 40 MG/4 ML INJ (LASIX) IVP ONE (15:30)
[2022-07-17 15:32] LABS: BILIRUBIN,URINE NEGATIVE (NEGATIVE); CLARITY,URINE CLEAR; COLOR,URINE ORANGE; GLUCOSE, URINE (UA) NEGATIVE (NEGATIVE); KETONES,URINE NEGATIVE (NEGATIVE); LEUKOCYTE ESTERASE ,URINE NEGATIVE (NEGATIVE); NITRITE,URINE NEGATIVE (NEGATIVE); PROTEIN,URINE 3+ (NEGATIVE)
[2022-07-17 15:46] LABS: RBC,URINE 0-2 /HPF
[2022-07-17 15:47] LABS: BACTERIA,URINE TRACE /HPF; SQUAMOUS EPITHELIAL CELL,UR 0-2 /HPF
[2022-07-17 15:48] LABS: AMPHETAMINE SCREEN, URINE NEGATIVE (NEGATIVE); BARBITURATE SCREEN URINE NEGATIVE (NEGATIVE); BENZODIAZEPINES SCREEN URINE NEGATIVE (NEGATIVE); CANNABINOID SCREEN, URINE NEGATIVE (NEGATIVE); COCAINE SCREEN URINE NEGATIVE (NEGATIVE); METHADONE STAT NEGATIVE (NEGATIVE); OPIATE SCREEN URINE NEGATIVE (NEGATIVE); OXYCODONE STAT NEGATIVE (NEGATIVE); PROPOXYPHENE STAT NEGATIVE (NEGATIVE); TRICYCLIC ANTIDEPRESSANTS SCRE NEGATIVE (NEGATIVE)
[2022-07-17 16:06] VITALS: BP 149/93
== END 2022-07-17 16:10 | disposition home or self-care (01) ==
LOC: EDUNIT# 12:51 → ER 12:53
DX: I11.0 Hypertensive heart disease with heart failure (principal); I50.9 Heart failure, unspecified; I43 Cardiomyopathy in diseases classified elsewhere; E11.9 Type 2 diabetes mellitus without complications; E66.9 Obesity, unspecified; Z21 Asymptomatic human immunodeficiency virus [HIV] infection status; Z68.41 Body mass index [BMI] 40.0-44.9, adult; Z98.61 Coronary angioplasty status; Z91.199 Patient's noncompliance with other medical treatment and regimen due to unspecified reason; Z79.4 Long term (current) use of insulin; Z99.81 Dependence on supplemental oxygen
CPT/HCPCS: 36415; 36600; 70450; 71045; 71275; 80053; 80306; 81000; 82140; 82550; 82553; 82805; 82947; 83605; 83735; 83874; 83880; 84443; 84484; 85025; 85379; 85610; 85652; 85730; 86141; 87040; 87088; 93005; 93041